=== PATIENT | male | born 1940 | race Caucasian/White ===

== ENCOUNTER 2017-02-12 18:37 | Inpatient (IN) ==
[2017-02-12] MEDS ORDERED: ALBUTEROL/IPRATROPIUM 2.5mg-0.5mg/3ml NEB AEROSOL ONE (19:01)
--- NOTE | 2017-02-12 19:06 | Emergency Department Report ---
General Adult HPI - General Chief complaint: Nausea/Vomiting/Diarrhea Stated complaint: coughing and vomiting Time Seen by Provider: 02/12/17 18:52 Source: patient, family Limitations: no limitations - History of Present Illness HPI narrative: Pt has had productive cough for the last 3 + weeks. Pt was here about a week ago and was diagnosed with bronchitis. Pt was sent home on inhaler and has used all of it. Pt states he is able to sleep at night and only coughs during the day. Denies fever, chills, WALLER, or SOA Onset (ago): week(s) Consistency: intermittent Relieving factors: none Exacerbating factors: none Associated symptoms: denies other symptoms - Related Data Home Medications Medication Instructions Recorded Confirmed Carvedilol [Coreg] 6.25 mg PO BID #0 09/07/10 02/12/17 Atorvastatin Calcium [Lipitor] 20 mg PO HS #0 05/18/14 02/12/17 Finasteride 5 mg PO DAILY #0 05/18/14 02/12/17 Tamsulosin HCl 0.4 mg PO HS #0 05/18/14 02/12/17 Citalopram Hydrobromide 20 mg PO DAILY #0 02/21/16 02/12/17 [Citalopram HBr] Losartan Potassium 50 mg PO DAILY #0 02/21/16 02/12/17 Omeprazole 20 mg PO DAILY #0 02/21/16 02/12/17 Guaifenesin/Dextromethorphan 1 tab PO Q12HR 01/13/17 02/12/17 [Mucinex Dm ER 1,200-60 mg Tab] Melatonin 1 mg PO HS 01/13/17 02/12/17 Mv-Min/FA/Vit K/Lycop/Lut/Zeax 1 tab PO DAILY 01/13/17 02/12/17 [Ocuvite Eye + Multi Tablet] Promethazine HCl/Codeine 5 ml PO Q4HR PRN 01/13/17 02/12/17 [Prometh-Codein 6.25-10 mg/5 ml] Warfarin [Coumadin] 3 mg PO NOON 01/13/17 02/12/17 Zolpidem [Ambien] 5 mg PO HS 01/13/17 02/12/17 Allergies Allergy/AdvReac Type Severity Reaction Status Date / Time Penicillins Allergy Unknown Verified 02/21/16 16:20 lisinopril AdvReac Unknown COUGH Verified 02/21/16 16:20 Review of Systems All systems: reviewed and negative except as stated Constitutional: Denies: fever, chills ENT: Denies: throat pain Cardiovascular: Denies: chest pain, palpitations Respiratory: Reports: cough Gastrointestinal: Denies: nausea, vomiting, diarrhea Psychiatric: Denies: anxiety, depression Endocrine: Denies: fatigue PFSH Patient Stated Medical History Cerebrovascular Accident Yes Cataracts Yes Macular Degeneration Yes Myocardial Infarction Yes Pneumonia Yes: feb 2016 Gastroesophageal Reflux Yes Disease Hx Kidney Stones Yes - Social History Smoking status: Never smoker Physical Exam - Limitations Limitations: no limitations - General General appearance: alert, in no apparent distress - Normal Exams: Eyes:: Pupils are PERRLA w/ EOMI Neck:: Full range of motion Cardiovascular:: Regular rate and rhythm, without murmur or gallop, Pulses 2+ all extremities Abdomen:: Bowel sounds positive, soft, non-tender, non-distended Musculoskeletal:: No tenderness, or deformity noted, good range of motion, all extremities Integumentary:: No rashes Neurological:: Patient is alert, and oriented Psychiatric:: Patient exhibits, appropriate attention, emotion and affect - Expanded Respiratory Exam Location: Left: rhonchi, Right: rhonchi, Lower: rhonchi Course - Consultations Consultation #1: Radha Time: 20:30 (admit inpatient tele floor) Vital Signs Temperature 97.6 F 02/12/17 18:43 Pulse Rate 104 H 02/12/17 18:43 Respiratory Rate 20 02/12/17 18:43 Blood Pressure 143/73 H 02/12/17 18:43 Pulse Oximetry 83 L 02/12/17 18:43 Temperature 97.6 F 02/12/17 18:43 Pulse Rate 104 H 02/12/17 18:43 Respiratory Rate 22 02/12/17 19:08 Blood Pressure 143/73 H 02/12/17 18:43 Pulse Oximetry 95 02/12/17 19:08 Medical Decision Making - [facility] Narrative Medical decision making narrative: PT C/O cough resulting in vomiting which has been ongoing for several weeks. Had been treated for bronchitits about a week and a half ago but symptoms remain. SOme relief with Duoneb treatment, SpO2 stable with supplemental O2. Lab show slightly elevated WBC and xray reveals bi lobar pneumonia per Dr Judge read. - Differential Diagnosis pneumonia, COPD, URI, PE - Lab Data Lab results reviewed: Yes: I reviewed the patient's lab results. Result diagrams: 02/12/17 19:17 02/12/17 19:17 Lab Results 02/12/17 02/12/17 02/12/17 Range/Units 19:17 19: 20:00 WBC 12.6 H (4.5-11.0) T/MM3 RBC 4.89 (4.50-5.90) M/MM3 Hgb 14.6 (13.5-17.5) GM/DL Hct 44.6 (41-53) % MCV 91.2 (80-100) UM3 MCH 29.9 (26-34) UUG MCHC 32.7 (31-37) GM/DL RDW Std Deviation 44.9 (36.9-50.2) FL Plt Count 145 (130-400) T/MM3 MPV 11.0 (9.4-12.4) UM3 Immature Gran % (Auto) 0.5 (0.0-0.5) % Neut % (Auto) 63.4 (33-66) % Lymph % (Auto) 24.7 (23-45) % [place] % (Auto) 7.8 (0-9.0) % Eos % (Auto) 3.1 (0-4) % Baso % (Auto) 0.5 (0-2) % Neut # 8.0 H (1.8-7.7) T/MM3 Lymph # 3.1 (1-4.8) T/MM3 [place] # 1.0 H (0-0.8) T/MM3 Eos # 0.4 (0-0.5) T/MM3 Baso # 0.1 (0-0.2) T/MM3 Abs Immat Gran (auto) 0.06 H (0.00-0.03) T/MM3 Turbidity < 20 (0-20) Sodium 139 (134-144) MEQ/L Potassium 4.8 (3.6-5) MEQ/L Chloride 98 (98-107) MEQ/L Carbon Dioxide 32 H (22-30) MEQ/L Anion Gap 9 (5-15) MEQ/L BUN 21.0 H (9-20) MG/DL Creatinine 1.2 (0.8-1.5) MG/DL GFR Calculation 59 BUN/Creatinine Ratio 18 (6-26) RATIO Glucose 121 H (75-110) MG/DL Calculated Osmolality 272 (261-280) MOSM/KG Calcium 9.5 (8.4-10.2) MG/DL Total Bilirubin 0.80 (0.20-1.30) MG/DL Icterus Index < 2 (0-7) AST 22 (17-59) U/L ALT 35 (21-72) U/L Alkaline Phosphatase 79 (38-126) U/L Total Protein 7.4 (6.3-8.2) G/DL Albumin 4.3 (3.5-5.0) G/DL Globulin 3.1 (2.4-3.6) G/DL Albumin/Globulin Ratio 1.4 (1.1-2.2) RATIO Specimen Hemolysis < 15 (0-25) Ur Collection Type Urine, clean catch Urine Color Yellow (YELLOW) Urine Clarity Clear Urine pH 5.5 (5.0-8.0) Ur Specific [place] 1.020 (1.015-1.025) Urine Protein Negative (NEGATIVE) Urine Glucose (UA) Negative (NEGATIVE) Urine Ketones Negative (NEGATIVE) Urine Occult Blood Trace-intact (NEGATIVE) Urine Nitrate Negative (NEGATIVE) Urine Bilirubin Negative (NEGATIVE) Urine Urobilinogen 0.2 (NORMAL) EU/DL Ur Leukocyte Esterase Negative (NEGATIVE) - Radiology Data Radiology results reviewed: Yes: I reviewed the patient's radiology results. per Dr Judge read Disposition Clinical Impression: Pneumonia Qualifiers: Pneumonia type: due to unspecified organism Laterality: bilateral Lung location : lower lobe of lung Qualified Code(s): J18.9 - Pneumonia, unspecified organism Disposition: 02 To [facility] Acute Care Condition: Stable Prescriptions: No Action Carvedilol [Coreg] 6.25 mg PO BID #0 Citalopram Hydrobromide [Citalopram HBr] 20 mg PO DAILY #0 Mv-Min/FA/Vit K/Lycop/Lut/Zeax [Ocuvite Eye + Multi Tablet] 1 tab PO DAILY Guaifenesin/Dextromethorphan [Mucinex Dm ER 1,200-60 mg Tab] 1 tab PO Q12HR Warfarin [Coumadin] 3 mg PO NOON Promethazine HCl/Codeine [Prometh-Codein 6.25-10 mg/5 ml] 5 ml PO Q4HR PRN PRN Reason: Cough Finasteride 5 mg PO DAILY #0 Atorvastatin Calcium [Lipitor] 20 mg PO HS #0 Tamsulosin HCl 0.4 mg PO HS #0 Losartan Potassium 50 mg PO DAILY #0 Omeprazole 20 mg PO DAILY #0 Melatonin 1 mg PO HS Zolpidem [Ambien] 5 mg PO HS Referrals: Sylvain Ramírez MD [Family Provider] - Time of Disposition: 20:43 - Seen By: lizzy
[2017-02-12] MEDS ORDERED: ONDANSETRON 4 MG/2 ML INJECTION IV ONE (19:56)
[2017-02-12] MEDS ORDERED: NS 1,000 ML IV SCH (20:00)
[2017-02-12] MEDS ORDERED: CEFTRIAXONE (ER USE ONLY) 1 GM in NS 100 ML IV ONE (20:46)
--- OUTSIDE RECORDS SUMMARY | 2017-02-12 20:46 | External Medical Summary | Referral Summary ---
:1940 Author Organization [facility] Address [address] [place] [address] Care Team Providers Name Role Phone Wil Jerry Primary Care Physician Encounter [facility] [id number] Date(s): 11/24/14 - 11/24/14 [facility] [address] [place] [address]- [place] Discharge Diagnosis: Automatic implantable cardiac defibrillator in situ Discharge Diagnosis: Coronary artery disease Discharge Diagnosis: Ischemic cardiomyopathy Discharge Disposition: 01-Home or Self Care Attending Physician: Kevin Madrid MD Admitting Physician: Kevin Madrid MD Vital Signs Most recent to oldest [Reference Range]: 1 Peripheral Pulse Rate [60-100 bpm] 68 bpm (11/24/14 2:58 PM) Blood Pressure [90-140/60-90 mmHg] 132/84 mmHg (11/24/14 2:58 PM) Problem List Condition Effective Dates Status Health Status Informant Age-related macular Active degeneration(Confirmed) 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 Right Active Prostate Lobe(Confirmed) Cataracts(Confirmed) Active CVA (cerebral infarction)(Confirmed) Active Stroke(Confirmed) Active Coronary arteriosclerosis Active (disorder)(Confirmed) Coronary artery disease(Confirmed) Active Cor athrscl - unsp vessel(Confirmed) Active S/P ICD(Confirmed) Active Left Anterior Descending Infarction - Active angioplasty(Confirmed) PT IS CIRCUMCISED(Confirmed) Active Dyslipidemia(Confirmed) Active Ischemic cardiomyopathy - ejection Active fraction of 28-45%(Confirmed) Ischemic cardiomyopathy(Confirmed) Active Heart failure(Confirmed) Active High cholesterol(Confirmed) Active Hypertension(Confirmed) Active Irregular heart rhythm(Confirmed) Active Irritable bowel syndrome Active (IBS)(Confirmed) Kidney disease(Confirmed) Active Kidney stones(Confirmed) Active Anxious depression(Confirmed) Active TIA (transient ischemic Active attack)(Confirmed) Chicken pox(Confirmed) Active Allergies, Adverse Reactions, Alerts Substance Reaction Severity Status lisinopril COUGH Active Medications Ambien 5 mg oral tablet 5 mg 1 tabs, Oral, Bedtime (once a day), as needed for sleep, 0 Refill(s) Start Date: 12/08/14 Status: OrderedBentyl 10 mg oral capsule 10 mg 1 caps, Oral, QID, # 56 caps, 1 Refill(s), Pharmacy: [id number], 1 caps Oral QID,x14 days Start Date: 02/17/15 Stop Date: 03/17/15 Status: OrderedCeleXA 20 mg oral tablet See Instructions, 1 tabs Oral Daily, # 30 tabs, 5 Refill(s), Pharmacy: [id number], 1 tabs Oral Daily Start Date: 02/28/15 Status: OrderedCoreg 6.25 mg oral tablet See Instructions, TAKE 1 TABLET TWICE DAILY, # 180 tabs, 3 Refill(s), eRx: [facility], TAKE 1 TABLET TWICE DAILY Start Date: 12/26/14 Status: OrderedCozaar 100 mg oral tablet See Instructions, TAKE 1 TABLET EVERY DAY, # 90 tabs, 3 Refill(s), eRx: [facility], TAKE 1 TABLET EVERY DAY Start Date: 09/12/14 Status: Orderedfinasteride 5 mg oral tablet See Instructions, TAKE 1 TABLET EVERY DAY, # 90 tabs, 1 Refill(s), eRx: [facility], TAKE 1 TABLET EVERY DAY Start Date: 03/13/15 Status: OrderedLipitor 20 mg oral tablet See Instructions, TAKE 1 TABLET EVERY EVENING, # 90 tabs, 3 Refill(s), eRx: [facility], TAKE 1 TABLET EVERY EVENING Start Date: 08/11/14 Status: OrderedOcuvite tabs, Oral, Daily, 0 Refill(s) Start Date: 02/17/15 Status: Orderedomeprazole 20 mg oral delayed release capsule See Instructions, TAKE 1 CAPSULE TWICE DAILY, # 180 caps, eRx: [facility], TAKE 1CAPSULE TWICE DAILY Start Date: 04/10/15 Status: Orderedtamsulosin 0.4 mg oral capsule See Instructions, TAKE 1 CAPSULE AT BEDTIME, # 90 caps, 3 Refill(s), eRx: [facility], TAKE 1 CAPSULE AT BEDTIME Start Date: 09/05/14 Status: Orderedwarfarin 2 mg oral tablet 2 mg 1 tabs, Oral, 3x/Wk, on mon, wed and fri/PT. IS LATE GETTING INR. NEEDS TO GET INR DONE., # 30 tabs, 0 Refill(s), Pharmacy: [facility], 1 tabs Oral 3x/Wk,Instr:on mon, wed and fri/PT. IS LATE GETTING INR. NEEDS TO GET INR DONE. Start Date: 04/13/15 Status: Orderedwarfarin 4 mg oral tablet 4 mg 1 tabs, Oral, 4x/Wk, Tues/Thurs/Sat/Sun. 04-13-2015 PT. IS LATE DOING INR AND NEEDS TO CALL DR. NAVA., # 30 tabs, 0 Refill(s), Pharmacy: [facility], 1 tabs Oral 4x/Wk,Instr:Tu/Thurs/Sat/Sun. 04-13-2015 PT. IS LATE DOING INR AND... Start Date: 04/13/15 Status: Ordered Results No data available for this section Immunizations No data available for this section Procedures Procedure Date Related Diagnosis Body Site Colonoscopy1 05/19/14 Esophagogastroduodenoscopy and biopsy2 05/19/14 Implantable Defibrillator 07/17/11 Pacemaker 07/17/11 Cataract right 03/12/11 Cataract Left 02/19/11 cysto, p- bx 09/10/10 Cardiac pacemaker H/O total knee replacement Hernia History of repair of inguinal hernia 1Diverticula. Will not need to repeat unless symptoms warrant.2Negative for CLOtest a N negative for [place]'s. The patient continues with abdominal pain we'll obtain a gallbladder sono. Social History Social History Type Response Smoking Status Never smoker Assessment and Plan Extracted from: Title: Office Visit Note Author: Kevin Madrid MD Date: 11/24/14 Assessment/Plan Automatic implantable cardiac defibrillator in situ Ordered: Icd Device Progr Eval Dual 81384 Office Visit Level 3 Est 28586 Return to Clinic Coronary artery disease Ischemic cardiomyopathy Ordered: Icd Device Progr Eval Dual 15557 Office Visit Level 3 Est 05132 Return to Clinic Referrals to Other Providers Referred by: Kevin Madrid MD
--- OUTSIDE RECORDS SUMMARY | 2017-02-12 20:46 | External Medical Summary | Referral Summary ---
:1940 Author Organization [facility] Address [address] [place] [address] Care Team Providers Name Role Phone Wil Jerry Primary Care Physician Encounter [facility] Date(s): 02/13/15 - 02/13/15 [facility] [address] [place] [address]- [place] Discharge Disposition: 01-Home or Self Care Attending Physician: Kevin Madrid MD Admitting Physician: Kevin Madrid MD Referring Physician: Wil Jerry MD Vital Signs No data available for this section Problem List Condition Effective Dates Status Health [...] sleep, 0 Refill(s) Start Date: 12/08/14 Status: OrderedCeleXA 20 mg oral tablet See Instructions, 1 tabs Oral Daily, # 30 tabs, 5 Refill(s), Pharmacy: [facility], 1 tabs Oral Daily Start Date: 08/25/15 Status: OrderedCoreg 6.25 mg oral tablet See Instructions, TAKE 1 TABLET TWICE DAILY, # 180 tabs, 3 Refill(s), eRx: [facility], TAKE 1 TABLET TWICE DAILY Start Date: 12/26/14 Status: Orderedfinasteride 5 mg oral tablet See Instructions, TAKE 1 TABLET EVERY DAY, # 90 tabs, 1 Refill(s), eRx: [facility], TAKE 1 TABLET EVERY DAY Start Date: 03/13/15 Status: OrderedLipitor 20 mg oral tablet 20 mg 1 tabs, Oral, Daily, # 90 tabs, 0 Refill(s), Pharmacy: [facility], 1 tabs Oral Daily Start Date: 08/23/15 Status: Orderedlosartan 50 mg oral tablet 50 mg 1 tabs, Oral, Daily, # 90 tabs, 1 Refill(s), Pharmacy: [facility], 1 tabs Oral Daily Start Date: 06/23/15 Status: OrderedOcuvite 1 tabs, Oral, Daily, 0 Refill(s) Start Date: 02/17/15 Status: Orderedomeprazole 20 mg oral delayed release capsule See Instructions, TAKE 1 CAPSULE TWICE DAILY, # 180 caps, eRx: [facility], TAKE 1CAPSULE TWICE DAILY Start Date: 07/13/15 Status: Orderedomeprazole 20 mg oral delayed release capsule See Instructions, TAKE 1 CAPSULE TWICE DAILY, # 180 caps, eRx: [facility], TAKE 1CAPSULE TWICE DAILY Start Date: 04/10/15 Status: Orderedtamsulosin 0.4 mg oral capsule See Instructions, TAKE 1 CAPSULE AT BEDTIME, # 90 caps, 3 Refill(s), eRx: [facility], TAKE 1 CAPSULE AT BEDTIME Start Date: 09/05/14 Status: Orderedwarfarin 2 mg oral tablet See Instructions, 1 tabs Oral 3x/Wk,Instr:on mon, wed and fri/PT. IS LATE GETTING INR. NEEDS TO GET INR DONE., # 30 tabs, 0 Refill(s), Pharmacy: [facility], 1 tabs Oral 3x/Wk,Instr:on mon, wed and fri/PT. IS LATE GETTING INR. NEEDS TO GET... Start Date: 08/22/15 Status: Orderedwarfarin 2 mg oral tablet 2 mg 1 tabs, Oral, 3x/Wk, on mon, wed and fri. OR DIRECTED BY DR. NAVA., # 90 Each, 0 Refill(s), Pharmacy: [facility], 1 tabs Oral 3x/Wk,Instr: on mon, wed and fri. OR DIRECTED BY OFFICE. Start Date: 06/05/15 Status: Orderedwarfarin 4 mg oral tablet See Instructions, 1 tabs Oral 4x/Wk,Instr:Tues/Thurs/Sat/Sun. 04-13-2015 PT. IS LATE DOING INR AND NEEDS TO CALL DR. NAVA., # 30 tabs, 0 Refill(s), Pharmacy: [facility], 1 tabs Oral 4x/Wk,Instr:Tues/Thurs/Sat/Sun. PT. IS LAT... Start Date: 08/22/15 Status: Orderedwarfarin 4 mg oral tablet 4 mg 1 tabs, Oral, 4x/Wk, Tues/Thurs/Sat/Sun. OR DIRECTED BY DR. NAVA., # 90 Each, 0 Refill(s),Pharmacy: [facility], 1 tabs Oral 4x/Wk,Instr: Tues/Thurs/Sat/Sun. OR DIRECTED BY DR. NAVA. Start Date: 06/05/15 Status: Ordered Results No data available for this section Immunizations Vaccine Date Refusal Reason influenza virus vaccine, inactivated 04/14/15 Procedures Procedure Date Related Diagnosis Body Site [...] Smoking Status Never smoker Assessment and Plan No data available for this section
--- OUTSIDE RECORDS SUMMARY | 2017-02-12 20:46 | External Medical Summary | Referral Summary ---
:1940 Author Organization [facility] Address [address] [place] [address] [place] [address] Care Team Providers Name Role Phone Wil Jerry Primary Care Physician Encounter [facility] Date(s): 06/23/15 - 06/23/15 [facility] [place] [address]- [place] Discharge Disposition: 01-Home or Self Care Attending Physician: Wil Jerry MD Admitting Physician: Wil Jerry MD Vital Signs Most recent to oldest [Reference Range]: 1 Temperature Tympanic [36.6-38.1 degC] 36.5 degC *LOW* (06/23/15 9:10 AM) Peripheral Pulse Rate [60-100 bpm] 90 bpm (06/23/15 9:10 AM) Respiratory Rate [14-20 br/min] 18 br/min (06/23/15 9:10 AM) Blood Pressure [90-140/60-90 mmHg] 110/80 mmHg (06/23/15 9:10 AM) SpO2 89 % (06/23/15 9:10 AM) Problem List Condition Effective Dates Status Health [...] Daily, # 30 tabs, 5 Refill(s), Pharmacy: [facility], 1 tabs Oral Daily Start Date: 02/28/15 Status: OrderedCoreg 6.25 mg oral tablet See Instructions, TAKE 1 TABLET TWICE DAILY, # 180 tabs, 3 Refill(s), eRx: [facility], TAKE 1 TABLET TWICE DAILY Start Date: 12/26/14 Status: OrderedCozaar 100 mg oral tablet See Instructions, TAKE 1 TABLET EVERY DAY, # 90 tabs, 3 Refill(s), eRx: [facility], TAKE 1 TABLET EVERY DAY Start Date: 09/12/14 Status: Orderedfinasteride 5 mg oral tablet See Instructions, TAKE 1 TABLET EVERY DAY, # 90 tabs, 1 Refill(s), eRx: [facility], TAKE 1 TABLET EVERY DAY Start Date: 03/13/15 Status: OrderedLipitor 20 mg oral tablet See Instructions, TAKE 1 TABLET EVERY EVENING, # 90 tabs, 3 Refill(s), eRx: [facility], TAKE 1 TABLET EVERY EVENING Start Date: 08/11/14 Status: Orderedlosartan 50 mg oral tablet 50 mg 1 tabs, Oral, Daily, # 90 tabs, 1 Refill(s), Pharmacy: [facility], 1 tabs Oral Daily Start Date: 06/23/15 Status: OrderedOcuvite 1 tabs, Oral, Daily, 0 Refill(s) Start Date: 02/17/15 Status: Orderedomeprazole 20 mg oral delayed release capsule See Instructions, TAKE 1 CAPSULE TWICE DAILY, # 180 caps, eRx: [facility], TAKE 1CAPSULE TWICE DAILY Start Date: 04/10/15 Status: Orderedtamsulosin 0.4 mg oral capsule See Instructions, TAKE 1 CAPSULE AT BEDTIME, # 90 caps, 3 Refill(s), eRx: [facility], TAKE 1 CAPSULE AT BEDTIME Start Date: 09/05/14 Status: Orderedwarfarin 2 mg oral tablet 2 mg 1 tabs, Oral, 3x/Wk, on mon, fri and fri. OR DIRECTED BY DR. NAVA., # 90 Each, 0 Refill(s), Pharmacy: [facility], 1 tabs Oral 3x/Wk,Instr: on fri, fri and fri. OR DIRECTED BY DR. NAVA. Start Date: 06/05/15 Status: Orderedwarfarin 4 mg oral tablet 4 mg 1 tabs, Oral, 4x/Wk, Tues/Thurs/Sat/Sun. OR DIRECTED BY DR. NAVA., # 90 Each, 0 Refill(s),Pharmacy: [facility], 1 tabs Oral 4x/Wk,Instr: Tues/Thurs/Sat/Sun. OR DIRECTED BY DR. NAVA. Start Date: 06/05/15 Status: Ordered Results Hematology Most recent to oldest [Reference Range]: 1 WBC [4.8-10.8 10*3/uL] 10.9 10*3/uL *HI* (06/23/15 10:30 AM) RBC [4.60-6.20] 4.93 (06/23/15 10:30 AM) Hgb [14.0-18.0 gm/dL] 14.6 gm/dL (06/23/15 10:30 AM) Hct [42.0-52.0 %] 43.9 % (06/23/15 10:30 AM) MCV [82.0-99.0 fL] 89.0 fL (06/23/15 10:30 AM) MCH [27.0-32.0 pg] 29.6 pg (06/23/15 10:30 AM) MCHC [32.0-36.0 gm/dL] 33.3 gm/dL (06/23/15 10:30 AM) RDW [11.5-14.5 %] 14.1 % (06/23/15 10:30 AM) Platelet [150-400 10*3/uL] 173 10*3/uL (06/23/15 10:30 AM) MPV [8.8-14.8 fL] 11.9 fL (06/23/15 10:30 AM) Immature Granulocytes [0.0-1.0 %] 0.6 % (06/23/15 10:30 AM) Neutrophils [51-75 %] 56 % (06/23/15 10:30 AM) Lymphocytes [20-46 %] 31 % (06/23/15 10:30 AM) Monocytes [4-11 %] 8 % (06/23/15 10:30 AM) Eosinophils [0-4 %] 4 % (06/23/15 10:30 AM) Basophils [0-2 %] 1 % (06/23/15 10:30 AM) Neutro Absolute [1.90-7.00 10*3] 6.14 10*3 (06/23/15 10:30 AM) Lymph Absolute [0.80-3.30 10*3] 3.33 10*3 *HI* (06/23/15 10:30 AM) [place] Absolute [0.30-1.00 10*3] 0.89 10*3 (06/23/15 10:30 AM) Eos Absolute [0.00-0.50 10*3] 0.39 10*3 (06/23/15 10:30 AM) Baso Absolute [0.00-0.20 10*3] 0.06 10*3 (06/23/15 10:30 AM) Chemistry Most recent to oldest [Reference Range]: 1 Sodium Lvl [135-144 mEq/L] 140 mEq/L (06/23/15 10:30 AM) Potassium Lvl [3.5-5.2 mEq/L] 4.2 mEq/L (06/23/15 10:30 AM) Chloride [99-111 mEq/L] 101 mEq/L (06/23/15 10:30 AM) CO2 [23-31 mEq/L] 30 mEq/L (06/23/15 10:30 AM) AGAP [3-20] 9 (06/23/15 10:30 AM) BUN [8-26 mg/dL] 18 mg/dL (06/23/15 10:30 AM) Glucose Lvl [70-99 mg/dL] 114 mg/dL *HI* (06/23/15 10:30 AM) Creatinine Lvl [0.72-1.25 mg/dL] 1.11 mg/dL (06/23/15 10:30 AM) eGFR [>60 mL/min] >60 mL/min 1 (06/23/15 10:30 AM) Calcium Lvl [8.9-10.5 mg/dL] 9.1 mg/dL (06/23/15 10:30 AM) 1Result Comment: Multiply eGFR results by 1.21 for race. Immunizations Vaccine Date Refusal Reason influenza virus [...]
--- OUTSIDE RECORDS SUMMARY | 2017-02-12 20:46 | External Medical Summary | Referral Summary ---
:1940 Author Organization [facility] Address [address] [place] [address] [place] [phone] Care Team Providers Name Role Phone Wil Jerry Primary Care Physician Encounter VC Date(s): 06/18/16 - 06/18/16 [facility] [address] [place] [phone] Discharge Disposition: 01-Home or Self Care Attending Physician: Wil Jerry MD Admitting Physician: Wil Jerry MD Vital Signs Most recent to oldest [Reference Range]: 1 Peripheral Pulse Rate [60-100 bpm] 80 bpm (06/18/16 2:40 PM) Blood Pressure [90-140/60-90 mmHg] 106/64 mmHg (06/18/16 2:40 PM) SpO2 95 % (06/18/16 2:40 PM) Problem List Condition Effective Dates Status Health Status Informant Acute bilateral low back pain without Active sciatica(Confirmed) Age-related macular Active degeneration(Confirmed) Anxious depression(Confirmed) Active 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) Coronary arteriosclerosis Active (disorder)(Confirmed) Coronary artery disease(Confirmed) [...] (IBS)(Confirmed) Kidney disease(Confirmed) Active Kidney stones(Confirmed) Active Hernia, hiatal(Confirmed) Active TIA (transient ischemic Active attack)(Confirmed) Diffuse idiopathic pulmonary Active fibrosis(Confirmed) Chicken pox(Confirmed) Active Allergies, Adverse Reactions, Alerts Substance Reaction Severity Status lisinopril COUGH Active Medications Ambien 5 mg oral tablet 5 mg 1 tabs, Oral, Bedtime (once a day), as needed for sleep, 0 Refill(s) Start Date: 12/08/14 Status: Orderedatorvastatin 20 mg oral tablet See Instructions, TAKE 1 TABLET EVERY DAY (NEED MD APPOINTMENT), # 90 tabs, eRx : [facility] Start Date: 06/05/16 Status: Orderedcitalopram 20 mg oral tablet See Instructions, TAKE 1 TABLET EVERY DAY (NEED MD APPOINTMENT), # 90 tabs, eRx : [facility] Start Date: 06/05/16 Status: OrderedCoreg 6.25 mg oral tablet See Instructions, TAKE 1 TABLET TWICE DAILY, # 180 tabs, 3 Refill(s), Pharmacy: [facility], TAKE 1 TABLET TWICE DAILY Start Date: 01/02/16 Status: Orderedfinasteride 5 mg oral tablet See Instructions, TAKE 1 TABLET EVERY DAY, # 90 tabs, 1 Refill(s), eRx: [facility] Start Date: 06/13/16 Status: Orderedlosartan 50 mg oral tablet 50 mg 1 tabs, Oral, Daily, keep Julius. appt for additional refills, # 30 tabs, 0 Refill(s), Pharmacy: [id number], 1 tabs Oral Daily,Instr:keep Julius. appt for additional refills Start Date: 06/17/16 Status: OrderedMelatonin Bedtime (once a day), 0 Refill(s) Start Date: 01/01/16 Status: OrderedMucinex DM tabs, Oral, q12hr, 0 Refill(s) Start Date: 01/01/16 Status: OrderedNorco 5 mg-325 mg oral tablet 1 tabs, Oral, TID, as needed for pain, # 90 tabs, 0 Refill(s) Start Date: 05/14/16 Status: OrderedOcuvite 1 tabs, Oral, Daily, 0 Refill(s) Start Date: 02/17/15 Status: Orderedomeprazole 20 mg oral delayed release capsule See Instructions, TAKE 1 CAPSULE TWICE DAILY, # 180 caps, eRx: [facility], TAKE 1CAPSULE TWICE DAILY Start Date: 04/15/16 Status: OrderedpredniSONE 10 mg oral tablet See Instructions, 2 tabs Oral Daily x7 days, then 1 tab oral daily indefinitely. , # 60 tabs, 1 Refill(s), Pharmacy: [id number], 2 tabs Oral Daily x7 days, then 1 tab oral daily indefinitely. Start Date: 04/16/16 Status: OrderedProAir RespiClick 90 mcg/inh inhalation powder 1 puffs, Inhalation, q4hr, as needed, # 1 Each, 0 Refill(s) Start Date: 04/01/16 Status: OrderedPromethazine with Codeine 6.25 mg-10 mg/5 mL oral syrup 5 mL, Oral, q4hr, as needed for cough, [facility], # 120 mL, 0 Refill(s) Start Date: 02/13/16 Status: Orderedtamsulosin 0.4 mg oral capsule See Instructions, TAKE 1 CAPSULE AT BEDTIME, # 90 caps, 3 Refill(s), eRx: [facility], TAKE 1 CAPSULE AT BEDTIME Start Date: 09/01/15 Status: OrderedtraMADol 50 mg oral tablet 50 mg 1 tabs, Oral, q4hr, Take 1-2 tabs every 4 hours and no more than 8 per day , # 60 tabs, 0 Refill(s) Start Date: 05/14/16 Status: Orderedwarfarin 2 mg oral tablet See Instructions, Take 1 tab on Sun/Tue/Thur/Sat alt. with 4mg tabs on other days, # 48 tabs, 3 Refill(s), Pharmacy: [facility], Take 1 tab on Sun/Tue/Thur/Sat alt. with 4mg tabs on other days Start Date: 01/02/16 Status: Orderedwarfarin 4 mg oral tablet See Instructions, Take 1 tab on Mon-Wed- Fri, alt. with 2mg tabs on other days, # 36 tabs, 3 Refill(s), Pharmacy: [facility], Take 1 tab on Fri-Fri- Fri, alt. with 2mg tabs on other days Start Date: 01/02/16 Status: Ordered Results Hematology Most recent to oldest [Reference Range]: 1 WBC [4.8-10.8 10*3/uL] 8.2 10*3/uL (06/18/16 3:21 PM) RBC [4.60-6.20] 4.42 *LOW* (06/18/16 3:21 PM) Hgb [14.0-18.0 gm/dL] 13.2 gm/dL *LOW* (06/18/16 3:21 PM) Hct [42.0-52.0 %] 41.5 % *LOW* (06/18/16 3:21 PM) MCV [82.0-99.0 fL] 93.9 fL (06/18/16 3:21 PM) MCH [27.0-32.0 pg] 29.9 pg (06/18/16 3:21 PM) MCHC [32.0-36.0 gm/dL] 31.8 gm/dL *LOW* (06/18/16 3:21 PM) RDW [11.5-14.5 %] 13.7 % (06/18/16 3:21 PM) Platelet [150-400 10*3/uL] 126 10*3/uL *LOW* (06/18/16 3:21 PM) MPV [8.8-14.8 fL] 11.6 fL (06/18/16 3:21 PM) Immature Granulocytes [0.0-1.0 %] 0.4 % (06/18/16 3:21 PM) Neutrophils [51-75 %] 55 % (06/18/16 3:21 PM) Lymphocytes [20-46 %] 25 % (06/18/16 3:21 PM) Monocytes [4-11 %] 14 % *HI* (06/18/16 3:21 PM) Eosinophils [0-4 %] 6 % *HI* (06/18/16 3:21 PM) Basophils [0-2 %] 1 % (06/18/16 3:21 PM) Neutro Absolute [1.90-7.00] 4.51 (06/18/16 3:21 PM) Lymph Absolute [0.80-3.30] 2.08 (06/18/16 3:21 PM) Rincon Absolute [0.30-1.00] 1.11 *HI* (06/18/16 3:21 PM) Eos Absolute [0.00-0.50] 0.45 (06/18/16 3:21 PM) Baso Absolute [0.00-0.20] 0.06 (06/18/16 3:21 PM) Immunizations Given and Recorded Vaccine Date Status Refusal Reason influenza virus vaccine, inactivated 04/01/16 Given influenza virus vaccine, inactivated 04/14/15 Given Procedures Procedure Date Related Diagnosis Body Site [...] Extracted from: Title: Office Visit Note Author: Wil Jerry MD Date: 06/18/16 Assessment/Plan Acute bronchitis Ordered: CBC w/ Differential Office Visit Level 3 Est 90331 XR Chest 2 Views
--- OUTSIDE RECORDS SUMMARY | 2017-02-12 20:47 | External Medical Summary | Referral Summary ---
:1940 Author [facility] Address [address] [place] [address] [place] [address] Care Team Providers Name Role Phone Wil Jerry Primary Care Physician Encounter VC Date(s): 04/14/15 - 04/14/15 [facility] [address] [place] [phone] [place] Discharge Disposition: 01-Home or Self Care Attending Physician: Rama Kuo PA-C Admitting Physician: Rama Kuo PA-C Vital Signs No data available for this [...] QID, # 56 caps, 1 Refill(s), Pharmacy: [id number], 1 caps Oral QID,x14 days Start Date: 02/17/15 Stop Date: 03/17/15 Status: OrderedCeleXA 20 mg oral tablet See Instructions, 1 tabs Oral Daily, # 30 tabs, 5 Refill(s), Pharmacy: [facility], 1 tabs Oral Daily Start Date: 02/28/15 Status: OrderedCoreg 6.25 mg oral tablet See Instructions, TAKE 1 TABLET TWICE DAILY, # 180 tabs, 3 Refill(s), eRx: [facility], TAKE 1 TABLET TWICE DAILY Start Date: 12/26/14 Status: OrderedCozaar 100 mg oral tablet See Instructions, TAKE 1 TABLET EVERY DAY, # 90 tabs, 3 Refill(s), eRx: [facility], TAKE 1 TABLET EVERY DAY Start Date: 09/12/14 Status: Orderedfinasteride 5 mg oral tablet See Instructions, TAKE 1 TABLET EVERY DAY, # 90 tabs, 1 Refill(s), eRx: [facility], TAKE 1 TABLET EVERY [...] CAPSULE TWICE DAILY, # 180 caps, eRx: [facility], TAKE 1CAPSULE TWICE DAILY [...] DONE., # 30 tabs, 0 Refill(s), Pharmacy: [facility], 1 tabs Oral 3x/Wk,Instr:on mon, wed and fri/PT. IS LATE GETTING INR. NEEDS TO GET INR DONE. Start Date: 04/13/15 Status: Orderedwarfarin 4 mg oral tablet 4 mg 1 tabs, Oral, 4x/Wk, //Sat/Sun. 04-13-2015 PT. IS LATE DOING INR AND NEEDS TO CALL DR. NAVA., # 30 tabs, 0 Refill(s), Pharmacy: [facility], 1 tabs Oral 4x/Wk,Instr://Sat/Sun. 04-13-2015 PT. IS LATE DOING INR AND... [...]
--- OUTSIDE RECORDS SUMMARY | 2017-02-12 20:47 | External Medical Summary | Referral Summary ---
:1940 Author [facility] Address [address] [place] [address] [place] [phone] Care Team Providers Name Role Phone Wil Jerry Primary Care Physician Encounter VC Date(s): 02/29/16 - 02/29/16 [facility] [address] [place] [phone] [place] Discharge Diagnosis: Acute bilateral low back pain without sciatica Discharge Disposition: 01-Home or Self Care Attending Physician: Wil Jerry MD Admitting Physician: Wil Jerry MD Vital Signs Most recent to oldest [Reference Range]: 1 Peripheral Pulse Rate [60-100 bpm] 86 bpm (02/29/16 1:11 PM) Blood Pressure [90-140/60-90 mmHg] 124/76 mmHg (02/29/16 1:11 PM) SpO2 90 % (02/29/16 1:11 PM) Problem List Condition Effective Dates Status Health Status Informant Acute bilateral low back pain without Active sciatica(Confirmed) Age-related macular Active degeneration(Confirmed) Automatic implantable cardiac [...] TABLET EVERY DAY (NEED MD APPOINTMENT), # 30 tabs, 0 Refill(s), Pharmacy: [facility], TAKE 1 TABLET EVERY DAY (NEED MD APPOINTMENT) Start Date: 02/27/16 Status: Orderedcitalopram 20 mg oral tablet See Instructions, TAKE 1 TABLET EVERY DAY (NEED MD APPOINTMENT), # 30 tabs, 0 Refill(s), Pharmacy: [facility], TAKE 1 TABLET EVERY DAY (NEED MD APPOINTMENT) Start Date: 02/27/16 Status: OrderedCoreg 6.25 mg oral tablet See Instructions, TAKE 1 TABLET TWICE DAILY, # 180 tabs, 3 Refill(s), Pharmacy: [facility], TAKE 1 TABLET TWICE DAILY Start Date: 01/02/16 Status: Orderedfinasteride 5 mg oral tablet See Instructions, TAKE 1 TABLET EVERY DAY, # 90 tabs, eRx: [facility], TAKE 1 TABLET EVERY DAY Start Date: 12/12/15 Status: Orderedlosartan 50 mg oral tablet 50 mg 1 tabs, Oral, Daily, keep December appt for additional refills, # 90 tabs, 0 Refill(s), Pharmacy: [facility], 1 tabs Oral Daily,Instr: keep December appt for additional refills Start Date: 12/07/15 Status: OrderedMelatonin Bedtime (once a day), 0 Refill(s) Start Date: 01/01/16 Status: OrderedMucinex DM tabs, Oral, q12hr, 0 Refill(s) Start Date: 01/01/16 Status: OrderedOcuvite 1 tabs, Oral, Daily, 0 Refill(s) Start Date: 02/17/15 Status: Orderedomeprazole 20 mg oral delayed release capsule See Instructions, TAKE 1 CAPSULE TWICE DAILY, # 180 caps, eRx: [facility], TAKE 1CAPSULE TWICE DAILY Start Date: 01/10/16 Status: OrderedPromethazine with Codeine 6.25 mg-10 mg/5 mL oral syrup 5 mL, Oral, q4hr, as needed for cough, ANH, # 120 mL, 0 Refill(s) Start Date: 02/13/16 Status: OrderedRobaxin-750 oral tablet 1,500 mg 2 tabs, Oral, BID, # 60 tabs, 1 Refill(s), Pharmacy: [id number], 2 tabs Oral BID Start Date: 02/29/16 Stop Date: 03/13/16 Status: Orderedtamsulosin 0.4 mg oral capsule See Instructions, TAKE 1 CAPSULE AT BEDTIME, # 90 caps, 3 Refill(s), eRx: [facility], TAKE 1 CAPSULE AT BEDTIME Start Date: 09/01/15 Status: Orderedwarfarin 2 mg oral tablet See Instructions, Take 1 tab on Sun/Tue/Thur/Sat alt. with 4mg tabs on other days, # 48 tabs, 3 Refill(s), Pharmacy: [facility], Take 1 tab on Sun/Tue/Thur/Sat alt. with 4mg tabs on other days Start Date: 01/02/16 Status: Orderedwarfarin 4 mg oral tablet See Instructions, Take 1 tab on Fri-Fri- Fri, alt. with 2mg tabs on other days, # 36 tabs, 3 Refill(s), Pharmacy: [facility], Take 1 tab on Fri-Fri- Fri, alt. with 2mg tabs on other days Start Date: 01/02/16 Status: Ordered Results No data available for [...] smoker Assessment and Plan Extracted from: Title: Ambulatory Patient Education Author: Wil Jerry MD Date: Family Medicine Back Pain, Adult Back pain is very common in adults.The cause of back pain is rarely dangerous and the pain often gets better over time.The cause of your back pain may not be known. Some common causes of back pain include: Strain of the muscles or ligaments supporting the spine. Wear and tear (degeneration) of the spinal disks. Arthritis. Direct injury to the back. For many people, back pain may return. Since back pain is rarely dangerous, most people can learn to manage this condition on their own. HOME CARE INSTRUCTIONS Watch your back pain for any changes. The following actions may help to lessen any discomfort you are feeling: Remain active. It is stressful on your back to sit or kindergarten aide one place for long periods of time. Do not sit, drive, or kindergarten aide one place for more than 30 minutes at a time. Take short walks on even surfaces as soon as you are able.Try to increase the length of time you walk each day. Exercise regularly as directed by your health care provider. Exercise helps your back heal faster. It also helps avoid future injury by keeping your muscles strong and flexible. Do not stay in bed.Resting more than 12 days can delay your recovery. Pay attention to your body when you bend and lift. The most comfortable positions are those that put less stress on your recovering back. Always use proper lifting techniques, including: Bending your knees. Keeping the load close to your body. Avoiding twisting. Find a comfortable position to sleep. Use a firm mattress and lie on your side with your knees slightly bent. If you lie on your back, put a pillow under your knees. Avoid feeling anxious or stressed.Stress increases muscle tension and can worsen back pain.It is important to recognize when you are anxious or stressed and learn ways to manage it, such as with exercise. Take medicines only as directed by your health care provider. Over-the- counter medicines to reduce pain and inflammation are often the most helpful. Your health care provider may prescribe muscl e relaxant drugs.These medicines help dull your pain so you can more quickly return to your normal activities and healthy exercise. Apply ice to the injured area: Put ice in a plastic bag. Place a towel between your skin and the bag. Leave the ice on for 20 minutes, 23 times a day for the first 23 days. After that, ice and heat may be alternated to reduce pain and spasms. Maintain a healthy weight. Excess weight puts extra stress on your back and makes it difficult to maintain good posture. SEEK MEDICAL CARE IF: You have pain that is not relieved with rest or medicine. You have increasing pain going down into the legs or buttocks. You have pain that does not improve in one week. You have night pain. You lose weight. You have a fever or chills. SEEK IMMEDIATE MEDICAL CARE IF: You develop new bowel or bladder control problems. You have unusual weakness or numbness in your arms or legs. You develop nausea or vomiting. You develop abdominal pain. You feel faint. This information is not intended to replace advice given to you by your health care provider. Make sure you discuss any questions you have with your health care provider. Document Released: 05/26/2006 Document Revised: 06/16/2015 Document Reviewed: 09/27/2014 [facility] Patient Information 2016 [facility]. Procedures Trigger Point Injection Trigger points are areas where you have muscle pain. A trigger point injection is a shot given in the trigger point to relieve that pain. A trigger point might feel like a knot in your muscle. It hurts to press on a trigger point. Sometimes the pain spreads out (radiates) to other parts of the body. For example, pressing on a trigger point in your shoulder might cause pain in your arm or neck. You maru ht have one trigger point. Or, you might have more than one. People often have trigger points in their upper back and lower back. They also occur often in the neck and shoulders. Pain from a trigger point lasts for a long time. It can make it hard to keep moving. You might not be able to do the exercise or physical therapy that could help you deal with the pain. A trigger point injection may help. It does not work for everyone. But, it may relieve your pain for a few days or a few months. A trigger point injection does not cure long-lasting (chronic) pain. LET YOUR CAREGIVER KNOW ABOUT: Any allergies (especially to latex, lidocaine, or steroids). Blood-thinning medicines that you take. These drugs can lead to bleeding or bruising after an injection. They include: Aspirin. Ibuprofen. Clopidogrel. Warfarin. Other medicines you take. This includes all vitamins, herbs, eyedrops, dtta-[id number] medicines, and creams. Use of steroids. Recent infections. Past problems with numbing medicines. Bleeding problems. Surgeries you have had. Other health problems. RISKS AND COMPLICATIONS A trigger point injection is a safe treatment. However, problems may develop, such as: Minor side effects usually go away in 1 to 2 days. These may include: Soreness. Bruising. Stiffness. More serious problems are rare. But, they may include: Bleeding under the skin (hematoma). Skin infection. Breaking off of the needle under your skin. Lung puncture. The trigger point injection may not work for you. BEFORE THE PROCEDURE You may need to stop taking any medicine that thins your blood. This is to prevent bleeding and bruising. Usually these medicines are stopped several days before the injection. No other preparation is needed. PROCEDURE A trigger point injection can be given in your caregiver's office or in a clinic. Each injection takes 2 minutes or less. Your caregiver will feel for trigger points. The caregiver may use a marker to [place] the area for the injection. The skin over the trigger point will be washed with a germ-killing ( antiseptic) solution. The caregiver pinches the spot for the injection. Then, a very thin needle is used for the shot. You may feel pain or a twitching feeling when the needle enters the trigger point. A numbing solution may be injected into the trigger point. Sometimes a drug to keep down swelling, redness, and warmth (inflammation) is also injected. Your caregiver moves the needle around the trigger zone until the tightness and twitching goes away. After the injection, your caregiver may put gentle pressure over the injection site. Then it is covered with a bandage. AFTER THE PROCEDURE You can go right home after the injection. The bandage can be taken off after a few hours. You may feel sore and stiff for 1 to 2 days. Go back to your regular activities slowly. Your caregiver may ask you to stretch your muscles. Do not do anything that takes extra energy for a few days. Follow your caregiver's instructions to manage and treat other pain. This information is not intended to replace advice given to you by your health care provider. Make sure you discuss any questions you have with your health care provider. Document Released: 05/14/2012 Document Revised: 09/20/2013 Document Reviewed: 05/14/2012 [employer] Patient Information 2016 [employer] [facility]. No follow up information was provided. Extracted from: Title: Office Visit Note Author: Wil Jerry MD Date: 02/29/16 Assessment/Plan Acute bilateral low back pain without sciatica Will continue with the Tylenol since it does seem to be helping. Also will start Robaxin 750mg bid and hot packs. Ordered: Office Visit Level 3 Est 22765
--- OUTSIDE RECORDS SUMMARY | 2017-02-12 20:47 | External Medical Summary | Referral Summary ---
:1940 Author Organization [facility] Address [address] [place] [address] TER[place] Gupta [address] Care Team Providers Name Role Phone Wil Jerry Primary Care Physician Encounter [facility] [id number] Date(s): 04/01/16 - 04/01/16 [facility] [place] [address] Discharge Diagnosis: Diffuse idiopathic pulmonary fibrosis Discharge Diagnosis: Hernia, hiatal Discharge Diagnosis: Acute bilateral low back pain without sciatica Discharge Diagnosis: Anxious depression Discharge Diagnosis: Chronic diastolic heart failure secondary to idiopathic cardiomyopathy Discharge Disposition: 01-Home or Self Care Attending Physician: Wil Jerry MD Admitting Physician: Wil Jerry MD Vital Signs Most recent to oldest [Reference Range]: 1 Blood Pressure [90-140/60-90 mmHg] 170/100 mmHg *HI* (04/01/16 2:30 PM) Problem List Condition Effective Dates Status [...] Active Kidney stones(Confirmed) Active Anxious depression(Confirmed) Active Hernia, hiatal(Confirmed) Active TIA (transient ischemic [...] APPOINTMENT), # 30 tabs, 0 Refill(s), Pharmacy: [id number], TAKE 1 TABLET EVERY DAY (NEED MD APPOINTMENT) Start Date: 02/27/16 Status: Orderedcitalopram 20 mg oral tablet See Instructions, TAKE 1 TABLET EVERY DAY (NEED MD APPOINTMENT), # 30 tabs, 0 Refill(s), Pharmacy: [facility], TAKE 1 TABLET EVERY DAY (NEED MD APPOINTMENT) Start Date: 02/27/16 Status: OrderedCoreg 6.25 mg oral tablet See Instructions, TAKE 1 TABLET TWICE DAILY, # 180 tabs, 3 Refill(s), Pharmacy: [facility], TAKE 1 TABLET TWICE DAILY Start Date: 01/02/16 Status: Orderedfinasteride 5 mg oral tablet See Instructions, TAKE 1 TABLET EVERY DAY, # 90 tabs, 0 Refill(s), Pharmacy: [facility], TAKE 1 TABLET EVERY DAY Start Date: 03/18/16 Status: Orderedlosartan 50 mg oral tablet 50 mg 1 tabs, Oral, Daily, keep December appt for additional refills, # 90 tabs, 0 Refill(s), Pharmacy: [facility], 1 tabs Oral Daily,Instr: keep December appt for additional refills Start Date: 03/18/16 Status: OrderedMelatonin Bedtime (once a day), 0 Refill(s) Start Date: 01/01/16 Status: OrderedMucinex DM tabs, Oral, q12hr, 0 Refill(s) Start Date: 01/01/16 Status: OrderedNorco 5 mg-325 mg oral tablet 1 tabs, Oral, TID, as needed for pain, # 90 tabs, 0 Refill(s) Start Date: 03/11/16 Status: OrderedOcuvite 1 tabs, Oral, Daily, 0 Refill(s) Start Date: 02/17/15 Status: Orderedomeprazole 20 mg oral delayed release capsule See Instructions, TAKE 1 CAPSULE TWICE DAILY, # 180 caps, eRx: [facility], TAKE 1CAPSULE TWICE DAILY Start Date: 01/10/16 Status: OrderedProAir RespiClick 90 mcg/inh inhalation powder 1 puffs, Inhalation, q4hr, as needed, # 1 Each, 0 Refill(s) Start Date: 04/01/16 Status: OrderedPromethazine with Codeine 6.25 mg-10 mg/5 mL oral syrup 5 mL, Oral, q4hr, as needed for cough, [facility], # 120 mL, 0 Refill(s) Start Date: 02/13/16 Status: OrderedRobaxin-750 oral tablet 1,500 mg 2 tabs, Oral, q8hr, X 30 days, # 90 tabs, 0 Refill(s), Pharmacy: [facility], 2 tabs Oral q8hr,x30 days Start Date: 03/11/16 Stop Date: 04/10/16 Status: Orderedtamsulosin 0.4 mg oral capsule See Instructions, TAKE 1 CAPSULE AT BEDTIME, # 90 caps, 3 Refill(s), eRx: [facility], TAKE 1 CAPSULE AT BEDTIME Start Date: 09/01/15 Status: OrderedtraMADol 50 mg oral tablet 50 mg 1 tabs, Oral, q4hr, Take 1-2 tabs every 4 hours and no more than 8 per day , # 60 tabs, 0 Refill(s) Start Date: 04/01/16 Status: Orderedwarfarin 2 mg oral tablet See Instructions, Take 1 tab on Sun/Tue/Thur/Sat alt. with 4mg tabs on other days, # 48 tabs, 3 Refill(s), Pharmacy: [facility], Take 1 tab on Sun/Tue/Thur/Sat alt. with 4mg tabs on other days Start Date: 01/02/16 Status: Orderedwarfarin 4 mg oral tablet See Instructions, Take 1 tab on Fri-Fri- Fri, alt. with 2mg tabs on other days, # 36 tabs, 3 Refill(s), Pharmacy: [facility], Take 1 tab on Fri-Fri- Fri, alt. with 2mg tabs on other days Start Date: 01/02/16 Status: Ordered Results No data available for this section Immunizations Vaccine Date Refusal Reason influenza virus vaccine, inactivated 04/01/16 influenza virus vaccine, inactivated 04/14/15 Procedures Procedure [...]
--- OUTSIDE RECORDS SUMMARY | 2017-02-12 20:47 | External Medical Summary | Referral Summary ---
:1940 Author Organization [facility] Address [address] [place] [address] Care Team Providers Name Role Phone Wil Jerry Primary Care Physician Encounter [facility] [id number] Date(s): 11/24/14 - 11/24/14 [facility] [address] [place] [address] [place] Discharge Diagnosis: Automatic implantable [...] QID, # 56 caps, 1 Refill(s), Pharmacy: [facility], 1 caps Oral QID,x14 days Start Date: 02/17/15 Stop Date: 03/17/15 Status: OrderedCeleXA 20 mg oral tablet See Instructions, 1 tabs Oral Daily, # 30 tabs, 5 Refill(s), Pharmacy: [facility], 1 tabs Oral Daily Start Date: 02/28/15 Status: OrderedCoreg 6.25 mg oral tablet See Instructions, TAKE 1 TABLET TWICE DAILY, # 180 tabs, 3 Refill(s), eRx: [facility], TAKE 1 TABLET TWICE DAILY Start Date: 12/26/14 Status: OrderedCozaar 100 mg oral tablet See Instructions, TAKE 1 TABLET EVERY DAY, # 90 tabs, 3 Refill(s), eRx: [facility], TAKE 1 TABLET EVERY DAY Start Date: 09/12/14 Status: Orderedfinasteride 5 mg oral tablet See Instructions, TAKE 1 TABLET EVERY DAY, # 90 tabs, 1 Refill(s), eRx: [facility], TAKE 1 TABLET EVERY [...] CAPSULE TWICE DAILY, # 180 caps, eRx: [facility], TAKE 1CAPSULE TWICE DAILY [...] DONE., # 30 tabs, 0 Refill(s), Pharmacy: [facility], 1 tabs Oral 3x/Wk,Instr:on mon, wed and fri/PT. IS LATE GETTING INR. NEEDS TO GET INR DONE. Start Date: 04/13/15 Status: Orderedwarfarin 4 mg oral tablet 4 mg 1 tabs, Oral, 4x/Wk, Tues/Thurs/Sat/Sun. 04-13-2015 PT. IS LATE DOING INR AND NEEDS TO CALL DR. NAVA., # 30 tabs, 0 Refill(s), Pharmacy: [facility], 1 tabs Oral 4x/Wk,Instr:Tu/Thurs/Sat/Sun. 04-13-2015 [...] situ Ordered: Icd Device Progr Eval Dual 21602 Office Visit Level 3 Est 05982 Return to Clinic Coronary artery disease Ischemic cardiomyopathy Ordered: Icd Device Progr Eval Dual 08262 Office Visit Level 3 Est 79158 Return to Clinic Referrals to Other Providers Referred by: Kevin Madrid MD
--- OUTSIDE RECORDS SUMMARY | 2017-02-12 20:47 | External Medical Summary | Referral Summary ---
:1940 Author Organization [facility] Address [address] [place] [address] [place] Gupta [address] Care Team Providers Name Role Phone Rosalino Wil Cristo Primary Care Physician Encounter [facility] [id number] Date(s): 07/25/15 - 07/25/15 [facility] [address] [place] [address] [place] Gu[place] [phone] [place] Discharge Diagnosis: BPH Discharge Diagnosis: BPH with obstruction/lower urinary tract symptoms Discharge Diagnosis: Coronary artery disease Discharge Diagnosis: Cerebrovascular accident Discharge Diagnosis: Hypercholesterolemia Discharge Diagnosis: Essential hypertension Discharge Disposition: 01-Home or Self Care Attending Physician: Brayden Robison JR, MD Admitting Physician: Brayden Robison JR, MD Vital Signs Most recent to oldest [Reference Range]: 1 Peripheral Pulse Rate [60-100 bpm] 92 bpm (07/25/15 1:52 PM) Blood Pressure [90-140/60-90 mmHg] 108/66 mmHg (07/25/15 1:52 PM) Problem List Condition Effective Dates Status [...] Daily, # 30 tabs, 5 Refill(s), Pharmacy: [facility], 1 tabs Oral Daily Start Date: 02/28/15 Status: OrderedCoreg 6.25 mg oral tablet See Instructions, TAKE 1 TABLET TWICE DAILY, # 180 tabs, 3 Refill(s), eRx: [facility], TAKE 1 TABLET TWICE DAILY Start Date: 12/26/14 Status: Orderedfinasteride 5 mg oral tablet See Instructions, TAKE 1 TABLET EVERY DAY, # 90 tabs, 1 Refill(s), eRx: [facility], TAKE 1 TABLET EVERY DAY Start Date: 03/13/15 Status: OrderedLipitor 20 mg oral tablet See Instructions, TAKE 1 TABLET EVERY EVENING, # 90 tabs, 3 Refill(s), eRx: [facility], TAKE 1 TABLET EVERY EVENING Start Date: 08/11/14 Status: Orderedlosartan 50 mg oral tablet 50 mg 1 tabs, Oral, Daily, # 90 tabs, 1 Refill(s), Pharmacy: [facility], 1 tabs Oral Daily Start Date: 06/23/15 Status: OrderedOcuvite 1 tabs, Oral, Daily, 0 Refill(s) Start Date: 02/17/15 Status: Orderedomeprazole 20 mg oral delayed release capsule See Instructions, TAKE 1 CAPSULE TWICE DAILY, # 180 caps, eRx: [facility], TAKE 1CAPSULE TWICE DAILY Start Date: 07/13/15 Status: Orderedomeprazole 20 mg oral delayed release capsule See Instructions, TAKE 1 CAPSULE TWICE DAILY, # 180 caps, eRx: [facility], TAKE 1CAPSULE TWICE DAILY [...] TO GET INR DONE., # 30 tabs, eRx: [facility], 1 tabs Oral 3x/Wk,Instr:on mon, wed and fri/PT. ISLATE GETTING INR. NEEDS TO GET INR DONE. Start Date: 07/13/15 Status: Orderedwarfarin 2 mg oral tablet 2 mg 1 tabs, Oral, 3x/Wk, on mon, wed and fri. OR DIRECTED BY DR. HERNANDEZ, # 90 Each, 0 Refill(s), Pharmacy: [facility], 1 tabs Oral 3x/Wk,Instr: on mon, fri and fri. OR DIRECTED BY DR. NAVA. Start Date: 06/05/15 Status: Orderedwarfarin 4 mg oral tablet 4 mg 1 tabs, Oral, 4x/Wk, Tues/Thurs/Sat/Sun. OR DIRECTED BY DR. NAVA., # 90 Each, 0 Refill(s),Pharmacy: [facility], 1 tabs Oral 4x/Wk,Instr: Tues/Thurs/Sat/Sun. OR DIRECTED BY DR. NAVA. Start Date: 06/05/15 Status: Orderedwarfarin 4 mg oral tablet See Instructions, 1 tabs Oral 4x/Wk,Instr:Tues/Thurs/Sat/Sun. 04-13-2015 PT. IS LATE DOING INR AND NEEDS TO CALL DR. NAVA., # 30 tabs, eRx: [facility], 1 tabs Oral 4x/Wk,Instr:Tues/Thurs/Sat/Sun. 04-13-2015 PT. IS LATE DOING INR AND NE... Start Date: 07/13/15 Status: Ordered Results Chemistry Most recent to oldest [Reference Range]: 1 PSA (wihout Reflex Free) [0.0-6.5 ng/mL] 0.1 ng/mL 1 (07/25/15 1:44 PM) 1Result Comment: AUA PSA Best Practice Guidelines: Age-Adjusted PSA Values by Ethnic Group Age Range Asians - Caucasians Americans 40-49 0-2.0 0-2.0 0-2.5 50-59 0-3.0 0-4.0 0-3.5 60-69 0-4.0 0-4.5 0-4.5 70-79 0-5.0 0-5.5 0-6.5 Immunizations Vaccine Date Refusal Reason influenza virus [...] Extracted from: Title: Ambulatory Patient Education Author: Brayden Robison JR, MD Date: Follow Up With: Where: When: Wil Jerry [address] [place] [address] Drive; [place] [address] [employer] (1) Within 3 to 5 days Comments: Follow Up With: Where: When: Brayden Robison [address] [place] [address] Drive; [place] [address] [employer] ([employer]) In 1 month 08/23/2015 Comments: Extracted from: Title: Office Visit Note Author: Brayden Robison JR, MD Date: 07/25/15 Assessment/Plan 1.BPH with obstruction/lower urinary tract symptoms Patient also has or urgency and urgency incontinence. Patient instructed to reduce intake of caffeine, reduce INTAKE of fluids 2 maybe6 glasses per day instead of 10 glasses per day. I would like to see him again in4 weeks,and if there is no impr ovement of the problem, will addOxybutynin 5 mg twice a morning any She also go to the bathroom to urinate before going to bed. 2.Coronary artery disease Continue Coreg 3.Essential hypertension [id number] and tabletdaily, 4.Hypercholesterolemia Continue Lipitor 20 mg tablet daily Ordered: Office Visit Level 3 Est 47582 5.Cerebrovascular accident Continue Coumadin Ordered: Office Visit Level 3 Est 61712 BPH
--- OUTSIDE RECORDS SUMMARY | 2017-02-12 20:47 | External Medical Summary | Referral Summary ---
:1940 [facility] Address [address] [place] [address] [place] Gu[place] [address] Care Team Providers Name Role Phone Wil Jerry Primary Care Physician Encounter [facility] [id number] Date(s): 12/08/14 - 12/08/14 [facility] [place] [phone] [place] Discharge Diagnosis: CVA Discharge Disposition: 01-Home or Self Care Attending Physician: Wil Jerry MD Admitting Physician: Wil Jerry MD Vital Signs Most recent to oldest [Reference Range]: 1 Blood Pressure [90-140/60-90 mmHg] 128/78 mmHg (12/08/14 4:02 PM) Problem List Condition Effective Dates Status [...] QID, # 56 caps, 1 Refill(s), Pharmacy: [facility], 1 caps Oral QID,x14 days Start Date: 02/17/15 Stop Date: 03/17/15 Status: OrderedCeleXA 20 mg oral tablet See Instructions, 1 tabs Oral Daily, # 30 tabs, 5 Refill(s), Pharmacy: [facility], 1 tabs Oral Daily Start Date: 02/28/15 Status: OrderedCoreg 6.25 mg oral tablet See Instructions, TAKE 1 TABLET TWICE DAILY, # 180 tabs, 3 Refill(s), eRx: [facility], TAKE 1 TABLET TWICE DAILY Start Date: 12/26/14 Status: OrderedCozaar 100 mg oral tablet See Instructions, TAKE 1 TABLET EVERY DAY, # 90 tabs, 3 Refill(s), eRx: [facility], TAKE 1 TABLET EVERY DAY Start Date: 09/12/14 Status: Orderedfinasteride 5 mg oral tablet See Instructions, TAKE 1 TABLET EVERY DAY, # 90 tabs, 1 Refill(s), eRx: [facility], TAKE 1 TABLET EVERY DAY Start Date: 03/13/15 Status: OrderedLipitor 20 mg oral tablet See Instructions, TAKE 1 TABLET EVERY EVENING, # 90 tabs, 3 Refill(s), eRx: [facility], TAKE 1 TABLET EVERY EVENING Start Date: 08/11/14 Status: OrderedOcuvite 1 tabs, Oral, Daily, 0 Refill(s) Start Date: 02/17/15 Status: Orderedomeprazole 20 mg oral delayed release capsule See Instructions, TAKE 1 CAPSULE TWICE DAILY, # 180 caps, eRx: [facility], TAKE 1CAPSULE TWICE DAILY Start Date: 04/10/15 Status: Orderedtamsulosin 0.4 mg oral capsule See Instructions, TAKE 1 CAPSULE AT BEDTIME, # 90 caps, 3 Refill(s), eRx: [facility], TAKE 1 CAPSULE AT BEDTIME Start Date: 09/05/14 Status: Orderedwarfarin 2 mg oral tablet 2 mg 1 tabs, Oral, 3x/Wk, on mon, fri and fri. OR DIRECTED BY DR. HERNANDEZ, # 90 Each, 0 Refill(s), Pharmacy: [facility], 1 tabs Oral 3x/Wk,Instr: on mon, fri and fri. OR DIRECTED BY DR. NAVA. Start Date: 06/05/15 Status: Orderedwarfarin 4 mg oral tablet 4 mg 1 tabs, Oral, 4x/Wk, Tues/Thurs/Sat/Sun. OR DIRECTED BY DR. HERNANDEZ, # 90 Each, 0 Refill(s),Pharmacy: [facility], 1 tabs Oral 4x/Wk,Instr: /Thurs/Sat/Sun. OR DIRECTED BY DR. NAVA. Start Date: 06/05/15 Status: Ordered Results Coagulation Most recent to oldest [Reference Range]: 1 PT Venous (12/08/14 3:38 PM) INR [0.8-1.2] 2.3 1 *HI* (12/08/14 3:38 PM) 1Result Comment: Normal (no anticoagulant): 0.8 - 1.2 Units Routine Therapeutic Range: 2.0 - 3.0 Units High Risk Therapeutic Range: 2.5 - 3.5 Units Immunizations Vaccine Date Refusal Reason influenza virus [...] Patient Education Author: Wil Jerry MD Date: 12/10/14 Family Medicine Carotid Artery Disease The carotid arteries are the two main arteries on either sides of the neck that supply blood to the brain. Carotid artery disease, also called carotid artery stenosis, is the narrowing or blockage of on e or both carotid arteries. Carotid artery disease increases your risk for a stroke or a transient ischemic attack (TIA). A TIA is an episode in which a waxy , fatty substance that accumulates within the artery (plaque ) blocks blood flow to the brain. A TIA is considered a "warning stroke." CAUSES Atherosclerosis (common). Atherosclerosis is a disease in which plaque builds up inside the carotid arteries. Aneurysm. This is a weakened outpouching in an artery. Arteritis. This is inflammation of the carotid artery. Fibromuscular dysplasia. This is a fibrous growth within the carotid artery. Post-radiation necrosis. This is tissue within the carotid artery due to radiation treatment. Vasospasm. This is decreased blood flow due to spasms of the carotid artery. Carotid dissection. This is separation of the milian of the carotid artery. RISK FACTORS High cholesterol (dyslipidemia ). High blood pressure (hypertension ). Smoking. Obesity. Diabetes. Family history of cardiovascular disease. Inactivity or lack of regular exercise. Being male. Men have an increased risk of developing atherosclerosis earlier in life than women. SYMPTOMS Carotid artery disease does not cause symptoms. DIAGNOSIS Diagnosis of carotid artery disease may include: A physical exam. Your health care provider may hear an abnormal sound ( bruit ) when listening to the carotid arteries. Specific tests that look at the blood flow in the carotid arteries. These tests include: Carotid artery ultrasonography. Carotid or cerebral angiography. Computerized tomographic angiography (CTA). Magnetic resonance angiography (MRA). TREATMENT Treatment of carotid artery disease can include a combination of treatments. Treatment options include: Surgery. You may have: A carotid endarterectomy. This is a surgery to remove the blockages in the carotid arteries. A carotid angioplasty with stenting. This is a nonsurgical interventional procedure. A wire mesh (stent ) is used to widen the blocked carotid arteries. Medicines to control blood pressure, cholesterol, and reduce blood clotting (antiplatelet therapy ). Adjusting your diet. Lifestyle changes such as: Quitting smoking. Exercising as tolerated or as directed by your health care provider. Controlling and maintaining a good blood pressure. Keeping cholesterol levels under control. HOME CARE INSTRUCTIONS Take medicines as directed by your health care provider. Make sure you understand all your medicine instructions. Do not stop your medicines without talking to your health care provider. Follow your health care provider's diet instructions. It is important to eat a healthy diet that is low in saturated fats and includes plenty of fresh fruits, vegetables, and lean meats. High-fat, high-sodium foods as well as foods that are fried, overly processed, or have poor nutritional value should be avoided. Maintain a healthy weight. Stay physically active. It is recommended that you get at least 30 minutes of activity every day. Do not smoke. Limit alcohol use to: No more than 2 drinks per day for men. No more than 1 drink per day for non women. Do not use illegal drugs. Keep all follow-up appointments as directed by your health care provider. SEEK IMMEDIATE MEDICAL CARE IF: If you develop TIA or stroke symptoms. These include: Sudden weakness or numbness on one side of the body, such as in the face, arm, or leg. Sudden confusion. Trouble speaking (aphasia ) or understanding. Sudden trouble seeing out of one or both eyes. Sudden trouble walking. Dizziness or feeling like you might faint. Loss of balance or coordination. Sudden severe headache with no known cause. Sudden trouble swallowing (dysphagia ). If you have any of these symptoms, call your local emergency services (911 in [place] Do not drive yourself to the clinic or hospital. This is a medical emergency. Document Released: 08/17/2012 Document Revised: 01/26/2014 Document Reviewed: 11/24/2013 [facility] Patient Information 2014 [employer]. Cardiomyopathy Cardiomyopathy means a disease of the heart muscle. The heart muscle becomes enlarged or stiff. The heart is not able to pump enough blood or deliver enough oxygen to the body. This leads to heart failu re and is the number one reason for heart transplants. TYPES OF CARDIOMYOPATHY INCLUDE: DILATED The most common type. The heart muscle is stretched out and weak so there is less blood pumped out. Some causes: Disease of the arteries of the heart (ischemia ). Heart attack with muscle scar. Leaky or damaged valves. After a viral illness. Smoking. High cholesterol. Diabetes or overactive thyroid. Alcohol or drug abuse. High blood pressure. May be reversible. HYPERTROPHIC The heart muscle grows bigger so there is less room for blood in the ventricle , and not enough blood is pumped out. Causes include: Mitral valve leaks. Inherited tendency (from your family). No explanation (idiopathic ). May be a cause of sudden in young athletes with no symptoms. RESTRICTIVE The heart muscle becomes stiff, but not always larger. The heart has to work harder and will get weaker. Abnormal heart beats or rhythm (arrhythmia ) are common. Some causes: Diseases in other parts of the body which may produce abnormal deposits in the heart muscle. Probably not inherited. A result of radiation treatment for cancer. SYMPTOMS OF ALL TYPES: Less able to exercise or tolerate physical activity. Palpitations. Irregular heart beat, heart arrhythmias. Shortness of breath, even at rest. Chest pain. Lightheadedness or fainting. TREATMENT Life-style changes including reducing salt, lowering cholesterol, stop smoking. Manage contributing causes with medications. Medicines to help reduce the fluids in the body. An implanted cardioverter defibrillator (ICD ) to improve heart function and correct arrhythmias. Medications to relax the blood vessels and make it easier for the heart to pump. Drugs that help regulate heart beat and improve heart relaxation, reducing the work of the heart. Myomectomy for patients with hypertrophic cardiomyopathy and severe problems. This is a surgical procedure that removes a portion of the thickened muscle wall in order to improve heart output and provide symptom relief. A heart transplant is an option in carefully applied circumstances. SEEK IMMEDIATE MEDICAL CARE IF: You have severe chest pain, especially if the pain is crushing or pressure -like and spreads to the arms, back, neck, or jaw, or if you have sweating, feeling sick to your stomach (nausea ), or shor tness of breath. THIS IS AN EMERGENCY. Do not wait to see if the pain will go away. Get medical help at once. Call your local emergency services (911 in [place] . DO NOT drive yourself to the hospital. You develop severe shortness of breath. You begin to cough up bloody sputum. You are unable to sleep because you cannot breathe. You gain weight due to fluid retention. You develop painful swelling in your calf or leg. You feel your heart racing and it does not go away or happens when you are resting. Document Released: 08/08/2005 Document Revised: 08/17/2012 Document Reviewed: 01/11/2009 [employer] Patient Information 2014 [employer]. No follow up information was provided. Extracted from: Title: Office Visit Note Author: Wil Jerry MD Date: 12/08/14 Assessment/Plan Anxious depression Will have him try Melatonin at a dose of 6mg before bedtime. Ordered: Office Visit Level 4 Est 41337 Coronary artery disease Ordered: Office Visit Level 4 Est 20697 CVA Continue with the same dose of Coumadin. Ordered: Office Visit Level 4 Est 28351 Dyslipidemia Ordered: Office Visit Level 4 Est 86728 Heart failure Ordered: Office Visit Level 4 Est 21840 Hypertension Ordered: Office Visit Level 4 Est 19274 Ischemic cardiomyopathy Ordered: Office Visit Level 4 Est 87803 TIA (transient ischemic attack) Ordered: Office Visit Level 4 Est 66045
--- OUTSIDE RECORDS SUMMARY | 2017-02-12 20:47 | External Medical Summary | Referral Summary ---
:1940 Author Organization [facility] Address [address] [place] [address] Care Team Providers Name Role Phone Rosalino Wil Lemons Primary Care Physician Encounter [facility] [id number] Date(s): 10/19/14 - 10/19/14 [facility] [address] [place] [address]- [place] Discharge Disposition: 01-Home or Self Care Attending Physician: Jeff Muse MD Admitting Physician: Jeff Muse MD Vital Signs No data available for [...] QID, # 56 caps, 1 Refill(s), Pharmacy: [facility], 1 caps Oral QID,x14 days Start Date: 02/17/15 Stop Date: 03/17/15 Status: OrderedCeleXA 20 mg oral tablet See Instructions, 1 tabs Oral Daily, # 30 tabs, 5 Refill(s), Pharmacy: [facility]28, 1 tabs Oral Daily Start Date: 02/28/15 Status: OrderedCoreg 6.25 mg oral tablet See Instructions, TAKE 1 TABLET TWICE DAILY, # 180 tabs, 3 Refill(s), eRx: [facility], TAKE 1 TABLET TWICE DAILY Start Date: 12/26/14 Status: OrderedCozaar 100 mg oral tablet See Instructions, TAKE 1 TABLET EVERY DAY, # 90 tabs, 3 Refill(s), eRx: [facility], TAKE 1 TABLET EVERY DAY Start Date: 09/12/14 Status: Orderedfinasteride 5 mg oral tablet See Instructions, TAKE 1 TABLET EVERY DAY, # 90 tabs, 1 Refill(s), eRx: [facility], TAKE 1 TABLET [...] CAPSULE TWICE DAILY, # 180 caps, eRx: [facility], TAKE 1CAPSULE TWICE DAILY [...] DONE., # 30 tabs, 0 Refill(s), Pharmacy: [facility], 1 tabs Oral 3x/Wk,Instr:on mon, wed and fri/PT. IS LATE GETTING INR. NEEDS TO GET INR DONE. Start Date: 04/13/15 Status: Orderedwarfarin 4 mg oral tablet 4 mg 1 tabs, Oral, 4x/Wk, //Sat/Sun. 04-13-2015 PT. IS LATE DOING INR AND NEEDS TO CALL DR. NAVA., # 30 tabs, 0 Refill(s), Pharmacy: [facility], 1 tabs Oral 4x/Wk,Instr://Sat/Sun. 04-13-2015 [...]
--- OUTSIDE RECORDS SUMMARY | 2017-02-12 20:47 | External Medical Summary | Referral Summary ---
:1940 Author Organization [facility] Address [address] [place] [address] Care Team Providers Name Role Phone Wil Jerry Primary Care Physician Encounter [facility] [id number] Date(s): 11/24/14 - 11/24/14 [facility] [address] [place] [address]- [place] Discharge Diagnosis: Automatic implantable [...] QID, # 56 caps, 1 Refill(s), Pharmacy: [facility], 1 caps Oral QID,x14 days Start Date: 02/17/15 Stop Date: 03/17/15 Status: OrderedCeleXA 20 mg oral tablet See Instructions, 1 tabs Oral Daily, # 30 tabs, 5 Refill(s), Pharmacy: [facility]28, 1 tabs Oral Daily Start Date: 02/28/15 Status: OrderedCoreg 6.25 mg oral tablet See Instructions, TAKE 1 TABLET TWICE DAILY, # 180 tabs, 3 Refill(s), eRx: [facility], TAKE 1 TABLET TWICE DAILY Start Date: 12/26/14 Status: OrderedCozaar 100 mg oral tablet See Instructions, TAKE 1 TABLET EVERY DAY, # 90 tabs, 3 Refill(s), eRx: [facility], TAKE 1 TABLET EVERY DAY Start Date: 09/12/14 Status: Orderedfinasteride 5 mg oral tablet See Instructions, TAKE 1 TABLET EVERY DAY, # 90 tabs, 1 Refill(s), eRx: [facility], TAKE 1 TABLET EVERY [...] CAPSULE TWICE DAILY, # 180 caps, eRx: [facility], TAKE 1CAPSULE TWICE DAILY [...] DONE., # 30 tabs, 0 Refill(s), Pharmacy: [facility], 1 tabs Oral 3x/Wk,Instr:on mon, wed and fri/PT. IS LATE GETTING INR. NEEDS TO GET INR DONE. Start Date: 04/13/15 Status: Orderedwarfarin 4 mg oral tablet 4 mg 1 tabs, Oral, 4x/Wk, Tues/Thurs/Sat/Sun. 04-13-2015 PT. IS LATE DOING INR AND NEEDS TO CALL DR. NAVA., # 30 tabs, 0 Refill(s), Pharmacy: [facility]28, 1 tabs Oral 4x/Wk,Instr:Tu/Thurs/Sat/Sun. 04-13-2015 [...] situ Ordered: Icd Device Progr Eval Dual 00198 Office Visit Level 3 Est 46352 Return to Clinic Coronary artery disease Ischemic cardiomyopathy Ordered: Icd Device Progr Eval Dual 12675 Office Visit Level 3 Est 91316 Return to Clinic Referrals to Other Providers Referred by: Kevin Madrid MD
--- OUTSIDE RECORDS SUMMARY | 2017-02-12 20:47 | External Medical Summary | Referral Summary ---
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 Discharge Diagnosis: Ischemic cardiomyopathy Discharge Disposition: 01-Home or Self Care Attending Physician: Kevin Madrid MD Admitting Physician: Kevin Madrid MD Referring Physician: Wil Jerry MD Vital Signs Most recent to oldest [Reference Range]: 1 Peripheral Pulse Rate [60-100 bpm] 70 bpm (06/04/16 2:48 PM) Blood Pressure [90-140/60-90 mmHg] 130/80 mmHg (06/04/16 2:48 PM) Problem List Condition Effective Dates Status [...] APPOINTMENT), # 30 tabs, 0 Refill(s), Pharmacy: [facility]28, TAKE 1 TABLET EVERY DAY (NEED MD APPOINTMENT) Start Date: 02/27/16 Status: Orderedcitalopram 20 mg oral tablet See Instructions, TAKE 1 TABLET EVERY DAY (NEED MD APPOINTMENT), # 30 tabs, 0 Refill(s), Pharmacy: [facility]28, TAKE 1 TABLET EVERY DAY (NEED MD APPOINTMENT) Start Date: 02/27/16 Status: OrderedCoreg 6.25 mg oral tablet See Instructions, TAKE 1 TABLET TWICE DAILY, # 180 tabs, 3 Refill(s), Pharmacy: [facility], TAKE 1 TABLET TWICE DAILY Start Date: 01/02/16 Status: Orderedfinasteride 5 mg oral tablet See Instructions, TAKE 1 TABLET EVERY DAY, # 90 tabs, 0 Refill(s), Pharmacy: [facility], TAKE 1 TABLET EVERY DAY Start Date: 03/18/16 Status: Orderedlosartan 50 mg oral tablet 50 mg 1 tabs, Oral, Daily, keep December appt for additional refills, # 90 tabs, 0 Refill(s), Pharmacy: [facility], 1 tabs Oral Daily,Instr: [...] CAPSULE TWICE DAILY, # 180 caps, eRx: [facility], TAKE 1CAPSULE TWICE DAILY Start Date: 04/15/16 Status: OrderedpredniSONE 10 mg oral tablet See Instructions, 2 tabs Oral Daily x7 days, then 1 tab oral daily indefinitely. , # 60 tabs, 1 Refill(s), Pharmacy: [facility]28, 2 tabs Oral Daily x7 [...] BEDTIME, # 90 caps, 3 Refill(s), eRx: [facility], TAKE 1 CAPSULE AT [...] days, # 48 tabs, 3 Refill(s), Pharmacy: [facility], Take 1 tab on Sun/Tue/Thur/Sat alt. with 4mg tabs on other days Start Date: 01/02/16 Status: Orderedwarfarin 4 mg oral tablet See Instructions, Take 1 tab on Fri-Fri- Fri, alt. with 2mg tabs on other days, # 36 tabs, 3 Refill(s), Pharmacy: [facility], Take 1 tab on Fri-Fri- Fri, alt. with 2mg tabs on other days Start Date: 01/02/16 Status: Ordered Results No data available for this section Immunizations Given and Recorded Vaccine Date Status [...] Smoking Status Never smoker Assessment and Plan Referrals to Other Providers Referred by: Kevin Madrid MD
--- OUTSIDE RECORDS SUMMARY | 2017-02-12 20:47 | External Medical Summary | Referral Summary ---
:1940 Author Organization [facility] Address [address] [place] [address] Care Team Providers Name Role Phone Wil Jerry Primary Care Physician Encounter [facility] [id number] Date(s): 11/24/14 - 11/24/14 [facility] [address] [place] [address]- [place] Discharge Diagnosis: Automatic implantable cardiac defibrillator in situ Discharge Diagnosis: Coronary artery disease Discharge Diagnosis: Ischemic cardiomyopathy Discharge Disposition: 01-Home or Self Care Attending Physician: Keivn Madrid MD Admitting Physician: Kevin Madrid MD [...] QID, # 56 caps, 1 Refill(s), Pharmacy: [facility], 1 caps Oral QID,x14 days Start Date: 02/17/15 Stop Date: 03/17/15 Status: OrderedCeleXA 20 mg oral tablet See Instructions, 1 tabs Oral Daily, # 30 tabs, 5 Refill(s), Pharmacy: [facility], 1 tabs Oral Daily Start Date: 02/28/15 Status: OrderedCoreg 6.25 mg oral tablet See Instructions, TAKE 1 TABLET TWICE DAILY, # 180 tabs, 3 Refill(s), eRx: [facility], TAKE 1 TABLET TWICE DAILY Start Date: 12/26/14 Status: OrderedCozaar 100 mg oral tablet See Instructions, TAKE 1 TABLET EVERY DAY, # 90 tabs, 3 Refill(s), eRx: [facility], TAKE 1 TABLET EVERY DAY Start Date: 09/12/14 Status: Orderedfinasteride 5 mg oral tablet See Instructions, TAKE 1 TABLET EVERY DAY, # 90 tabs, 1 Refill(s), eRx: [facility], TAKE 1 TABLET EVERY [...] CAPSULE TWICE DAILY, # 180 caps, eRx: [facility], TAKE 1CAPSULE TWICE DAILY [...] DONE., # 30 tabs, 0 Refill(s), Pharmacy: [facility], 1 tabs Oral 3x/Wk,Instr:on mon, wed and fri/PT. IS LATE GETTING INR. NEEDS TO GET INR DONE. Start Date: 04/13/15 Status: Orderedwarfarin 4 mg oral tablet 4 mg 1 tabs, Oral, 4x/Wk, Tues/Thurs/Sat/Sun. 04-13-2015 PT. IS LATE DOING INR AND NEEDS TO CALL DR. NAVA., # 30 tabs, 0 Refill(s), Pharmacy: [facility]28, 1 tabs Oral 4x/Wk,Instr:Tu/Thurs/Sat/Sun. 04-13-2015 [...] situ Ordered: Icd Device Progr Eval Dual 17010 Office Visit Level 3 Est 26673 Return to Clinic Coronary artery disease Ischemic cardiomyopathy Ordered: Icd Device Progr Eval Dual 76642 Office Visit Level 3 Est 29942 Return to Clinic Referrals to Other Providers Referred by: Kevin Madrid MD
--- OUTSIDE RECORDS SUMMARY | 2017-02-12 20:47 | External Medical Summary | Referral Summary ---
:1940 Author Organization [facility] Address [address] [place] [address] [place] [address] Care Team Providers Name Role Phone Wil Jerry Primary Care Physician Encounter [facility] Date(s): 08/29/15 - 08/29/15 [facility] [address] [place] [address] [place] [address] Discharge Diagnosis: Chronic GERD Discharge Diagnosis: Hypercholesterolemia Discharge Diagnosis: Urinary frequency Discharge Diagnosis: Coronary artery disease Discharge Diagnosis: BPH with obstruction/lower urinary tract symptoms Discharge Disposition: 01-Home or Self Care Attending Physician: Brayden Robison JR, MD Vital Signs Most recent to oldest [Reference Range]: 1 Peripheral Pulse Rate [60-100 bpm] 76 bpm (08/29/15 3:15 PM) Blood Pressure [90-140/60-90 mmHg] 120/76 mmHg (08/29/15 3:15 PM) SpO2 94 % (08/29/15 3:15 PM) Problem List Condition Effective Dates Status [...] Daily, # 30 tabs, 5 Refill(s), Pharmacy: [facility], 1 tabs Oral Daily Start Date: 08/25/15 Status: OrderedCoreg 6.25 mg oral tablet See Instructions, TAKE 1 TABLET TWICE DAILY, # 180 tabs, 3 Refill(s), eRx: [facility], TAKE 1 TABLET TWICE DAILY Start Date: 12/26/14 Status: Orderedfinasteride 5 mg oral tablet See Instructions, TAKE 1 TABLET EVERY DAY, # 90 tabs, 1 Refill(s), eRx: [facility], TAKE 1 TABLET EVERY DAY Start Date: 03/13/15 Status: OrderedLipitor 20 mg oral tablet 20 mg 1 tabs, Oral, Daily, # 90 tabs, 0 Refill(s), Pharmacy: [facility], 1 tabs Oral Daily Start Date: 08/23/15 Status: Orderedlosartan 50 mg oral tablet 50 mg 1 tabs, Oral, Daily, # 90 tabs, 1 Refill(s), Pharmacy: [facility]28, 1 tabs Oral Daily Start Date: 06/23/15 Status: OrderedOcuvite 1 tabs, Oral, Daily, 0 Refill(s) Start Date: 02/17/15 Status: Orderedomeprazole 20 mg oral delayed release capsule See Instructions, TAKE 1 CAPSULE TWICE DAILY, # 180 caps, eRx: [facility], TAKE 1CAPSULE TWICE DAILY Start Date: 07/13/15 Status: Orderedtamsulosin 0.4 mg oral capsule See Instructions, TAKE 1 CAPSULE AT BEDTIME, # 90 caps, 3 Refill(s), [facility]Rx: [facility], TAKE 1 CAPSULE AT BEDTIME Start Date: 09/05/14 Status: Orderedwarfarin 2 mg oral tablet See Instructions, 1 tabs Oral 3x/Wk,Instr:on mon, wed and fri/PT. IS LATE GETTING INR. NEEDS TO GET INR DONE., # 30 tabs, 0 Refill(s), Pharmacy: [facility]28, 1 tabs Oral 3x/Wk,Instr:on mon, wed and fri/PT. IS LATE GETTING INR. NEEDS TO GET... Start Date: 08/22/15 Status: Orderedwarfarin 4 mg oral tablet See Instructions, 1 tabs Oral 4x/Wk,Instr:/Thurs/Sat/Sun. 04-13-2015 PT. IS LATE DOING INR AND NEEDS TO CALL DR. NAVA., # 30 tabs, 0 Refill(s), Pharmacy: [facility]28, 1 tabs Oral 4x/Wk,Instr://Sat/Sun. PT. IS LAT... Start Date: 08/22/15 Status: Ordered Results No data available for [...] Follow Up With: Where: When: Wil Jerry [address] [place] [address] Drive; [place] [address] Business (1) Within 3 to 5 days Comments: Follow Up With: Where: When: Brayden Robison [address] [place] [address] Drive; [place] [address] Business (1) In 6 weeks 10/10/2015 Comments: Extracted from: Title: Office Visit Note Author: Brayden Robison JR, MD Date: 08/29/15 Assessment/Plan 1.Urinary frequency Will increase the frequency of the tamsulosin to every night instead of every other nightrecheck in my office in C6 weeks. If the problem is persistent Will consider doing cystoscopy because the patient might have urethral stenosis or stricture 2.BPH with obstruction/lower urinary tract symptoms Continue the finasteride together with tamsulosin 3.Coronary artery disease Continue chronic 6.25 mg tabletdaily 4.Hypercholesterolemia Continue Lipitor 20 mg tablet daily Ordered: Office Visit Level 3 Est 51881 5.Chronic GERD Continue omeprazole Ordered: Office Visit Level 3 Est 67713
--- OUTSIDE RECORDS SUMMARY | 2017-02-12 20:47 | External Medical Summary | Referral Summary ---
:1940 Author Organization [facility] Address [address] [place] [address] Care Team Providers Name Role Phone Wil Jerry Primary Care Physician Encounter [facility] [id number] Date(s): 11/24/14 - 11/24/14 [facility] [address] [place] [address]- [place] Discharge Diagnosis: Automatic implantable [...] QID, # 56 caps, 1 Refill(s), Pharmacy: [facility]28, 1 caps Oral QID,x14 days Start Date: 02/17/15 Stop Date: 03/17/15 Status: OrderedCeleXA 20 mg oral tablet See Instructions, 1 tabs Oral Daily, # 30 tabs, 5 Refill(s), Pharmacy: [facility]28, 1 tabs Oral Daily Start Date: 02/28/15 Status: OrderedCoreg 6.25 mg oral tablet See Instructions, TAKE 1 TABLET TWICE DAILY, # 180 tabs, 3 Refill(s), eRx: [facility], TAKE 1 TABLET TWICE DAILY Start Date: 12/26/14 Status: OrderedCozaar 100 mg oral tablet See Instructions, TAKE 1 TABLET EVERY DAY, # 90 tabs, 3 Refill(s), eRx: [facility], TAKE 1 TABLET EVERY DAY Start Date: 09/12/14 Status: Orderedfinasteride 5 mg oral tablet See Instructions, TAKE 1 TABLET EVERY DAY, # 90 tabs, 1 Refill(s), eRx: [facility], TAKE 1 TABLET EVERY [...] CAPSULE TWICE DAILY, # 180 caps, eRx: [facility], TAKE 1CAPSULE TWICE DAILY [...] HERNANDEZ, # 90 Each, 0 Refill(s), Pharmacy: [facility], 1 tabs Oral 3x/Wk,Instr: on mon, wed and fri. OR DIRECTED BY DR. HERNANDEZ Start Date: 06/05/15 Status: Orderedwarfarin 4 mg oral tablet 4 mg 1 tabs, Oral, 4x/Wk, Tues/Thurs/Sat/Sun. OR DIRECTED BY DR. HERNANDEZ, # 90 Each, 0 Refill(s),Pharmacy: [facility], 1 tabs Oral 4x/Wk,Instr: Tues/Thurs/Sat/Sun. OR DIRECTED BY DR. HERNANDEZ Start Date: 06/05/15 Status: Ordered Results No [...] situ Ordered: Icd Device Progr Eval Dual 04223 Office Visit Level 3 Est 89465 Return to Clinic Coronary artery disease Ischemic cardiomyopathy Ordered: Icd Device Progr Eval Dual 87107 Office Visit Level 3 Est 64484 Return to Clinic Referrals to Other Providers Referred by: Kevin Madrid MD
--- OUTSIDE RECORDS SUMMARY | 2017-02-12 20:48 | External Medical Summary | Referral Summary ---
:1940 Author Organization [facility] Address [address] [place] [address] Care Team Providers Name Role Phone Wil Jerry Primary Care Physician Encounter [facility] [id number] Date(s): 05/30/15 - 05/30/15 [facility] [address] [place] [address]- [place] Discharge Diagnosis: Ischemic cardiomyopathy Discharge Diagnosis: Nonsustained ventricular tachycardia Discharge Diagnosis: Coronary arteriosclerosis Discharge Diagnosis: Automatic implantable cardiac defibrillator in situ Discharge Diagnosis: Falling episodes Discharge Diagnosis: Orthostasis Discharge Disposition: 01-Home or Self Care Attending Physician: Kevin Madrid MD Admitting Physician: Kevin Madrid MD Vital Signs Most recent to oldest [Reference Range]: 1 Peripheral Pulse Rate [60-100 bpm] 80 bpm (05/30/15 1:58 PM) Blood Pressure [90-140/60-90 mmHg] 130/80 mmHg (05/30/15 1:58 PM) Problem List Condition Effective Dates Status [...] QID, # 56 caps, 1 Refill(s), Pharmacy: [facility]28, 1 caps Oral QID,x14 days Start Date: 02/17/15 Stop Date: 03/17/15 Status: OrderedCeleXA 20 mg oral tablet See Instructions, 1 tabs Oral Daily, # 30 tabs, 5 Refill(s), Pharmacy: [facility]28, 1 tabs Oral Daily Start Date: 02/28/15 Status: OrderedCoreg 6.25 mg oral tablet See Instructions, TAKE 1 TABLET TWICE DAILY, # 180 tabs, 3 Refill(s), eRx: [facility], TAKE 1 TABLET TWICE DAILY Start Date: 12/26/14 Status: OrderedCozaar 100 mg oral tablet See Instructions, TAKE 1 TABLET EVERY DAY, # 90 tabs, 3 Refill(s), eRx: [facility], TAKE 1 TABLET EVERY DAY Start Date: 09/12/14 Status: Orderedfinasteride 5 mg oral tablet See Instructions, TAKE 1 TABLET EVERY DAY, # 90 tabs, 1 Refill(s), eRx: [facility], TAKE 1 TABLET [...] tabs, Oral, 3x/Wk, on mon, fri and fri/PT. IS LATE GETTING INR. NEEDS TO GET INR DONE., # 30 tabs, 0 Refill(s), Pharmacy: [facility], 1 tabs Oral 3x/Wk,Instr:on mon, fri and fri/PT. IS LATE GETTING INR. NEEDS TO GET INR DONE. Start Date: 04/13/15 Status: Orderedwarfarin 4 mg oral tablet 4 mg 1 tabs, Oral, 4x/Wk, Tues/Thurs/Sat/Sun. 04-13-2015 PT. IS LATE DOING INR AND NEEDS TO CALL DR. HERNANDEZ, # 30 tabs, 0 Refill(s), Pharmacy: [facility]28, 1 tabs Oral 4x/Wk,Instr:Tues/Thurs/Sat/Sun. 04-13-2015 PT. IS LATE DOING INR AND... [...]
--- OUTSIDE RECORDS SUMMARY | 2017-02-12 20:48 | External Medical Summary | Referral Summary ---
:1940 Author Organization [facility] Address [address] [place] [address] Care Team Providers Name Role Phone Wil Jerry Primary Care Physician Encounter [facility] [id number] Date(s): 11/24/14 - 11/24/14 [facility] [address] [place] [address]- [place] Discharge Diagnosis: Automatic implantable [...] QID, # 56 caps, 1 Refill(s), Pharmacy: [facility]28, 1 caps Oral QID,x14 days Start Date: 02/17/15 Stop Date: 03/17/15 Status: OrderedCeleXA 20 mg oral tablet See Instructions, 1 tabs Oral Daily, # 30 tabs, 5 Refill(s), Pharmacy: [facility]28, 1 tabs Oral Daily Start Date: 02/28/15 Status: OrderedCoreg 6.25 mg oral tablet See Instructions, TAKE 1 TABLET TWICE DAILY, # 180 tabs, 3 Refill(s), eRx: [facility], TAKE 1 TABLET TWICE DAILY Start Date: 12/26/14 Status: OrderedCozaar 100 mg oral tablet See Instructions, TAKE 1 TABLET EVERY DAY, # 90 tabs, 3 Refill(s), eRx: [facility], TAKE 1 TABLET EVERY DAY Start Date: 09/12/14 Status: Orderedfinasteride 5 mg oral tablet See Instructions, TAKE 1 TABLET EVERY DAY, # 90 tabs, 1 Refill(s), eRx: [facility], TAKE 1 TABLET EVERY [...] CAPSULE TWICE DAILY, # 180 caps, eRx: [facility], TAKE 1CAPSULE TWICE DAILY [...] DONE., # 30 tabs, 0 Refill(s), Pharmacy: [facility], 1 tabs Oral 3x/Wk,Instr:on mon, wed and fri/PT. IS LATE GETTING INR. NEEDS TO GET INR DONE. Start Date: 04/13/15 Status: Orderedwarfarin 4 mg oral tablet 4 mg 1 tabs, Oral, 4x/Wk, Tues/Thurs/Sat/Sun. 04-13-2015 PT. IS LATE DOING INR AND NEEDS TO CALL DR. NAVA., # 30 tabs, 0 Refill(s), Pharmacy: [facility]28, 1 tabs Oral 4x/Wk,Instr:Tu/Thurs/Sat/Sun. 04-13-2015 [...] situ Ordered: Icd Device Progr Eval Dual 55951 Office Visit Level 3 Est 25937 Return to Clinic Coronary artery disease Ischemic cardiomyopathy Ordered: Icd Device Progr Eval Dual 26543 Office Visit Level 3 Est 43060 Return to Clinic Referrals to Other Providers Referred by: Kevin Madrid MD
--- OUTSIDE RECORDS SUMMARY | 2017-02-12 20:48 | External Medical Summary | Referral Summary ---
:1940 Author Organization [facility] Address [address] [place] [address] [place] [id number] Care Team Providers Name Role Phone Wil Jerry Primary Care Physician Encounter VC Date(s): 03/11/16 - 03/11/16 [facility] [address] [place] [phone] [phone] Discharge Diagnosis: Acute bilateral low back pain without sciatica Discharge Disposition: 01-Home or Self Care Attending Physician: Wil Jerry MD Admitting Physician: Wil Jerry MD Vital Signs Most recent to oldest [Reference Range]: 1 Peripheral Pulse Rate [60-100 bpm] 88 bpm (03/11/16 3:23 PM) Blood Pressure [90-140/60-90 mmHg] 122/76 mmHg (03/11/16 3:23 PM) SpO2 91 % (03/11/16 3:23 PM) Problem List Condition Effective Dates Status [...] APPOINTMENT), # 30 tabs, 0 Refill(s), Pharmacy: [id number], TAKE 1 TABLET EVERY DAY (NEED MD APPOINTMENT) Start Date: 02/27/16 Status: Orderedcitalopram 20 mg oral tablet See Instructions, TAKE 1 TABLET EVERY DAY (NEED MD APPOINTMENT), # 30 tabs, 0 Refill(s), Pharmacy: [id number], TAKE 1 TABLET EVERY DAY (NEED MD APPOINTMENT) Start Date: 02/27/16 Status: OrderedCoreg 6.25 mg oral tablet See Instructions, TAKE 1 TABLET TWICE DAILY, # 180 tabs, 3 Refill(s), Pharmacy: [facility], TAKE 1 TABLET TWICE DAILY Start Date: 01/02/16 Status: Orderedfinasteride 5 mg oral tablet See Instructions, TAKE 1 TABLET EVERY DAY, # 90 tabs, eRx: [facility], TAKE 1 TABLET EVERY DAY Start Date: 12/12/15 Status: Orderedlosartan 50 mg oral tablet 50 mg 1 tabs, Oral, Daily, keep December appt for additional refills, # 90 tabs, 0 Refill(s), Pharmacy: [facility], 1 tabs Oral [...] CAPSULE TWICE DAILY, # 180 caps, eRx: [facility], TAKE 1CAPSULE TWICE DAILY Start Date: 01/10/16 Status: OrderedPromethazine with Codeine 6.25 mg-10 mg/5 mL oral syrup 5 mL, Oral, q4hr, as needed for cough, [facility], # 120 mL, 0 Refill(s) Start Date: 02/13/16 Status: OrderedRobaxin-750 oral tablet 1,500 mg 2 tabs, Oral, q8hr, X 30 days, # 90 tabs, 0 Refill(s), Pharmacy: [id number], 2 tabs Oral q8hr,x30 days Start Date: 03/11/16 Stop Date: 04/10/16 Status: Orderedtamsulosin 0.4 mg oral capsule See Instructions, TAKE 1 CAPSULE AT BEDTIME, # 90 caps, 3 Refill(s), eRx: [facility], TAKE 1 CAPSULE AT BEDTIME Start Date: 09/01/15 Status: Orderedwarfarin 2 mg oral tablet See Instructions, Take 1 tab on Sun/Tue/Thur/Sat alt. with 4mg tabs on other days, # 48 tabs, 3 Refill(s), Pharmacy: [facility], Take 1 tab on Sun/Tue/Thur/Sat alt. with 4mg tabs on other days Start Date: 01/02/16 Status: Orderedwarfarin 4 mg oral tablet See Instructions, Take 1 tab on Fri-Fri- Fri, alt. with 2mg tabs on other days, # 36 tabs, 3 Refill(s), Pharmacy: [facility], Take 1 tab on Fri-Fri- Fri, alt. with 2mg tabs on other days Start Date: 01/02/16 Status: Ordered Results Hematology Most recent to oldest [Reference Range]: 1 WBC [5.0-10.0 10*3/uL] 9.1 10*3/uL (03/11/16 4:00 PM) RBC [3.70-5.20] 4.56 (10/3/16 4:00 PM) Hgb [12.0-16.0 gm/dL] 14.0 gm/dL (03/11/16 4:00 PM) Hct [40.0-54.0 %] 41.9 % (03/11/16 4:00 PM) MCV [80.0-96.0 fL] 91.9 fL (03/11/16 4:00 PM) MCH [26.0-34.0 pg] 30.7 pg (03/11/16 4:00 PM) MCHC [32.0-36.0 gm/dL] 33.4 gm/dL (03/11/16 4:00 PM) RDW [0.0-14.5 %] 14.0 % (03/11/16 4:00 PM) Platelet [150-400 10*3/uL] 207 10*3/uL (03/11/16 4:00 PM) MPV [8.8-14.8 fL] 10.2 fL (03/11/16 4:00 PM) Neutrophils [50-70 %] 48 % *LOW* (03/11/16 4:00 PM) Lymphocytes [20-40 %] 35 % (03/11/16 4:00 PM) Monocytes [4-8 %] 11 % *HI* (03/11/16 4:00 PM) Eosinophils [0-6 %] 5 % (03/11/16 4:00 PM) Basophils [0-2 %] 1 % (03/11/16 4:00 PM) Neutro Absolute [2.50-7.00 10*3] 4.40 10*3 (03/11/16 4:00 PM) Lymph Absolute [1.00-4.00 10*3] 3.23 10*3 (03/11/16 4:00 PM) [place] Absolute [0.20-0.80 10*3] 1.02 10*3 *HI* (03/11/16 4:00 PM) Eos Absolute [0.00-0.60 10*3] 0.44 10*3 (03/11/16 4:00 PM) Baso Absolute [0.00-0.30] 0.05 (03/11/16 4:00 PM) Coagulation Most recent to oldest [Reference Range]: 1 PT Venous (03/11/16 4:00 PM) INR [0.8-1.2] 3.0 1 *HI* (03/11/16 4:00 PM) 1Result Comment: Normal (no anticoagulant): 0.8 - 1.2 Units Routine Therapeutic Range: 2.0 - 3.0 Units High Risk Therapeutic Range: 2.5 - 3.5 UnitsChemistry Most recent to oldest [Reference Range]: 1 Sodium Lvl [135-144 mEq/L] 138 mEq/L (03/11/16 4:00 PM) Potassium Lvl [3.5-5.2 mEq/L] 4.7 mEq/L (03/11/16 4:00 PM) Chloride [99-111 mEq/L] 101 mEq/L (03/11/16 4:00 PM) CO2 [23-31 mEq/L] 31 mEq/L (03/11/16 4:00 PM) AGAP [3-20] 6 (03/11/16 4:00 PM) BUN [8-26 mg/dL] 17 mg/dL (03/11/16 4:00 PM) Glucose Lvl [70-99 mg/dL] 99 mg/dL (03/11/16 4:00 PM) Creatinine Lvl [0.72-1.25 mg/dL] 1.10 mg/dL (03/11/16 4:00 PM) eGFR [>60 mL/min] >60 mL/min 1 (03/11/16 4:00 PM) Calcium Lvl [8.9-10.5 mg/dL] 8.9 mg/dL (03/11/16 4:00 PM) 1Result Comment: Multiply eGFR results by 1.21 for race.Urinalysis Most recent to oldest [Reference Range]: 1 UA Color Yellow (03/11/16 4:04 PM) UA Appear Clear (03/11/16 4:04 PM) UA pH [5.0-8.0] 5.5 (03/11/16 4:04 PM) UA Leuk Est [Negative] Negative (03/11/16 4:04 PM) UA Nitrite [Negative] Negative (03/11/16 4:04 PM) UA Protein [Negative] Negative (03/11/16 4:04 PM) UA Glucose [Negative] Negative (03/11/16 4:04 PM) UA Ketones [Negative] Negative (03/11/16 4:04 PM) UA Urobilinogen [<=1.0 mg/dL] 0.2 mg/dL (03/11/16 4:04 PM) UA Bili [Negative] Negative (03/11/16 4:04 PM) UA Blood [Negative] Trace *ABN* (03/11/16 4:04 PM) UA Spec Grav [1.003-1.030] 1.020 (03/11/16 4:04 PM) Type Clean Catch (03/11/16 4:04 PM) Immunizations Vaccine Date Refusal Reason influenza virus [...] Wil Jerry MD Date: Family Medicine Back Exercises Back exercises help treat and prevent back injuries. The goal of back exercises is to increase the strength of your abdominal and back muscles and the flexibility of your back. These exercises should be started when you no longer have back pain. Back exercises include: Pelvic Tilt. Lie on your back with your knees bent. Tilt your pelvis until the lower part of your back is against the floor. Hold this position 5 to 10 sec and repeat 5 to 10 times. Knee to Chest. Pull first 1 knee up against your chest and hold for 20 to 30 seconds, repeat this with the other knee, and then both knees. This may be done with the other leg straight or bent, whichever feels better. Sit-Ups or Curl-Ups. Bend your knees 90 degrees. Start with tilting your pelvis, and do a partial, slow sit-up, lifting your trunk only 30 to 45 degrees off the floor. Take at least 2 to 3 second s for each sit-up. Do not do sit-ups with your knees out straight. If partial sit-ups are difficult, simply do the above but with only tightening your abdominal muscles and holding it as directed. Hip-Lift. Lie on your back with your knees flexed 90 degrees. Push down with your feet and shoulders as you raise your hips a couple inches off the floor; hold for 10 seconds, repeat 5 to 10 times. Back arches. Lie on your stomach, propping yourself up on bent elbows. Slowly press on your hands, causing an arch in your low back. Repeat 3 to 5 times. Any initial stiffness and discomfort should lessen with repetition over time. Shoulder-Lifts. Lie face down with arms beside your body. Keep hips and torso pressed to floor as you slowly lift your head and shoulders off the floor. Do not overdo your exercises, especially in the beginning. Exercises may cause you some mild back discomfort which lasts for a few minutes; however, if the pain is more severe, or lasts for more than 15 minutes, do not continue exercises until you see your caregiver. Improvement with exercise therapy for back problems is slow. See your caregivers for assistance with developing a proper back exercise program. This information is not intended to replace advice given to you by your health care provider. Make sure you discuss any questions you have with your health care provider. Document Released: 07/03/2005 Document Revised: 08/17/2012 Document Reviewed: 03/26/2012 [facility] Patient Information 2016 [facility]. Musculoskeletal Pain Musculoskeletal pain is muscle and sunshine aches and pains. These pains can occur in any part of the body. Your caregiver may treat you without knowing the cause of the pain. They may treat you if blood o r urine tests, X-rays, and other tests were normal. CAUSES There is often not a definite cause or reason for these pains. These pains may be caused by a type of germ (virus). The discomfort may also come from overuse. Overuse includes working out too hard when your body is not fit. Sunshine aches also come from weather changes. Bone is sensitive to atmospheric pressure changes. HOME CARE INSTRUCTIONS Ask when your test results will be ready. Make sure you get your test results. Only take [id number] or prescription medicines for pain, discomfort, or fever as directed by your caregiver. If you were given medications for your condition, do not drive, operate machiner y or power tools, or sign legal documents for 24 hours. Do not drink alcohol. Do not take sleeping pills or other medications that may interfere with treatment. Continue all activities unless the activities cause more pain. When the pain lessens, slowly resume normal activities. Gradually increase the intensity and duration of the activities or exercise. During periods of severe pain, bed rest may be helpful. Lay or sit in any position that is comfortable. Putting ice on the injured area. Put ice in a bag. Place a towel between your skin and the bag. Leave the ice on for 15 to 20 minutes, 3 to 4 times a day. Follow up with your caregiver for continued problems and no reason can be found for the pain. If the pain becomes worse or does not go away, it may be necessary to repeat tests or do additional t esting. Your caregiver may need to look further for a possible cause. SEEK IMMEDIATE MEDICAL CARE IF: You have pain that is getting worse and is not relieved by medications. You develop chest pain that is associated with shortness or breath, sweating, feeling sick to your stomach (nauseous), or throw up (vomit). Your pain becomes localized to the abdomen. You develop any new symptoms that seem different or that concern you. MAKE SURE YOU: Understand these instructions. Will watch your condition. Will get help right away if you are not doing well or get worse. This information is not intended to replace advice given to you by your health care provider. Make sure you discuss any questions you have with your health care provider. Document Released: 05/26/2006 Document Revised: 08/17/2012 Document Reviewed: 01/28/2014 [employer] Patient Information 2016 [employer]. No follow up information was provided. Extracted from: Title: Office Visit Note Author: Wil Jerry MD Date: 03/11/16 Assessment/Plan 1.Acute bilateral low back pain without sciatica Will increase the Robaxin to tid and start Nada 5mg for the pain. Ordered: Office Visit Level 3 Est 80822 Back pain, chronic as above and suggesting to use hot packs. 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 Ordered: Basic Metabolic Panel Office Visit Level 3 Est 10754
--- OUTSIDE RECORDS SUMMARY | 2017-02-12 20:48 | External Medical Summary | Referral Summary ---
:1940 Author Organization [facility] Address [address] [place] [address] [place] [id number] Care Team Providers Name Role Phone Wil Jerry Primary Care Physician Encounter VC Date(s): 01/01/16 - 01/01/16 [facility] [address] [place] [phone] [phone] Discharge Disposition: 01-Home or Self Care Attending Physician: Wil Jerry MD Admitting Physician: Wil Jerry MD Vital Signs Most recent to oldest [Reference Range]: 1 Blood Pressure [90-140/60-90 mmHg] 116/64 mmHg (01/01/16 1:21 PM) Problem List Condition Effective Dates Status [...] 12/08/14 Status: OrderedCeleXA 20 mg oral tablet 20 mg 1 tabs, Oral, Daily, needs appt for med check, # 90 tabs, 0 Refill(s), Pharmacy: [facility], 1 tabs Oral Daily,Instr:needs appt for med check Start Date: 11/17/15 Status: OrderedCoreg 6.25 mg oral tablet See Instructions, TAKE 1 TABLET TWICE DAILY, # 180 tabs, 3 Refill(s), eRx: [facility], TAKE 1 TABLET TWICE DAILY Start Date: 12/26/14 Status: Orderedfinasteride 5 mg oral tablet See Instructions, TAKE 1 TABLET EVERY DAY, # 90 tabs, eRx: [facility], TAKE 1 TABLET EVERY DAY Start Date: 12/12/15 Status: OrderedLipitor 20 mg oral tablet 20 mg 1 tabs, Oral, Daily, needs appt for med check, X 90 days, # 90 tabs, 0 Refill(s), Pharmacy: [facility], 1 tabs Oral Daily,x90 days, Instr:needs appt for med check Start Date: 11/17/15 Stop Date: 02/15/16 Status: Orderedlosartan 50 mg oral tablet 50 mg 1 tabs, Oral, Daily, keep December appt for additional refills, # 90 tabs, 0 Refill(s), Pharmacy: [facility], 1 tabs Oral Daily,Instr: keep December appt for additional refills Start Date: 12/07/15 Status: OrderedMelatonin Bedtime (once a day), 0 Refill(s) Start Date: 01/01/16 Status: OrderedMucinex DM tabs, Oral, q12hr, 0 Refill(s) Start Date: 01/01/16 Status: OrderedOcuvite tabs, Oral, Daily, 0 Refill(s) Start Date: 01/01/16 Status: OrderedOcuvite 1 tabs, Oral, Daily, 0 Refill(s) Start Date: 02/17/15 Status: Orderedomeprazole 20 mg oral delayed release capsule See Instructions, TAKE 1 CAPSULE TWICE DAILY, # 180 caps, eRx: [facility], TAKE 1CAPSULE TWICE DAILY Start Date: 10/12/15 Status: Orderedtamsulosin 0.4 mg oral capsule See Instructions, TAKE 1 CAPSULE AT BEDTIME, # 90 caps, 3 Refill(s), [facility]Rx: [facility], TAKE 1 CAPSULE AT BEDTIME Start Date: 09/01/15 Status: Orderedwarfarin 2 mg oral tablet 2 mg 1 tabs, Oral, Every other day, Take 1 tab on Fri, alt. with 4mg tabs on other days, # 36 tabs, 3 Refill(s), Pharmacy: [facility], 1 tabs Oral Every other day,x90 days,Instr:Take 1 tab on Fri , alt. with 4mg tab... Start Date: 11/30/15 Stop Date: 11/24/16 Status: Orderedwarfarin 4 mg oral tablet See Instructions, TAKE ONE TABLET BY MOUTH 4 TIMES A WEEK (FRIDAY, FRIDAY, FRIDAY AND FRIDAY).,# 30 tabs, 2 Refill(s), TAKE ONE TABLET BY MOUTH 4 TIMES A WEEK (FRIDAY, FRIDAY, FRIDAY AND FRIDAY). Start Date: 11/16/15 Status: Ordered Results Coagulation Most recent to oldest [Reference Range]: 1 PT Venous (01/01/16 2:10 PM) INR [0.8-1.2] 3.7 1 *HI* (01/01/16 2:10 PM) 1Result Comment: Normal (no anticoagulant): 0.8 - 1.2 Units Routine Therapeutic Range: 2.0 - 3.0 Units High Risk Therapeutic Range: 2.5 - 3.5 UnitsChemistry Most recent to oldest [Reference Range]: 1 Sodium Lvl [135-144 mEq/L] 137 mEq/L (01/01/16 2:10 PM) Potassium Lvl [3.5-5.2 mEq/L] 4.4 mEq/L (01/01/16 2:10 PM) Chloride [99-111 mEq/L] 101 mEq/L (01/01/16 2:10 PM) CO2 [23-31 mEq/L] 29 mEq/L (01/01/16 2:10 PM) AGAP [3-20] 7 (01/01/16 2:10 PM) BUN [8-26 mg/dL] 20 mg/dL (01/01/16 2:10 PM) Glucose Lvl [70-99 mg/dL] 119 mg/dL *HI* (01/01/16 2:10 PM) Creatinine Lvl [0.72-1.25 mg/dL] 1.24 mg/dL (01/01/16 2:10 PM) eGFR [>60 mL/min] 56 mL/min 1 *ABN* (01/01/16 2:10 PM) Calcium Lvl [8.9-10.5 mg/dL] 8.9 mg/dL (01/01/16 2:10 PM) Albumin Lvl [3.4-4.8 gm/dL] 4.1 gm/dL (01/01/16 2:10 PM) Total Protein [6.0-7.6 gm/dL] 6.8 gm/dL 2 (01/01/16 2:10 PM) Globulin [1.8-4.0 gm/dL] 2.7 gm/dL (01/01/16 2:10 PM) ALT [0-55 U/L] 20 U/L (01/01/16 2:10 PM) AST [5-34 U/L] 16 U/L (01/01/16 2:10 PM) Alk Phos [40-150 U/L] 81 U/L (01/01/16 2:10 PM) Bili Total [0.2-1.2 mg/dL] 0.7 mg/dL (01/01/16 2:10 PM) Chol [0-199 mg/dL] 147 mg/dL (01/01/16 2:10 PM) Trig [0-149 mg/dL] 152 mg/dL *HI* (01/01/16 2:10 PM) HDL [40-84 mg/dL] 46 mg/dL (01/01/16 2:10 PM) LDL [0-130 mg/dL] 71 mg/dL (01/01/16 2:10 PM) VLDL Cholesterol [0-28 mg/dL] 30 mg/dL *HI* (01/01/16 2:10 PM) Cardiac Risk [0.0-5.7] 3.2 (01/01/16 2:10 PM) 1Result Comment: Multiply eGFR results by 1.21 for race.2Result Comment: Please note new reference range for adult Protein. Immunizations Vaccine Date Refusal Reason influenza virus [...] Patient Education Author: Wil Jerry MD Date: Cardiovascular Dyslipidemia Dyslipidemia is an imbalance of the lipids in your blood. Lipids are waxy, fat- like proteins that your body needs in small amounts. Dyslipidemia often involves the lipids cholesterol or triglycerides. Common forms of dyslipidemia are: High levels of bad cholesterol (LDL cholesterol). LDL cholesterol is the type of cholesterol that causes heart disease. Low levels of good cholesterol (HDL cholesterol). HDL cholesterol is the type of cholesterol that helps protect against heart disease. High levels of triglycerides. Triglycerides are a fatty substance in the blood linked to a buildup of plaque on your arteries. RISK FACTORS Increased age. Having a family history of high cholesterol. Certain medicines, including control pills, diuretics, beta- blockers, and some medicines for depression. Smoking. Eating a high-fat diet. Being overweight. Medical conditions such as diabetes, polycystic ovary syndrome, , kidney disease, and hypothyroidism. Lack of regular exercise. SIGNS AND SYMPTOMS There are no signs or symptoms with dyslipidemia. DIAGNOSIS A simple blood test called a fasting blood test can be done to determine your level of: Total cholesterol. This is the combined number of LDL cholesterol and HDL cholesterol. A healthy number is lower than 200. LDL cholesterol. The goal number for LDL cholesterol is different for each person depending on risk factors. Ask your health care provider what your LDL cholesterol number should be. HDL cholesterol. A healthy level of HDL cholesterol is 60 or higher. A number lower than 40 for men or 50 for women is a danger sign. Triglycerides. A healthy triglyceride number is less than 150. TREATMENT Dyslipidemia is a treatable condition. Your health care provider will advise you on what type of treatment is best based on your age, your test results, and current guidelines. Treatment may include: Dietary changes. A dietitian may help you create a diet that is based on your risk factors, conditions, and lifestyle. Regular exercise. This can help lower your LDL cholesterol, raise your HDL cholesterol, and help with weight management. Check with your health care provider before beginning an exercise program. Most people should participate in 30 minutes of brisk exercise 5 days a week. Quitting smoking. Medicines to lower LDL cholesterol and triglycerides. If you have high levels of triglycerides, your health care provider may: Have you stop drinking alcohol. Have you restrict your fat intake. Have you eliminate refined sugars from your diet. Treat you for other conditions, such as underactive thyroid gland ( hypothyroidism) and high blood sugar (hyperglycemia). Your health care provider will monitor your lipid levels with regular blood tests. HOME CARE INSTRUCTIONS Eat a healthy diet. Follow any diet instructions if they were given to you by your health care provider. Maintain a healthy weight. Exercise regularly based on the recommendations of your health care provider. Do not use any tobacco products, including cigarettes, chewing tobacco, or electronic cigarettes. Take medicines only as directed by your health care provider. Keep all follow-up visits as directed by your health care provider. SEEK MEDICAL CARE IF: You are having possible side effects from your medicines. This information is not intended to replace advice given to you by your health care provider. Make sure you discuss any questions you have with your health care provider. Document Released: 05/31/2014 Document Revised: 06/16/2015 Document Reviewed: 05/31/2014 [facility] Patient Information 2016 [facility], [facility]. Emergency Medicine Ischemic Stroke Treated With Warfarin An ischemic stroke (cerebrovascular accident) is the sudden of brain tissue. It is a medical emergency. An ischemic stroke can cause permanent loss of brain function. This can cause problems with different parts of your body. CAUSES An ischemic stroke is caused by a decrease of oxygen supply to an area of your brain. It is usually the result of a small blood clot (embolus) or collection of cholesterol or fat (plaque) that blocks bl ood flow in the brain. An ischemic stroke can also be caused by blocked or damaged carotid arteries. RISK FACTORS High blood pressure (hypertension). High cholesterol. Diabetes mellitus. Heart disease. The buildup of plaque in the blood vessels (peripheral artery disease or atherosclerosis). The buildup of plaque in the blood vessels that provide blood and oxygen to the brain (carotid artery stenosis). An abnormal heart rhythm (atrial fibrillation). Obesity. Smoking cigarettes. Taking oral contraceptives, especially in combination with using tobacco. Physical inactivity. A diet that is high in fats, salt (sodium), and calories. Excessive alcohol use. Use of illegal drugs, especially cocaine and methamphetamine. Being . Being over the age of 55 years. Family history of stroke. Previous history of blood clots, stroke, TIA (transient ischemic attack) , or heart attack. Sickle cell disease. SIGNS AND SYMPTOMS These symptoms usually develop suddenly, or you may notice them after waking up from sleep. Symptoms may include sudden: Weakness or numbness of your face, arm, or leg, especially on one side of your body. Confusion. Trouble speaking (aphasia) or understanding speech. Trouble seeing with one or both eyes. Trouble walking or difficulty moving your arms or legs. Dizziness. Loss of balance or coordination. Severe headache with no known cause. The headache is often described as the worst headache ever experienced. DIAGNOSIS Your health care provider can often determine the presence or absence of an ischemic stroke based on your symptoms, history, and physical exam. CT ( computed tomography) of the brain is usually performed to confirm the stroke, determine causes, and determine stroke severity. Other tests may be done to find the cause of the stroke. These tests may include: ECG (electrocardiogram). Continuous heart monitoring. Echocardiogram. Carotid ultrasound. MRI. A scan of the brain circulation. Blood tests. TREATMENT It is very important to seek treatment at the first sign of stroke symptoms. Your health care provider may perform the following treatments within 6 hours of the onset of stroke symptoms: Medicine to dissolve the blood clot (thrombolytic). Inserting a device into the affected artery to remove the blood clot. These treatments may not be effective if too much time has passed since your stroke symptoms began. Even if you do not know when your symptoms began, get treatment as soon as possible. There are other treatment options that may be given, such as: Oxygen. IV fluids. Medicines to thin the blood (anticoagulants). A procedure to widen blocked arteries. Your treatment will depend on how long you have had your symptoms, the severity of your symptoms, and the cause of your symptoms. Your health care provider will take measures to prevent short-term and long- term complications of stroke, such as: Breathing foreign material into the lungs (aspiration pneumonia). Blood clots in the legs. Bedsores. Falls. Medicines and dietary changes may be used to help treat and manage risk factors for stroke, such as diabetes and high blood pressure. If any of your body's functions were impaired by stroke, you may work with physical, speech, or occupational therapists to help you recover. HOME CARE INSTRUCTIONS Take medicines only as directed by your health care provider. Follow the directions carefully. Medicines may be used to control risk factors for a stroke. Be sure that you understand all your medicine instructions. You may be told to take a medicine to thin your blood, such as aspirin or the anticoagulant warfarin. Warfarin needs to be taken exactly as instructed. Be aware that too much and too little warfarin are both dangerous. Too much warfarin increases the risk of bleeding. Too little warfarin continues to allow the risk of blood clots. While taking w arfarin, you will need to have blood tests regularly to measure your blood clotting time. These blood tests usually include both the PT (prothrombin time) and INR (international normalized ratio) tests. The PT and INR results allow your health care provider to adjust your dose of warfarin. The dose can change for many reasons. It is very important that you have your PT and INR levels tested as often a s directed by your health care provider and that you have them drawn exactly as directed. It is critically important that you take warfarin exactly as prescribed. Avoid major changes in your diet, or notify your health care provider before changing your diet. Arrange a visit with a dietitian to answer your questions. Many foods, especially foods that are h igh in vitamin K, can interfere with warfarin and affect the PT and INR results. You should eat a consistent amount of foods that are high in vitamin K. These include spinach, kale, broccoli, cabbage, c ollard greens, turnip greens, [place] sprouts, peas, cauliflower, seaweed, parsley, beef liver, pork liver, green tea, and soybean oil. Many medicines can interfere with warfarin and affect the PT and INR results. You must tell your health care provider about any and all medicines, vitamins, and supplements you take, including as pirin and other [id number] anti-inflammatory medicines. Be especially cautious with aspirin and anti-inflammatory medicines. Ask your health care provider before taking these. Do not start taking or stop taking any prescribed medicine or tevl-ixw-ovbpass medicine, except on the advice of your health care provider or pharmacist. Warfarin can have side effects, such as easy bruising or difficulty in stopping bleeding. You will need to hold pressure over cuts for longer than usual. Ask your health care provider or pharmaci st about other potential side effects of warfarin. Avoid sports or activities that may cause injury or bleeding. Be mindful when shaving, flossing your teeth, or handling sharp objects. Drinking alcohol frequently can increase the effect of warfarin, leading to excess bleeding. It is best to avoid alcoholic drinks or to consume only very small amounts while taking warfarin. Noti fy your health care provider if you change your alcohol intake. Notify your dentist or other health care providers before you undergo any procedures in which bleeding may occur. If swallow studies have determined that your swallowing reflex is present, you should eat healthy foods. Foods may need to be a soft or pureed consistency, or you may need to take small bites in order to avoid aspirating or choking. Follow physical activity guidelines as directed by your health care team. Do not use any tobacco products, including cigarettes, chewing tobacco, or electronic cigarettes. If you smoke, quit. If you need help quitting, ask your health care provider. A safe home environment is important to reduce the risk of falls. Your health care provider may arrange for specialists to evaluate your home. Having grab bars in the bedroom and bathroom is ofte n important. Your health care provider may arrange for equipment to be used at home, such as raised toilets and a seat for the shower. Ongoing physical, occupational, and speech therapy may be needed to maximize your recovery after a stroke. If you have been advised to use a walker or a cane, use it at all times. Be sure to keep your therapy appointments. Keep all follow-up visits with your health care provider. This is very important. This includes any referrals, therapy, rehabilitation, and lab tests. Proper follow-up can prevent another stroke from occurring. PREVENTION The risk of a stroke can be decreased by appropriately treating high blood pressure, high cholesterol, diabetes, heart disease, and obesity. It can also be decreased by quitting smoking, limiting alcohol, and staying physically active. SEEK IMMEDIATE MEDICAL CARE IF: You have sudden weakness or numbness of your face, arm, or leg, especially on one side of your body. You have sudden confusion. You have sudden trouble speaking (aphasia) or understanding. You have sudden trouble seeing with one or both eyes. You have sudden trouble walking or difficulty moving your arms or legs. You have sudden dizziness. You have a sudden loss of balance or coordination. You have a sudden, severe headache with no known cause. You have a partial or total loss of consciousness. Any of these symptoms may represent a serious problem that is an emergency. Do not wait to see if the symptoms will go away. Get medical help right away. Call your local emergency services (911 in [place] Do not drive yourself to the hospital. This information is not intended to replace advice given to you by your health care provider. Make sure you discuss any questions you have with your health care provider. Document Released: 05/26/2006 Document Revised: 06/16/2015 Document Reviewed: 11/14/2014 [employer] Patient Information 2016 [employer]. No follow up information was provided. Extracted from: Title: Office Visit Note Author: Wil Jerry MD Date: 01/01/16 Assessment/Plan Anxious depression Continue with the current medications. Ordered: Office Visit Level 4 Est 48149 BPH with Prostatism, ABN. Right Prostate Lobe Continue with the follow ups with Dr. Robison. Ordered: Office Visit Level 4 Est 67029 CVA (cerebral infarction) Needing INR Ordered: Office Visit Level 4 Est 80872 PT Dyslipidemia Lab Ordered: Lipid Panel Office Visit Level 4 Est 99995 Hypertension No change in treatment. Ordered: Comprehensive Metabolic Panel Office Visit Level 4 Est 34356
--- OUTSIDE RECORDS SUMMARY | 2017-02-12 20:48 | External Medical Summary | Referral Summary ---
:1940 Author Organization [facility] Address [address] [place] [address] [place] Gupta [phone] Care Team Providers Name Role Phone Wil Jerry Primary Care Physician Encounter [facility] [id number] Date(s): 04/16/16 - 04/16/16 [facility] [place] [phone] [place] Discharge Diagnosis: Acute bilateral low back pain without sciatica Discharge Diagnosis: Myalgia Discharge Diagnosis: Myalgia Discharge Diagnosis: Anxious depression Discharge Disposition: 01-Home or Self Care Attending Physician: Wil Jerry MD Admitting Physician: Wil Jerry MD Vital Signs Most recent to oldest [Reference Range]: 1 Peripheral Pulse Rate [60-100 bpm] 103 bpm *HI* (04/16/16 1:55 PM) Blood Pressure [90-140/60-90 mmHg] 130/76 mmHg (04/16/16 1:55 PM) SpO2 96 % (04/16/16 1:55 PM) Problem List Condition Effective Dates Status [...] APPOINTMENT), # 30 tabs, 0 Refill(s), Pharmacy: [id number], TAKE 1 TABLET EVERY DAY (NEED MD APPOINTMENT) Start Date: 02/27/16 Status: Orderedcitalopram 20 mg oral tablet See Instructions, TAKE 1 TABLET EVERY DAY (NEED MD APPOINTMENT), # 30 tabs, 0 Refill(s), Pharmacy: [id number], TAKE 1 TABLET EVERY DAY (NEED MD APPOINTMENT) Start Date: 02/27/16 Status: OrderedCoreg 6.25 mg oral tablet See Instructions, TAKE 1 TABLET TWICE DAILY, # 180 tabs, 3 Refill(s), Pharmacy: [facility], TAKE 1 TABLET TWICE DAILY Start Date: 01/02/16 Status: Orderedfinasteride 5 mg oral tablet See Instructions, TAKE 1 TABLET EVERY DAY, # 90 tabs, 0 Refill(s), Pharmacy: [facility], TAKE 1 TABLET EVERY DAY Start Date: 03/18/16 Status: Orderedlosartan 50 mg oral tablet 50 mg 1 tabs, Oral, Daily, keep December appt for additional refills, # 90 tabs, 0 Refill(s), Pharmacy: [facility], 1 tabs Oral Daily,Instr: [...] CAPSULE TWICE DAILY, # 180 caps, eRx: [facility], TAKE 1CAPSULE TWICE DAILY Start Date: 04/15/16 Status: OrderedpredniSONE 10 mg oral tablet See Instructions, 2 tabs Oral Daily x7 days, then 1 tab oral daily indefinitely. , # 60 tabs, 1 Refill(s), Pharmacy: [id number], 2 tabs Oral Daily x7 days, then [...] BEDTIME, # 90 caps, 3 Refill(s), eRx: [facility], TAKE 1 CAPSULE AT [...] days, # 48 tabs, 3 Refill(s), Pharmacy: [email or web address], Take 1 tab on Sun/Tue/Thur/Sat alt. with 4mg tabs on other days Start Date: 01/02/16 Status: Orderedwarfarin 4 mg oral tablet See Instructions, Take 1 tab on Fri-Fri- Fri, alt. with 2mg tabs on other days, # 36 tabs, 3 Refill(s), Pharmacy: [facility], Take 1 tab on Fri-Fri- Fri, alt. with 2mg tabs on other days Start Date: 01/02/16 Status: Ordered Results Hematology Most recent to oldest [Reference Range]: 1 Sed Rate [0-15] 7 (04/16/16 2:28 PM) Immunizations Vaccine Date Refusal Reason influenza [...] Patient Education Author: Wil Jerry MD Date: Musculoskeletal Musculoskeletal Pain Musculoskeletal pain is muscle and [...] you get your test results. Only take [id number] or prescription medicines for pain, discomfort, or [...] 05/26/2006 Document Revised: 08/17/2012 Document Reviewed: 01/28/2014 [employer] Interactive Patient Education 2016 [employer] Procedures Heat Therapy Heat therapy can help ease sore, stiff, injured, and tight muscles and joints. Heat relaxes your muscles, which may help ease your pain. RISKS AND COMPLICATIONS If you have any of the following conditions, do not use heat therapy unless your health care provider has approved: Poor circulation. Healing wounds or scarred skin in the area being treated. Diabetes, heart disease, or high blood pressure. Not being able to feel (numbness) the area being treated. Unusual swelling of the area being treated. Active infections. Blood clots. Cancer. Inability to communicate pain. This may include young children and people who have problems with their brain function (dementia). . Heat therapy should only be used on old, pre-existing, or long-lasting (chronic ) injuries. Do not use heat therapy on new injuries unless directed by your health care provider. HOW TO USE HEAT THERAPY There are several different kinds of heat therapy, including: Moist heat pack. Warm water bath. Hot water bottle. Electric heating pad. Heated gel pack. Heated wrap. Electric heating pad. Use the heat therapy method suggested by your health care provider. Follow your health care provider's instructions on when and how to use heat therapy. GENERAL HEAT THERAPY RECOMMENDATIONS Do not sleep while using heat therapy. Only use heat therapy while you are awake. Your skin may turn pink while using heat therapy. Do not use heat therapy if your skin turns red. Do not use heat therapy if you have new pain. High heat or long exposure to heat can cause lopez. Be careful when using heat therapy to avoid burning your skin. Do not use heat therapy on areas of your skin that are already irritated , such as with a rash or sunburn. SEEK MEDICAL CARE IF: You have blisters, redness, swelling, or numbness. You have new pain. Your pain is worse. MAKE SURE YOU: Understand these instructions. Will watch your condition. Will get help right away if you are not doing well or get worse. This information is not intended to replace advice given to you by your health care provider. Make sure you discuss any questions you have with your health care provider. Document Released: 08/17/2012 Document Revised: 06/16/2015 Document Reviewed: 07/19/2014 [employer] Interactive Patient Education 2016 [employer] No follow up information was provided. Extracted from: Title: Office Visit Note Author: Wil Jerry MD Date: 04/16/16 Assessment/Plan 1.Acute bilateral low back pain without sciatica Continue with the current medication which seem to be helping with the pain. Will start Prednisone and get lab for myalgia. Follow up per phone. Ordered: Office Visit Level 3 Est 14416 2.Anxious depression No change in medication. Ordered: Office Visit Level 3 Est 19459 3.Myalgia, Myalgia, Myalgia Ordered: REBECCA Screen Office Visit Level 3 Est 54632 Rheumatoid Factor Sedimentation Rate
--- OUTSIDE RECORDS SUMMARY | 2017-02-12 20:48 | External Medical Summary | Referral Summary ---
:1940 Author Organization [facility] Address [address] [place] [address] [place] Gu[place] [address] Care Team Providers Name Role Phone Wil Jerry Primary Care Physician Encounter [facility] Date(s): 02/17/15 - 02/17/15 [facility] [place] [phone] [place] Discharge Diagnosis: CEREBRAL ARTERY OCCLUSION, UNSPECIFIED, WITH CEREBRAL INFARCTION Discharge Diagnosis: OTHER AND UNSPECIFIED HYPERLIPIDEMIA Discharge Diagnosis: Chronic heart failure Discharge Disposition: 01-Home or Self Care Attending Physician: Wil Jerry MD Admitting Physician: Wil Jerry MD Vital Signs Most recent to oldest [Reference Range]: 1 Blood Pressure [90-140/60-90 mmHg] 124/72 mmHg (02/17/15 3:09 PM) Problem List Condition Effective Dates Status [...] Daily, # 30 tabs, 5 Refill(s), [facility], 1 tabs Oral Daily Start Date: 08/25/15 Status: OrderedCoreg 6.25 mg oral tablet See Instructions, TAKE 1 TABLET TWICE DAILY, # 180 tabs, 3 Refill(s), eRx: [facility], TAKE 1 TABLET TWICE DAILY Start Date: 12/26/14 Status: Orderedfinasteride 5 mg oral tablet See Instructions, TAKE 1 TABLET EVERY DAY, # 90 tabs, 1 Refill(s), eRx: [facility], TAKE 1 TABLET EVERY DAY Start Date: 03/13/15 Status: OrderedLipitor 20 mg oral tablet 20 mg 1 tabs, Oral, Daily, # 90 tabs, 0 Refill(s), Pharmacy: [facility], 1 tabs Oral Daily Start Date: 08/23/15 Status: Orderedlosartan 50 mg oral tablet 50 mg 1 tabs, Oral, Daily, # 90 tabs, 1 Refill(s), Pharmacy: [id number], 1 tabs Oral Daily Start Date: 06/23/15 Status: OrderedOcuvite 1 tabs, Oral, Daily, 0 Refill(s) Start Date: 02/17/15 Status: Orderedomeprazole 20 mg oral delayed release capsule See Instructions, TAKE 1 CAPSULE TWICE DAILY, # 180 caps, eRx: [facility] For [facility] Mail [facility], TAKE 1CAPSULE TWICE DAILY [...] DONE., # 30 tabs, 0 Refill(s), Pharmacy: [facility], 1 tabs Oral 3x/Wk,Instr:on fri, fri and fri/PT. IS LATE GETTING INR. NEEDS TO GET... Start Date: 08/22/15 Status: Orderedwarfarin 4 mg oral tablet See Instructions, 1 tabs Oral 4x/Wk,Instr://Fri/Sun. 04-13-2015 PT. IS LATE DOING INR AND NEEDS TO CALL DR. NAVA., # 30 tabs, 0 Refill(s), Pharmacy: [facility], 1 tabs Oral 4x/Wk,Instr://Fri/Fri. PT. IS LAT... Start Date: 08/22/15 Status: Ordered Results Hematology Most recent to oldest [Reference Range]: 1 WBC [4.8-10.8 10*3/uL] 9.0 10*3/uL (02/17/15 3:52 PM) RBC [4.60-6.20] 4.74 (02/17/15 3:52 PM) Hgb [14.0-18.0 gm/dL] 14.2 gm/dL (02/17/15 3:52 PM) Hct [42.0-52.0 %] 41.3 % *LOW* (02/17/15 3:52 PM) MCV [82.0-99.0 fL] 87.1 fL (02/17/15 3:52 PM) MCH [27.0-32.0 pg] 30.0 pg (02/17/15 3:52 PM) MCHC [32.0-36.0 gm/dL] 34.4 gm/dL (02/17/15 3:52 PM) RDW [11.5-14.5 %] 13.7 % (02/17/15 3:52 PM) Platelet [150-400 10*3/uL] 176 10*3/uL (02/17/15 3:52 PM) MPV [8.8-14.8 fL] 11.3 fL (02/17/15 3:52 PM) Immature Granulocytes [0.0-1.0 %] 1.2 % *HI* (02/17/15 3:52 PM) Neutrophils [51-75 %] 52 % (02/17/15 3:52 PM) Lymphocytes [20-46 %] 31 % (02/17/15 3:52 PM) Monocytes [4-11 %] 12 % *HI* (02/17/15 3:52 PM) Eosinophils [0-4 %] 4 % (02/17/15 3:52 PM) Basophils [0-2 %] 1 % (02/17/15 3:52 PM) Neutro Absolute [1.90-7.00 10*3] 4.70 10*3 (02/17/15 3:52 PM) Lymph Absolute [0.80-3.30 10*3] 2.75 10*3 (02/17/15 3:52 PM) [place] Absolute [0.30-1.00 10*3] 1.04 10*3 *HI* (02/17/15 3:52 PM) Eos Absolute [0.00-0.50 10*3] 0.32 10*3 (02/17/15 3:52 PM) Baso Absolute [0.00-0.20 10*3] 0.05 10*3 (02/17/15 3:52 PM) Coagulation Most recent to oldest [Reference Range]: 1 PT Venous (02/17/15 3:52 PM) INR [0.8-1.2] 3.2 1 *HI* (02/17/15 3:52 PM) 1Result Comment: Normal (no anticoagulant): 0.8 - 1.2 Units Routine Therapeutic Range: 2.0 - 3.0 Units High Risk Therapeutic Range: 2.5 - 3.5 UnitsChemistry Most recent to oldest [Reference Range]: 1 Sodium Lvl [135-144 mEq/L] 139 mEq/L (02/17/15 3:52 PM) Potassium Lvl [3.5-5.2 mEq/L] 3.2 mEq/L *LOW* (02/17/15 3:52 PM) Chloride [99-111 mEq/L] 100 mEq/L (02/17/15 3:52 PM) CO2 [23-31 mEq/L] 30 mEq/L (02/17/15 3:52 PM) AGAP [3-20] 9 (02/17/15 3:52 PM) BUN [8-26 mg/dL] 10 mg/dL (02/17/15 3:52 PM) Glucose Lvl [70-99 mg/dL] 112 mg/dL *HI* (02/17/15 3:52 PM) Creatinine Lvl [0.72-1.25 mg/dL] 1.04 mg/dL (02/17/15 3:52 PM) eGFR [>60 mL/min] >60 mL/min 1 (02/17/15 3:52 PM) Calcium Lvl [8.9-10.5 mg/dL] 8.8 mg/dL *LOW* (02/17/15 3:52 PM) Albumin Lvl [3.4-4.8 gm/dL] 3.8 gm/dL (02/17/15 3:52 PM) Total Protein [6.2-8.1 gm/dL] 6.6 gm/dL (02/17/15 3:52 PM) Globulin [1.8-4.0 gm/dL] 2.8 gm/dL (02/17/15 3:52 PM) ALT [0-55 U/L] 15 U/L (02/17/15 3:52 PM) AST [5-34 U/L] 18 U/L (02/17/15 3:52 PM) Alk Phos [40-150 U/L] 77 U/L (02/17/15 3:52 PM) Bili Total [0.2-1.2 mg/dL] 0.9 mg/dL (02/17/15 3:52 PM) Chol [0-199 mg/dL] 143 mg/dL (02/17/15 3:52 PM) Trig [0-149 mg/dL] 95 mg/dL (02/17/15 3:52 PM) HDL [40-84 mg/dL] 44 mg/dL (02/17/15 3:52 PM) LDL [0-130 mg/dL] 80 mg/dL (02/17/15 3:52 PM) VLDL Cholesterol [0-28 mg/dL] 19 mg/dL (02/17/15 3:52 PM) Cardiac Risk [0.0-5.7] 3.3 (02/17/15 3:52 PM) 1Result Comment: Multiply eGFR results by [...] Author: Wil Jerry MD Date: Family Medicine Irritable Bowel Syndrome Irritable bowel syndrome (IBS) is caused by a disturbance of normal bowel function and is a common digestive disorder. You may also hear this condition called spastic colon, mucous colitis, and irritabl e colon. There is no cure for IBS. However, symptoms often gradually improve or disappear with a good diet, stress management, and medicine. This condition usually appears in late adolescence or early adulthood. Women develop it twice as often as men. CAUSES After food has been digested and absorbed in the small intestine, waste material is moved into the large intestine, or colon. In the colon, water and salts are absorbed from the undigested products comi ng from the small intestine. The remaining residue, or fecal material, is held for elimination. Under normal circumstances, gentle, rhythmic contractions of the bowel milian push the fecal material along the colon toward the rectum. In IBS, however, these contractions are irregular and poorly coordinated. The fecal material is either retained too long , resulting in constipation, or expelled too soon, producing diarrhea. SIGNS AND SYMPTOMS The most common symptom of IBS is abdominal pain. It is often in the lower left side of the abdomen, but it may occur anywhere in the abdomen. The pain comes from spasms of the bowel muscles happening too much and from the buildup of gas and fecal material in the colon. This pain : Can range from sharp abdominal cramps to a dull, continuous ache. Often worsens soon after eating. Is often relieved by having a bowel movement or passing gas. Abdominal pain is usually accompanied by constipation, but it may also produce diarrhea. The diarrhea often occurs right after a meal or upon waking up in the morning. The stools are often soft, watery, and flecked with mucus. Other symptoms of IBS include: Bloating. Loss of appetite. Heartburn. Backache. Dull pain in the arms or shoulders. Nausea. Burping. Vomiting. Gas. IBS may also cause symptoms that are unrelated to the digestive system, such as : Fatigue. Headaches. Anxiety. Shortness of breath. Trouble concentrating. Dizziness. These symptoms tend to come and go. DIAGNOSIS The symptoms of IBS may seem like symptoms of other, more serious digestive disorders. Your health care provider may want to perform tests to exclude these disorders. TREATMENT Many medicines are available to help correct bowel function or relieve bowel spasms and abdominal pain. Among the medicines available are: Laxatives for severe constipation and to help restore normal bowel habits. Specific antidiarrheal medicines to treat severe or lasting diarrhea. Antispasmodic agents to relieve intestinal cramps. Your health care provider may also decide to treat you with a mild tranquilizer or sedative during unusually stressful periods in your life. Your health care provider may also prescribe antidepressant m edicine. The use of this medicine has been shown to reduce pain and other symptoms of IBS. Remember that if any medicine is prescribed for you, you should take it exactly as directed. Make sure your [facility] care provider knows how well it worked for you. HOME CARE INSTRUCTIONS Take all medicines as directed by your health care provider. Avoid foods that are high in fat or oils, such as heavy cream, butter, frankfurters, sausage, and other fatty meats. Avoid foods that make you go to the bathroom, such as fruit, fruit juice, and dairy products. Cut out carbonated drinks, chewing gum, and "gassy" foods such as beans and cabbage. This may help relieve bloating and burping. Eat foods with bran, and drink plenty of liquids with the bran foods. This helps relieve constipation. Keep track of what foods seem to bring on your symptoms. Avoid emotionally charged situations or circumstances that produce anxiety. Start or continue exercising. Get plenty of rest and sleep. Document Released: 05/26/2006 Document Revised: 05/31/2014 Document Reviewed: 01/13/2009 [employer] Patient Information 2015 [employer], [facility]. This information is not intended to replace advice given to you by your health care provider. Make sure you discuss any questions you have with your health care provider. No follow up information was provided. Extracted from: Title: Office Visit Note Author: Wil Jerry MD Date: 02/17/15 Assessment/Plan CEREBRAL ARTERY OCCLUSION, UNSPECIFIED, WITH CEREBRAL INFARCTION Ordered: Office Visit Level 3 Est 93101 Chronic heart failure Ordered: Office Visit Level 3 Est 20106 Irritable bowel syndrome (IBS) Rx for Bentyl 10mg qid before meals. Follow up and if not improved would like to get stool cultures. Ordered: Office Visit Level 3 Est 47963 OTHER AND UNSPECIFIED HYPERLIPIDEMIA Ordered: Office Visit Level 3 Est 72663
--- OUTSIDE RECORDS SUMMARY | 2017-02-12 20:48 | External Medical Summary | Referral Summary ---
:1940 Author Organization [facility] Address [address] [place] [address] Care Team Providers Name Role Phone Wil Jerry Primary Care Physician Encounter [facility] Date(s): 11/14/14 - 11/14/14 [facility] [address] [place] [address] [place] Discharge Disposition: 01-Home or [...] QID, # 56 caps, 1 Refill(s), Pharmacy: [facility], 1 caps Oral QID,x14 days Start Date: 02/17/15 Stop Date: 03/17/15 Status: OrderedCeleXA 20 mg oral tablet See Instructions, 1 tabs Oral Daily, # 30 tabs, 5 Refill(s), Pharmacy: [id number], 1 tabs Oral Daily Start Date: 02/28/15 Status: OrderedCoreg 6.25 mg oral tablet See Instructions, TAKE 1 TABLET TWICE DAILY, # 180 tabs, 3 Refill(s), eRx: [facility], TAKE 1 TABLET TWICE DAILY Start Date: 12/26/14 Status: OrderedCozaar 100 mg oral tablet See Instructions, TAKE 1 TABLET EVERY DAY, # 90 tabs, 3 Refill(s), eRx: [facility], TAKE 1 TABLET EVERY DAY Start Date: 09/12/14 Status: Orderedfinasteride 5 mg oral tablet See Instructions, TAKE 1 TABLET EVERY DAY, # 90 tabs, 1 Refill(s), eRx: [facility], TAKE 1 TABLET EVERY [...] CAPSULE TWICE DAILY, # 180 caps, eRx: [facility], TAKE 1CAPSULE TWICE DAILY [...] DONE., # 30 tabs, 0 Refill(s), Pharmacy: [facility], 1 tabs Oral 3x/Wk,Instr:on mon, wed and fri/PT. IS LATE GETTING INR. NEEDS TO GET INR DONE. Start Date: 04/13/15 Status: Orderedwarfarin 4 mg oral tablet 4 mg 1 tabs, Oral, 4x/Wk, //Sat/Sun. 04-13-2015 PT. IS LATE DOING INR AND NEEDS TO CALL DR. NAVA., # 30 tabs, 0 Refill(s), Pharmacy: [facility], 1 tabs Oral 4x/Wk,Instr://Sat/Sun. 04-13-2015 [...]
--- NOTE | 2017-02-12 22:33 | History & Physical Report ---
<Cheikh Ware - Last Filed: 02/12/17 22:26> History of Present Illness Date: 02/12/17 Chief complaint: I feel bad HPI: This is a 76 y/o male who has not felt well for several weeks. The patient was seen in the ED 1.5 weeks ago and sent home with an inhaler. The patient describes a cough that is at times productive and at times not. The patient denies fever chills or sweats. but is very weak during this period of time. The patient is also having cough induced emesis but then some emesis that is not cough induced. Nursing reports that the most recent emesis had the appearance of coffee ground. The patient denies a headache. no significant congestion, no sore throat, no neck pain, no chest pain, no heart palpitations, The patient reports diffuse abdomen pain with intermittent episodes of diarrhea. The patient denies any focal neuro complains. the patient reports that he has had a CVA in the past that left no residue deficits. It is assumed that the patient is anticoagulated due to previous CVA but it is not clearly stated in the records and the patient is not clear on this matter. In the ED the patient had a cxr that has a chronically elevated right hemidiaphragm and probable new infiltrates in both bases. The patient will be admitted for community acquired pneumonia but a more detailed assessment with repet labs and further assessment of his nausea and vomiting with now ? coffee ground emesis will be necessary Review of Systems Review of systems: as noted in HPI, otherwise 12 point ROS negative PFSH Patient Stated Medical History Cerebrovascular Accident Yes Cataracts Yes Macular Degeneration Yes Myocardial Infarction Yes Pneumonia Yes: feb 2016 Gastroesophageal Reflux Yes Disease Hx Incontinence Yes Hx Kidney Stones Yes Surgical History: AICD, CABG - Social History Smoking status: Never smoker Substance use type: does not use Alcohol intake: never Current occupational status: retired Medications Home Medications Medication Instructions Recorded Confirmed Type Carvedilol [Coreg] 6.25 mg PO BID #0 09/07/10 02/12/17 History Atorvastatin Calcium [Lipitor] 20 mg PO HS #0 05/18/14 02/12/17 History Finasteride 5 mg PO DAILY #0 05/18/14 02/12/17 History Tamsulosin HCl 0.4 mg PO HS #0 05/18/14 02/12/17 History Citalopram Hydrobromide 20 mg PO DAILY #0 02/21/16 02/12/17 History [Citalopram HBr] Losartan Potassium 50 mg PO DAILY #0 02/21/16 02/12/17 History Omeprazole 20 mg PO DAILY #0 02/21/16 02/12/17 History Guaifenesin/Dextromethorphan 1 tab PO Q12HR 01/13/17 02/12/17 History [Mucinex Dm ER 1,200-60 mg Tab] Melatonin 1 mg PO HS 01/13/17 02/12/17 History Mv-Min/FA/Vit K/Lycop/Lut/Zeax 1 tab PO DAILY 01/13/17 02/12/17 History [Ocuvite Eye + Multi Tablet] Promethazine HCl/Codeine 5 ml PO Q4HR PRN 01/13/17 02/12/17 History [Prometh-Codein 6.25-10 mg/5 ml] Warfarin [Coumadin] 3 mg PO NOON 01/13/17 02/12/17 History Zolpidem [Ambien] 5 mg PO HS 01/13/17 02/12/17 History Allergies Allergy/AdvReac Type Severity Reaction Status Date / Time Penicillins Allergy Unknown Verified 02/12/17 22:21 lisinopril AdvReac Unknown COUGH Verified 02/12/17 22:21 Exam Vital Signs: Temperature 97.6 F 02/12/17 18:43 Pulse Rate 104 H 02/12/17 18:43 Respiratory Rate 22 02/12/17 19:08 Blood Pressure 143/73 H 02/12/17 18:43 Pulse Oximetry 95 02/12/17 19:08 Telemetry Rhythm: Sinus Rhythm - Constitutional Present: moderate distress, average body habitus, cooperative - Routine HEENT Exam Head: Present: normocephalic, atraumatic Eye: Present: EOMI, conjunctivae pink. Absent: scleral injection ENT: Present: mucous membranes dry - Routine Neck Exam Present: full ROM - Routine Chest/Breast/Axilla Exam Chest wall: Present: pacemaker - Routine Respiratory Exam Comments: diminished with scattered rhonchi, but no discrete area of consolidation appreciated on auscultation - Routine Cardiovascular Exam Present: RRR, no murmur, S3 - Routine Abdominal Exam Present: soft, distended. Absent: non distended Comments: somewhat distended abdomen with normal bowel sounds. no sig tenerness when palpated by nursing - Routine Extremities Exam Present: no edema, full ROM. Absent: edema - Routine Back/Spine/Pelvis Exam Back/Spine: Present: full ROM - Routine Skin Exam Present: intact - Routine Neurological Exam Present: alert, oriented X3, CN II-XII intact. Absent: motor deficit - Routine Psychiatric Exam Present: normal affect Results - Labs CBC & Chem 7: 02/12/17 19:17 02/12/17 19:17 Microbiology Results: Microbiology 02/12/17 21:20 Peripheral/Iv Start Blood Culture - Preliminary Culture Initiated - Results Pending - Imaging and Cardiology Chest x-ray Additional comments: this patient has a significant abnormal appearance to his right chest silhouette. when compared to previous there is no change. what is apparent is that there are some areas of atelectasis and or infiltrate bilateral bases. Assessment and Plan (1) Community acquired pneumonia Current visit: Yes Status: Acute 02/12/17 22:38 this will be the starting point. The paitent has leukocytosis and abnormal chest xray with cough. sputum cx ordered, blood cx ordered by ED. zithromax and rocephin ordered. will review x ray with radiology in the am. (2) Acute respiratory failure with hypoxia Current visit: Yes Status: Acute 02/12/17 22:39 this patient is significantly hypoxic from baseline. He may have chronic hypoxia but this is not known. this is most likely due to lung disease seen on cxr. see # 1. titrate for sats 91%, consider ABG in am to better quantify if he has a chronic hypercapnic component with HCO3 30. (3) Vomiting Current visit: Yes Status: Acute 02/12/17 22:45 this patient has persistent unprovoked emesis over the past at least 2 weeks. now the nurses describe coffee ground component. Initially this patient advertised as respirtory but there may be more going on. changed diet to clear liquid. repeat labs in the am. consider CT if sx persist of the abddomen and pelvis. (4) Coronary artery disease Current visit: Yes Status: Acute 02/12/17 22:50 This patient is s/p CABG. This patient is experiencing nausea and vomiting. I will proceed with a cardiac workup to exclude occult cardiac ds. EKG , troponin x 2 and make further recommendations after that. patient is on tele DVT Prophylaxis: SCD's GI Prophylaxis: Protonix Hospital Course Summary Disclaimer: The visit summary below is not to be considered part of the above Progress Note. <Gabby Mcgill - Last Filed: 02/13/17 12:51> History of Present Illness Date: 02/13/17 [facility] Patient Stated Medical History Cerebrovascular Accident Yes Cataracts Yes Macular Degeneration Yes Myocardial Infarction Yes Pneumonia Yes: feb 2016 Gastroesophageal Reflux Yes Disease Hx Incontinence Yes Hx Kidney Stones Yes Exam Vital Signs: Temperature 97.5 F 02/13/17 07:20 Pulse Rate 92 02/13/17 10:16 Respiratory Rate 20 02/13/17 11:08 Blood Pressure 123/70 02/13/17 07:20 Pulse Oximetry 97 02/13/17 11:08 Height/Weight/BMI: Height 5 ft 6 in Weight 168 lb 3.403 oz Body Mass Index 26.6 Results - Labs CBC & Chem 7: 02/13/17 05:00 02/13/17 05:00 Microbiology Results: Microbiology 02/12/17 21:20 Peripheral/Iv Start Blood Culture - Preliminary Culture Initiated - Results Pending Assessment and Plan (1) Community acquired pneumonia Current visit: Yes Status: Acute (2) Acute respiratory failure with hypoxia Current visit: Yes Status: Acute (3) Vomiting Current visit: Yes Status: Acute (4) Coronary artery disease Current visit: Yes Status: Acute Assessment and Plan: I have independently evaluated and examined this patient. I reviewed the chart, the patient's history, and the documented findings as above with the following additions. Patient was seen at 11 AM. Informant is patient who is a vague historian, patient's current records , records from Dr. Ramírez Chief complaint: Can't catch my breath History of present illness: The patient is a 76-year-old white male who reports that he has not felt well for about a month and came in because he couldn't catch his breath. It should be noted he is on 3 L oxygen at home he is currently on 4 L of oxygen here. He reports that he has been short of breath for the last month been coughing about 1 cup of sputum a day. The patient reports he is essentially blind and is unable to define the color of his sputum. He reports he has pain in the middle of his chest when he coughs, he reports it is not a pressure sensation there is no radiation associated with it. He reports that he is short of breath with minimal exertion however he does not walk very much because he feels unstable and he falls. He most recently fell a couple what days ago he denies hurting himself at that point. He denies any fevers, chills or sweats. In addition to his shortness of breath he reports that he has been throwing up for the last 3- 4 weeks. He reports every time he takes the medication and makes him sick and he throws up "almost every time. "He has both morning and evening meds he says he seems to throb more in the morning and then in the evening. He is able to eat without any problems, he does not have nausea when he eats. He has difficulty chewing because of his poor dentition, he reports a lot of his teeth are broken or fallen out most recently a month ago. However he does report he has problems swallowing and feels like food sticks in his esophagus with some pain associated with it. It appears from Dr. Ramírez's notes the patient underwent an EGD as well as a colonoscopy several years ago, I am unable to locate the results of the biopsies of gastric polyps and of the esophagus which were done on May 2014. His chest x-ray does show an elevated right hemidiaphragm and he does have a diagnosis of a hiatal hernia as well. He denies any diarrhea or constipation, he is unable to see if he has blood or dark colored stools. He reports his weight is stable. 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 Dyslipidemia Hiatal hernia High cholesterol Hypertension Irritable bowel syndrome Ischemic cardiomyopathy with ejection fraction of 28-45% Kidney disease Past surgical history: Colonoscopy May 2014 EGD and biopsy May 2014 Implantable defibrillator July 2011 Bilateral cataract surgeries 2010 Cystoscopy with biopsy 2010 History of total knee replacement History of repair of inguinal hernia Meds reviewed Allergies reviewed. He has nausea with penicillin it is not a true allergy. He has a chronic cough related to his lisinopril Family history: Mother of congestive heart failure father of heart disease one brother had congestive heart failure by brother with brain cancer one sister with cancer of the breast Personal history: He does not smoke does not drink alcohol. 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 Immunizations: Yearly flu vaccine Pneumococcal vaccine but he is not sure if he has had the 13 or 23 He has not had a T data recently Review of systems: The patient denies fevers chills or sweats.no changes in weight HEENT: No headaches, no sinus problems, no sinus drainage, essentially blind, no blurred vision, no double vision, no dry eyes, no sore throat, no sores in the mouth, multiple dental problems. Lungs: See history of present illness. CV: No chest pain,no palpitations, no swellingof the extremities GI: See history of present illness : No dysuria, no hematuria, no flank pain. Musculoskeletal: No numbness or tingling in the arms or legs, no weakness. Skin: No skin rash Vital signs as documented Physical exam: In general the patient is alert and oriented, cooperative with exam in no respiratory distress , on 4 L of oxygen, just completed a breathing treatment HEENT: Head is atraumatic and normocephalic. Pupils are equal round and reactive to light. There is no conjunctival petechiae or scleral icterus. No sinus tenderness. Oral mucosa is moist and pink with out exudate or lesions. He has extremely poor dentition. Neck is supple without adenopathy. Lungs: Decreased breath sounds, especially in the right lower lobe. Occasional crackles in the bases left greater than right. CV: Regular rate and rhythm without murmur Abdomen: Bowel sounds are present. There is no guarding, no rebound, no hepatosplenomegaly. Extremities: Has no clubbing,no cyanosis, no edema. Musculoskeletal: Moves all 4 extremities without difficulty Skin: Is warm and dry without evidence of rash or ecchymoses AICD in the left upper chest without erythema warmth or tenderness. He has a midline well-healed sternal incision. EKG shows sinus rhythm with occasional PVCs, possible left atrial enlargement possible left ventricular hypertrophy and there report states anterolateral myocardial infarction or probable recent. Note he has had 3 normal troponins since admission. Chest x-ray report from 02/12/2017 reviewed by me FINDINGS: Lungs are hypoinflated with elevation of the right hemidiaphragm. Chronic increased interstitial markings are redemonstrated similar to prior studies. Superimposed acute airspace disease in the lower lobes cannot be entirely excluded. No pneumothorax or obvious pleural effusion. Left pacemaker defibrillator. Heart size and mediastinal contours are stable. Moderate hiatal hernia. Impression: Stable chest with chronic interstitial findings. Superimposed lower lobe infiltrates cannot be excluded. Impression: Acute shortness of breath. This could be multifactorial with his nausea and vomiting one would wonder if he may have chronic aspiration, he also has a diagnosis of pulmonary fibrosis which could be exacerbated. He also has an elevated right hemidiaphragm it's unclear if his diaphragm moves. She does have a history of DVT and is on Coumadin making a diagnosis of a pulmonary emboli less likely. Cardiac could be another source. Nausea and vomiting. It sounds like he may have esophageal stricture or esophageal spasm which may be contributing. Cardiomyopathy and atrial fibrillation, left previous left mural thrombus requiring anticoagulation Diffuse pulmonary fibrosis Gastroesophageal reflux disease Elevated right hemidiaphragm Poor dentition which increases his risk of aspiration pneumonia, he may need full dental extraction as an outpatient. Recommendations: We'll continue aggressive breathing treatments and respiratory therapy I do not believe he has a community-acquired pneumonia, he has had these symptoms for over a month, no fevers, no chills-he may be chronically aspirating will discontinue azithromycin and ceftriaxone, we'll follow up on culture results. His sputum culture is still pending as is a urine Legionella antigen We'll do a further GI evaluation including an esophagram, and a sniff test to evaluate right hemidiaphragm movement discussed with Dr. Jerod Hernandez in radiology Speech pathology consult OT PT evaluation secondary to recurrent falls while on warfarin Check a d-dimer and a BNP I'll check a prealbumin We'll get a T Tdap today, we'll need to follow up on his pneumococcal vaccine status I am concerned with his previous EGD that he may require a follow-up EGD. Have discussed with pathology and trying to locate those results Discussed CODE STATUS with the patient, he requests to be a full code at this time. Hospital Course Summary Disclaimer: The visit summary below is not to be considered part of the above Progress Note.
[2017-02-12] MEDS: PANTOPRAZOLE 40 MG INJECTION IVP SCH (22:45)
[2017-02-12] MEDS ORDERED: CEFTRIAXONE 1 GM in NS 100 ML IV SCH (22:49)
[2017-02-12] MEDS ORDERED: AZITHROMYCIN IV 500 MG in NS 250ml 250 ML IV SCH (22:49)
[2017-02-12] MEDS ORDERED: HYDROCODONE/APAP 5mg/325mg TABLET PO PRN (22:49)
[2017-02-12] MEDS ORDERED: ACETAMINOPHEN 500 MG TABLET PO PRN (22:49)
[2017-02-12] MEDS ORDERED: ONDANSETRON 4 MG/2 ML INJECTION IVP PRN (22:49)
[2017-02-12 23:01] VITALS: BMI 26.6
[2017-02-12] MEDS: NS 1,000 ML IV SCH (23:10)
--- NOTE | 2017-02-13 08:17 | XRay Report ---
INDICATION: cough PROCEDURE: CHEST 2-VIEWS UPRIGHT (PA & LAT) Encounter: Initial COMPARISON: January 13, 2017 FINDINGS: Lungs are hypoinflated with elevation of the right hemidiaphragm. Chronic increased interstitial markings are redemonstrated similar to prior studies. Superimposed acute airspace disease in the lower lobes cannot be entirely excluded. No pneumothorax or obvious pleural effusion. Left pacemaker defibrillator. Heart size and mediastinal contours are stable. Moderate hiatal hernia. Impression: Stable chest with chronic interstitial findings. Superimposed lower lobe infiltrates cannot be excluded. .
[2017-02-13] MEDS: PANTOPRAZOLE 40 MG INJECTION IVP SCH ×2 (08:28→22:37)
[2017-02-13] MEDS: LOSARTAN 50 MG TABLET PO SCH (08:29)
[2017-02-13] MEDS: FINASTERIDE 5 MG TABLET PO SCH (08:30)
[2017-02-13] MEDS: CARVEDILOL 6.25 MG TABLET PO SCH ×2 (08:30→16:37)
[2017-02-13] MEDS: ALBUTEROL 2.5mg/3ml (0.083%) NEB AEROSOL PRN (11:07)
[2017-02-13] MEDS ORDERED: WARFARIN 3 MG TABLET PO SCH ×2 (12:00→20:00)
[2017-02-13] MEDS ORDERED: TETANUS, DIPHTHERIA, a PERTUSSIS (Tdap) 0.5ml INJECTION IM ONE (12:19)
[2017-02-13] MEDS: NS 1,000 ML IV SCH ×2 (12:23→22:38)
--- NOTE | 2017-02-13 16:02 | Fluoroscopy Report ---
Indication:difficulty swallowing-?spasm vs stricture Procedure:FL esoph, ugi contr x2 ESOPHAGRAM/UPPER GI WITH AIR CONTRAST: Technique: After ingesting air crystals, the patient swallowed thick and thin barium without difficulty. Fluoroscopic imaging was obtained in the upright LPO, supine AP, LPO, RPO, and right lateral positions. Findings: Esophagus: Esophageal dysmotility is visualized with a large amount of intraesophageal stasis of barium. There is a large sliding esophageal hiatal hernia involving the fundus and a portion of the body of the stomach. The remainder of the esophagus is negative. The cricopharyngeus muscle relaxes completely. There is no Zenker's diverticulum. No esophageal spasms are visualized during this study. Stomach: As noted above, there is a large sliding esophageal hiatal hernia involving the fundus and a portion of the body of the stomach. There is very mild rotation of the body of the stomach, however, no gastric volvulus is identified. Contrast flows through the stomach without difficulty. The remainder of the stomach is negative. There is no obvious ulcer. There is no filling defect to suggest a mass. Duodenum: The duodenum is negative. The mucosal fold patterns appear normal. There is no obvious ulcer. There is no filling defect to suggest a mass. The duodenal sweep crosses midline in a normal fashion. Impression: 1. Esophageal dysmotility with intraesophageal stasis of barium. 2. Large sliding esophageal hiatal hernia. 3. Mild rotation of the stomach without evidence of a gastric volvulus. Fluoroscopy Dose: 169.70 mGy (Cumulative air kerma) Jerod Puga RPA/JUS performed this under my direct supervision. .
[2017-02-13] MEDS: MELATONIN 1 MG TABLET PO SCH (22:37)
[2017-02-13] MEDS: TAMSULOSIN 0.4 MG CAPSULE PO SCH (22:38)
[2017-02-14] MEDS: MENTHOL COUGH DROPS (RICOLA) MM PRN (00:20)
[2017-02-14] MEDS: ALBUTEROL 2.5mg/3ml (0.083%) NEB AEROSOL PRN ×4 (07:34→19:48)
[2017-02-14] MEDS: LOSARTAN 50 MG TABLET PO SCH (08:27)
[2017-02-14] MEDS: FINASTERIDE 5 MG TABLET PO SCH (08:28)
[2017-02-14] MEDS: PANTOPRAZOLE 40 MG INJECTION IVP SCH (08:28)
[2017-02-14] MEDS: CARVEDILOL 6.25 MG TABLET PO SCH ×2 (08:28→17:36)
[2017-02-14] MEDS: NS 1,000 ML IV SCH (09:43)
--- NOTE | 2017-02-14 10:40 | Progress Note ---
Subjective: The patient was seen 10:30. The patient reports doing well and slept well during the night. He reports his cough seems to be better, although noted he requested a cough drop last night. He reports his cough is nonproductive today. Denies fevers, chills, sweats. Denies sore throat, shortness of breath, dyspnea on exertion, chest pain. He is stable on 3 L nasal cannula with an O2 sat 97%. Denies nausea, vomiting or diarrhea, however he reports he is having more difficulty swallowing his breakfast this morning. Speech evaluation is pending.. Is urinating without difficulty, denies dysuria, remains on IV fluids. Objective Vital signs: Temperature 96.1 F L 02/14/17 07:00 Pulse Rate 82 02/14/17 07:00 Respiratory Rate 24 02/14/17 07:34 Blood Pressure 139/71 02/14/17 07:00 Pulse Oximetry 97 02/14/17 07:34 Selected Entries 02/12/17 18:43 02/12/17 18:45 02/13/17 15:00 Pulse Oximetry 83 L 93 Oxygen Flow Rate 3 4 02/13/17 22:00 02/13/17 23:00 02/14/17 07:00 Pulse Oximetry 94 91 Oxygen Flow Rate 2 4 3 02/14/17 07:34 Pulse Oximetry 97 Oxygen Flow Rate 3 Height/Weight/BMI: Height 5 ft 6 in Weight 174 lb 9.698 oz Body Mass Index 26.6 - Additional findings Additional findings: In general, the patient is alert and oriented 3, cooperative with exam, and in no respiratory distress. HEENT: Head is atraumatic, normocephalic, no conjunctival petechiae, no oral thrush, mucous membranes are moist and pink, poor dentition, missing multiple teeth Lungs: Prolonged expiratory phase, minimal use of accessory muscle, no rhonchi no wheezes CV: Regular rate and rhythm with occasional extrasystole without murmur Abdomen: Soft, nontender, bowel sounds are present, there is no guarding no rebound. Extremities: No clubbing, no cyanosis, no edema. Skin: Warm and dry no sign of rash Neuro: Patient is alert Results - Labs CBC & Chem 7: 02/13/17 05:00 02/13/17 05:00 Microbiology Results: Microbiology 02/12/17 21:20 Peripheral/Iv Start Blood Culture - Preliminary No Growth After 1 Day Microbiology 02/12/17 20:00 Urine Legionella Urinary Antigen - Final neg 02/12/17 21:20 Peripheral/Iv Start Blood Culture - Preliminary No Growth After 1 Day 02/12/17 21:15 Peripheral/Iv Start Blood Culture - Preliminary No Growth After 1 Day - Imaging and Cardiology Abdominal x-ray Additional comments: ESOPHAGRAM/UPPER GI WITH AIR CONTRAST: Technique: After ingesting air crystals, the patient swallowed thick and thin barium without difficulty. Fluoroscopic imaging was obtained in the upright LPO, supine AP, LPO, RPO, and right lateral positions. Findings: Esophagus: Esophageal dysmotility is visualized with a large amount of intraesophageal stasis of barium. There is a large sliding esophageal hiatal hernia involving the fundus and a portion of the body of the stomach. The remainder of the esophagus is negative. The cricopharyngeus muscle relaxes completely. There is no Zenker's diverticulum. No esophageal spasms are visualized during this study. Stomach: As noted above, there is a large sliding esophageal hiatal hernia involving the fundus and a portion of the body of the stomach. There is very mild rotation of the body of the stomach, however, no gastric volvulus is identified. Contrast flows through the stomach without difficulty. The remainder of the stomach is negative. There is no obvious ulcer. There is no filling defect to suggest a mass. Duodenum: The duodenum is negative. The mucosal fold patterns appear normal. There is no obvious ulcer. There is no filling defect to suggest a mass. The duodenal sweep crosses midline in a normal fashion. Impression: 1. Esophageal dysmotility with intraesophageal stasis of barium. 2. Large sliding esophageal hiatal hernia. 3. Mild rotation of the stomach without evidence of a gastric volvulus. Fluoroscopy Dose: 169.70 mGy (Cumulative air kerma) Chest fluoroscopy was done yesterday (sniff test) written report pending INDICATION: cough PROCEDURE: CHEST 2-VIEWS UPRIGHT (PA & LAT) Encounter: Initial COMPARISON: January 13, 2017 FINDINGS: Lungs are hypoinflated with elevation of the right hemidiaphragm. Chronic increased interstitial markings are redemonstrated similar to prior studies. Superimposed acute airspace disease in the lower lobes cannot be entirely excluded. No pneumothorax or obvious pleural effusion. Left pacemaker defibrillator. Heart size and mediastinal contours are stable. Moderate hiatal hernia. Impression: Stable chest with chronic interstitial findings. Superimposed lower lobe infiltrates cannot be excluded. . Assessment and Plan (1) Community acquired pneumonia Current visit: Yes Status: Ruled-out (2) Acute respiratory failure with hypoxia Current visit: Yes Status: Acute (3) Vomiting Current visit: Yes Status: Acute (4) Coronary artery disease Current visit: Yes Status: Acute 02/12/17 22:50 This patient is s/p CABG. This patient is experiencing nausea and vomiting. 02/14/17 10:48 (5) Cardiomyopathy Problem details: Ejection fraction 20-45% Current visit: Yes Status: Chronic (6) Hiatal hernia Current visit: Yes Status: Chronic (7) [place] esophagus Current visit: Yes Status: Chronic (8) Diffuse idiopathic pulmonary fibrosis Current visit: Yes Status: Chronic (9) Macular degeneration (senile) of retina Current visit: Yes Status: Chronic (10) BPH (benign prostatic hyperplasia) Current visit: Yes Status: Chronic Assessment and Plan: We'll continue aggressive breathing treatments and respiratory therapy I do not believe he has a community-acquired pneumonia, he has had these symptoms for over a month, no fevers, no chills-he may be chronically aspirating will discontinue azithromycin and ceftriaxone, a sputum culture was not obtained, his urine Legionella antigen is negative, blood cultures are negative Speech pathology consult OT PT evaluation secondary to recurrent falls while on warfarin His prealbumin is 17.7 I am concerned with his previous EGD that he may require a follow-up EGD-will consult [facility] to manage warfarin Will DC IV fluids DC pantoprazole, resume omeprazole. . Sepsis Assessment - Evaluation Sepsis screening result: Severe Sepsis Risk Hospital Course Summary Disclaimer: The visit summary below is not to be considered part of the above Progress Note.
--- NOTE | 2017-02-14 12:24 | Pharmacy Consult ---
Pharmacy Consult-Warfarin - Laboratory Information 02/13/17 05:00 INR 2.25 H - Consult Information Warfarin consult noted by Dr Rai. Will continue home dosing of 3mg po at 1700 each day. Thank you.
--- NOTE | 2017-02-14 16:05 | Fluoroscopy Report ---
Indication:difficulty swallowing Procedure:FL sniff test SNIFF TEST WITH FLUOROSCOPY: Technique: Fluoroscopic evaluation of diaphragmatic movement was performed with the patient in the upright position. Findings: Elevation of the right hemidiaphragm. The remainder of the exam is negative. Both hemidiaphragms move in unison. Normal diaphragmatic movement is visualized on inspiration and expiration. Impression: Elevation of the right hemidiaphragm, however, normal diaphragmatic movement is visualized. Fluoroscopy time: 28.35 mGy (Cumulative air kerma) Jerod Puga RPA/JUS performed this under my direct supervision. .
[2017-02-14] MEDS: WARFARIN 3 MG TABLET PO SCH (17:37)
[2017-02-14] MEDS: TAMSULOSIN 0.4 MG CAPSULE PO SCH (20:38)
[2017-02-14] MEDS: MELATONIN 1 MG TABLET PO SCH (20:38)
[2017-02-15] MEDS: MENTHOL COUGH DROPS (RICOLA) MM PRN ×3 (07:39→17:21)
[2017-02-15] MEDS: ALBUTEROL 2.5mg/3ml (0.083%) NEB AEROSOL PRN ×4 (08:11→20:15)
[2017-02-15] MEDS: OMEPRAZOLE 20 MG CAPSULE PO SCH (08:47)
[2017-02-15] MEDS: LOSARTAN 50 MG TABLET PO SCH (08:47)
[2017-02-15] MEDS: FINASTERIDE 5 MG TABLET PO SCH (08:47)
[2017-02-15] MEDS: CARVEDILOL 6.25 MG TABLET PO SCH ×2 (08:47→17:21)
--- NOTE | 2017-02-15 09:06 | Pharmacy Consult ---
Pharmacy Consult-Warfarin - Laboratory Information 02/13/17 02/15/17 05:00 04:01 INR 2.25 H 2.86 H DINAH is a 77 yo male with a history of CVA, DVT, CAD, and A Fib. The patient takes Warfarin 3 mg po daily @ 1700. Date INR Dose 02/14 --- 3 mg 02/15 2.86 Plan 3 mg Will continue the patient's Warfarin 3 mg daily @ 1700. I expect the INR will be a elevated because the hospital normally gives Warfarin at noon and draws the INR at 0400. This patient normally takes his warfarin @ 1700 and the physician wants him to continue @ 1700, hence the difference in time from dose to test. The pharmacy will continue monitor the INR and adjust the warfarin accordingly. Thanks for the Warfarin Protocol, Estevan Mcrae RP
[2017-02-15] MEDS: WARFARIN 3 MG TABLET PO SCH (17:21)
--- NOTE | 2017-02-15 17:59 | Progress Note ---
Subjective: Pt states he has been having some difficulty swallowing. 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 No urgency to do a scope at present. Objective Vital signs: Temperature 98.6 F 02/15/17 16:00 Pulse Rate 81 02/15/17 16:00 Respiratory Rate 20 02/15/17 16:00 Blood Pressure 124/67 02/15/17 16:00 Pulse Oximetry 95 02/15/17 16:00 Rhythm: Normal Sinus Rhythm Height/Weight/BMI: Height 5 ft 6 in Weight 78.4 kg Body Mass Index 26.6 Comments: Pt had 2 short runs of V tach, his Mg is low and will be corrected - Constitutional Present: no acute distress - Routine HEENT Exam Head: Present: normocephalic, atraumatic Eye: Present: EOMI, PERRL - Routine Respiratory Exam Present: CTA bilaterally - Routine Cardiovascular Exam Present: RRR - Routine Abdominal Exam Present: soft, non distended, non tender - Routine Extremities Exam Absent: cyanosis, clubbing, edema - Routine Neurological Exam Present: alert, oriented X3, CN II-XII intact - Routine Psychiatric Exam Present: normal affect, normal thought process, good insight, good judgment Results - Labs CBC & Chem 7: 02/13/17 05:00 02/15/17 15:19 Microbiology Results: Microbiology 02/12/17 21:20 Peripheral/Iv Start Blood Culture - Preliminary No Growth After 2 Days Assessment and Plan (1) Community acquired pneumonia Current visit: Yes Status: Ruled-out 02/12/17 22:38 this will be the starting point. The paitent has leukocytosis and abnormal chest xray with cough. sputum cx ordered, blood cx ordered by ED. zithromax and rocephin ordered. will review x ray with radiology in the am. (2) Acute respiratory failure with hypoxia Current visit: Yes Status: Acute 02/12/17 22:39 this patient is significantly hypoxic from baseline. He may have chronic hypoxia but this is not known. this is most likely due to lung disease seen on cxr. see # 1. titrate for sats 91%, consider ABG in am to better quantify if he has a chronic hypercapnic component with HCO3 30. (3) Vomiting Current visit: Yes Status: Acute 02/12/17 22:45 this patient has persistent unprovoked emesis over the past at least 2 weeks. now the nurses describe coffee ground component. Initially this patient advertised as respirtory but there may be more going on. changed diet to clear liquid. repeat labs in the am. consider CT if sx persist of the abddomen and pelvis. (4) Coronary artery disease Current visit: Yes Status: Acute 02/12/17 22:50 This patient is s/p CABG. This patient is experiencing nausea and vomiting. 02/14/17 10:48 (5) Cardiomyopathy Problem details: Ejection fraction 20-45% Current visit: Yes Status: Chronic (6) Hiatal hernia Current visit: Yes Status: Chronic (7) [place] esophagus Current visit: Yes Status: Chronic (8) Diffuse idiopathic pulmonary fibrosis Current visit: Yes Status: Chronic (9) Macular degeneration (senile) of retina Current visit: Yes Status: Chronic (10) BPH (benign prostatic hyperplasia) Current visit: Yes Status: Chronic DVT Prophylaxis: Coumadin GI Prophylaxis: other Assessment and Plan: This is a 77 YO male that came with difficulty swallowing and some dyspnea for about a month; Barium swallow suggested presbyesophagus. He may have surgical evaluation next week. 1) PNA ? - Legionella urinary Ag is negative - ? o Lower lobe infiltrates ? on CXR 2) CHF exacerbation - with reduced LVEF per previous records and ? of IPF ? - Pt has gained 3.5 Kg since admission - He is On Coreg and ARB - Will give diuretics (IV) now. - May need 2-D echo rechecked. - 2 Episodes of NSVT with Mg of 1.8 3) Hypomagenesmia - Replace Mg with 2gm IV now. Prevention INR is therapeutic Will continue Omeprazole. . - Time spent with patient 25 - 35 minutes Sepsis Assessment - Evaluation Sepsis screening result: No Definite Risk Hospital Course Summary Disclaimer: The visit summary below is not to be considered part of the above Progress Note.
[2017-02-15] MEDS ORDERED: FUROSEMIDE 40 MG/4 ML INJECTION IVP ONE (18:30)
[2017-02-15] MEDS: MAGNESIUM SULFATE 1gm PREMIX 1 GM/100 ML BAG IV SCH ×2 (19:00→20:23)
[2017-02-15] MEDS: MELATONIN 1 MG TABLET PO SCH (20:53)
[2017-02-15] MEDS: TAMSULOSIN 0.4 MG CAPSULE PO SCH (20:53)
[2017-02-16] MEDS: ALBUTEROL 2.5mg/3ml (0.083%) NEB AEROSOL PRN ×4 (08:04→19:25)
[2017-02-16] MEDS: CARVEDILOL 6.25 MG TABLET PO SCH ×3 (08:25→17:26)
[2017-02-16] MEDS: OMEPRAZOLE 20 MG CAPSULE PO SCH (08:25)
[2017-02-16] MEDS: FINASTERIDE 5 MG TABLET PO SCH (08:25)
[2017-02-16] MEDS: MENTHOL COUGH DROPS (RICOLA) MM PRN ×3 (08:26→17:25)
[2017-02-16] MEDS: LOSARTAN 50 MG TABLET PO SCH (08:26)
--- NOTE | 2017-02-16 09:35 | Progress Note ---
Subjective: Pt states he is doing well today, his breathing is less labored. Had a 3 beat run of VT last night at 1AM. Pt denies any CP, or SOB. No cough. He was given Lasix last night and diuresed well Objective Vital signs: Temperature 97.7 F 02/16/17 07:35 Pulse Rate 90 02/16/17 07:35 Respiratory Rate 20 02/16/17 08:04 Blood Pressure 142/77 H 02/16/17 07:35 Pulse Oximetry 92 02/16/17 08:04 Rhythm: Normal Sinus Rhythm Height/Weight/BMI: Height 5 ft 6 in Weight 76.2 kg Body Mass Index 26.6 - Constitutional Present: no acute distress, obese - Routine HEENT Exam Head: Present: normocephalic, atraumatic Eye: Present: EOMI, PERRL ENT: Present: mucous membranes moist - Routine Respiratory Exam Present: decreased breath sounds - Routine Cardiovascular Exam Present: irregular rhythm - Routine Abdominal Exam Present: soft, non distended, non tender - Routine Extremities Exam Absent: cyanosis, clubbing, edema - Routine Neurological Exam Present: alert, oriented X3, CN II-XII intact - Routine Psychiatric Exam Present: normal affect, good insight, good judgment Results - Labs CBC & Chem 7: 02/16/17 04:07 02/16/17 04:07 Microbiology Results: Microbiology 02/12/17 21:20 Peripheral/Iv Start Blood Culture - Preliminary No Growth After 3 Days Assessment and Plan (1) Community acquired pneumonia Current visit: Yes Status: Ruled-out 02/12/17 22:38 this will be the starting point. The paitent has leukocytosis and abnormal chest xray with cough. sputum cx ordered, blood cx ordered by ED. zithromax and rocephin ordered. will review x ray with radiology in the am. (2) Acute respiratory failure with hypoxia Current visit: Yes Status: Acute 02/12/17 22:39 this patient is significantly hypoxic from baseline. He may have chronic hypoxia but this is not known. this is most likely due to lung disease seen on cxr. see # 1. titrate for sats 91%, consider ABG in am to better quantify if he has a chronic hypercapnic component with HCO3 30. (3) Vomiting Current visit: Yes Status: Acute 02/12/17 22:45 this patient has persistent unprovoked emesis over the past at least 2 weeks. now the nurses describe coffee ground component. Initially this patient advertised as respirtory but there may be more going on. changed diet to clear liquid. repeat labs in the am. consider CT if sx persist of the abddomen and pelvis. (4) Coronary artery disease Current visit: Yes Status: Acute 02/12/17 22:50 This patient is s/p CABG. This patient is experiencing nausea and vomiting. 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 He has H.O CHF and had 2 episodes of NSVT on 02/15. His Mg was a bit low and after replacing it he had one more episode of 3 beats on 02/16 @ 1am. He was probbably fluid overloaded and was diuresed on 02/15 with a 1.6 kg wt loss. DIAGNSOSIS - 1) CHF exacerbation - with reduced LVEF per previous records and ? of IPF ? Pt has had at least 3 episodes of NSVT over the last 48 hrs; his baseline HR is today on the - Pt gained 3.5 Kg from admission till 02.15 -> Gave IV lasix on 02/15 -> lost 1.6 kg. - Wt on admission - 74.9 Kg - Wt on 02/15 - 79.2 Kg - Wt on 02/16 - 78.4 Kg - He is On Coreg and ARB, HR is on the s today and BP a bit high - will increase Coreg dose to 9.375 mg PO BID (Start 02/16) - Check CXR to re-address bibasilar infiltrates. - May need 2-D echo rechecked. 2) PNA ? - Legionella urinary Ag is negative - ? o Lower lobe infiltrates ? on CXR 3) FEN A) Hypomagenesemia -> resolved. - Got Mg with 2gm IV on 02/15 B) Hypokalemia - Mild of 3.5 (02/16/2017) - will replace PO now. Prevention INR is therapeutic Will continue Omeprazole. . Sepsis Assessment - Evaluation Sepsis screening result: No Definite Risk Hospital Course Summary Disclaimer: The visit summary below is not to be considered part of the above Progress Note.
[2017-02-16] MEDS: POTASSIUM CHLORIDE 20 MEQ/15 ML ORAL LIQUID PO SCH ×2 (10:12→17:25)
[2017-02-16] MEDS ORDERED: CARVEDILOL 6.25 MG TABLET PO ONE (10:15)
--- NOTE | 2017-02-16 10:31 | Pharmacy Consult ---
Pharmacy Consult-Warfarin - Laboratory Information 02/13/17 02/15/17 02/16/17 05:00 04:01 04:07 INR 2.25 H 2.86 H 2.76 H COUMADIN CONSULT (Recurring): NOTE MADE IN "DOCUMENT" IN EMR DINAH is a 77 yo male with a history of CVA, DVT, CAD, and A Fib. The patient takes Warfarin 3 mg po daily @ 1700. Date INR Dose 02/14 --- 3 mg 02/15 2.86 3 mg 02/25 2.70 Plan 3 mg po daily Plane to continue the patient's Warfarin 3 mg daily @ 1700 and will draw INR's on Friday and Friday. I expect the INR will be a elevated because the hospital because normally gives Warfarin at noon and draws the INR at 0400. This patient normally takes his warfarin @ 1700 and the physician wants him to continue @ 1700, hence the difference in time from dose to test. The pharmacy will continue monitor the INR and adjust the warfarin accordingly. Thanks for the Warfarin Protocol, Estevan Mcrae RP
--- NOTE | 2017-02-16 10:46 | XRay Report ---
INDICATION: Bibasilar infiltrates PROCEDURE: CHEST 2-VIEWS UPRIGHT (PA & LAT) Encounter: Initial COMPARISON: February 12, 2017 FINDINGS: Slightly improved aeration of the lungs with stable chronic right and left lower lung increased markings and reticular opacities. No new or worsening airspace disease. No pneumothorax or pleural effusion. Heart size and mediastinal contours are stable. Left pacemaker defibrillator. Impression: Slightly improved aeration of the lungs with chronic abnormalities probably representing interstitial lung disease/fibrosis. .
[2017-02-16] MEDS: FUROSEMIDE 20 MG TABLET PO SCH ×2 (13:53→17:26)
[2017-02-16] MEDS: WARFARIN 3 MG TABLET PO SCH (17:25)
[2017-02-16] MEDS: MELATONIN 1 MG TABLET PO SCH (20:32)
[2017-02-16] MEDS: ATORVASTATIN 20 MG TABLET PO SCH (20:32)
[2017-02-16] MEDS: TAMSULOSIN 0.4 MG CAPSULE PO SCH (20:32)
[2017-02-16] MEDS: SALINE FLUSH 10ml SYRINGE IV PRN (20:52)
[2017-02-17] MEDS: SALINE FLUSH 10ml SYRINGE IV PRN (06:43)
[2017-02-17] MEDS: ALBUTEROL 2.5mg/3ml (0.083%) NEB AEROSOL PRN ×4 (07:30→20:28)
[2017-02-17] MEDS: LOSARTAN 50 MG TABLET PO SCH (08:30)
[2017-02-17] MEDS: CARVEDILOL 6.25 MG TABLET PO SCH ×2 (08:30→17:03)
[2017-02-17] MEDS: MULTI-VITAMIN + MINERAL TABLET PO SCH (08:31)
[2017-02-17] MEDS: FUROSEMIDE 20 MG TABLET PO SCH ×2 (08:31→17:02)
[2017-02-17] MEDS: FINASTERIDE 5 MG TABLET PO SCH (08:31)
[2017-02-17] MEDS: OMEPRAZOLE 20 MG CAPSULE PO SCH (08:39)
[2017-02-17] MEDS: GUAIFENESIN/CODEINE 5ml ORAL LIQUID PO PRN (14:01)
[2017-02-17] MEDS: MENTHOL COUGH DROPS (RICOLA) MM PRN ×2 (14:01→21:25)
--- NOTE | 2017-02-17 15:10 | Progress Note ---
Subjective: Pt states his SOB is better today. Still on O2 - pt has O2 at home. Objective Vital signs: Temperature 97.9 F 02/17/17 07:27 Pulse Rate 103 H 02/17/17 07:27 Respiratory Rate 18 02/17/17 11:24 Blood Pressure 104/73 02/17/17 07:27 Pulse Oximetry 94 02/17/17 07:40 Rhythm: Normal Sinus Rhythm Height/Weight/BMI: Height 5 ft 6 in Weight 76 kg Body Mass Index 26.6 - Constitutional Present: mild distress - Routine HEENT Exam Head: Present: normocephalic, atraumatic Eye: Present: EOMI, PERRL - Routine Respiratory Exam Present: dyspnea, decreased breath sounds, crackles - Routine Cardiovascular Exam Present: irregular rhythm - Routine Abdominal Exam Present: soft, non distended, non tender - Routine Extremities Exam Absent: cyanosis, clubbing, edema - Routine Neurological Exam Present: alert, oriented X3 - Routine Psychiatric Exam Present: normal affect, good insight, good judgment Results - Labs CBC & Chem 7: 02/17/17 04:27 02/17/17 04:27 Microbiology Results: Microbiology 02/12/17 21:20 Peripheral/Iv Start Blood Culture - Preliminary No Growth After 4 Days Assessment and Plan (1) Community acquired pneumonia Current visit: Yes Status: Ruled-out 02/12/17 22:38 this will be the starting point. The paitent has leukocytosis and abnormal chest xray with cough. sputum cx ordered, blood cx ordered by ED. zithromax and rocephin ordered. will review x ray with radiology in the am. (2) Acute respiratory failure with hypoxia Current visit: Yes Status: Acute 02/12/17 22:39 this patient is significantly hypoxic from baseline. He may have chronic hypoxia but this is not known. this is most likely due to lung disease seen on cxr. see # 1. titrate for sats 91%, consider ABG in am to better quantify if he has a chronic hypercapnic component with HCO3 30. (3) Vomiting Current visit: Yes Status: Acute 02/12/17 22:45 this patient has persistent unprovoked emesis over the past at least 2 weeks. now the nurses describe coffee ground component. Initially this patient advertised as respirtory but there may be more going on. changed diet to clear liquid. repeat labs in the am. consider CT if sx persist of the abddomen and pelvis. (4) Coronary artery disease Current visit: Yes Status: Acute 02/12/17 22:50 This patient is s/p CABG. This patient is experiencing nausea and vomiting. 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 He has H.O CHF and had 2 episodes of NSVT on 02/15. His Mg was a bit low and after replacing it he had one more episode of 3 beats on 02/16 @ 1am. He was probbably fluid overloaded and was diuresed on 02/15 with a 1.6 kg wt loss. DIAGNSOSIS - 1) CHF exacerbation - with reduced LVEF per previous records and ? of IPF ? Pt has had at least 3 episodes of NSVT over the last 48 hrs; his baseline HR is today on the 90's - Pt gained 3.5 Kg from admission till . -> Gave IV lasix on 02/15 -> lost 1.6 kg. - Wt on admission - 74.9 Kg - Wt on 02/15 - 79.2 Kg - Wt on 02/16 - 78.4 Kg - He is On Coreg and ARB, HR is on the 90's today and BP a bit high - will increase Coreg dose to 9.375 mg PO BID (Start 02/16) - Check CXR to re-address bibasilar infiltrates. - May need 2-D echo rechecked. 2) PNA ? - Legionella urinary Ag is negative - ? o Lower lobe infiltrates ? on CXR 3) FEN A) Hypomagenesemia -> resolved. - Got Mg with 2gm IV on 02/15 B) Hypokalemia - Mild of 3.5 (02/16/2017) - will replace PO now. Prevention INR is therapeutic Will continue Omeprazole. . Sepsis Assessment - Evaluation Sepsis screening result: No Definite Risk Hospital Course Summary Disclaimer: The visit summary below is not to be considered part of the above Progress Note.
--- NOTE | 2017-02-17 15:54 | General Surgery Consult Note ---
Consult date: 02/17/17 Attending Physician: Cezar Castelan MD Reason for consult: endoscopy (possible hemetemesis) [facility] Patient Stated Medical History Cerebrovascular Accident Cataracts Macular Degeneration Myocardial Infarction Pneumonia Gastroesophageal Reflux Disease Hx Incontinence Hx Kidney Stones Chronic diastolic heart failure secondary to idiopathic cardiomyopathy Coronary arteriosclerosis and atrial fibrillation on Coumadin followed by Dr. 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 Surgical History: AICD. CABG. Inguinal hernia. Total knee. 05/19/2014 Colonoscopy - Diverticulosis. 05/19/2014 EGD - Hiatal hernia (No Barrets, H.Pylori neg) Family History: Mother and brother- CHF Brother - brain cancer Sister - Breast cancer - Social History Smoking status: Never smoker Alcohol intake frequency: does not drink Current residence: Apartment/Private Home Medications Home Medications Medication Instructions Recorded Confirmed Type Carvedilol [Coreg] 6.25 mg PO BID #0 09/07/10 02/12/17 History Atorvastatin Calcium [Lipitor] 20 mg PO HS #0 05/18/14 02/12/17 History Finasteride 5 mg PO DAILY #0 05/18/14 02/12/17 History Tamsulosin HCl 0.4 mg PO HS #0 05/18/14 02/12/17 History Citalopram Hydrobromide 20 mg PO DAILY #0 02/21/16 02/12/17 History [Citalopram HBr] Losartan Potassium 50 mg PO DAILY #0 02/21/16 02/12/17 History Omeprazole 20 mg PO DAILY #0 02/21/16 02/12/17 History Guaifenesin/Dextromethorphan 1 tab PO Q12HR 01/13/17 02/12/17 History [Mucinex Dm ER 1,200-60 mg Tab] Melatonin 1 mg PO HS 01/13/17 02/12/17 History Mv-Min/FA/Vit K/Lycop/Lut/Zeax 1 tab PO DAILY 01/13/17 02/12/17 History [Ocuvite Eye + Multi Tablet] Promethazine HCl/Codeine 5 ml PO Q4HR PRN 01/13/17 02/12/17 History [Prometh-Codein 6.25-10 mg/5 ml] Warfarin [Coumadin] 3 mg PO NOON 01/13/17 02/12/17 History Zolpidem [Ambien] 5 mg PO HS 01/13/17 02/12/17 History Allergies Allergy/AdvReac Type Severity Reaction Status Date / Time Penicillins Allergy Unknown Verified 02/12/17 22:21 lisinopril AdvReac Unknown COUGH Verified 02/12/17 22:21 Review of Systems 10-point ROS: negative except for HPI and the following: - Cardiovascular Cardiovascular: Present: edema/swelling - Respiratory Respiratory: Present: difficulty breathing (pneumonia upon admission), cough - Gastrointestinal Gastrointestinal: Present: diarrhea, vomiting - Musculoskeletal Musculoskeletal: Present: joint pain - Neurological Neurological: Present: muscle weakness - Hematologic/Lymphatic Hematologic/Lymphatic: Present: easy bruising, history of blood clots/DVT/PE, use of blood thinners - Vital Signs Last Vital Signs Temp 97.6 F 02/17/17 15:42 Pulse 73 02/17/17 15:42 Resp 18 02/17/17 15:42 BP 100/64 02/17/17 15:42 Pulse Ox 94 02/17/17 15:42 - Laboratory Result Diagrams: 02/17/17 04:27 02/17/17 04:27 - Microbiogy Microbiology 02/12/17 21:20 Peripheral/Iv Start Blood Culture - Preliminary No Growth After 4 Days General Surgery Results - Results Labs: 02/17/17 04:27 02/17/17 04:27 Microbiology: Microbiology 02/12/17 21:20 Peripheral/Iv Start Blood Culture - Preliminary No Growth After 4 Days Hospital Course Summary Disclaimer: The visit summary below is not to be considered part of the above Progress Note. Sepsis Assessment - Evaluation Sepsis screening result: No Definite Risk
[2017-02-17] MEDS: WARFARIN 3 MG TABLET PO SCH (17:03)
[2017-02-17] MEDS: TAMSULOSIN 0.4 MG CAPSULE PO SCH (21:23)
[2017-02-17] MEDS: ATORVASTATIN 20 MG TABLET PO SCH (21:23)
[2017-02-17] MEDS: MELATONIN 1 MG TABLET PO SCH (21:23)
[2017-02-18] MEDS: GUAIFENESIN/CODEINE 5ml ORAL LIQUID PO PRN (01:18)
[2017-02-18] MEDS: MENTHOL COUGH DROPS (RICOLA) MM PRN ×5 (01:20→21:15)
[2017-02-18] MEDS: ALBUTEROL 2.5mg/3ml (0.083%) NEB AEROSOL PRN ×4 (07:14→20:17)
--- NOTE | 2017-02-18 07:43 | Pharmacy Consult ---
Pharmacy Consult-Warfarin - Laboratory Information 02/13/17 02/15/17 02/16/17 05:00 04:01 04:07 INR 2.25 H 2.86 H 2.76 H 02/18/17 04:03 INR 3.27 H DINAH is a 77 yo male with a history of CVA, DVT, CAD, and A Fib. Home dose of warfarin reported as 3 mg po daily @ 1700. Date INR Dose 02/14 --- 3 mg 02/15 2.86 3 mg 02/16 2.70 3 mg 02/17 ---- 3 mg No new labs. Was obtaining INR on Friday and Friday, as regimen was stable. 02/18 3.27 Will give Warfarin 1mg today and obtain INR again tomorrow morning. Leave order for INR on Friday and Friday in anticipation or returning to that sequence. Noted drug - drug interaction with Omeprazole 20mg po daily. But pt was also taking that at home. Did receive one dose of Azithromycin 500mg IV several days ago, which is known to increase the INR substantially. Anticipate INR to stablize tomorrow. Thank you
--- NOTE | 2017-02-18 07:43 | Consultation ---
DATE OF CONSULTATION 1940 FINDINGS Mr. Armstrong is a 77-year-old gentleman whom I was asked to see today as a result of his history for hiatal hernia, and possible coffee-ground emesis. Upon questioning Mr. Armstrong, he informs me that over the last couple of months he has been experiencing increasing episodes of "coughing." The patient states that in the morning he tends to "cough a lot". After these coughing bouts the patient states that he will "vomit." Upon further questioning of the patient, it does not appear that he is truly vomiting but "spitting up about a tablespoon of material." The patient states at times, "This tablespoon of material will look somewhat coffee-ground." The patient denies any history for jay hematemesis. The patient states as a result of this increasing cough, increasing shortness of breath, and continuing to "vomit after coughing" he presented to the hospital for further evaluation and care. The patient, today, denies any element of abdominal pain or discomfort. PAST MEDICAL HISTORY Performed by my nurse practitioner, Julius Kelley. PAST SURGICAL HISTORY Performed by my nurse practitioner, Julius Kelley. MEDICATIONS Performed by my nurse practitioner, Julius Kelley. ALLERGIES Performed by my nurse practitioner, Julius Kelley. SOCIAL HISTORY Performed by my nurse practitioner, Julius Kelley. FAMILY HISTORY Performed by my nurse practitioner, Julius Kelley. REVIEW OF SYSTEMS Performed by my nurse practitioner, Julius Kelley. PHYSICAL EXAMINATION Mr. Armstrong is a 77-year-old gentleman who this afternoon did not appear to be in acute distress. VITALS: Temperature 97.6, pulse 73, respirations 16, blood pressure 100/64, SaO2 94% on 3 liters per nasal cannula.. HEENT: Normocephalic. Pupils are equal, round and reactive to light and accommodation. CHEST: Diminished breath sounds bilaterally. A few coarse breath sounds noted. HEART: Regular rate and rhythm. ABDOMEN: Soft, nontender. No evidence of hepatomegaly or other abnormal masses. EXTREMITIES: Without clubbing, cyanosis, or edema. NEURO: Cranial nerves II-XII grossly intact. Patient is without focal motor or sensory deficits. LABORATORY/RADIOGRAPH EVALUATION The patient has had several chest x-rays since admission which reveal bibasilar infiltrates and findings consistent with chronic interstitial lung disease/ fibrosis. I have reviewed the patient's lab and he is on Coumadin and is fully anticoagulated at this time.. I did review a prior EGD report that I had performed on May 19, 2014 that revealed evidence for a hiatal hernia at that time in conjunction with the finding of an irregular GE junction. Biopsies at that time did not reveal evidence for Montes De Oca's esophagus. 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 Given the patient's history for a component of some dysphagia, an esophagram was obtained. Esophagram on February 13 did reveal a large sliding esophageal hiatal hernia in conjunction with esophageal dysmotility with intraesophageal stasis of barium. There was mild rotation noted within the stomach but without evidence for volvulus. ASSESSMENT 77-year-old gentleman with multiple medical comorbidities who was admitted with pneumonia/acute respiratory failure. Patient with reported bouts of "hematemesis." PLAN I do not feel the patient is truly experiencing hematemesis upon further questioning. It does appear that he is becoming nauseated after a fair amount of coughing and has been "spitting up" a fair amount of phlegm which is perhaps blood tinged. I do not feel that we need to proceed with esophagogastroduodenoscopy in this patient at this time. He is chronically anticoagulated and currently has exacerbation of his lung disease/pneumonia. The patient is currently being treated empirically for possible peptic ulcer disease on Prilosec 20 mg daily. Will continue to follow along in the patient' s care. May consider upper endoscopy if the patient would begin to develop jay hematemesis. I do feel his dysphagia is not a result of a mechanical obstruction such as esophageal mass or stricture but secondary to dysmotility/ presbyesophagus as noted on his recent esophagram. I will continue to follow along in the patient's care and will likely sign off in near future. [facility]
[2017-02-18] MEDS: CARVEDILOL 6.25 MG TABLET PO SCH ×2 (08:52→17:03)
[2017-02-18] MEDS: OMEPRAZOLE 20 MG CAPSULE PO SCH (08:53)
[2017-02-18] MEDS: FUROSEMIDE 20 MG TABLET PO SCH ×2 (08:53→17:03)
[2017-02-18] MEDS: FINASTERIDE 5 MG TABLET PO SCH (08:53)
[2017-02-18] MEDS: LOSARTAN 50 MG TABLET PO SCH (08:53)
[2017-02-18] MEDS: MULTI-VITAMIN + MINERAL TABLET PO SCH (08:53)
--- NOTE | 2017-02-18 09:33 | General Surgery Progress Note ---
Subjective Patient reports: feels better, tolerating a regular diet, shortness of breath ( still on oxygen by NC) Narrative: Denies nausea/vomiting. States frood will occasionally "stick" in the proximal esophagus, states that if just relaxes it will soon pass on down. Has ordered soft food for breakfast. - Vital Signs Last Vital Signs Temp 97.5 F 02/18/17 07:51 Pulse 94 02/18/17 07:51 Resp 14 02/18/17 07:51 BP 128/71 02/18/17 07:51 Pulse Ox 96 02/18/17 07:51 - Laboratory Result Diagrams: 02/19/17 05:05 02/19/17 05:05 Laboratory Tests 02/16/17 02/18/17 04:07 04:03 INR 2.76 H 3.27 H - Microbiogy Microbiology 02/12/17 21:20 Peripheral/Iv Start Blood Culture - Final No Growth After 5 Days - Abnormal Exam Respiratory: other (crackles bilateral) Cardiovascular: irregular rhythm - Normal Exam General: awake, alert Abdominal: soft, non-tender Psychiatric: normal affect Neurological: CN 2-12 grossly intact Assessment and Plan Plan: No emesis since the initial episode upon admission. Will continue to be available for any surgical needs. Hospital Course Summary Disclaimer: The visit summary below is not to be considered part of the above Progress Note. Sepsis Assessment - Evaluation Sepsis screening result: No Definite Risk
--- NOTE | 2017-02-18 16:17 | Progress Note ---
Subjective: Pt states he is unable to swallow and unable to breathe well. Told him about his lab findings (esophagogram) and his H.O ILD. He states he is not feeling well today and his SOB is worse. He looks fairly comfortable. Objective Vital signs: Temperature 97.8 F 02/18/17 16:06 Pulse Rate 97 02/18/17 16:06 Respiratory Rate 20 02/18/17 16:06 Blood Pressure 111/67 02/18/17 16:06 Pulse Oximetry 91 02/18/17 16:06 Rhythm: Normal Sinus Rhythm Height/Weight/BMI: Height 5 ft 6 in Weight 76.8 kg Body Mass Index 26.6 - Constitutional Present: no acute distress - Routine HEENT Exam Head: Present: normocephalic, atraumatic Eye: Present: EOMI, PERRL - Routine Respiratory Exam Present: distant breath sounds - Routine Cardiovascular Exam Present: irregularly irregular - Routine Abdominal Exam Present: soft, non distended, non tender - Routine Extremities Exam Absent: cyanosis, clubbing, edema - Routine Neurological Exam Present: alert, oriented X3, CN II-XII intact - Routine Psychiatric Exam Present: normal affect, good insight, good judgment Results - Labs CBC & Chem 7: 02/17/17 04:27 02/17/17 04:27 Microbiology Results: Microbiology 02/12/17 21:20 Peripheral/Iv Start Blood Culture - Final No Growth After 5 Days Assessment and Plan (1) Community acquired pneumonia Current visit: Yes Status: Ruled-out 02/12/17 22:38 this will be the starting point. The paitent has leukocytosis and abnormal chest xray with cough. sputum cx ordered, blood cx ordered by ED. zithromax and rocephin ordered. will review x ray with radiology in the am. (2) Acute respiratory failure with hypoxia Current visit: Yes Status: Acute 02/12/17 22:39 this patient is significantly hypoxic from baseline. He may have chronic hypoxia but this is not known. this is most likely due to lung disease seen on cxr. see # 1. titrate for sats 91%, consider ABG in am to better quantify if he has a chronic hypercapnic component with HCO3 30. (3) Vomiting Current visit: Yes Status: Acute 02/12/17 22:45 this patient has persistent unprovoked emesis over the past at least 2 weeks. now the nurses describe coffee ground component. Initially this patient advertised as respirtory but there may be more going on. changed diet to clear liquid. repeat labs in the am. consider CT if sx persist of the abddomen and pelvis. (4) Coronary artery disease Current visit: Yes Status: Acute 02/12/17 22:50 This patient is s/p CABG. This patient is experiencing nausea and vomiting. 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 He has H.O CHF and had 2 episodes of NSVT on 02/15. His Mg was a bit low and after replacing it he had one more episode of 3 beats on 02/16 @ 1am. He was probbably fluid overloaded and was diuresed on 02/15 with a 1.6 kg wt loss. He states he is still having trouble to breathe and to drink and states his SOB is worse today. PT recommends him to go to assisted living. DIAGNSOSIS - 1) CHF exacerbation - with reduced LVEF per previous records and ? of IPF ? Had several episodes of NSVT > 48 hrs ago, and is better after his Coreg was increased. - Worsening SOB (02/18) - Will check ABG now and HRCT chest. - Pt gained 3.5 Kg from admission till 02.15 -> Gave IV lasix on 02/15 -> lost 1.6 kg. - Wt on admission - 74.9 Kg - Wt on 02/15 - 79.2 Kg - Wt on 02/16 - 78.4 Kg - Wt on 02/18 - 76.8 Kg - Coreg dose to 9.375 mg PO BID (Start 02/16) - If SOB continues will check Echo - if normal - May need PFTs 2) PNA ? - Legionella urinary Ag is negative - ? o Lower lobe infiltrates ? on CXR - Check CT chest for ILD progression 3) FEN A) Hypomagenesemia -> resolved. B) Hypokalemia - Resolved. Prevention INR is therapeutic - trending up today. Will continue Omeprazole. . Sepsis Assessment - Evaluation Sepsis screening result: No Definite Risk Hospital Course Summary Disclaimer: The visit summary below is not to be considered part of the above Progress Note.
[2017-02-18] MEDS ORDERED: WARFARIN 1 MG TABLET PO SCH (17:00)
[2017-02-18] MEDS: MELATONIN 1 MG TABLET PO SCH (21:13)
[2017-02-18] MEDS: TAMSULOSIN 0.4 MG CAPSULE PO SCH (21:13)
[2017-02-18] MEDS: ATORVASTATIN 20 MG TABLET PO SCH (21:13)
[2017-02-19] MEDS: SALINE FLUSH 10ml SYRINGE IV PRN ×3 (03:55→20:33)
[2017-02-19] MEDS: MENTHOL COUGH DROPS (RICOLA) MM PRN ×3 (03:55→20:30)
--- NOTE | 2017-02-19 07:42 | Pharmacy Consult ---
Pharmacy Consult-Warfarin - Laboratory Information 02/13/17 02/15/17 02/16/17 05:00 04:01 04:07 INR 2.25 H 2.86 H 2.76 H 02/18/17 02/19/17 04:03 05:05 INR 3.27 H 2.51 H COUMADIN CONSULT (Recurring): NOTE MADE IN "DOCUMENT" IN EMR DINAH is a 77 yo male with a history of CVA, DVT, CAD, and A Fib. The patient takes Warfarin 3 mg po daily @ 1700. Date INR Dose 02/14 --- 3 mg 02/15 2.86 3 mg 02/16 2.70 3 mg 02/17 ---- 3 mg 02/18 3.27 1 mg 02/19 2.51 Plan 2 mg po daily Plan to continue the patient's Warfarin @ 2 mg daily (1700) and will draw INR's on Friday and Friday. I expect the INR will be a elevated because the hospital because normally gives Warfarin at noon and draws the INR at 0400. This patient normally takes his warfarin @ 1700 and the physician wants him to continue @ 1700, hence the difference in time from dose to test. The pharmacy will continue monitor the INR and adjust the warfarin accordingly. Thanks for the Warfarin Protocol, Estevan Mcrae RPh
[2017-02-19] MEDS: ALBUTEROL 2.5mg/3ml (0.083%) NEB AEROSOL PRN ×3 (07:52→15:07)
[2017-02-19] MEDS: CARVEDILOL 6.25 MG TABLET PO SCH ×2 (08:22→18:51)
[2017-02-19] MEDS: LOSARTAN 50 MG TABLET PO SCH (08:22)
[2017-02-19] MEDS: FINASTERIDE 5 MG TABLET PO SCH (08:22)
[2017-02-19] MEDS: FUROSEMIDE 20 MG TABLET PO SCH ×2 (08:22→17:57)
[2017-02-19] MEDS: MULTI-VITAMIN + MINERAL TABLET PO SCH (08:22)
[2017-02-19] MEDS: OMEPRAZOLE 20 MG CAPSULE PO SCH (08:23)
--- NOTE | 2017-02-19 08:40 | CT Scan Report ---
Indication: SOB - worsening - pulm fibrosis PROCEDURE: CT chest wo con: Encounter: Initial Comparison: Chest x-ray dated December 16, 2016 Technique: Axial CT images were performed through the chest without intravenous contrast. Coronal and sagittal two-dimensional reformats. Automated Exposure Control and Iterative Reconstruction dose reducing techniques were utilized. Findings: Subpleural predominant fibrotic changes are seen within the lungs. Areas of traction bronchiectasis in the anterior right upper lobe along the fissure. No discrete honeycombing. Calcified pleural plaques seen along with occasional calcified granulomas. No consolidative acute appearing pneumonia. No pleural effusion or pneumothorax. No pulmonary mass lesions. The central airways are patent. There is dilatation of the central bronchi with areas of bronchiectasis in both lower lobes. No axillary or mediastinal adenopathy. Heart is mildly enlarged without pericardial effusion. Large hiatal hernia with a partially intrathoracic stomach. Left cardiac pacemaker. Three vessel coronary artery disease. The upper abdomen shows no acute findings. Artifact from barium in the colon. Bone windows show degenerative change and scoliosis in the spine. Impression: 1. Calcified pleural plaques and areas of subpleural fibrotic change suggesting possible asbestosis. Nonspecific interstitial pneumonitis is also within the differential. 2. Dilatation of the trachea, mainstem bronchi and foci of bronchiectasis suggests tracheobronchomalacia. .
[2017-02-19] MEDS ORDERED: WARFARIN 2 MG TABLET PO SCH (12:00)
--- NOTE | 2017-02-19 16:32 | Progress Note ---
Subjective: Pt states he is about the same. He states he has dyspnea. CT chest high resolution was done (See below). Objective Vital signs: Temperature 97.5 F 02/19/17 15:00 Pulse Rate 91 02/19/17 16:13 Respiratory Rate 16 02/19/17 15:08 Blood Pressure 108/66 02/19/17 16:15 Pulse Oximetry 96 02/19/17 15:08 Rhythm: Normal Sinus Rhythm Height/Weight/BMI: Height 5 ft 6 in Weight 75.2 kg Body Mass Index 26.6 - Constitutional Present: no acute distress - Routine HEENT Exam Head: Present: normocephalic, atraumatic Eye: Present: EOMI, PERRL - Routine Respiratory Exam Present: CTA bilaterally - Routine Cardiovascular Exam Present: RRR, S1, S2 - Routine Abdominal Exam Present: soft, non distended, non tender - Routine Extremities Exam Absent: cyanosis, edema - Routine Neurological Exam Present: alert, oriented X3, CN II-XII intact - Routine Psychiatric Exam Present: normal affect, cooperative Results - Labs CBC & Chem 7: 02/19/17 05:05 02/19/17 05:05 Microbiology Results: Microbiology 02/12/17 21:20 Peripheral/Iv Start Blood Culture - Final No Growth After 5 Days - ABG Interpretation ABG results: 02/18/17 16:53 ABG pH 7.480 H ABG pCO2 44 ABG pO2 69 L ABG HCO3 33 H ABG Total CO2 34.2 H ABG O2 Saturation 95.0 ABG Base Excess 8.3 H Assessment and Plan (1) Community acquired pneumonia Current visit: Yes Status: Ruled-out 02/12/17 22:38 this will be the starting point. The paitent has leukocytosis and abnormal chest xray with cough. sputum cx ordered, blood cx ordered by ED. zithromax and rocephin ordered. will review x ray with radiology in the am. (2) Acute respiratory failure with hypoxia Current visit: Yes Status: Acute 02/12/17 22:39 this patient is significantly hypoxic from baseline. He may have chronic hypoxia but this is not known. this is most likely due to lung disease seen on cxr. see # 1. titrate for sats 91%, consider ABG in am to better quantify if he has a chronic hypercapnic component with HCO3 30. (3) Vomiting Current visit: Yes Status: Acute 02/12/17 22:45 this patient has persistent unprovoked emesis over the past at least 2 weeks. now the nurses describe coffee ground component. Initially this patient advertised as respirtory but there may be more going on. changed diet to clear liquid. repeat labs in the am. consider CT if sx persist of the abddomen and pelvis. (4) Coronary artery disease Current visit: Yes Status: Acute 02/12/17 22:50 This patient is s/p CABG. This patient is experiencing nausea and vomiting. 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 He has H.O CHF and had 2 episodes of NSVT on 02/15. His Mg was a bit low and after replacing it he had one more episode of 3 beats on 02/16 @ 1am. He was probbably fluid overloaded and was diuresed on 02/15 with a 1.6 kg wt loss. He states he is still having trouble to breathe and to drink and states his SOB is worse today. PT recommends him to go to assisted living, but he is not interested on this. HRCT chest (02/18) "........................................ Comparison: Chest x-ray dated December 16, 2016 Technique: Axial CT images were performed through the chest without intravenous contrast. Coronal and sagittal two-dimensional reformats. Automated Exposure Control and Iterative Reconstruction dose reducing techniques were utilized. Findings: Subpleural predominant fibrotic changes are seen within the lungs. Areas of traction bronchiectasis in the anterior right upper lobe along the fissure. No discrete honeycombing. Calcified pleural plaques seen along with occasional calcified granulomas. No consolidative acute appearing pneumonia. No pleural effusion or pneumothorax. No pulmonary mass lesions. The central airways are patent. There is dilatation of the central bronchi with areas of bronchiectasis in both lower lobes. No axillary or mediastinal adenopathy. Heart is mildly enlarged without pericardial effusion. Large hiatal hernia with a partially intrathoracic stomach. Left cardiac pacemaker. Three vessel coronary artery disease. The upper abdomen shows no acute findings. Artifact from barium in the colon. Bone windows show degenerative change and scoliosis in the spine. Impression: 1. Calcified pleural plaques and areas of subpleural fibrotic change suggesting possible asbestosis. Nonspecific interstitial pneumonitis is also within the differential. 2. Dilatation of the trachea, mainstem bronchi and foci of bronchiectasis suggests tracheobronchomalacia. .........................................................." DIAGNOSIS - 1) CHF exacerbation - with reduced LVEF per previous records and ? of IPF ? Had several episodes of NSVT > 72 hrs ago, and is better after his Coreg was increased (From 6.25mg PO BID to 9.375 mg PO BID) - Worsening SOB (02/18) HRCT shows mostly chronic changes. - Coreg dose to 9.375 mg PO BID (Start 02/16) - Pt was having - Pt had mild fluid overload on admission and this responded well to Lasix. - Consider cardiology eval as SOB may be cardiac - if cardiology thinks this is not the case, will call Pulmonary for advise. 2) PNA -> resolving. - Legionella urinary Ag is negative - Optimize pulmonary toilet - add Atroven + Symbicort. 3) FEN A) Hypomagenesemia -> resolved. B) Hypokalemia - Resolved. 4) Large hiatal hernia - with esophagogram showing presbyesophagus. Prevention INR was high - will recheck. Will continue Omeprazole. . - Time spent with patient 25 - 35 minutes Sepsis Assessment - Evaluation Sepsis screening result: No Definite Risk Hospital Course Summary Disclaimer: The visit summary below is not to be considered part of the above Progress Note.
[2017-02-19] MEDS ORDERED: INHALER ASSIST DEVICE (Optichamber) MC ONE (16:45)
[2017-02-19] MEDS: SPIRONOLACTONE 25 MG TABLET PO SCH (17:57)
[2017-02-19] MEDS: ALBUTEROL/IPRATROPIUM 2.5mg-0.5mg/3ml NEB ORAL INH SCH (20:08)
[2017-02-19] MEDS: ATORVASTATIN 20 MG TABLET PO SCH (20:30)
[2017-02-19] MEDS: MELATONIN 1 MG TABLET PO SCH (20:30)
[2017-02-19] MEDS: TAMSULOSIN 0.4 MG CAPSULE PO SCH (20:30)
[2017-02-19] MEDS: BUDESONIDE/FORMOTEROL 80/4.5mcg INHALER ORAL INH SCH (20:49)
[2017-02-20] MEDS: ALBUTEROL/IPRATROPIUM 2.5mg-0.5mg/3ml NEB ORAL INH SCH ×4 (07:02→20:44)
--- NOTE | 2017-02-20 07:25 | Pharmacy Consult ---
Pharmacy Consult-Warfarin - Laboratory Information 02/13/17 02/15/17 02/16/17 05:00 04:01 04:07 INR 2.25 H 2.86 H 2.76 H 02/18/17 02/19/17 02/20/17 04:03 05:05 04:44 INR 3.27 H 2.51 H 2.26 H COUMADIN CONSULT: DINAH is a 77 yo male with a history of CVA, DVT, CAD, and A Fib. The patient takes Warfarin 3 mg po daily @ 1700. Date INR Dose 02/14 ---- 3 mg 02/15 2.86 3 mg 02/16 2.70 3 mg 02/17 ---- 3 mg 02/18 3.27 1 mg 02/19 2.51 2 mg 02/20 2.26 Plan 3 mg Plan to give Warfarin 3 mg today @ 1700 and will draw INR's on Friday and Friday. I expect the INR will be a elevated because the hospital because normally gives Warfarin at noon and draws the INR at 0400. This patient normally takes his warfarin @ 1700 and the physician wants him to continue @ 1700, hence the difference in time from dose to test. The pharmacy will continue monitor the INR and adjust the warfarin accordingly. Thanks for the Warfarin Protocol, Estevan Conley [facility]
[2017-02-20] MEDS: BUDESONIDE/FORMOTEROL 80/4.5mcg INHALER ORAL INH SCH ×2 (08:10→20:44)
[2017-02-20] MEDS: OMEPRAZOLE 20 MG CAPSULE PO SCH (08:47)
[2017-02-20] MEDS: SPIRONOLACTONE 25 MG TABLET PO SCH (08:48)
[2017-02-20] MEDS: CARVEDILOL 6.25 MG TABLET PO SCH ×2 (08:48→18:04)
[2017-02-20] MEDS: MULTI-VITAMIN + MINERAL TABLET PO SCH (08:49)
[2017-02-20] MEDS: LOSARTAN 50 MG TABLET PO SCH (08:49)
[2017-02-20] MEDS: FINASTERIDE 5 MG TABLET PO SCH (08:50)
[2017-02-20] MEDS: FUROSEMIDE 20 MG TABLET PO SCH ×2 (08:50→18:02)
[2017-02-20] MEDS ORDERED: FALL RISK - PHARMACY CONSULT MC PRN (12:37)
[2017-02-20] MEDS: MENTHOL COUGH DROPS (RICOLA) MM PRN (14:24)
--- NOTE | 2017-02-20 14:36 | Progress Note ---
Subjective: Pt states he is feeling much better today. The only change from yesterday was that I ordered regular Duo-nebs. 2-D echo is pending. Objective Vital signs: Temperature 98.3 F 02/20/17 07:44 Pulse Rate 104 H 02/20/17 07:49 Respiratory Rate 16 02/20/17 09:56 Blood Pressure 122/75 02/20/17 07:44 Pulse Oximetry 93 02/20/17 09:56 Height/Weight/BMI: Height 5 ft 6 in Weight 75.5 kg Body Mass Index 26.6 - Constitutional Present: no acute distress - Routine HEENT Exam Head: Present: normocephalic, atraumatic Eye: Present: EOMI, PERRL - Routine Respiratory Exam Present: CTA bilaterally - Routine Cardiovascular Exam Present: irregularly irregular - Routine Abdominal Exam Present: soft, non tender, distended - Routine Extremities Exam Absent: cyanosis, clubbing, edema - Routine Neurological Exam Present: alert, oriented X3, CN II-XII intact - Routine Psychiatric Exam Present: normal affect Results - Labs CBC & Chem 7: 02/20/17 04:44 02/20/17 04:44 Microbiology Results: Microbiology 02/12/17 21:20 Peripheral/Iv Start Blood Culture - Final No Growth After 5 Days - ABG Interpretation ABG results: 02/18/17 16:53 ABG pH 7.480 H ABG pCO2 44 ABG pO2 69 L ABG HCO3 33 H ABG Total CO2 34.2 H ABG O2 Saturation 95.0 ABG Base Excess 8.3 H Assessment and Plan (1) Community acquired pneumonia Current visit: Yes Status: Ruled-out 02/12/17 22:38 this will be the starting point. The paitent has leukocytosis and abnormal chest xray with cough. sputum cx ordered, blood cx ordered by ED. zithromax and rocephin ordered. will review x ray with radiology in the am. (2) Acute respiratory failure with hypoxia Current visit: Yes Status: Resolved 02/12/17 22:39 this patient is significantly hypoxic from baseline. He may have chronic hypoxia but this is not known. this is most likely due to lung disease seen on cxr. see # 1. titrate for sats 91%, consider ABG in am to better quantify if he has a chronic hypercapnic component with HCO3 30. (3) Vomiting Current visit: Yes Status: Acute 02/12/17 22:45 this patient has persistent unprovoked emesis over the past at least 2 weeks. now the nurses describe coffee ground component. Initially this patient advertised as respirtory but there may be more going on. changed diet to clear liquid. repeat labs in the am. consider CT if sx persist of the abddomen and pelvis. (4) Coronary artery disease Current visit: Yes Status: Chronic 02/12/17 22:50 This patient is s/p CABG. This patient is experiencing nausea and vomiting. 02/14/17 10:48 (5) Cardiomyopathy Problem details: Ejection fraction 20-45% Current visit: Yes Status: Chronic (6) Hiatal hernia Current visit: Yes Status: Chronic (7) [place] esophagus Current visit: Yes Status: Chronic (8) Diffuse idiopathic pulmonary fibrosis Current visit: Yes Status: Chronic (9) Macular degeneration (senile) of retina Current visit: Yes Status: Chronic (10) BPH (benign prostatic hyperplasia) Current visit: Yes Status: Chronic DVT Prophylaxis: Coumadin GI Prophylaxis: other Assessment and Plan: TYEARY - This is a 77 YO male that came with difficulty swallowing and some dyspnea for about a month; Barium swallow suggested presbyesophagus. He has H.O CHF and had 2 episodes of NSVT on 02/15. His Mg was a bit low and after replacing it he had one more episode of 3 beats on 02/16 @ 1am. He was probably fluid overloaded and was diuresed on 02/15 with a 1.6 kg wt loss. He states he is still having trouble to breathe and to drink and states his SOB is worse today. PT recommends him to go to assisted living, but he is not interested on this. DIAGNOSIS - 1) CHF exacerbation - with reduced LVEF per previous records and ? of IPF ? Had several episodes of NSVT > 72 hrs ago, and is better after his Coreg was increased (From 6.25mg PO BID to 9.375 mg PO BID). Pt stated he felt pretty bad till yesterday. I added Duonebs and was thinking this could be an angina equivalent - however he is much better so probably just needed his pulmonary function optimized. - Worsening SOB (02/18) HRCT shows mostly chronic changes. Much better after Duo-nebs started. - Coreg dose to 9.375 mg PO BID (Start 02/16) - Pt had mild fluid overload on admission and this responded well to Lasix. - Awaiting Echocardiogram. 2) PNA -> resolving. - Legionella urinary Ag is negative - Optimize pulmonary toilet - add Atroven + Symbicort. 3) FEN A) Hypomagenesemia -> resolved. B) Hypokalemia - Resolved. 4) Large hiatal hernia - with esophagogram showing presbyesophagus. Spoke with social work job titles to get pt a nebulizer. If stable will D/C home in the AM. Prevention INR was high - will recheck. Will continue Omeprazole. . - Time spent with patient 25 - 35 minutes Sepsis Assessment - Evaluation Sepsis screening result: No Definite Risk Hospital Course Summary Disclaimer: The visit summary below is not to be considered part of the above Progress Note.
--- NOTE | 2017-02-20 16:59 | Echocardiogram ---
DATE OF PROCEDURE February 19, [address] Cezar Castelan This is a two-dimensional echo with spectral Doppler, color-flow and M-mode. It was obtained in a patient with congestive heart failure and dyspnea. Left atrial dimension is normal. Left ventricle end-diastolic dimension is normal. Left ventricle wall thickness is increased. LV systolic function is reduced with severe global hypokinesia with ejection fraction of about 25%. Right atrium is normal. Right ventricle is normal. Aortic root dimension is at the upper limits of normal. Mitral annulus is calcified. Mitral valve leaflets are sclerotic with no stenosis. Mild mitral regurgitation is present. Aortic valve shows fibrocalcific changes with no stenosis or insufficiency. Tricuspid valve shows mild tricuspid regurgitation with normal estimated pulmonary artery systolic pressure of 27. Pulmonary valve shows no pulmonary insufficiency. There is no pericardial effusion. Pacemaker or ICD leads are in right heart. IMPRESSION 1. Pacemaker/ICD leads present in right heart. 2. Severe global hypokinesia with ejection fraction of 25%. 3. Concentric left ventricular hypertrophy. 4. Mitral annulus calcification with mitral sclerosis and mild mitral regurgitation. 5. Aortic sclerosis. 6. Mild tricuspid regurgitation with normal estimated pulmonary artery systolic pressure of 27. MTDD
[2017-02-20] MEDS ORDERED: WARFARIN 3 MG TABLET PO SCH (17:00)
[2017-02-20] MEDS: ATORVASTATIN 20 MG TABLET PO SCH (20:21)
[2017-02-20] MEDS: MELATONIN 1 MG TABLET PO SCH (20:21)
[2017-02-20] MEDS: TAMSULOSIN 0.4 MG CAPSULE PO SCH (20:21)
[2017-02-20] MEDS: SALINE FLUSH 10ml SYRINGE IV PRN (20:23)
[2017-02-21] MEDS: ALBUTEROL/IPRATROPIUM 2.5mg-0.5mg/3ml NEB ORAL INH SCH ×2 (07:47→11:29)
[2017-02-21] MEDS: CARVEDILOL 6.25 MG TABLET PO SCH (08:09)
[2017-02-21] MEDS: SPIRONOLACTONE 25 MG TABLET PO SCH (08:10)
[2017-02-21] MEDS: FUROSEMIDE 20 MG TABLET PO SCH (08:10)
[2017-02-21] MEDS: LOSARTAN 50 MG TABLET PO SCH (08:11)
[2017-02-21] MEDS: MULTI-VITAMIN + MINERAL TABLET PO SCH (08:11)
[2017-02-21] MEDS: OMEPRAZOLE 20 MG CAPSULE PO SCH (08:11)
[2017-02-21] MEDS: FINASTERIDE 5 MG TABLET PO SCH (08:11)
[2017-02-21 08:15] VITALS: BP 112/69; PULSE 97; TEMP 96.3; O2SAT 96
[2017-02-21] MEDS: BUDESONIDE/FORMOTEROL 80/4.5mcg INHALER ORAL INH SCH (10:46)
[2017-02-21 11:39] VITALS: RESP 20
[2017-02-21] MEDS ORDERED: ALBUTEROL 2.5mg/3ml (0.083%) NEB AEROSOL PRN (12:53)
--- NOTE | 2017-02-21 12:56 | Progress Note ---
Subjective: Pt is feeling fine, he has his Nebulizer machine for home, no more complaints will proceed and D/C home now. Objective Vital signs: Temperature 96.3 F L 02/21/17 08:13 Pulse Rate 97 02/21/17 08:13 Respiratory Rate 20 02/21/17 11:29 Blood Pressure 112/69 02/21/17 08:13 Pulse Oximetry 96 02/21/17 11:29 Height/Weight/BMI: Height 5 ft 6 in Weight 75.1 kg Body Mass Index 26.6 - Constitutional Present: no acute distress - Routine HEENT Exam Head: Present: normocephalic, atraumatic Eye: Present: EOMI, PERRL - Routine Cardiovascular Exam Present: RRR - Routine Abdominal Exam Present: soft, non distended, non tender - Routine Extremities Exam Absent: cyanosis, clubbing, edema - Routine Neurological Exam Present: alert, oriented X3, CN II-XII intact - Routine Psychiatric Exam Present: normal affect, cooperative, good insight, good judgment Results - Labs CBC & Chem 7: 02/20/17 04:44 02/20/17 04:44 Microbiology Results: Microbiology 02/12/17 21:20 Peripheral/Iv Start Blood Culture - Final No Growth After 5 Days - ABG Interpretation ABG results: 02/18/17 16:53 ABG pH 7.480 H ABG pCO2 44 ABG pO2 69 L ABG HCO3 33 H ABG Total CO2 34.2 H ABG O2 Saturation 95.0 ABG Base Excess 8.3 H Assessment and Plan (1) Community acquired pneumonia Current visit: Yes Status: Ruled-out 02/12/17 22:38 this will be the starting point. The paitent has leukocytosis and abnormal chest xray with cough. sputum cx ordered, blood cx ordered by ED. zithromax and rocephin ordered. will review x ray with radiology in the am. (2) Acute respiratory failure with hypoxia Current visit: Yes Status: Resolved 02/12/17 22:39 this patient is significantly hypoxic from baseline. He may have chronic hypoxia but this is not known. this is most likely due to lung disease seen on cxr. see # 1. titrate for sats 91%, consider ABG in am to better quantify if he has a chronic hypercapnic component with HCO3 30. (3) Vomiting Current visit: Yes Status: Resolved 02/12/17 22:45 this patient has persistent unprovoked emesis over the past at least 2 weeks. now the nurses describe coffee ground component. Initially this patient advertised as respirtory but there may be more going on. changed diet to clear liquid. repeat labs in the am. consider CT if sx persist of the abddomen and pelvis. (4) Coronary artery disease Current visit: Yes Status: Chronic 02/12/17 22:50 This patient is s/p CABG. This patient is experiencing nausea and vomiting. 02/14/17 10:48 (5) Cardiomyopathy Problem details: Ejection fraction 20-45% Current visit: Yes Status: Chronic (6) Hiatal hernia Current visit: Yes Status: Chronic (7) [place] esophagus Current visit: Yes Status: Chronic (8) Diffuse idiopathic pulmonary fibrosis Current visit: Yes Status: Chronic (9) Macular degeneration (senile) of retina Current visit: Yes Status: Chronic (10) BPH (benign prostatic hyperplasia) Current visit: Yes Status: Chronic DVT Prophylaxis: Coumadin GI Prophylaxis: other Assessment and Plan: JAIRO - This is a 77 YO male that came with difficulty swallowing and some dyspnea for about a month; Barium swallow suggested presbyesophagus. He has H.O CHF and had 2 episodes of NSVT on 02/15, EKG showed an age uncertain - ASWMI - this was then seen in a older EKG. His Magnesium levle (when he had the NSVT) was a bit low and after replacing this and increasing his BB a bit he stopped having this arrhythmia. He was probably fluid overloaded and was diuresed on 02/15 with a 1.6 kg wt loss. On 02/19 I asked him if he wanted to go home but he stated he is still having trouble to breathe and to drink. His pulmonary toilet Rx was increased and he felt much better on 02/20 and 02/21. PT recommends him to go to assisted living, but he stated he wanted to go home. Today he is feeling well and he wants to go home, he will be using his O2 at all times as well as his Duonebs on a regular basis. DISCHARGE DIAGNOSIS 1) CARDIOVASCULAR ASSESSMENT A) CONGESTIVE HEART FAILURE DUE TO SYSTOLIC DYSFUNCTION WITH LVEF OF 25%, WITH EXACERBATION ON ADMISSION, NOW IMPROVED. - Coreg dose was increased from 6.25 mg PO BID to 9.375 mg PO BID on 02/16 - NSVT episodes stopped shortly after. - Aldactone was added (low dose - 02/20) of 12.5 mg PO/day. - Added ASA 81mg/day - pt on Statin -BB-diuretic, ARB. - Pt had mild fluid overload on admission and this responded well to Lasix. 2- D echo (Dr Cooper - 02/20/2017) "............................... IMPRESSION 1. Pacemaker/ICD leads present in right heart. 2. Severe global hypokinesia with ejection fraction of 25%. 3. Concentric left ventricular hypertrophy. 4. Mitral annulus calcification with mitral sclerosis and mild mitral regurgitation. 5. Aortic sclerosis. 6. Mild tricuspid regurgitation with normal estimated pulmonary artery systolic pressure of 27. ..............................................." B) NON SUSTAINED VENTRICULAR TACHYCARDIA. - Had several episodes of NSVT, and is better after his Coreg was increased (From 6.25mg PO BID to 9.375 mg PO BID) and Mg was supplemented. C) HYPERTENSION WITH LVH - Bp is better, continue outpatient management. D) CAD - S/P UT (ASWMI) PER EKG CRITERIA. 2) PULMONARY ASSESMENT High resolution CT chest "................................... Technique: Axial CT images were performed through the chest without intravenous contrast. Coronal and sagittal two-dimensional reformats. Automated Exposure Control and Iterative Reconstruction dose reducing techniques were utilized. Findings: Subpleural predominant fibrotic changes are seen within the lungs. Areas of traction bronchiectasis in the anterior right upper lobe along the fissure. No discrete honeycombing. Calcified pleural plaques seen along with occasional calcified granulomas. No consolidative acute appearing pneumonia. No pleural effusion or pneumothorax. No pulmonary mass lesions. The central airways are patent. There is dilatation of the central bronchi with areas of bronchiectasis in both lower lobes. No axillary or mediastinal adenopathy. Heart is mildly enlarged without pericardial effusion. Large hiatal hernia with a partially intrathoracic stomach. Left cardiac pacemaker. Three vessel coronary artery disease. The upper abdomen shows no acute findings. Artifact from barium in the colon. Bone windows show degenerative change and scoliosis in the spine. Impression: 1. Calcified pleural plaques and areas of subpleural fibrotic change suggesting possible asbestosis. Nonspecific interstitial pneumonitis is also within the differential. 2. Dilatation of the trachea, mainstem bronchi and foci of bronchiectasis suggests tracheobronchomalacia. ..................................................." A) PNA - IMPROVED. - Legionella urinary Ag is negative - Optimize pulmonary toilet - add Atroven + Symbicort. - Needs to F/U with a CXR in 12 to 16 weeks to document return to his baseline. B) COPD - Will D/C home on O2 - nebulizers, Advair and rescue albuterol. C) PULMONARY FIBROSIS PER CT D) ASBESTOSIS ? 3) Large hiatal hernia - with esophagogram showing presbyesophagus, ? of GI bleed - F/U with surgery in the next month or so in case he needs an EGD. 4) ELEVATED TSH - NEED TO FOLLOW UP CLOSELY. - Could be developing HYPOTHYOIDISM. - TSH WAS 4.91 ON 02/19 NEED TO RECHECK IN THE NEXT 6 TO 8 WEEKS - Hypothyroidism would decompensate his CHF. 5) HYPOMAGENESEMIA AND HYPOKALEMIA - RESOLVED. DISPOSITION - HOME - Time spent with patient greater than 35 minutes Coordination of Care: >50% of visit spent providing counseling/coordination of care Sepsis Assessment - Evaluation Sepsis screening result: No Definite Risk Hospital Course Summary Disclaimer: The visit summary below is not to be considered part of the above Progress Note.
[2017-02-21] MEDS ORDERED: ALBUTEROL 2.5mg/3ml (0.083%) NEB AEROSOL SCH (13:00)
[2017-02-21] MEDS ORDERED: Ipratropium Inh NEB 0.02% (0.5mg/2.5ml) AEROSOL SCH (13:00)
--- NOTE | 2017-02-21 13:30 | Discharge Instructions ---
Discharge Plan - Med Rec/Dispo Referrals/Follow Up: Sylvain Ramírez MD [Family Provider] - 1 Week (Please F/U BMP in 1 week to monitor K level (As I added Aldactone) then please check CXR in 12 to 16 weeks to document resolution on infiltrates and F/U on TSH in 6 w or so (was a bit high here) ) Truven Instructions: Pneumonia (GEN), Heart Failure (DC) Prescriptions: New Albuterol Inhaler [Ventolin Hfa 90 mcg/actuation] 2 puff ORAL INH Q4HR PRN 30 Days #1 inhaler PRN Reason: Shortness Of Air/Wheezing Albuterol Neb (0.083%) [Proventil Neb (0.083%)] 5 mg AEROSOL Q6H 30 Days # 120 neb Budesonide/Formoterol 80/4.5 [Symbicort Inhaler] 2 puff ORAL INH RTBID 30 Days #1 inhaler Carvedilol [Coreg] 9.375 mg PO BIDWM 30 Days #180 tab Guaifenesin/Codeine Phosphate [Guaifenesin-Codeine Syrup] 5 ml PO Q4HR PRN liquid PRN Reason: Cough Spironolactone [Aldactone] 12.5 mg PO DAILY 30 Days #16 tab Acetaminophen [Tylenol] 500 mg PO Q5H PRN tablet PRN Reason: Discomfort Aspirin *EC* [Ecotrin] 81 mg PO DAILY tablet Furosemide [Lasix] 20 mg PO 0900,1700 tablet Continue Citalopram Hydrobromide [Citalopram HBr] 20 mg PO DAILY #0 Mv-Min/FA/Vit K/Lycop/Lut/Zeax [Ocuvite Eye + Multi Tablet] 1 tab PO DAILY Warfarin [Coumadin] 3 mg PO NOON Promethazine HCl/Codeine [Prometh-Codein 6.25-10 mg/5 ml] 5 ml PO Q4HR PRN PRN Reason: Cough Finasteride 5 mg PO DAILY #0 Atorvastatin Calcium [Lipitor] 20 mg PO HS #0 Tamsulosin HCl 0.4 mg PO HS #0 Losartan Potassium 50 mg PO DAILY #0 Omeprazole 20 mg PO DAILY #0 Melatonin 1 mg PO HS Zolpidem [Ambien] 5 mg PO HS Discontinued Carvedilol [Coreg] 6.25 mg PO BID #0 Guaifenesin/Dextromethorphan [Mucinex Dm ER 1,200-60 mg Tab] 1 tab PO Q12HR - Disposition 01 Discharged Home, Self-Care
--- NOTE | 2017-02-21 13:35 | Discharge Summary ---
Discharge Information Date of admission: 02/12/17 21:15 Anticipated date of discharge: 02/21/17 Attending Physician: Cezar Castelan MD Primary care physician: Sylvain Ramírez MD Consults: 02/14/17 Pharmacy Consult [CONS] Routine Pharmacy Consult: Coumadin/Warfarin Comment: MADISON CALDERA 02/14/17 11:00 Physician Consult [CONS] Routine Consulting Provider: Macario Keller Reason For Exam: large esophageal hiatal hernia, esophageal dysmoti Ordering Provider has Notified Dental Aide: Karen 02/17/17 IRU Screening [Inpatient Rehab Screening] [CONS] Routine - Discharge Diagnosis (1) Community acquired pneumonia Status: Ruled-out (2) Acute respiratory failure with hypoxia Status: Resolved (3) Vomiting Status: Resolved (4) Coronary artery disease Status: Chronic (5) Cardiomyopathy Status: Chronic (6) Hiatal hernia Status: Chronic (7) [place] esophagus Status: Chronic (8) Diffuse idiopathic pulmonary fibrosis Status: Chronic (9) Macular degeneration (senile) of retina Status: Chronic (10) BPH (benign prostatic hyperplasia) Status: Chronic - Laboratory Labs: 02/20/17 04:44 02/20/17 04:44 - Microbiology Microbiology 02/12/17 21:20 Peripheral/Iv Start Blood Culture - Final No Growth After 5 Days History of Present Illness HPI: This is a 76 y/o male who has not felt well for several weeks. The patient was seen in the ED 1.5 weeks ago and sent home with an inhaler. The patient describes a cough that is at times productive and at times not. The patient denies fever chills or sweats. but is very weak during this period of time. The patient is also having cough induced emesis but then some emesis that is not cough induced. Nursing reports that the most recent emesis had the appearance of coffee ground. The patient denies a headache. no significant congestion, no sore throat, no neck pain, no chest pain, no heart palpitations, The patient reports diffuse abdomen pain with intermittent episodes of diarrhea. The patient denies any focal neuro complains. the patient reports that he has had a CVA in the past that left no residue deficits. It is assumed that the patient is anticoagulated due to previous CVA but it is not clearly stated in the records and the patient is not clear on this matter. In the ED the patient had a cxr that has a chronically elevated right hemidiaphragm and probable new infiltrates in both bases. The patient will be admitted for community acquired pneumonia but a more detailed assessment with repet labs and further assessment of his nausea and vomiting with now ? coffee ground emesis will be necessary Objective Vital signs: Temperature 96.3 F L 02/21/17 08:13 Pulse Rate 97 02/21/17 08:13 Respiratory Rate 20 02/21/17 11:29 Blood Pressure 112/69 02/21/17 08:13 Pulse Oximetry 96 02/21/17 11:29 Rhythm: Normal Sinus Rhythm Height/Weight/BMI: Height 5 ft 6 in Weight 75.1 kg Body Mass Index 26.6 - Constitutional Present: no acute distress - Routine HEENT Exam Head: Present: normocephalic, atraumatic Eye: Present: EOMI, PERRL ENT: Present: mucous membranes moist - Routine Respiratory Exam Present: CTA bilaterally - Routine Cardiovascular Exam Present: RRR, S1, S2, murmur - Routine Abdominal Exam Present: soft, non distended, non tender - Routine Extremities Exam Absent: cyanosis, clubbing, edema - Routine Neurological Exam Present: alert, oriented X3, CN II-XII intact - Routine Psychiatric Exam Present: normal affect, cooperative, good insight, good judgment Hospital Course This is a general summary of the patient's hospital course. For more details refer to the complete medical record. Hospital course: JAIRO - This is a 77 YO male that was admitted to the medical unit, with difficulty swallowing and some dyspnea for about a month; he also reported coughing and throwing up what appeared to be bloody sputum. Barium swallow suggested presbyesophagus. Surgery was consulted and they thought he could require an EGD at a later date. He had 2 episodes of NSVT on 02/15, EKG showed an age uncertain - ASWMI - this was then seen in a older EKG (from 2014). His Magnesium level (when he had the NSVT) was a bit low and after replacing this and increasing his BB (Coreg from 6.25 BID to 9.375 BID) he stopped having this arrhythmia. He was probably fluid overloaded and was diuresed on 02/15 with a 1.6 kg wt loss. On 02/19 I asked him if he wanted to go home, as he appeared to be very stable, but he stated he was still having trouble to breathe and could not swallow. His pulmonary toilet Rx was increased and he felt much better on 02/20 and 02/21. PT recommends him to go to assisted living, but he stated he wanted to go home. Today he is feeling well and he wants to go home, he will be using his O2 at all times as well as his Duonebs on a regular basis. He will have a rescue Albuterol inhaler. DISCHARGE DIAGNOSIS 1) CARDIOVASCULAR ASSESSMENT A) CONGESTIVE HEART FAILURE DUE TO SYSTOLIC DYSFUNCTION WITH LVEF OF 25%, WITH EXACERBATION ON ADMISSION, NOW IMPROVED. - Coreg dose was increased from 6.25 mg PO BID to 9.375 mg PO BID on 02/16 - NSVT episodes stopped shortly after. - Aldactone was added (low dose - 02/20) of 12.5 mg PO/day. - Added ASA 81mg/day - pt on Statin -BB-diuretic, ARB. - Pt had mild fluid overload on admission and this responded well to Lasix. 2- D echo (Dr Cooper - 02/20/2017) "............................... IMPRESSION 1. Pacemaker/ICD leads present in right heart. 2. Severe global hypokinesia with ejection fraction of 25%. 3. Concentric left ventricular hypertrophy. 4. Mitral annulus calcification with mitral sclerosis and mild mitral regurgitation. 5. Aortic sclerosis. 6. Mild tricuspid regurgitation with normal estimated pulmonary artery systolic pressure of 27. ..............................................." B) NON SUSTAINED VENTRICULAR TACHYCARDIA - IMPROVED. - Had several episodes of NSVT, and is better after his Coreg was increased (From 6.25mg PO BID to 9.375 mg PO BID) and Mg was supplemented. C) HYPERTENSION WITH LVH - Bp is better, continue outpatient management. D) CAD - S/P [place] (ASWMI) PER EKG CRITERIA. E) S/P PACEMAKER PLACEMENT, CAPTURING AND SENSING WELL. 2) PULMONARY ASSESMENT High resolution CT chest "................................... Technique: Axial CT images were performed through the chest without intravenous contrast. Coronal and sagittal two-dimensional reformats. Automated Exposure Control and Iterative Reconstruction dose reducing techniques were utilized. Findings: Subpleural predominant fibrotic changes are seen within the lungs. Areas of traction bronchiectasis in the anterior right upper lobe along the fissure. No discrete honeycombing. Calcified pleural plaques seen along with occasional calcified granulomas. No consolidative acute appearing pneumonia. No pleural effusion or pneumothorax. No pulmonary mass lesions. The central airways are patent. There is dilatation of the central bronchi with areas of bronchiectasis in both lower lobes. No axillary or mediastinal adenopathy. Heart is mildly enlarged without pericardial effusion. Large hiatal hernia with a partially intrathoracic stomach. Left cardiac pacemaker. Three vessel coronary artery disease. The upper abdomen shows no acute findings. Artifact from barium in the colon. Bone windows show degenerative change and scoliosis in the spine. Impression: 1. Calcified pleural plaques and areas of subpleural fibrotic change suggesting possible asbestosis. Nonspecific interstitial pneumonitis is also within the differential. 2. Dilatation of the trachea, mainstem bronchi and foci of bronchiectasis suggests tracheobronchomalacia. ..................................................." A) PNA - IMPROVED. - Legionella urinary Ag is negative - Optimized pulmonary toilet with Albuterol + Ipratrotium + Symbicort with good response. - Needs to F/U with a CXR in 12 to 16 weeks to document return to his baseline. B) COPD - Will D/C home on O2 - nebulizers, Advair and rescue albuterol. C) PULMONARY FIBROSIS PER CT D) ASBESTOSIS ? 3) Large hiatal hernia - with esophagogram showing presbyesophagus, ? of GI bleed - F/U with surgery in the next month or so in case he needs an EGD. 4) ELEVATED TSH - NEED TO FOLLOW UP CLOSELY. - Could be developing HYPOTHYOIDISM. - TSH WAS 4.91 ON 02/19 NEED TO RECHECK IN THE NEXT 6 TO 8 WEEKS - Hypothyroidism would decompensate his CHF. 5) HYPOMAGENESEMIA AND HYPOKALEMIA - RESOLVED. DISPOSITION - HOME Time spent with patient: greater than 35 minutes DVT Prophylaxis: Coumadin GI Prophylaxis: other Discharge Plan - Med Rec/Dispo Referrals/Follow Up: Sylvain Ramírez MD [Family Provider] - 1 Week (Please F/U BMP in 1 week to monitor K level (As I added Aldactone) then please check CXR in 12 to 16 weeks to document resolution on infiltrates and F/U on TSH in 6 w or so (was a bit high here) ) Truven Instructions: Heart Failure (DC), Pneumonia (GEN) Prescriptions: New Albuterol Inhaler [Ventolin Hfa 90 mcg/actuation] 2 puff ORAL INH Q4HR PRN 30 Days #1 inhaler PRN Reason: Shortness Of Air/Wheezing Albuterol Neb (0.083%) [Proventil Neb (0.083%)] 5 mg AEROSOL Q6H 30 Days # 120 neb Budesonide/Formoterol 80/4.5 [Symbicort Inhaler] 2 puff ORAL INH RTBID 30 Days #1 inhaler Carvedilol [Coreg] 9.375 mg PO BIDWM 30 Days #180 tab Guaifenesin/Codeine Phosphate [Guaifenesin-Codeine Syrup] 5 ml PO Q4HR PRN liquid PRN Reason: Cough Spironolactone [Aldactone] 12.5 mg PO DAILY 30 Days #16 tab Acetaminophen [Tylenol] 500 mg PO Q5H PRN tablet PRN Reason: Discomfort Aspirin *EC* [Ecotrin] 81 mg PO DAILY tablet Furosemide [Lasix] 20 mg PO 0900,1700 tablet Continue Citalopram Hydrobromide [Citalopram HBr] 20 mg PO DAILY #0 Mv-Min/FA/Vit K/Lycop/Lut/Zeax [Ocuvite Eye + Multi Tablet] 1 tab PO DAILY Warfarin [Coumadin] 3 mg PO NOON Promethazine HCl/Codeine [Prometh-Codein 6.25-10 mg/5 ml] 5 ml PO Q4HR PRN PRN Reason: Cough Finasteride 5 mg PO DAILY #0 Atorvastatin Calcium [Lipitor] 20 mg PO HS #0 Tamsulosin HCl 0.4 mg PO HS #0 Losartan Potassium 50 mg PO DAILY #0 Omeprazole 20 mg PO DAILY #0 Melatonin 1 mg PO HS Zolpidem [Ambien] 5 mg PO HS Discontinued Carvedilol [Coreg] 6.25 mg PO BID #0 Guaifenesin/Dextromethorphan [Mucinex Dm ER 1,200-60 mg Tab] 1 tab PO Q12HR - Disposition 01 Discharged Home, Self-Care
--- NOTE | 2017-02-21 15:42 | Pharmacy Consult ---
Pharmacy Consult-Warfarin - Laboratory Information 02/13/17 02/15/17 02/16/17 05:00 04:01 04:07 INR 2.25 H 2.86 H 2.76 H 02/18/17 02/19/17 02/20/17 04:03 05:05 04:44 INR 3.27 H 2.51 H 2.26 H 02/21/17 12:58 INR 2.00 H - Consult Information Ordered warfarin 3mg for 1700 today. Thank you.
[2017-02-21] MEDS ORDERED: WARFARIN 3 MG TABLET PO SCH (17:00)
[2017-02-22] MEDS ORDERED: ASPIRIN *EC* 81 MG TABLET PO SCH (09:00)
== END 2017-02-21 13:50 | disposition home or self-care (01) | DRG 193 ==
LOC: ED 18:37 → MED 21:15
PROVIDERS: ADMIT Emergency Medicine; ATTEND Internal Medicine

== ENCOUNTER 2017-03-06 20:45 | Inpatient (IN) ==
[2017-03-06] MEDS ORDERED: ALBUTEROL/IPRATROPIUM 2.5mg-0.5mg/3ml NEB AEROSOL ONE (20:53)
--- NOTE | 2017-03-06 20:57 | Emergency Department Report ---
Asthma HPI - General Stated Complaint: cough Time Seen by Provider: 03/06/17 20:52 Source: patient, family Mode of arrival: wheelchair Limitations: no limitations - History of Present Illness HPI Narrative: Pt presents with c/o chest pain 2/2 cough. Pt was recently admitted about 2 weeks ago for pneumonia. states pt refused breathing treatments today because they make him cough complaint: shortness of breath Onset (ago): day(s) Severity: moderate Context: recent URI Associated symptoms: productive cough, chest pain Treatments Prior to Arrival: oxygen - Related Data Home Medications Medication Instructions Recorded Confirmed Atorvastatin Calcium [Lipitor] 20 mg PO HS #0 05/18/14 03/06/17 Finasteride 5 mg PO DAILY #0 05/18/14 03/06/17 Tamsulosin HCl 0.4 mg PO HS #0 05/18/14 03/06/17 Citalopram Hydrobromide 20 mg PO DAILY #0 02/21/16 03/06/17 [Citalopram HBr] Losartan Potassium 50 mg PO DAILY #0 02/21/16 03/06/17 Omeprazole 20 mg PO DAILY #0 02/21/16 03/06/17 Melatonin 1 mg PO HS 01/13/17 03/06/17 Mv-Min/FA/Vit K/Lycop/Lut/Zeax 1 tab PO DAILY 01/13/17 03/06/17 [Ocuvite Eye + Multi Tablet] Warfarin [Coumadin] 3 mg PO HS 01/13/17 03/06/17 Carvedilol [Coreg] 6.25 mg PO BIDWM 03/06/17 03/06/17 Previous Rx's Medication Instructions Recorded Acetaminophen [Tylenol] 500 mg PO Q5H PRN tablet 02/21/17 Albuterol HFA Inhaler [Ventolin 2 puff ORAL INH Q4HR PRN 30 Days 02/21/17 Hfa 90 mcg/actuation] #1 inhaler Albuterol Neb (0.083%) [Proventil 5 mg AEROSOL Q6H 30 Days #120 neb 02/21/17 Neb (0.083%)] Aspirin *EC* [Ecotrin] 81 mg PO DAILY tablet 02/21/17 Budesonide/Formoterol 80/4.5 2 puff ORAL INH RTBID 30 Days #1 02/21/17 [Symbicort Inhaler] inhaler Spironolactone [Aldactone] 12.5 mg PO DAILY 30 Days #16 tab 02/21/17 Allergies Allergy/AdvReac Type Severity Reaction Status Date / Time Penicillins Allergy Unknown Verified 03/06/17 21:29 lisinopril AdvReac Unknown COUGH Verified 03/06/17 21:29 Review of Systems All systems: reviewed and negative except as stated Constitutional: Denies: fever, chills ENT: Reports: congestion Cardiovascular: Reports: chest pain Respiratory: Reports: cough, dyspnea Gastrointestinal: Denies: nausea, vomiting, diarrhea Genitourinary: Denies: urgency, dysuria Neurological: Denies: headache PFSH Patient Stated Medical History Cerebrovascular Accident Yes Cataracts Yes Macular Degeneration Yes Myocardial Infarction Yes Pneumonia Yes: feb 2016 Gastroesophageal Reflux Yes Disease Hx Incontinence Yes Hx Kidney Stones Yes Surgical History: AICD. CABG. Inguinal hernia. Total knee. 05/19/2014 Colonoscopy - Diverticulosis. 05/19/2014 EGD - Hiatal hernia (No Barrets, H.Pylori neg) - Social History Smoking status: Never smoker Physical Exam - Limitations Limitations: no limitations - General General appearance: alert, in distress - Normal Exams: Eyes:: Pupils are PERRLA w/ EOMI Neck:: Full range of motion, without adenopathy Cardiovascular:: Regular rate and rhythm, without murmur or gallop, Pulses 2+ all extremities Abdomen:: Bowel sounds positive, soft, non-tender, non-distended Musculoskeletal:: No tenderness, or deformity noted, good range of motion, all extremities Integumentary:: No rashes Neurological:: Patient is alert, and oriented Psychiatric:: Patient exhibits, appropriate attention, emotion and affect - Respiratory Respiratory exam: Present: accessory muscle use, other (cough) - Expanded Respiratory Exam Location: Left: decreased breath sounds, Right: decreased breath sounds, Lower: decreased breath sounds Course Vital Signs Respiratory Rate 26 H 03/06/17 21:28 Pulse Oximetry 94 03/06/17 21:28 Respiratory Rate 26 H 03/06/17 21:28 Pulse Oximetry 94 03/06/17 21:28 Dyspnea - MDM Narrative Medical decision making narrative: Pt has an elevated white count, xray reveals RLL consolidation which would be consistent with symptoms. Pt has had NS bolus as well as a Duoneb treatment. states pt had refused all Breathing treatments at home today. Dr Tong agrees to admit. - Differential Diagnosis Differential diagnosis: Likely: Acute exacerbation, PE, Pneumonia, COPD exacerbation, ARDS - Medical Records Attestation: I reviewed the patient's medical records. - Lab Data Attestation: I reviewed the patient's lab results. Result diagrams: 03/06/17 21:15 03/06/17 21:15 Lab Results 03/06/17 03/06/17 Range/Units 21:15 21:15 WBC 14.8 H (4.5-11.0) T/MM3 RBC 4.65 (4.50-5.90) M/MM3 Hgb 14.1 (13.5-17.5) GM/DL Hct 41.8 (41-53) % MCV 89.9 (80-100) UM3 MCH 30.3 (26-34) UUG MCHC 33.7 (31-37) GM/DL RDW Std Deviation 42.3 (36.9-50.2) FL Plt Count 225 (130-400) T/MM3 MPV 10.7 (9.4-12.4) UM3 Immature Gran % (Auto) 1.1 H (0.0-0.5) % Neut % (Auto) 61.1 (33-66) % Lymph % (Auto) 22.1 L (23-45) % Lipscomb % (Auto) 9.4 H (0-9.0) % Eos % (Auto) 5.5 H (0-4) % Baso % (Auto) 0.8 (0-2) % Neut # (Auto) 9.1 H (1.8-7.7) T/MM3 Lymph # (Auto) 3.3 (1-4.8) T/MM3 Lipscomb # (Auto) 1.4 H (0-0.8) T/MM3 Eos # (Auto) 0.8 H (0-0.5) T/MM3 Baso # (Auto) 0.1 (0-0.2) T/MM3 Abs Immat Gran (auto) 0.17 H (0.00-0.03) T/MM3 Turbidity < 20 (0-20) Sodium 137 (134-144) MEQ/L Potassium 4.5 (3.6-5) MEQ/L Chloride 95 L (98-107) MEQ/L Carbon Dioxide 31 H (22-30) MEQ/L Anion Gap 11 (5-15) MEQ/L BUN 22.0 H (9-20) MG/DL Creatinine 1.1 (0.8-1.5) MG/DL GFR Calculation 65 BUN/Creatinine Ratio 20 (6-26) RATIO Glucose 130 H (75-110) MG/DL Calculated Osmolality 269 (261-280) MOSM/KG Calcium 9.2 (8.4-10.2) MG/DL Total Bilirubin 0.70 (0.20-1.30) MG/DL Icterus Index < 2 (0-7) AST 26 (17-59) U/L ALT 32 (21-72) U/L Alkaline Phosphatase 89 (38-126) U/L Troponin I 0.081 (0-0.12) ng/ml B-Natriuretic Peptide 1380 H (0-175) pg/mL Total Protein 7.5 (6.3-8.2) G/DL Albumin 3.8 (3.5-5.0) G/DL Globulin 3.7 H (2.4-3.6) G/DL Albumin/Globulin Ratio 1.0 L (1.1-2.2) RATIO Specimen Hemolysis 30 H (0-25) - Radiology Data Attestation: I reviewed the patient's radiology results. (Report per Dr Judge) Disposition Clinical Impression: Chest pain Qualifiers: Chest pain type: chest pain on breathing Qualified Code(s): R07.1 - Chest pain on breathing; R07.81 - Pleurodynia Pneumonia Qualifiers: Pneumonia type: due to other aerobic Gram-negative bacteria Laterality: right Lung location: lower lobe of lung Qualified Code(s): J15.6 - Pneumonia due to other aerobic Gram-negative bacteria COPD (chronic obstructive pulmonary disease) Qualifiers: COPD type: unspecified COPD Qualified Code(s): J44.9 - Chronic obstructive pulmonary disease, unspecified Disposition: To [facility] [place] Acute Care Condition: Improved Prescriptions: No Action Citalopram Hydrobromide [Citalopram HBr] 20 mg PO DAILY #0 Mv-Min/FA/Vit K/Lycop/Lut/Zeax [Ocuvite Eye + Multi Tablet] 1 tab PO DAILY Warfarin [Coumadin] 3 mg PO HS Albuterol HFA Inhaler [Ventolin Hfa 90 mcg/actuation] 2 puff ORAL INH Q4HR PRN 30 Days #1 inhaler PRN Reason: Shortness Of Air/Wheezing Albuterol Neb (0.083%) [Proventil Neb (0.083%)] 5 mg AEROSOL Q6H 30 Days # 120 neb Budesonide/Formoterol 80/4.5 [Symbicort Inhaler] 2 puff ORAL INH RTBID 30 Days #1 inhaler Spironolactone [Aldactone] 12.5 mg PO DAILY 30 Days #16 tab Finasteride 5 mg PO DAILY #0 Atorvastatin Calcium [Lipitor] 20 mg PO HS #0 Tamsulosin HCl 0.4 mg PO HS #0 Losartan Potassium 50 mg PO DAILY #0 Omeprazole 20 mg PO DAILY #0 Melatonin 1 mg PO HS Acetaminophen [Tylenol] 500 mg PO Q5H PRN tablet PRN Reason: Discomfort Aspirin *EC* [Ecotrin] 81 mg PO DAILY tablet Carvedilol [Coreg] 6.25 mg PO BIDWM Referrals: Sylvain Ramírez MD [Family Provider] - Time of Disposition: 22:40 - Seen By: midlevel
[2017-03-06] MEDS: LEVOFLOXACIN PB 500 MG/100 ML BAG IV SCH (23:09)
[2017-03-06] MEDS ORDERED: ACETAMINOPHEN 325 MG TABLET PO PRN (23:27)
[2017-03-06] MEDS ORDERED: LR 1,000 ML IV SCH (23:27)
[2017-03-06] MEDS: ONDANSETRON 4 MG/2 ML INJECTION IVP PRN (23:35)
--- NOTE | 2017-03-07 00:08 | History & Physical Report ---
<Mati Disla P - Last Filed: 03/07/17 00:05> History of Present Illness Date: 03/07/17 Chief complaint: sob and cough HPI: Mr. Armstrong is a 77yo man with h/o CAD with ischemic CM, HTN, BPH, Hiatal hernia/ GERD/mckeon's and chronic hypoxic resp failure on 2L O2 for a year for unknown diagnosis with him denying COPD but perhaps the CHF. He was admitted to this facility 02/12-02/21/2017 for CAP and since home has been persistently weak with cough. Some pleurisy but no syncope or CP now. no other pain with him having an appetite but with emesis . 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 Please note that the patient was seen via telemedicine with nursing assistance on 03/06/2017. Review of Systems Review of systems: 10+ negative aside from in HPI PFSH as in HPI Surgical History: AICD. CABG. Inguinal hernia. Total knee. 05/19/2014 Colonoscopy - Diverticulosis. 05/19/2014 EGD - Hiatal hernia (No Barrets, H.Pylori neg) Family History: cad - Social History Smoking status: Never smoker Substance use type: does not use Alcohol intake frequency: does not drink Household members: spouse Medications Home Medications Medication Instructions Recorded Confirmed Type Atorvastatin Calcium [Lipitor] 20 mg PO HS #0 05/18/14 03/06/17 History Finasteride 5 mg PO DAILY #0 05/18/14 03/06/17 History Tamsulosin HCl 0.4 mg PO HS #0 05/18/14 03/06/17 History Citalopram Hydrobromide 20 mg PO DAILY #0 02/21/16 03/06/17 History [Citalopram HBr] Losartan Potassium 50 mg PO DAILY #0 02/21/16 03/06/17 History Omeprazole 20 mg PO DAILY #0 02/21/16 03/06/17 History Melatonin 1 mg PO HS 01/13/17 03/06/17 History Mv-Min/FA/Vit K/Lycop/Lut/Zeax 1 tab PO DAILY 01/13/17 03/06/17 History [Ocuvite Eye + Multi Tablet] Warfarin [Coumadin] 3 mg PO HS 01/13/17 03/06/17 History Carvedilol [Coreg] 6.25 mg PO BIDWM 03/06/17 03/06/17 History Allergies Allergy/AdvReac Type Severity Reaction Status Date / Time Penicillins Allergy Unknown Verified 03/06/17 21:29 lisinopril AdvReac Unknown COUGH Verified 03/06/17 21:29 Exam Vital Signs: Temperature 98.2 F 03/06/17 23:46 Pulse Rate 116 H 03/06/17 23:46 Respiratory Rate 22 03/06/17 23:46 Blood Pressure 155/95 H 03/06/17 23:46 Pulse Oximetry 92 03/06/17 23:46 Telemetry Rhythm: Sinus Rhythm Height/Weight/BMI: Height 1.68 m Weight 72.7 kg Body Mass Index 25.8 - Constitutional Present: no acute distress - Routine HEENT Exam Head: Present: normocephalic, atraumatic - Routine Respiratory Exam Present: dyspnea. Absent: accessory muscle use, respiratory distress Comments: course upper airway sounds but no stridor with rales heard, mild wheezing - Routine Cardiovascular Exam Present: RRR, S1, S2. Absent: JVD - Routine Abdominal Exam Present: soft, normoactive bowel sounds, non tender. Absent: guarding - Routine Neurological Exam Present: alert, oriented X3, CN II-XII intact - Routine Psychiatric Exam Present: normal affect Results - Labs CBC & Chem 7: 03/06/17 21:15 03/06/17 21:15 Assessment and Plan (1) HCAP (healthcare-associated pneumonia) Current visit: Yes Status: Acute 03/07/17 00:13 admit to inpatient care with cxs, IVF with normal lactate noted, triple antibiotics with vanco/azactam/levaquin based on noted allergies. If does not clinically improve after 2-3 days may need transfer for bronchoscopy/pulm eval. I was unaware of CT report/result prior to admit acceptance. Nebs and dose mucinex as well. (2) Coronary artery disease Current visit: No Status: Chronic 03/07/17 00:15 prior asa, bblocker, ?statin (3) Cardiomyopathy Problem details: Ejection fraction 20-45% Current visit: No Status: Chronic (4) Chronic respiratory failure with hypoxia Current visit: Yes Status: Acute 03/07/17 00:14 stable requirement, but asbestosis/cause for need. Mention of COPD on record, but uncertain with no CT findings c/w emphysema, and would obstructive PFTs with the pleural plaques. Hospital Course Summary Disclaimer: The visit summary below is not to be considered part of the above Progress Note. <Gela Rai - Last Filed: 03/07/17 15:42> History of Present Illness Date: 03/07/17 Exam Vital Signs: Temperature 96.6 F L 03/07/17 07:34 Pulse Rate 97 03/07/17 07:34 Respiratory Rate 24 03/07/17 11:50 Blood Pressure 102/69 03/07/17 07:34 Pulse Oximetry 98 03/07/17 11:50 Height/Weight/BMI: Height 1.68 m Weight 74.3 kg Body Mass Index 25.8 Results - Labs CBC & Chem 7: 03/07/17 03:17 03/07/17 03:17 Assessment and Plan (1) HCAP (healthcare-associated pneumonia) Current visit: Yes Status: Acute (2) Chronic respiratory failure with hypoxia Current visit: Yes Status: Acute (3) Coronary artery disease Current visit: No Status: Chronic (4) Cardiomyopathy Problem details: Ejection fraction 20-45% Current visit: No Status: Chronic Assessment and Plan: Dr. Disla's note reviewed. Mr. Armstrong interviewed and examined. CC: Dyspnea, cough, feels badly HPI: Mr. Armstrong is a 77-year-old male with multiple chronic problems who was recently hospitalized with community-acquired pneumonia, acute hypoxic respiratory failure, and dysphasia. Evaluation suggested presbyesophagus in conjunction with large hiatal hernia. Antibiotic therapy was completed during the hospitalization and EGD was recommended in the near future. Patient return to the emergency room late yesterday evening complaining that he couldn't breathe and persistent cough causing chest pain. He denied sputum production but reports his chest feels very congested. He denies fevers, chills, or sweats. He reports sore throat and nasal congestion. Dyspnea has been worsening progressively as has cough since prior discharge. He is chronically on 3 L supplemental oxygen and was not hypoxic on arrival. In the emergency room the patient's indicated the patient has not been using his breathing treatments consistently because they trigger coughing spells. Chest x-ray demonstrated right lower lobe infiltrate and leukocytosis was present prompting admission for healthcare associated pneumonia. PH/SH/FH: Acute bilateral low back pain without sciatica Age-related macular degeneration Anxious depression Mckeon's esophagus BPH with prostatism Cataracts Chronic diastolic heart failure secondary to idiopathic cardiomyopathy Coronary arteriosclerosis and atrial fibrillation on Coumadin followed by Dr. 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 Ramírez primary care physician, DPOA this patient's , full code FH: Mother of congestive heart failure, father of heart disease, one brother had CHF, one brother brain cancer, one sister breast cancer. ROS: 10 point review as per Dr. Disla/history of present illness area EXAM: General-uncomfortable appearing male, coughs frequently, alert, fatigued HEENT-PERRL, EOMI without nystagmus, conjunctiva clear, sclera anicteric, conjugate gaze, facial structures symmetric, oropharynx clear, neck supple and without adenopathy Lungs-respirations nonlabored, crackles at the right base, no wheezing, good airflow no chest wall tenderness anteriorly; Cardiac-regular rhythm, low-grade tachycardia Abd-soft, nontender, bowel sounds present Ext-without edema Skin-some bruising but no open wounds or generalized rash Neuro-cranial nerves 3-12 intact, sensation intact to light touch 4 extremities , MAEW Psych-cooperative DATA: White count 14.8 on arrival in the emergency room, 15.3 this morning; hemoglobin 14.1 in the emergency room dropping to 12.6 following hydration. 6% bands present this morning. INR 3.03, electrolytes unremarkable, BNP 1380, lactic acid 1.5-0.9 Chest x-ray reviewed by myself demonstrating elevated right hemidiaphragm with right lower lobe infiltrate, suggestion of left basilar infiltrate along the left heart border. Pacemaker present, right shoulder arthroplasty. EKG reviewed by myself-sinus tachycardia with left axis deviation, inferior MS, anteroseptal MS-unchanged from EKG last admission. A/P: Recurrent right lower lobe pneumonia, recent hospitalization Leukocytosis Pulmonary fibrosis Dysphasia (oropharyngeal/esophageal), esophageal dysmotility Dehydration Ischemic cardiomyopathy/CAD Paroxysmal atrial fibrillation DJD CKD BPH Patient presents with recurrent pneumonia with high suspicion for aspiration based on dysphasia. Speech therapy evaluated and recommended pured diet with nectar thickened liquids with continued speech therapy. Patient was started on broad-spectrum antibiotics overnight with aztreonam, Levaquin, and vancomycin given potential for atypical exposure during recent hospitalization. Current antibiotics will be continued pending sputum culture and blood cultures. Strep pneumonia antigen will additionally be obtained. Respiratory viral panel has been sent and is negative. Home medications will be continued for multiple chronic problems. Pharmacy consulted to assist with dosing of vancomycin and warfarin. PT/OT consultations. Old records reviewed. Discussed with nursing and speech therapy. Hospital Course Summary Disclaimer: The visit summary below is not to be considered part of the above Progress Note.
[2017-03-07] MEDS: AZTREONAM 1 G in NS 100 ML IV SCH ×4 (00:56→23:44)
[2017-03-07] MEDS: ALBUTEROL/IPRATROPIUM 2.5mg-0.5mg/3ml NEB AEROSOL SCH ×7 (01:55→23:58)
[2017-03-07] MEDS: LR 1,000 ML IV SCH ×3 (05:00→22:22)
--- NOTE | 2017-03-07 07:55 | XRay Report ---
INDICATION: cough recent pneumonia PROCEDURE: CHEST 2-VIEWS UPRIGHT (PA & LAT) Encounter: Initial COMPARISON: Chest CT dated February 18, 2017 FINDINGS: Areas of fibrosis and interstitial lung disease are again noted with possible slight increase in right lower lobe airspace consolidation adjacent to an elevated right hemidiaphragm. No pneumothorax or pleural effusion. Heart size and mediastinal contours are stable. Left pacemaker defibrillator. Pulmonary vascularity is stable. Scoliosis Impression: Chronic lung disease with possible superimposed right basilar pneumonia. .
[2017-03-07] MEDS: OMEPRAZOLE 20 MG CAPSULE PO SCH (09:29)
[2017-03-07] MEDS: CARVEDILOL 6.25 MG TABLET PO SCH ×2 (09:29→17:24)
[2017-03-07] MEDS: GUAIFENESIN 400MG TABLET PO SCH ×2 (09:29→20:07)
[2017-03-07] MEDS: ASPIRIN *EC* 81 MG TABLET PO SCH (09:29)
[2017-03-07] MEDS: CITALOPRAM 20 MG TABLET PO SCH (09:29)
[2017-03-07] MEDS: LOSARTAN 50 MG TABLET PO SCH (09:30)
[2017-03-07] MEDS: FINASTERIDE 5 MG TABLET PO SCH (09:30)
[2017-03-07] MEDS: BUDESONIDE/FORMOTEROL 80/4.5mcg INHALER ORAL INH SCH ×2 (10:45→20:28)
--- NOTE | 2017-03-07 13:25 | Pharmacy Consult-Antibiotics ---
Pharmacy Consult-Vancomycin - Laboratory Information WBC 15.3 T/MM3 (4.5-11.0) H 03/07/17 03:17 BUN 18.0 MG/DL (9-20) 03/07/17 03:17 Creatinine 1.1 MG/DL (0.8-1.5) 03/07/17 03:17 VANCOMYCIN CONSULT: Dx: Health Care Associated Pneumonia Current Renal Function: S Cr = 1.1 mg/dl. Estimated Cr Cl~52 mL/min I changed the Vancomycin 1,500 mg IV q12hrs to Vancomycin 1,500 mg iv every 18hrs. The Pharmacy will continue to monitor and adjust regimen to maintain therapeutic levels. Thank you for the Vancomycin Protocol, Estevan Conley, Pharmacist.
--- NOTE | 2017-03-07 16:26 | Pharmacy Consult ---
Pharmacy Consult-Warfarin - Laboratory Information 03/07/17 03:17 INR 3.03 H DINAH is a 77 yo male admitted for Healthcare Associated Pneumonia (HCAP). The patient is currently taking Warfarin 3 mg po daily at bedtime. Date INR Dose 03/07 3.03 3 mg given (03/06 @ 2100) The patient is taking warfarin for Atrial Fibrillation. Will use last nights dose for today's dose so we can dose the warfarin at noon daily while patient is in hospital. The Pharmacy will continue the INR's and adjust the dose of warfarin accordingly. Thanks for The Warfarin Dosing Protocol, Estevan Conley, Pharmacist
[2017-03-07 18:01] VITALS: BMI 26.4
[2017-03-07] MEDS: BENZONATATE 200 MG CAPSULE PO PRN (18:38)
[2017-03-07] MEDS: TAMSULOSIN 0.4 MG CAPSULE PO SCH (20:07)
[2017-03-07] MEDS: MELATONIN 1 MG TABLET PO SCH (20:07)
[2017-03-07] MEDS: ATORVASTATIN 20 MG TABLET PO SCH (20:07)
[2017-03-07] MEDS ORDERED: MELATONIN 1 MG PO SCH (21:00)
[2017-03-07] MEDS ORDERED: WARFARIN 3 MG TABLET PO SCH (21:00)
[2017-03-07] MEDS: LEVOFLOXACIN PB 500 MG/100 ML BAG IV SCH (22:22)
[2017-03-08] MEDS: GUAIFENESIN/CODEINE 5ml ORAL LIQUID PO PRN (01:28)
[2017-03-08] MEDS: AZTREONAM 1 G in NS 100 ML IV SCH ×3 (01:30→17:19)
[2017-03-08] MEDS: ALBUTEROL/IPRATROPIUM 2.5mg-0.5mg/3ml NEB AEROSOL SCH ×6 (04:10→23:40)
[2017-03-08] MEDS: BENZONATATE 200 MG CAPSULE PO PRN (05:13)
[2017-03-08] MEDS: LR 1,000 ML IV SCH ×2 (06:06→12:39)
[2017-03-08] MEDS: OMEPRAZOLE 20 MG CAPSULE PO SCH (06:47)
[2017-03-08] MEDS: BUDESONIDE/FORMOTEROL 80/4.5mcg INHALER ORAL INH SCH ×2 (09:23→19:55)
[2017-03-08] MEDS: GUAIFENESIN 400MG TABLET PO SCH ×2 (09:53→20:49)
[2017-03-08] MEDS: MULTI-VIT + MINERAL (Opti-gen) TABLET PO SCH (09:53)
[2017-03-08] MEDS: FINASTERIDE 5 MG TABLET PO SCH (09:53)
[2017-03-08] MEDS: LOSARTAN 50 MG TABLET PO SCH (09:53)
[2017-03-08] MEDS: SPIRONOLACTONE 25 MG TABLET PO SCH (09:53)
[2017-03-08] MEDS: ASPIRIN *EC* 81 MG TABLET PO SCH (09:53)
[2017-03-08] MEDS: CITALOPRAM 20 MG TABLET PO SCH (09:53)
[2017-03-08] MEDS: CARVEDILOL 6.25 MG TABLET PO SCH ×2 (09:54→17:19)
--- NOTE | 2017-03-08 13:48 | Progress Note ---
<Estephania Gibson - Last Filed: 03/08/17 13:44> Subjective: Mr. Armstrong is seen today in follow up. He is noted to have a course, nonproductive cough. Reports that he has not been able to cough anything up. He is a minimal historian despite the fact he is fully alert. Chart is reviewed extensively to obtain collateral information. Objective Vital signs: Temperature 97.5 F 03/08/17 07:53 Pulse Rate 98 03/08/17 07:53 Respiratory Rate 20 03/08/17 11:25 Blood Pressure 116/63 03/08/17 07:53 Pulse Oximetry 99 03/08/17 11:25 Height/Weight/BMI: Height 1.68 m Weight 76.8 kg Body Mass Index 26.4 - Constitutional Present: mild distress, well nourished, well developed, cooperative - Routine HEENT Exam Head: Present: normocephalic, atraumatic Eye: Present: EOMI, PERRL ENT: Present: mucous membranes moist - Routine Respiratory Exam Present: decreased breath sounds, distant breath sounds Comments: Diminished bilaterally. No abnormal breath sounds on anterior exam. Persistent nonproductive cough. - Routine Cardiovascular Exam Present: RRR, S1, S2, no murmur - Routine Abdominal Exam Present: soft, normoactive bowel sounds, non distended, non tender - Routine Extremities Exam Present: no edema - Routine Musculoskeletal Exam Musculoskeletal: Present: no clubbing or cyanosis - Routine Skin Exam Present: intact, dry, warm - Routine Neurological Exam Present: alert, moving all extremities - Routine Psychiatric Exam Present: cooperative Results - Labs CBC & Chem 7: 03/08/17 04:38 03/08/17 04:38 Microbiology Results: Microbiology 03/07/17 12:22 Urine Streptococcus pneumoniae Antigen (M - Final - Echocardiogram Echocardiogram: IMPRESSION 1. Pacemaker/ICD leads present in right heart. 2. Severe global hypokinesia with ejection fraction of 25%. 3. Concentric left ventricular hypertrophy. 4. Mitral annulus calcification with mitral sclerosis and mild mitral regurgitation. 5. Aortic sclerosis. 6. Mild tricuspid regurgitation with normal estimated pulmonary artery systolic pressure of 27. - Impressions CXR Impression: Chronic lung disease with possible superimposed right basilar pneumonia. CT Impression: 1. Calcified pleural plaques and areas of subpleural fibrotic change suggesting possible asbestosis. Nonspecific interstitial pneumonitis is also within the differential. 2. Dilatation of the trachea, mainstem bronchi and foci of bronchiectasis suggests tracheobronchomalacia. Esophagus Impression: 1. Esophageal dysmotility with intraesophageal stasis of barium. 2. Large sliding esophageal hiatal hernia. 3. Mild rotation of the stomach without evidence of a gastric volvulus. [facility] Assessment and Plan (1) Coronary artery disease Current visit: No Status: Chronic 03/07/17 00:15 prior asa, bblocker, ?statin (2) Cardiomyopathy Problem details: Ejection fraction 20-45% Current visit: No Status: Chronic 03/08/17 13:52 HFrEF EF 25% (3) HCAP (healthcare-associated pneumonia) Current visit: Yes Status: Acute 03/07/17 00:13 admit to inpatient care with cxs, IVF with normal lactate noted, triple antibiotics with vanco/azactam/levaquin based on noted allergies. If does not clinically improve after 2-3 days may need transfer for bronchoscopy/pulm eval. I was unaware of CT report/result prior to admit acceptance. Nebs and dose mucinex as well. (4) Chronic respiratory failure with hypoxia Current visit: Yes Status: Acute 03/07/17 00:14 stable requirement, but asbestosis/cause for need. Mention of COPD on record, but uncertain with no CT findings c/w emphysema, and would obstructive PFTs with the pleural plaques. DVT Prophylaxis: Coumadin GI Prophylaxis: other (Omeprazole) Resuscitation Status: Full Code Assessment and Plan: A/P: Recurrent right lower lobe pneumonia, recent hospitalization Leukocytosis Pulmonary fibrosis Dysphasia (oropharyngeal/esophageal), esophageal dysmotility Hx. Barretts Esophagus Dehydration Ischemic cardiomyopathy/CAD- EF 25% Paroxysmal atrial fibrillation/Chronic anticoagulation DJD CKD BPH Progressive anemia Plan: 03/08/17 *Persistent, recurrent pneumonia. High concern for aspiration. Current abx Azactam/Levaquin/Vanco. Consider change to Ceftriaxone/Clinda given aspiration concern Continue nebs. Add Acapella valve. May need to consider pulm referral. *Esophageal dysmotility Continue PPI. May need EGD. Significant anemia noted as well- Order FOB. Monitor labs closely. May need ST eval and tx. *AFib/Chronic anticoagulation Rate controlled. Warfarin per pharmacy. Monitor closely on warfarin *HFrEF Continue current medications. Stop IVF. Weight is up 4 kg. Lasix IV x 1 now. Continue Aldactone/Coreg/Lipitor/ASA/Losartan. May need to add daily Loop diuretic. Repeat labs, CXR in AM. Remains ill. Continue to follow. - Time spent with patient Time with patient PN: 30 minutes Hospital Course Summary Disclaimer: The visit summary below is not to be considered part of the above Progress Note. 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 Past surgical history: Colonoscopy May 2014 EGD and biopsy May 2014 Implantable defibrillator July 2011 Bilateral cataract surgeries 2010 Cystoscopy with biopsy 2010 History of total knee replacement History of repair of inguinal hernia Right shoulder arthroplasty A/P: Recurrent right lower lobe pneumonia, recent hospitalization Leukocytosis Pulmonary fibrosis Dysphasia (oropharyngeal/esophageal), esophageal dysmotility Dehydration Ischemic cardiomyopathy/CAD Paroxysmal atrial fibrillation DJD CKD BPH Patient presents with recurrent pneumonia with high suspicion for aspiration based on dysphasia. Speech therapy evaluated and recommended pured diet with nectar thickened liquids with continued speech therapy. Patient was started on broad-spectrum antibiotics overnight with aztreonam, Levaquin, and vancomycin given potential for atypical exposure during recent hospitalization. Current antibiotics will be continued pending sputum culture and blood cultures. Strep pneumonia antigen will additionally be obtained. Respiratory viral panel has been sent and is negative. Home medications will be continued for multiple chronic problems. Pharmacy consulted to assist with dosing of vancomycin and warfarin. PT/OT consultations. Old records reviewed. Discussed with nursing and speech therapy. 03/08/17 14:06 *Persistent, recurrent pneumonia. High concern for aspiration. Current abx Azactam/Levaquin/Vanco. Consider change to Ceftriaxone/Clinda given aspiration concern Continue nebs. Add Acapella valve. May need to consider pulm referral. *Esophageal dysmotility Continue PPI. May need EGD. Significant anemia noted as well- Order FOB. Monitor labs closely. May need ST eval and tx. *AFib/Chronic anticoagulation Rate controlled. Warfarin per pharmacy. Monitor closely on warfarin *HFrEF Continue current medications. Stop IVF. Weight is up 4 kg. Lasix IV x 1 now. Continue Aldactone/Coreg/Lipitor/ASA/Losartan. May need to add daily Loop diuretic. Repeat labs, CXR in AM. Remains ill. Continue to follow. <Gela Rai - Last Filed: 03/08/17 14:19> Objective Vital signs: Temperature 97.5 F 03/08/17 07:53 Pulse Rate 98 03/08/17 07:53 Respiratory Rate 20 03/08/17 11:25 Blood Pressure 116/63 03/08/17 07:53 Pulse Oximetry 99 03/08/17 11:25 Height/Weight/BMI: Height 1.68 m Weight 76.8 kg Body Mass Index 26.4 Results - Labs CBC & Chem 7: 03/08/17 04:38 03/08/17 04:38 Microbiology Results: Microbiology 03/07/17 12:22 Urine Streptococcus pneumoniae Antigen (M - Final Assessment and Plan (1) HCAP (healthcare-associated pneumonia) Current visit: Yes Status: Acute (2) Chronic respiratory failure with hypoxia Current visit: Yes Status: Acute (3) Coronary artery disease Current visit: No Status: Chronic (4) Cardiomyopathy Problem details: Ejection fraction 20-45% Current visit: No Status: Chronic Assessment and Plan: I have independently evaluated and examined this patient. I reviewed the chart, the patient's history, and the MANAGER INSURANCE/PA's documented findings as above. We discussed and formulated the assessment and plan as above with additions as below: Mr. Armstrong was seen with his and several other family members at the bedside. He continues to describe discomfort in his chest with coughing but denied dyspnea today. There is minimal sputum production and is had no nausea or vomiting. His has not noted tendency to cough with meals. Patient denies fever overnight nor did he have sweats or chills. He's been ambulating to the bathroom without difficulty. Overall the patient appears more comfortable today and is oxygenating adequately on 3 L O2. Respirations are nonlabored with good airflow. There are bibasilar crackles R > L. Cardiac rhythm regular, no lower extremity edema Strep pneumo antigen negative, and cultures negative after 1 day. No sputum sample available at this point. Suspect aspiration pneumonia/pneumonitis. Narrow antibiotics tomorrow if no additional bacteriologic data available. Continue speech therapy and strengthening efforts. IV fluids discontinued. INR 3.15-warfarin on hold today. High-risk medications in use, at high risk for complications. Hospital Course Summary Disclaimer: The visit summary below is not to be considered part of the above Progress Note.
[2017-03-08] MEDS ORDERED: FUROSEMIDE 40 MG/4 ML INJECTION IVP ONE (14:03)
[2017-03-08] MEDS: MENTHOL COUGH DROPS (RICOLA) MM PRN ×2 (16:32→22:02)
[2017-03-08] MEDS: ATORVASTATIN 20 MG TABLET PO SCH (20:49)
[2017-03-08] MEDS: MELATONIN 1 MG TABLET PO SCH (20:49)
[2017-03-08] MEDS: TAMSULOSIN 0.4 MG CAPSULE PO SCH (20:49)
[2017-03-08] MEDS: LEVOFLOXACIN PB 500 MG/100 ML BAG IV SCH (22:26)
[2017-03-09] MEDS: AZTREONAM 1 G in NS 100 ML IV SCH ×2 (00:08→08:28)
[2017-03-09] MEDS: ALBUTEROL/IPRATROPIUM 2.5mg-0.5mg/3ml NEB AEROSOL SCH ×5 (04:00→19:30)
[2017-03-09] MEDS: BENZONATATE 200 MG CAPSULE PO PRN ×2 (04:54→18:25)
[2017-03-09] MEDS: OMEPRAZOLE 20 MG CAPSULE PO SCH (06:06)
[2017-03-09] MEDS: MENTHOL COUGH DROPS (RICOLA) MM PRN ×3 (07:45→22:37)
[2017-03-09] MEDS: LOSARTAN 50 MG TABLET PO SCH (08:27)
[2017-03-09] MEDS: MULTI-VIT + MINERAL (Opti-gen) TABLET PO SCH (08:27)
[2017-03-09] MEDS: ASPIRIN *EC* 81 MG TABLET PO SCH (08:27)
[2017-03-09] MEDS: FINASTERIDE 5 MG TABLET PO SCH (08:27)
[2017-03-09] MEDS: CARVEDILOL 6.25 MG TABLET PO SCH ×2 (08:27→17:05)
[2017-03-09] MEDS: SPIRONOLACTONE 25 MG TABLET PO SCH (08:27)
[2017-03-09] MEDS: GUAIFENESIN 400MG TABLET PO SCH ×2 (08:27→20:37)
[2017-03-09] MEDS: CITALOPRAM 20 MG TABLET PO SCH (08:27)
[2017-03-09] MEDS ORDERED: INHALER ASSIST DEVICE (Optichamber) MC ONE (09:20)
[2017-03-09] MEDS: BUDESONIDE/FORMOTEROL 80/4.5mcg INHALER ORAL INH SCH ×2 (09:22→19:43)
--- NOTE | 2017-03-09 09:48 | Pharmacy Consult ---
Pharmacy Consult-Warfarin - Laboratory Information 03/07/17 03/08/17 03/09/17 03:17 04:38 04:46 INR 3.03 H 3.15 H 2.18 H - Consult Information Warfarin 3mg ordered for today at noon. This is patient's home dose. Thank you.
--- NOTE | 2017-03-09 10:47 | XRay Report ---
INDICATION: pneumonia PROCEDURE: CHEST 2-VIEWS UPRIGHT (PA & LAT) Encounter: Initial COMPARISON: March 06, 2017 FINDINGS: Chronic lung abnormalities are redemonstrated with fibrosis. Chronically elevated presumably paralysed right hemidiaphragm. No pneumothorax. No definite pleural effusion. Prior right basilar airspace opacity is somewhat improved. There is chronic scarring along the diaphragmatic surface. Cardiomediastinal contours are stable. Impression: Overall chronic pulmonary abnormalities with fibrosis. No definite acute pneumonia currently. Recommend clinical and laboratory correlation. .
--- NOTE | 2017-03-09 11:29 | Progress Note ---
<Estephania Gibson - Last Filed: 03/09/17 11:26> Subjective: Isaac is seen today in follow up. He is up in chair. Reports feeling "a little better." Still coarse cough, nonproductive. "Trying to cough something up." is at bedside. They do not report any other acute c/o. Objective Vital signs: Temperature 97.9 F 03/09/17 07:26 Pulse Rate 88 03/09/17 07:26 Respiratory Rate 20 03/09/17 09:25 Blood Pressure 122/65 03/09/17 07:26 Pulse Oximetry 92 03/09/17 08:04 Height/Weight/BMI: Height 1.68 m Weight 77.4 kg Body Mass Index 26.4 - Constitutional Present: mild distress, well nourished, cooperative - Routine HEENT Exam Head: Present: normocephalic, atraumatic Eye: Present: EOMI, PERRL ENT: Present: mucous membranes moist - Routine Respiratory Exam Present: decreased breath sounds, rhonchi (Posterior, bilateral bases. ), distant breath sounds Comments: Coarse, nonproductive cough is noted. - Routine Cardiovascular Exam Present: RRR, S1, S2, no murmur - Routine Abdominal Exam Present: soft, non distended, non tender - Routine Extremities Exam Present: edema, non tender - Routine Musculoskeletal Exam Musculoskeletal: Present: no tenderness, moving extremities well - Routine Skin Exam Present: intact, dry, warm - Routine Neurological Exam Present: alert, moving all extremities - Routine Psychiatric Exam Present: normal affect, cooperative Comments: Mildly confused. Results - Labs CBC & Chem 7: 03/09/17 04:47 03/09/17 04:47 Microbiology Results: Microbiology 03/07/17 12:22 Urine Streptococcus pneumoniae Antigen (M - Final Negative - Imaging and Cardiology Chest x-ray Additional comments: Impression: Overall chronic pulmonary abnormalities with fibrosis. No definite acute pneumonia currently. Recommend clinical and laboratory correlation. . Assessment and Plan (1) Coronary artery disease Current visit: No Status: Chronic 03/07/17 00:15 prior asa, bblocker, ?statin (2) Cardiomyopathy Problem details: Ejection fraction 20-45% Current visit: No Status: Chronic 03/08/17 13:52 HFrEF EF 25% (3) HCAP (healthcare-associated pneumonia) Current visit: Yes Status: Acute 03/07/17 00:13 admit to inpatient care with cxs, IVF with normal lactate noted, triple antibiotics with vanco/azactam/levaquin based on noted allergies. If does not clinically improve after 2-3 days may need transfer for bronchoscopy/pulm eval. I was unaware of CT report/result prior to admit acceptance. Nebs and dose mucinex as well. (4) Chronic respiratory failure with hypoxia Current visit: Yes Status: Acute 03/07/17 00:14 stable requirement, but asbestosis/cause for need. Mention of COPD on record, but uncertain with no CT findings c/w emphysema, and would obstructive PFTs with the pleural plaques. DVT Prophylaxis: Coumadin GI Prophylaxis: other (PPI) Resuscitation Status: Full Code Assessment and Plan: A/P: Recurrent right lower lobe pneumonia, recent hospitalization Leukocytosis Pulmonary fibrosis Dysphasia (oropharyngeal/esophageal), esophageal dysmotility Hx. Barretts Esophagus Dehydration Ischemic cardiomyopathy/CAD- EF 25% Paroxysmal atrial fibrillation/Chronic anticoagulation DJD CKD BPH Progressive anemia Plan: 03/09/2017 Slow progress- *SOA/Cough due to - Aspiration pneumonia/pneumonitis? Chronic microaspiration due to esophageal dysmotility? CHF with fluid overload? Continue antibiotics- I am going to narrowing treatment. Could add steroids if rales persist. Continue nebs. Acapella valve. May benefit from pulm consult given recurrent concerns. *Continue PPI for GERD. May need EGD or barium swallow. Could consider low dose Reglan to help with motility. *EF 25% - DC Losartan. Add lower dose Entresto to start in AM. Schedule BID Lasix. Continue Aldactone, add low dose KCL. Monitor labs closely. Weight, BNP continues to trend up despite IV Lasix yesterday. IVF DC'D. Remains on Warfarin, INR per pharmacy. Continue supportive care for remainder of concerns. Continue strengthening. May need SWING/SNU on dismissal for further monitoring and tx. - Time spent with patient Time with patient PN: 30 minutes Hospital Course Summary Disclaimer: The visit summary below is not to be considered part of the above Progress Note. 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 Past surgical history: Colonoscopy May 2014 EGD and biopsy May 2014 Implantable defibrillator July 2011 Bilateral cataract surgeries 2010 Cystoscopy with biopsy 2010 History of total knee replacement History of repair of inguinal hernia Right shoulder arthroplasty A/P: Recurrent right lower lobe pneumonia, recent hospitalization Leukocytosis Pulmonary fibrosis Dysphasia (oropharyngeal/esophageal), esophageal dysmotility Dehydration Ischemic cardiomyopathy/CAD Paroxysmal atrial fibrillation DJD CKD BPH Patient presents with recurrent pneumonia with high suspicion for aspiration based on dysphasia. Speech therapy evaluated and recommended pured diet with nectar thickened liquids with continued speech therapy. Patient was started on broad-spectrum antibiotics overnight with aztreonam, Levaquin, and vancomycin given potential for atypical exposure during recent hospitalization. Current antibiotics will be continued pending sputum culture and blood cultures. Strep pneumonia antigen will additionally be obtained. Respiratory viral panel has been sent and is negative. Home medications will be continued for multiple chronic problems. Pharmacy consulted to assist with dosing of vancomycin and warfarin. PT/OT consultations. Old records reviewed. Discussed with nursing and speech therapy. 03/08/17 14:06 *Persistent, recurrent pneumonia. High concern for aspiration. Current abx Azactam/Levaquin/Vanco. Consider change to Ceftriaxone/Clinda given aspiration concern Continue nebs. Add Acapella valve. May need to consider pulm referral. *Esophageal dysmotility Continue PPI. May need EGD. Significant anemia noted as well- Order FOB. Monitor labs closely. May need ST eval and tx. *AFib/Chronic anticoagulation Rate controlled. Warfarin per pharmacy. Monitor closely on warfarin *HFrEF Continue current medications. Stop IVF. Weight is up 4 kg. Lasix IV x 1 now. Continue Aldactone/Coreg/Lipitor/ASA/Losartan. May need to add daily Loop diuretic. Repeat labs, CXR in AM. Remains ill. Continue to follow. 03/09/17 11:37 Slow progress- *SOA/Cough due to - Aspiration pneumonia/pneumonitis? Chronic microaspiration due to esophageal dysmotility? CHF with fluid overload? Continue antibiotics- I am going to narrow treatment. Could add steroids if rales persist. Continue nebs. Acapella valve. May benefit from pulm consult given recurrent concerns. *Continue PPI for GERD. May need EGD or barium swallow. Could consider low dose Reglan to help with motility. *EF 25% - DC Losartan. Add lower dose Entresto to start in AM. Schedule BID Lasix. Continue Aldactone, add low dose KCL. Monitor labs closely. Weight, BNP continues to trend up despite IV Lasix yesterday. IVF DC'D. Remains on Warfarin, INR per pharmacy. Continue supportive care for remainder of concerns. Continue strengthening. May need SWING/SNU on dismissal for further monitoring and tx. <Gela Rai - Last Filed: 03/09/17 12:41> Objective Vital signs: Temperature 97.9 F 03/09/17 07:26 Pulse Rate 88 03/09/17 07:26 Respiratory Rate 24 03/09/17 11:26 Blood Pressure 122/65 03/09/17 07:26 Pulse Oximetry 92 03/09/17 08:04 Height/Weight/BMI: Height 1.68 m Weight 77.4 kg Body Mass Index 26.4 Results - Labs CBC & Chem 7: 03/09/17 04:47 03/09/17 04:47 Microbiology Results: Microbiology 03/07/17 12:22 Urine Streptococcus pneumoniae Antigen (M - Final Assessment and Plan (1) HCAP (healthcare-associated pneumonia) Current visit: Yes Status: Acute (2) Chronic respiratory failure with hypoxia Current visit: Yes Status: Acute (3) Coronary artery disease Current visit: No Status: Chronic (4) Cardiomyopathy Problem details: Ejection fraction 20-45% Current visit: No Status: Chronic Assessment and Plan: I have independently evaluated and examined this patient. I reviewed the chart, the patient's history, and the [employer]/PA's documented findings as above. We discussed and formulated the assessment and plan as above with additions as below: Mr. Armstrong continues to have paroxysms of cough without sputum production. He denies dyspnea and is oxygenating adequately on 3 L which is baseline O2 demand. He is frustrated with dietary restrictions and hopes to get real food soon. He slept poorly due to diuresis late yesterday and had net fluid balance of -1.1 L. He denied lightheadedness or dysuria. NAD, soft spoken Respirations are nonlabored with good airflow, there are coarse breath sounds at the right base when I examined him No wheezing Regular cardiac rhythm Minimal peripheral edema Chest x-ray reviewed by myself demonstrating pulmonary fibrosis without evidence of focal infiltrate Speech therapy to reevaluate tomorrow-remain concerned that aspiration/ aspiration pneumonitis is cause for patient's presenting symptoms. Will ask Dr. Reyes to evaluate tomorrow, PT/OT consultations. Increase activity. Levaquin po, dc Aztreonam. Will discuss cardiac status with Dr. Madrid tomorrow. Hospital Course Summary Disclaimer: The visit summary below is not to be considered part of the above Progress Note.
[2017-03-09] MEDS ORDERED: FUROSEMIDE 40 MG TABLET PO SCH (11:30)
[2017-03-09] MEDS ORDERED: WARFARIN 3 MG TABLET PO SCH (12:00)
[2017-03-09] MEDS: FUROSEMIDE 40 MG TABLET PO SCH (14:14)
[2017-03-09] MEDS: MELATONIN 1 MG TABLET PO SCH (20:37)
[2017-03-09] MEDS: ATORVASTATIN 20 MG TABLET PO SCH (20:37)
[2017-03-09] MEDS: TAMSULOSIN 0.4 MG CAPSULE PO SCH (20:37)
[2017-03-09] MEDS: SALINE FLUSH 10ml SYRINGE IV PRN (21:13)
[2017-03-09] MEDS ORDERED: FALL RISK - PHARMACY CONSULT XX ONE (21:24)
[2017-03-10] MEDS: ALBUTEROL/IPRATROPIUM 2.5mg-0.5mg/3ml NEB AEROSOL SCH ×6 (00:10→19:37)
[2017-03-10] MEDS: GUAIFENESIN/CODEINE 5ml ORAL LIQUID PO PRN (00:51)
[2017-03-10] MEDS: MENTHOL COUGH DROPS (RICOLA) MM PRN ×3 (04:43→20:45)
[2017-03-10] MEDS: OMEPRAZOLE 20 MG CAPSULE PO SCH (05:44)
[2017-03-10] MEDS: LEVOFLOXACIN 750 MG TABLET PO SCH (05:44)
[2017-03-10] MEDS: SALINE FLUSH 10ml SYRINGE IV PRN ×2 (05:45→20:59)
--- NOTE | 2017-03-10 08:04 | Pharmacy Consult ---
Pharmacy Consult-Warfarin - Laboratory Information 03/07/17 03/08/17 03/09/17 03:17 04:38 04:46 INR 3.03 H 3.15 H 2.18 H 03/10/17 03:54 INR 1.88 H DINAH is a 77 yo male admitted with HCAP. Has hx of A. Fib. Home dose of Warfarin reported as 3mg po daily. He takes it at bedtime at home.. Date INR Dose 03/07 3.03 3 mg given (03/06 @ 2100) 03/08 3.13 Dose was held. 03/09 2.18 3mg 03/10 1.88 Will give 3mg again today. Noted multiple drug-drug interactions with: Citalopram 20mg po daily Levofloxacin 750mg po daily Omeprazole 20mg po daily All of these can cause the INR to rise. Don't seem to have affected the INR at this time. Will watch closely. Thank you
[2017-03-10] MEDS: MULTI-VIT + MINERAL (Opti-gen) TABLET PO SCH (09:38)
[2017-03-10] MEDS: FINASTERIDE 5 MG TABLET PO SCH (09:38)
[2017-03-10] MEDS: SACUBITRIL/VALSARTAN 24/26mg TABLET PO SCH ×2 (09:38→20:58)
[2017-03-10] MEDS: SPIRONOLACTONE 25 MG TABLET PO SCH (09:38)
[2017-03-10] MEDS: FUROSEMIDE 40 MG TABLET PO SCH ×2 (09:38→14:10)
[2017-03-10] MEDS: ASPIRIN *EC* 81 MG TABLET PO SCH (09:39)
[2017-03-10] MEDS: CITALOPRAM 20 MG TABLET PO SCH (09:39)
[2017-03-10] MEDS: GUAIFENESIN 400MG TABLET PO SCH ×2 (09:39→20:57)
[2017-03-10] MEDS: CARVEDILOL 6.25 MG TABLET PO SCH ×2 (09:39→18:07)
[2017-03-10] MEDS: BUDESONIDE/FORMOTEROL 80/4.5mcg INHALER ORAL INH SCH ×2 (10:14→19:38)
--- NOTE | 2017-03-10 10:33 | Progress Note ---
<Tamiko Barba - Last Filed: 03/10/17 10:30> Subjective: Patient is seen sitting up in his bed. He reports he is feeling "a little better." He states he still has coughing spells and when this occurs, he can't stop coughing. He does not feel short of air. States his appetite would be good "if the food was better." He took some milk of magnesia for bowel motivation this morning. No chest pain, shortness of breath or abdominal pain. Objective Vital signs: Temperature 97.8 F 03/10/17 07:38 Pulse Rate 107 H 03/10/17 07:38 Respiratory Rate 18 03/10/17 10:18 Blood Pressure 132/73 03/10/17 07:38 Pulse Oximetry 96 03/10/17 07:38 Height/Weight/BMI: Height 1.68 m Weight 75.1 kg Body Mass Index 26.4 - Constitutional Present: no acute distress, well nourished, well developed - Routine Respiratory Exam Present: decreased breath sounds, CTA bilaterally, distant breath sounds. Absent: wheezes - Routine Cardiovascular Exam Present: RRR, S1, S2. Absent: murmur - Routine Abdominal Exam Present: soft, non distended. Absent: tenderness - Routine Extremities Exam Present: no edema, normal capillary refill - Routine Skin Exam Present: dry, warm - Routine Neurological Exam Present: alert, moving all extremities - Routine Lymphatic Exam Lymphatic: Absent: adenopathy - Routine Psychiatric Exam Present: normal affect, cooperative Results - Labs CBC & Chem 7: 03/10/17 03:54 03/10/17 03:54 Microbiology Results: Microbiology 03/09/17 20:47 Sputum, Expectorated Sputum Culture - Preliminary Culture Initiated - Results Pending 03/07/17 12:22 Urine Streptococcus pneumoniae Antigen (M - Final Assessment and Plan (1) Coronary artery disease Current visit: No Status: Chronic (2) Cardiomyopathy Problem details: Ejection fraction 20-45% Current visit: No Status: Chronic (3) HCAP (healthcare-associated pneumonia) Current visit: Yes Status: Acute (4) Chronic respiratory failure with hypoxia Current visit: Yes Status: Acute Assessment and Plan: Assessment Recurrent right lower lobe pneumonia, recent hospitalization Leukocytosis Pulmonary fibrosis Anemia with + FOB Dysphasia (oropharyngeal/esophageal), esophageal dysmotility Dehydration Ischemic cardiomyopathy/CAD Paroxysmal atrial fibrillation DJD CKD BPH PLAN: Consult Dr. Reyes given his pulmonary fibrosis and recurrent pneumonia. Continue nebulizers, Acapella, and Levaquin. Sputum culture results are still pending. Speech therapy continues to work with patient given his high risk for aspiration. Positive FOB. Patient on warfarin. Hemoglobin averaged 12 during his hospitalization in mid February, now averaging 10. Last colonoscopy/EGD 05/2014 - findings of diverticulosis and hiatal hernia. Will discuss with attending and patient risk/benefit of repeating colonoscopy/ EGD versus close monitoring given his comorbidities. Hospital Course Summary Disclaimer: The visit summary below is not to be considered part of the above Progress Note. 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 Past surgical history: Colonoscopy May 2014 EGD and biopsy May 2014 Implantable defibrillator July 2011 Bilateral cataract surgeries 2010 Cystoscopy with biopsy 2010 History of total knee replacement History of repair of inguinal hernia Right shoulder arthroplasty A/P: Recurrent right lower lobe pneumonia, recent hospitalization Leukocytosis Pulmonary fibrosis Dysphasia (oropharyngeal/esophageal), esophageal dysmotility Dehydration Ischemic cardiomyopathy/CAD Paroxysmal atrial fibrillation DJD CKD BPH Patient presents with recurrent pneumonia with high suspicion for aspiration based on dysphasia. Speech therapy evaluated and recommended pured diet with nectar thickened liquids with continued speech therapy. Patient was started on broad-spectrum antibiotics overnight with aztreonam, Levaquin, and vancomycin given potential for atypical exposure during recent hospitalization. Current antibiotics will be continued pending sputum culture and blood cultures. Strep pneumonia antigen will additionally be obtained. Respiratory viral panel has been sent and is negative. Home medications will be continued for multiple chronic problems. Pharmacy consulted to assist with dosing of vancomycin and warfarin. PT/OT consultations. Old records reviewed. Discussed with nursing and speech therapy. 03/08/17 14:06 *Persistent, recurrent pneumonia. High concern for aspiration. Current abx Azactam/Levaquin/Vanco. Consider change to Ceftriaxone/Clinda given aspiration concern Continue nebs. Add Acapella valve. May need to consider pulm referral. *Esophageal dysmotility Continue PPI. May need EGD. Significant anemia noted as well- Order FOB. Monitor labs closely. May need ST eval and tx. *AFib/Chronic anticoagulation Rate controlled. Warfarin per pharmacy. Monitor closely on warfarin *HFrEF Continue current medications. Stop IVF. Weight is up 4 kg. Lasix IV x 1 now. Continue Aldactone/Coreg/Lipitor/ASA/Losartan. May need to add daily Loop diuretic. Repeat labs, CXR in AM. Remains ill. Continue to follow. 03/09/17 Slow progress- *SOA/Cough due to - Aspiration pneumonia/pneumonitis? Chronic microaspiration due to esophageal dysmotility? CHF with fluid overload? Continue antibiotics- I am going to narrow treatment. Could add steroids if rales persist. Continue nebs. Acapella valve. May benefit from pulm consult given recurrent concerns. *Continue PPI for GERD. May need EGD or barium swallow. Could consider low dose Reglan to help with motility. *EF 25% - DC Losartan. Add lower dose Entresto to start in AM. Schedule BID Lasix. Continue Aldactone, add low dose KCL. Monitor labs closely. Weight, BNP continues to trend up despite IV Lasix yesterday. IVF DC'D. Remains on Warfarin, INR per pharmacy. Continue supportive care for remainder of concerns. Continue strengthening. May need SWING/SNU on dismissal for further monitoring and tx. 03/10/[address] Reyes given his pulmonary fibrosis and recurrent pneumonia. Continue nebulizers, Acapella, and Levaquin. Sputum culture results are still pending. Speech therapy continues to work with patient given his high risk for aspiration. Positive FOB. Patient on warfarin. Hemoglobin averaged 12 during his hospitalization in mid February, now averaging 10. Last colonoscopy/EGD 05/2014 - findings of diverticulosis and hiatal hernia. Will discuss with attending and patient risk/benefit of repeating colonoscopy/ EGD versus close monitoring given his comorbidities. <Gela Rai - Last Filed: 03/10/17 14:03> Objective Vital signs: Temperature 97.8 F 03/10/17 07:38 Pulse Rate 107 H 03/10/17 07:38 Respiratory Rate 18 03/10/17 11:57 Blood Pressure 132/73 03/10/17 07:38 Pulse Oximetry 96 03/10/17 11:57 Height/Weight/BMI: Height 1.68 m Weight 75.1 kg Body Mass Index 26.4 Results - Labs CBC & Chem 7: 03/10/17 03:54 03/10/17 03:54 Microbiology Results: Microbiology 03/09/17 20:47 Sputum, Expectorated Gram Stain - Final 03/09/17 20:47 Sputum, Expectorated Sputum Culture - Preliminary Early growth 03/07/17 12:22 Urine Streptococcus pneumoniae Antigen (M - Final Assessment and Plan (1) HCAP (healthcare-associated pneumonia) Current visit: Yes Status: Acute (2) Chronic respiratory failure with hypoxia Current visit: Yes Status: Acute (3) Cardiomyopathy Problem details: Ejection fraction 25% 02/19/17, concentric LVH Current visit: No Status: Chronic DVT Prophylaxis: Coumadin GI Prophylaxis: other (omeprazole) Resuscitation Status: Full Code Assessment and Plan: I have independently evaluated and examined this patient. I reviewed the chart, the patient's history, and the [employer]/PA's documented findings as above. We discussed and formulated the assessment and plan as above with additions as below: Continued cough with minimal sputum although sputum sample was obtained yesterday. Patient denies hemoptysis. Bowel movement this morning. Generalized weakness reported. Speech therapy working with patient early this afternoon- thickened liquids continued. Afebrile, appears fatigued, coughs intermittently Respirations nonlabored, deep inspiration triggers cough, no wheezing during time of exam Inspiratory crackles at both bases Regular cardiac rhythm, no lower extremity edema Persistent low-grade leukocytosis, hemoglobin stable the past 3 days after initially dropping-lower than it was in early February by about 2 g/dL Mild hypercarbia present. Sputum Gram stain with moderate epithelial cells and moderate WBC; mixed abdoulaye- culture pending Remain concerned about aspiration as cause of patient's presentation. RT advised me that Acapella led to vomiting earlier today. Discontinue vancomycin given absence of positive culture findings, continue Levaquin. Case discussed with Dr. Reyes who will see in consultation. Additionally plan to discuss with Dr. Madrid regarding chronic cardiac disease. Patient had full GI workup <3 years ago, do not believe repeat evaluation needed for heme positive stool in anticoagulated patient. Check iron studies. Outpatient records reviewed-patient recently taken off diuretics and carvedilol dose decreased from 9.375 to 6.25 bid due to hypotension on 03/05. Hospital Course Summary Disclaimer: The visit summary below is not to be considered part of the above Progress Note.
[2017-03-10] MEDS ORDERED: WARFARIN 3 MG TABLET PO SCH (12:00)
[2017-03-10] MEDS ORDERED: INFLUENZA VAC High Dose 2017-18 (Fluzone HD*) (>=65yo) 0.5ml IM ONE (14:00)
--- NOTE | 2017-03-10 14:08 | Discharge Instructions ---
Discharge Plan - Med Rec/Dispo Ana Instructions: Pneumonia (GEN) Prescriptions: No Action Citalopram Hydrobromide [Citalopram HBr] 20 mg PO DAILY #0 Mv-Min/FA/Vit K/Lycop/Lut/Zeax [Ocuvite Eye + Multi Tablet] 1 tab PO DAILY Warfarin [Coumadin] 3 mg PO HS Albuterol HFA Inhaler [Ventolin Hfa 90 mcg/actuation] 2 puff ORAL INH Q4HR PRN 30 Days #1 inhaler PRN Reason: Shortness Of Air/Wheezing Albuterol Neb (0.083%) [Proventil Neb (0.083%)] 5 mg AEROSOL Q6H 30 Days # 120 neb Budesonide/Formoterol 80/4.5 [Symbicort Inhaler] 2 puff ORAL INH RTBID 30 Days #1 inhaler Spironolactone [Aldactone] 12.5 mg PO DAILY 30 Days #16 tab Finasteride 5 mg PO DAILY #0 Atorvastatin Calcium [Lipitor] 20 mg PO HS #0 Tamsulosin HCl 0.4 mg PO HS #0 Losartan Potassium 50 mg PO DAILY #0 Omeprazole 20 mg PO DAILY #0 Melatonin 1 mg PO HS Acetaminophen [Tylenol] 500 mg PO Q5H PRN tablet PRN Reason: Discomfort Aspirin *EC* [Ecotrin] 81 mg PO DAILY tablet Carvedilol [Coreg] 6.25 mg PO BIDWM
[2017-03-10] MEDS ORDERED: INFLUENZA VAC. INJ. ADMIN CHARGE INJ ONE (14:10)
--- NOTE | 2017-03-10 15:39 | Pulmonology Consult Note ---
<Kaila Welch Karine - Last Filed: 03/10/17 15:46> History of Present Illness Consult date: 03/10/17 Requesting physician: Gela Rai Reason for consult: pneumonia, pulmonary fibrosis Chief complaint: cough, SOB History of present illness: This is a 77 yo male with a Hx of CAD with ischemic CM, HTN, BPH, Hiatal hernia/ GERD/mckeon's and chronic hypoxic resp failure on 2L O2. He was recently hospitalized 2 weeks ago for pneumonia and CHF exacerbation. He was treated with pulmonary toilet but unknown abx, no sputum cultures noted. He apparently improved enough to go home on symbicort and a/a along with his chronic O2. He states unfortunately he never fully improved and continued with SOB, cough, weakness and chest pain secondary to his cough. states he had been doing his inhaler until the last day secondary to his cough. CT on last admit noted bilateral fibrosis R>L, with bronchiectasis, unknown cause. He was brought back to the hospital secondary to these current issues. 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 We have been consulted for pulmonary issues and appreciate the consult. Review of Systems - Constitutional Constitutional: Present: fatigue, weakness - Respiratory Respiratory: Present: cough, dyspnea PFSH Patient Stated Medical History Cerebrovascular Accident Yes Cataracts Yes Dental Problems Yes Dysphagia Yes Macular Degeneration Yes Coronary Artery Disease Yes Myocardial Infarction Yes Pneumonia Yes: feb 2016 Gastroesophageal Reflux Yes Disease Hx Incontinence Yes Hx Kidney Stones Yes Surgical History: AICD. CABG. Inguinal hernia. Total knee. 05/19/2014 Colonoscopy - Diverticulosis. 05/19/2014 EGD - Hiatal hernia (No Barrets, H.Pylori neg) - Social History Smoking status: Never smoker Substance use type: does not use Housing: house Household members: spouse Current occupational status: retired Current residence: Apartment/Private Home Medications Home Medications Medication Instructions Recorded Confirmed Type Atorvastatin Calcium [Lipitor] 20 mg PO HS #0 05/18/14 03/06/17 History Finasteride 5 mg PO DAILY #0 05/18/14 03/06/17 History Tamsulosin HCl 0.4 mg PO HS #0 05/18/14 03/06/17 History Citalopram Hydrobromide 20 mg PO DAILY #0 02/21/16 03/06/17 History [Citalopram HBr] Losartan Potassium 50 mg PO DAILY #0 02/21/16 03/06/17 History Omeprazole 20 mg PO DAILY #0 02/21/16 03/06/17 History Melatonin 1 mg PO HS 01/13/17 03/06/17 History Mv-Min/FA/Vit K/Lycop/Lut/Zeax 1 tab PO DAILY 01/13/17 03/06/17 History [Ocuvite Eye + Multi Tablet] Warfarin [Coumadin] 3 mg PO HS 01/13/17 03/06/17 History Carvedilol [Coreg] 6.25 mg PO BIDWM 03/06/17 03/06/17 History Allergies Allergy/AdvReac Type Severity Reaction Status Date / Time Penicillins Allergy Unknown Verified 03/06/17 21:29 lisinopril AdvReac Unknown COUGH Verified 03/06/17 21:29 Exam Vital signs: Temperature 95.6 F L 03/10/17 15:04 Pulse Rate 104 H 03/10/17 15:04 Respiratory Rate 20 03/10/17 15:04 Blood Pressure 95/54 03/10/17 15:04 Pulse Oximetry 95 03/10/17 15:04 - Constitutional no acute distress, well nourished, well developed - Routine HEENT Exam Head: Present: normocephalic, atraumatic Eye: Present: PERRL, normal accommodation ENT: Present: mucous membranes moist - Routine Neck Exam Present: supple, full ROM - Routine Chest/Breast/Axilla Exam Chest wall: Present: pacemaker - Routine Respiratory Exam Present: crackles - Routine Cardiovascular Exam Present: RRR, no murmur - Routine Abdominal Exam Present: soft, normoactive bowel sounds - Routine Extremities Exam Present: no edema, full ROM - Routine Back/Spine/Pelvis Exam Back/Spine: Present: full ROM - Routine Skin Exam Present: intact, dry - Routine Neurological Exam Present: alert, oriented X3, CN II-XII intact - Routine Psychiatric Exam Present: normal affect, normal thought process Results - Laboratory Findings CBC and BMP: 03/10/17 03:54 03/10/17 03:54 PT/INR, D-dimer INR 1.88 (0.99-1.21) H 03/10/17 03:54 Abnormal lab findings: Abnormal Labs 03/07/17 03/07/17 03/07/17 03:17 03:17 03:17 WBC 15.3 H RBC 4.16 L Hgb 12.6 L Hct 37.4 L Immature Gran % (Auto) Lymph % (Auto) [place] % (Auto) Eos % (Auto) Neut # (Auto) [place] # (Auto) Eos # (Auto) Abs Immat Gran (auto) Neutrophils % (Manual) 74.0 H Lymphocytes % (Manual) 14.0 L Myelocytes % 1.0 H Neutrophils # (Manual) 11.3 H INR 3.03 H Carbon Dioxide 31 H Anion Gap Glucose 134 H Calcium B-Natriuretic Peptide Albumin Stool Occult Blood 03/08/17 03/08/17 03/08/17 04:38 04:38 04:38 WBC 14.7 H RBC 3.54 L Hgb 10.6 L D Hct 32.8 L D Immature Gran % (Auto) 0.7 H Lymph % (Auto) 18.1 L [place] % (Auto) 9.2 H Eos % (Auto) 6.8 H Neut # (Auto) 9.6 H [place] # (Auto) 1.4 H Eos # (Auto) 1.0 H Abs Immat Gran (auto) 0.10 H Neutrophils % (Manual) Lymphocytes % (Manual) Myelocytes % Neutrophils # (Manual) INR 3.15 H Carbon Dioxide Anion Gap Glucose Calcium 8.3 L B-Natriuretic Peptide Albumin 2.6 L Stool Occult Blood 03/09/17 03/09/17 03/09/17 04:46 04:47 04:47 WBC 12.2 H RBC 3.48 L Hgb 10.3 L Hct 32.3 L Immature Gran % (Auto) 1.1 H Lymph % (Auto) [place] % (Auto) 9.6 H Eos % (Auto) 9.7 H Neut # (Auto) [place] # (Auto) 1.2 H Eos # (Auto) 1.2 H Abs Immat Gran (auto) 0.13 H Neutrophils % (Manual) Lymphocytes % (Manual) Myelocytes % Neutrophils # (Manual) INR 2.18 H Carbon Dioxide 34 H Anion Gap Glucose Calcium 8.3 L B-Natriuretic Peptide 2290 H Albumin 2.6 L Stool Occult Blood 03/10/17 03/10/17 03/10/17 03:54 03:54 03:54 WBC 13.0 H RBC 3.62 L Hgb 10.7 L Hct 33.7 L Immature Gran % (Auto) 1.2 H Lymph % (Auto) 21.3 L [place] % (Auto) 9.8 H Eos % (Auto) 8.4 H Neut # (Auto) [place] # (Auto) 1.3 H Eos # (Auto) 1.1 H Abs Immat Gran (auto) 0.15 H Neutrophils % (Manual) Lymphocytes % (Manual) Myelocytes % Neutrophils # (Manual) INR 1.88 H Carbon Dioxide 35 H Anion Gap 4 L Glucose 122 H Calcium B-Natriuretic Peptide 2700 H Albumin 2.8 L Stool Occult Blood 03/10/17 10:01 WBC RBC Hgb Hct Immature Gran % (Auto) Lymph % (Auto) [place] % (Auto) Eos % (Auto) Neut # (Auto) [place] # (Auto) Eos # (Auto) Abs Immat Gran (auto) Neutrophils % (Manual) Lymphocytes % (Manual) Myelocytes % Neutrophils # (Manual) INR Carbon Dioxide Anion Gap Glucose Calcium B-Natriuretic Peptide Albumin Stool Occult Blood Positive A - Diagnostic Findings Chest x-ray: image reviewed (CXR: R elevated hemidiphragm, bilateral interstitial infiltrates) Assessment and Plan - Assessment and Plan (1) Chronic respiratory failure with hypoxia Current visit: Yes Status: Acute (2) Pulmonary fibrosis Current visit: Yes Status: Acute (3) Pneumonia Current visit: Yes Status: Acute (4) Dysphagia Current visit: Yes Status: Acute (5) Cardiomyopathy Problem details: Ejection fraction 25% 02/19/17, concentric LVH Current visit: No Status: Chronic - Assessment and Plan Pt currently on his home O2, keep sats 90-95%. Currently on symbicort 160/4.5 2 puffs BID, a/a q4hr scheduled. CXR notes bilateral interstitial infiltrates, stable since admit, CT in February 18, 2017 with fibrosis noted bilat R>L, unknown cause, report questioned pleural plaquing. Would benefit from OP PFT. Would continue BT's at this time, currently on vanco and levaquin, sputum with Mod GPC, GPR and few GNR, culture P at this time, urine strep antigen neg. ST seeing and pt on modified diet, this could be contributing to his fibrosis and recurrent pneumonias. <Pravin Reyes - Last Filed: 03/11/17 11:56> PFSH Patient Stated Medical History Cerebrovascular Accident Yes Cataracts Yes Dental Problems Yes Dysphagia Yes Macular Degeneration Yes Coronary Artery Disease Yes Myocardial Infarction Yes Pneumonia Yes: feb 2016 Gastroesophageal Reflux Yes Disease Hx Incontinence Yes Hx Kidney Stones Yes Exam Vital signs: Temperature 97.7 F 03/11/17 08:03 Pulse Rate 107 H 03/11/17 08:03 Respiratory Rate 18 03/11/17 11:33 Blood Pressure 104/61 03/11/17 08:03 Pulse Oximetry 98 03/11/17 11:33 Results - Laboratory Findings CBC and BMP: 03/10/17 03:54 03/10/17 03:54 PT/INR, D-dimer INR 2.68 (0.99-1.21) H 03/11/17 04:01 Abnormal lab findings: Abnormal Labs 03/07/17 03/07/17 03/07/17 03:17 03:17 03:17 WBC 15.3 H RBC 4.16 L Hgb 12.6 L Hct 37.4 L Immature Gran % (Auto) Lymph % (Auto) [place] % (Auto) Eos % (Auto) Neut # (Auto) [place] # (Auto) Eos # (Auto) Abs Immat Gran (auto) Neutrophils % (Manual) 74.0 H Lymphocytes % (Manual) 14.0 L Myelocytes % 1.0 H Neutrophils # (Manual) 11.3 H INR 3.03 H Carbon Dioxide 31 H Anion Gap Glucose 134 H Calcium B-Natriuretic Peptide Albumin Stool Occult Blood 03/08/17 03/08/17 03/08/17 04:38 04:38 04:38 WBC 14.7 H RBC 3.54 L Hgb 10.6 L D Hct 32.8 L D Immature Gran % (Auto) 0.7 H Lymph % (Auto) 18.1 L [place] % (Auto) 9.2 H Eos % (Auto) 6.8 H Neut # (Auto) 9.6 H [place] # (Auto) 1.4 H Eos # (Auto) 1.0 H Abs Immat Gran (auto) 0.10 H Neutrophils % (Manual) Lymphocytes % (Manual) Myelocytes % Neutrophils # (Manual) INR 3.15 H Carbon Dioxide Anion Gap Glucose Calcium 8.3 L B-Natriuretic Peptide Albumin 2.6 L Stool Occult Blood 1003/09/17 03/09/17 04:46 04:47 04:47 WBC 12.2 H RBC 3.48 L Hgb 10.3 L Hct 32.3 L Immature Gran % (Auto) 1.1 H Lymph % (Auto) [place] % (Auto) 9.6 H Eos % (Auto) 9.7 H Neut # (Auto) [place] # (Auto) 1.2 H Eos # (Auto) 1.2 H Abs Immat Gran (auto) 0.13 H Neutrophils % (Manual) Lymphocytes % (Manual) Myelocytes % Neutrophils # (Manual) INR 2.18 H Carbon Dioxide 34 H Anion Gap Glucose Calcium 8.3 L B-Natriuretic Peptide 2290 H Albumin 2.6 L Stool Occult Blood 03/10/17 03/10/17 03/10/17 03:54 03:54 03:54 WBC 13.0 H RBC 3.62 L Hgb 10.7 L Hct 33.7 L Immature Gran % (Auto) 1.2 H Lymph % (Auto) 21.3 L [place] % (Auto) 9.8 H Eos % (Auto) 8.4 H Neut # (Auto) [place] # (Auto) 1.3 H Eos # (Auto) 1.1 H Abs Immat Gran (auto) 0.15 H Neutrophils % (Manual) Lymphocytes % (Manual) Myelocytes % Neutrophils # (Manual) INR 1.88 H Carbon Dioxide 35 H Anion Gap 4 L Glucose 122 H Calcium B-Natriuretic Peptide 2700 H Albumin 2.8 L Stool Occult Blood 03/10/17 03/11/17 10:01 04:01 WBC RBC Hgb Hct Immature Gran % (Auto) Lymph % (Auto) [place] % (Auto) Eos % (Auto) Neut # (Auto) [place] # (Auto) Eos # (Auto) Abs Immat Gran (auto) Neutrophils % (Manual) Lymphocytes % (Manual) Myelocytes % Neutrophils # (Manual) INR 2.68 H Carbon Dioxide Anion Gap Glucose Calcium B-Natriuretic Peptide Albumin Stool Occult Blood Positive A Assessment and Plan - Assessment and Plan (1) Pneumonia Current visit: Yes Status: Acute possibly due to chronic aspiration. recommend ongoing ST eval and treat. Treatment with antibiotics probably not indicated at this time (2) Acute respiratory failure with hypoxia Current visit: No Status: Resolved on O2 at 3 lpm at home due to fibrotic lung disease. continue same (3) Pulmonary fibrosis Current visit: Yes Status: Acute with pleural plaquing on CT 02/18/17. Possibly due to asbestos exposure. etiology unclear, consider chronic aspiration, asbestosis, idiopathic disease ( less likely) Recommend HRCT. Addendum entered and electronically signed by Kaila Welch APRN 17:32: Will start prednisone 40mg daily for his pulmonary fibrosis.
[2017-03-10] MEDS: BENZONATATE 200 MG CAPSULE PO PRN (16:27)
[2017-03-10] MEDS: MELATONIN 1 MG TABLET PO SCH (20:58)
[2017-03-10] MEDS: ATORVASTATIN 20 MG TABLET PO SCH (20:58)
[2017-03-10] MEDS: TAMSULOSIN 0.4 MG CAPSULE PO SCH (20:58)
[2017-03-11] MEDS: ALBUTEROL/IPRATROPIUM 2.5mg-0.5mg/3ml NEB AEROSOL SCH ×6 (00:10→20:15)
[2017-03-11] MEDS: ACETAMINOPHEN 500 MG TABLET PO PRN ×2 (00:37→16:18)
[2017-03-11] MEDS: OMEPRAZOLE 20 MG CAPSULE PO SCH (06:43)
[2017-03-11] MEDS: LEVOFLOXACIN 750 MG TABLET PO SCH (06:43)
[2017-03-11] MEDS: FINASTERIDE 5 MG TABLET PO SCH (08:57)
[2017-03-11] MEDS: FUROSEMIDE 40 MG TABLET PO SCH ×2 (08:57→13:09)
[2017-03-11] MEDS: CARVEDILOL 6.25 MG TABLET PO SCH ×2 (08:57→16:32)
[2017-03-11] MEDS: CITALOPRAM 20 MG TABLET PO SCH (08:57)
[2017-03-11] MEDS: ASPIRIN *EC* 81 MG TABLET PO SCH (08:57)
[2017-03-11] MEDS: MULTI-VIT + MINERAL (Opti-gen) TABLET PO SCH (08:57)
[2017-03-11] MEDS: SACUBITRIL/VALSARTAN 24/26mg TABLET PO SCH ×2 (08:57→21:23)
[2017-03-11] MEDS: GUAIFENESIN 400MG TABLET PO SCH ×2 (08:57→21:23)
[2017-03-11] MEDS: SPIRONOLACTONE 25 MG TABLET PO SCH (08:59)
--- NOTE | 2017-03-11 09:58 | Pharmacy Consult ---
Pharmacy Consult-Warfarin - Laboratory Information 03/07/17 03/08/17 03/09/17 03:17 04:38 04:46 INR 3.03 H 3.15 H 2.18 H 03/10/17 03/11/17 03:54 04:01 INR 1.88 H 2.68 H DINAH is a 77 yo male admitted with HCAP, who has a history of A. Fib. The home dose of Warfarin is reported as 3mg po daily. He takes it at bedtime at home.. Date INR Dose 03/07 3.03 3 mg given (03/06 @ 2100) 03/08 3.13 Dose was held. 03/09 2.18 3mg 03/10 1.88 3mg 03/11 2.65 Plan 2 mg Noted multiple drug-drug interactions with: Citalopram 20mg po daily Levofloxacin 750mg po daily (New med to this patientand is most lilely to cause INR elevation.) Omeprazole 20mg po daily All of these meidcations can cause the INR to rise. I am concerned about the INR increase from yesterday (1.88) to today (2.65). I am going ro order warfarin 2 mg today. The pharmacy will closely monitor the INR and adjust the warfarin accordingly. Thank you for the Warfarin Dosing Protocol, Estevan Conley , Pharmacist.
--- NOTE | 2017-03-11 11:07 | Progress Note ---
<Tamiko Barba - Last Filed: 03/11/17 11:03> Subjective: Patient is seen today sitting in his chair. He continues to have cough, but thinks it is less. He had a bad coughing spell last night per his report. He's not complaining of shortness of breath. His biggest complaint is his modified diet. Speech therapy met again with the patient this morning and states he has a wet cough after every bite of food. She has recommended pured diet which he is very unhappy with. He states he is having bowel movements. Nurses noted low blood pressure this morning, so Aldactone was held. He's been mildly tachycardic and continues on Coreg. Objective Vital signs: Temperature 97.7 F 03/11/17 08:03 Pulse Rate 107 H 03/11/17 08:03 Respiratory Rate 18 03/11/17 08:36 Blood Pressure 104/61 03/11/17 08:03 Pulse Oximetry 94 03/11/17 08:03 Height/Weight/BMI: Height 1.68 m Weight 74.3 kg Body Mass Index 26.4 - Constitutional Present: well nourished, well developed - Routine HEENT Exam ENT: Present: mucous membranes moist - Routine Respiratory Exam Present: CTA bilaterally. Absent: wheezes - Routine Cardiovascular Exam Present: RRR, S1, S2. Absent: murmur - Routine Abdominal Exam Present: soft, normoactive bowel sounds, non distended. Absent: tenderness - Routine Extremities Exam Present: no edema, normal capillary refill - Routine Skin Exam Present: dry, warm - Routine Neurological Exam Present: alert, oriented X3 - Routine Lymphatic Exam Lymphatic: Absent: adenopathy - Routine Psychiatric Exam Present: normal affect, normal thought process, cooperative Results - Labs CBC & Chem 7: 03/10/17 03:54 03/10/17 03:54 Microbiology Results: Microbiology 03/09/17 20:47 Sputum, Expectorated Gram Stain - Final 03/09/17 20:47 Sputum, Expectorated Sputum Culture - Preliminary Early growth 03/07/17 12:22 Urine Streptococcus pneumoniae Antigen (M - Final Assessment and Plan (1) Cardiomyopathy Problem details: Ejection fraction 25% 02/19/17, concentric LVH Current visit: No Status: Chronic (2) HCAP (healthcare-associated pneumonia) Current visit: Yes Status: Acute (3) Chronic respiratory failure with hypoxia Current visit: Yes Status: Acute Assessment and Plan: Assessment Recurrent right lower lobe pneumonia, (recent hospitalization)-question actual bacterial infection versus ongoing aspiration Leukocytosis Pulmonary fibrosis Anemia with + FOB Dysphasia (oropharyngeal/esophageal), esophageal dysmotility Dehydration Ischemic cardiomyopathy/CAD Paroxysmal atrial fibrillation DJD CKD BPH Plan Pulmonology has seen patient and started prednisone 40 mg daily for his pulmonary fibrosis. Recommend outpatient PFTs. He continues on DuoNeb and Symbicort inhaler. Appreciate Dr. Reyes's input. Mild tachycardia could be related to a combination of the albuterol he is getting in the DuoNeb treatments and the formoterol in the Symbicort. It is noted in outpatient notes that his Coreg dose was previously decreased as well ( due to hypotension). Patient continues on Levaquin. Likelihood of patient having ongoing problems is high as he will likely not follow the pureed diet at home and continues to aspirate. Iron studies are pending. Continue to watch fluid status. Has had a few hypotensive readings since initiation of the twice a day Lasix. (Outpatient records show patient was taken off diuretics 03/05/17 due to hypotension) Hospital Course Summary Disclaimer: The visit summary below is not to be considered part of the above Progress Note. Hospital Course: Recurrent right lower lobe pneumonia, recent hospitalization Leukocytosis Pulmonary fibrosis Dysphasia (oropharyngeal/esophageal), esophageal dysmotility Dehydration Ischemic cardiomyopathy/CAD Paroxysmal atrial fibrillation DJD CKD BPH 03/07/17-hospital admission Patient presents with recurrent pneumonia with high suspicion for aspiration based on dysphasia. Speech therapy evaluated and recommended pured diet with nectar thickened liquids with continued speech therapy. Patient was started on broad-spectrum antibiotics overnight with aztreonam, Levaquin, and vancomycin given potential for atypical exposure during recent hospitalization. Current antibiotics will be continued pending sputum culture and blood cultures. Strep pneumonia antigen will additionally be obtained. Respiratory viral panel has been sent and is negative. Home medications will be continued for multiple chronic problems. Pharmacy consulted to assist with dosing of vancomycin and warfarin. PT/OT consultations. Old records reviewed. Discussed with nursing and speech therapy. 03/08/17 *Persistent, recurrent pneumonia. High concern for aspiration. Current abx Azactam/Levaquin/Vanco. Consider change to Ceftriaxone/Clinda given aspiration concern Continue nebs. Add Acapella valve. May need to consider pulm referral. *Esophageal dysmotility Continue PPI. May need EGD. Significant anemia noted as well- Order FOB. Monitor labs closely. May need ST eval and tx. *AFib/Chronic anticoagulation Rate controlled. Warfarin per pharmacy. Monitor closely on warfarin *HFrEF Continue current medications. Stop IVF. Weight is up 4 kg. Lasix IV x 1 now. Continue Aldactone/Coreg/Lipitor/ASA/Losartan. May need to add daily Loop diuretic. Repeat labs, CXR in AM. Remains ill. Continue to follow. 03/09/17 Slow progress- *SOA/Cough due to - Aspiration pneumonia/pneumonitis? Chronic microaspiration due to esophageal dysmotility? CHF with fluid overload? Continue antibiotics- I am going to narrow treatment. Could add steroids if rales persist. Continue nebs. Acapella valve. May benefit from pulm consult given recurrent concerns. *Continue PPI for GERD. May need EGD or barium swallow. Could consider low dose Reglan to help with motility. *EF 25% - DC Losartan. Add lower dose Entresto to start in AM. Schedule BID Lasix. Continue Aldactone, add low dose KCL. Monitor labs closely. Weight, BNP continues to trend up despite IV Lasix yesterday. IVF DC'D. Remains on Warfarin, INR per pharmacy. Speech therapy to reevaluate tomorrow-remain concerned that aspiration/ aspiration pneumonitis is cause for patient's presenting symptoms. Will ask Dr. Reyes to evaluate tomorrow, PT/OT consultations. Increase activity. Levaquin po, dc Aztreonam. Will discuss cardiac status with Dr. Madrid tomorrow. 03/10/[address] Reyes given his pulmonary fibrosis and recurrent pneumonia. Continue nebulizers, Acapella, and Levaquin. Sputum culture results are still pending. Speech therapy continues to work with patient given his high risk for aspiration. Positive FOB. Patient on warfarin. Hemoglobin averaged 12 during his hospitalization in mid February, now averaging 10. Last colonoscopy/EGD 05/2014 - findings of diverticulosis and hiatal hernia Remain concerned about aspiration as cause of patient's presentation. RT advised me that Acapella led to vomiting earlier today. Discontinue vancomycin given absence of positive culture findings, continue Levaquin. Case discussed with Dr. Reyes who will see in consultation. Additionally plan to discuss with Dr. Madrid regarding chronic cardiac disease. Patient had full GI workup <3 years ago, do not believe repeat evaluation needed for heme positive stool in anticoagulated patient. Check iron studies. Outpatient records reviewed-patient recently taken off diuretics and carvedilol dose decreased from 9.375 to 6.25 bid due to hypotension on 03/05. 03/11/17 Pulmonology has seen patient and started prednisone 40 mg daily for his pulmonary fibrosis. Recommend outpatient PFTs. He continues on DuoNeb and Symbicort inhaler. Appreciate Dr. Reyes's input. Mild tachycardia could be related to a combination of the albuterol he is getting in the DuoNeb treatments and the formoterol in the Symbicort. It is noted in outpatient notes that his Coreg dose was previously decreased as well ( due to hypotension). Patient continues on Levaquin. Likelihood of patient having ongoing problems is high as he will likely not follow the pureed diet at home and continues to aspirate. Iron studies are pending. Continue to watch fluid status. Has had a few hypotensive readings since initiation of the twice a day Lasix. (Outpatient records show patient was taken off diuretics 03/05/17 due to hypotension) <Gela Rai - Last Filed: 03/11/17 16:12> Objective Vital signs: Temperature 97.7 F 03/11/17 08:03 Pulse Rate 107 H 03/11/17 08:03 Respiratory Rate 18 03/11/17 11:33 Blood Pressure 104/61 03/11/17 08:03 Pulse Oximetry 98 03/11/17 11:33 Height/Weight/BMI: Height 1.68 m Weight 74.3 kg Body Mass Index 26.4 Results - Labs CBC & Chem 7: 03/10/17 03:54 03/10/17 03:54 Microbiology Results: Microbiology 03/09/17 20:47 Sputum, Expectorated Gram Stain - Final 03/09/17 20:47 Sputum, Expectorated Sputum Culture - Final Streptococcus viridans group Normal Resp Nadiya incl. Yeast 03/07/17 12:22 Urine Streptococcus pneumoniae Antigen (M - Final Assessment and Plan (1) HCAP (healthcare-associated pneumonia) Current visit: Yes Status: Acute (2) Chronic respiratory failure with hypoxia Current visit: Yes Status: Acute (3) Cardiomyopathy Problem details: Ejection fraction 25% 02/19/17, concentric LVH Current visit: No Status: Chronic DVT Prophylaxis: Coumadin Resuscitation Status: Full Code Assessment and Plan: I have independently evaluated and examined this patient. I reviewed the chart, the patient's history, and the STAYING MACHINE OPERATOR/PA's documented findings as above. We discussed and formulated the assessment and plan as above with additions as below: Mr. Armstrong reports his cough is not as bad as it was on admission but he has paroxysms, minimal sputum production. He complains of back pain today but no lightheadedness or edema. Mild tenderness to palpation in the mid back in the muscular groups, no tenderness over the thoracic or lumbar spine Inspiratory crackles at the bases bilaterally Regular cardiac rhythm Sputum culture positive for strep viridans Add clindamycin-strep likely oral in origin; day 5 Levaquin. Agree patient unlikely to comply with dietary recommendations but have reinforced speech therapies advice. Heating pad and tramadol ordered for back discomfort. Discussed with Dr. Madrid yesterday evening-amiodarone therapy not recalled; does not remember patient ever being on amiodarone either. Discharge weight prior hospitalization was 75.1 kg, current weight slightly below that. Will decrease furosemide to once daily. Anemia studies pending. Hospital Course Summary Disclaimer: The visit summary below is not to be considered part of the above Progress Note.
[2017-03-11] MEDS: BUDESONIDE/FORMOTEROL 80/4.5mcg INHALER ORAL INH SCH ×2 (11:34→20:17)
[2017-03-11] MEDS ORDERED: WARFARIN 2 MG TABLET PO SCH (12:00)
[2017-03-11] MEDS ORDERED: TRAMADOL 50 MG TABLET PO PRN (16:10)
[2017-03-11] MEDS: PredniSONE 20 MG TABLET PO SCH (16:32)
[2017-03-11] MEDS: CLINDAMYCIN 300 MG CAPSULE PO SCH ×2 (16:33→21:22)
[2017-03-11] MEDS: MENTHOL COUGH DROPS (RICOLA) MM PRN ×3 (16:33→21:27)
[2017-03-11] MEDS: MELATONIN 1 MG TABLET PO SCH (21:22)
[2017-03-11] MEDS: TAMSULOSIN 0.4 MG CAPSULE PO SCH (21:23)
[2017-03-11] MEDS: ATORVASTATIN 20 MG TABLET PO SCH (21:24)
[2017-03-11] MEDS: SALINE FLUSH 10ml SYRINGE IV PRN (21:27)
[2017-03-12] MEDS: ALBUTEROL/IPRATROPIUM 2.5mg-0.5mg/3ml NEB AEROSOL SCH ×7 (00:04→23:06)
[2017-03-12] MEDS: GUAIFENESIN/CODEINE 5ml ORAL LIQUID PO PRN (05:51)
[2017-03-12] MEDS: MENTHOL COUGH DROPS (RICOLA) MM PRN ×4 (05:52→20:18)
[2017-03-12] MEDS: OMEPRAZOLE 20 MG CAPSULE PO SCH (05:52)
[2017-03-12] MEDS: LEVOFLOXACIN 750 MG TABLET PO SCH (05:52)
[2017-03-12] MEDS: SALINE FLUSH 10ml SYRINGE IV PRN ×2 (05:52→20:18)
--- NOTE | 2017-03-12 07:35 | Pharmacy Consult ---
Pharmacy Consult-Warfarin - Laboratory Information 03/07/17 03/08/17 03/09/17 03:17 04:38 04:46 INR 3.03 H 3.15 H 2.18 H 03/10/17 03/11/17 03/12/17 03:54 04:01 03:56 INR 1.88 H 2.68 H 3.92 H - Consult Information No warfarin will be ordered today.
--- NOTE | 2017-03-12 09:12 | Pulmonology Progress Note ---
<Kaila Welch - Last Filed: 03/12/17 09:07> Subjective Principal diagnosis: SOB Interval history: Pt is sitting up in chair on his O2 at 3L per NC. States he isn't doing good because he cant get rid of his cough. No sputum noted and stable SOB noted. Exam Vital signs: Temperature 96.2 F L 03/12/17 07:39 Pulse Rate 109 H 03/12/17 07:39 Respiratory Rate 20 03/12/17 07:39 Blood Pressure 122/72 03/12/17 07:39 Pulse Oximetry 94 03/12/17 07:39 - Constitutional no acute distress, well nourished - Routine HEENT Exam Head: Present: normocephalic, atraumatic Eye: Present: PERRL - Routine Neck Exam Present: supple, full ROM - Routine Respiratory Exam Present: decreased breath sounds, crackles - Routine Cardiovascular Exam Present: RRR, no murmur - Routine Abdominal Exam Present: soft, normoactive bowel sounds - Routine Extremities Exam Present: no edema, full ROM - Routine Back/Spine/Pelvis Exam Back/Spine: Present: full ROM - Routine Skin Exam Present: intact, dry - Routine Neurological Exam Present: alert, oriented X3, CN II-XII intact - Routine Psychiatric Exam Present: normal affect, normal thought process Progress Note-A&P - Time Spent With Patient Total time spent is greater than 50% in coordination of care (as documented) at patient's floor/unit and/or counseling patient: less than 15 minutes (1) Chronic respiratory failure with hypoxia Status: Acute Current Visit: Yes (2) Pulmonary fibrosis Status: Acute Current Visit: Yes (3) Pneumonia Status: Acute Current Visit: Yes (4) Dysphagia Status: Acute Current Visit: Yes (5) Cardiomyopathy Problem details: Ejection fraction 25% 02/19/17, concentric LVH Status: Chronic Current Visit: No - Assessment and Plan Pt currently on home O2 of 3L per NC, denise well. Still with cough but no sputum. Currently on symbicort BID and A/A q4hr along with prednisone 40mg daily. Will order a HRCT chest as previously discussed. Continue with ST and modified diet secondary to his dysphagia which is likely a cause for his fibrosis. Currently on levaquin D6 and clinda D2 for asp pna, sputum showing strep viridans, pt currently afebrile and and WBC improving. <Pravin Reyes - Last Filed: 03/13/17 12:49> Exam Vital signs: Temperature 96.0 F L 03/13/17 08:00 Pulse Rate 97 03/13/17 08:00 Respiratory Rate 18 03/13/17 11:20 Blood Pressure 106/61 03/13/17 08:00 Pulse Oximetry 97 03/13/17 11:20 Progress Note-A&P - Time Spent With Patient Total time spent is greater than 50% in coordination of care (as documented) at patient's floor/unit and/or counseling patient: (1) Pneumonia Status: Acute Current Visit: Yes (2) Pulmonary fibrosis Status: Acute Current Visit: Yes
[2017-03-12] MEDS: BUDESONIDE/FORMOTEROL 80/4.5mcg INHALER ORAL INH SCH ×2 (09:30→20:49)
[2017-03-12] MEDS: CLINDAMYCIN 300 MG CAPSULE PO SCH ×4 (09:33→20:18)
[2017-03-12] MEDS: PredniSONE 20 MG TABLET PO SCH (09:34)
[2017-03-12] MEDS: GUAIFENESIN 400MG TABLET PO SCH ×2 (09:34→20:18)
[2017-03-12] MEDS: CARVEDILOL 6.25 MG TABLET PO SCH ×2 (09:34→17:17)
[2017-03-12] MEDS: MULTI-VIT + MINERAL (Opti-gen) TABLET PO SCH (09:34)
[2017-03-12] MEDS: SACUBITRIL/VALSARTAN 24/26mg TABLET PO SCH ×2 (09:34→20:17)
[2017-03-12] MEDS: FINASTERIDE 5 MG TABLET PO SCH (09:34)
[2017-03-12] MEDS: CITALOPRAM 20 MG TABLET PO SCH (09:34)
[2017-03-12] MEDS: ASPIRIN *EC* 81 MG TABLET PO SCH (09:35)
[2017-03-12] MEDS: SPIRONOLACTONE 25 MG TABLET PO SCH (09:35)
[2017-03-12] MEDS: FUROSEMIDE 40 MG TABLET PO SCH (09:35)
--- NOTE | 2017-03-12 10:32 | Progress Note ---
<Tamiko Barba - Last Filed: 03/12/17 10:27> Subjective: Patient seen today sitting in his chair. He has no complaints at this time, other than he continues to have a cough. No sputum production. He feels his breathing is almost back to normal. His bowels are moving. He does not enjoy his pured diet, but he is eating. Objective Vital signs: Temperature 96.2 F L 03/12/17 07:39 Pulse Rate 109 H 03/12/17 07:39 Respiratory Rate 18 03/12/17 09:24 Blood Pressure 122/72 03/12/17 07:39 Pulse Oximetry 94 03/12/17 07:39 Height/Weight/BMI: Height 1.68 m Weight 74.1 kg Body Mass Index 26.4 - Constitutional Present: well nourished, well developed - Routine HEENT Exam ENT: Present: dentition normal - Routine Respiratory Exam Present: crackles (bilateral bases). Absent: wheezes - Routine Cardiovascular Exam Present: RRR, S1, S2. Absent: murmur - Routine Abdominal Exam Present: soft, normoactive bowel sounds, non distended. Absent: tenderness - Routine Extremities Exam Present: no edema, normal capillary refill - Routine Skin Exam Present: dry, warm - Routine Neurological Exam Present: alert, oriented X3 - Routine Lymphatic Exam Lymphatic: Absent: adenopathy - Routine Psychiatric Exam Present: normal affect, normal thought process, cooperative Results - Labs CBC & Chem 7: 03/12/17 03:56 03/12/17 03:56 Labs: Laboratory Tests 03/11/17 04:01 Iron 27 L TIBC 229 L % Saturation 12 L Ferritin 227 Microbiology Results: Microbiology 03/09/17 20:47 Sputum, Expectorated Gram Stain - Final 03/09/17 20:47 Sputum, Expectorated Sputum Culture - Final Streptococcus viridans group Normal Resp Nadiya incl. Yeast 03/07/17 12:22 Urine Streptococcus pneumoniae Antigen (M - Final Assessment and Plan (1) Cardiomyopathy Problem details: Ejection fraction 25% 02/19/17, concentric LVH Current visit: No Status: Chronic (2) HCAP (healthcare-associated pneumonia) Current visit: Yes Status: Acute (3) Chronic respiratory failure with hypoxia Current visit: Yes Status: Acute Assessment and Plan: Assessment Recurrent right lower lobe pneumonia - sputum culture grew out strep viridans Leukocytosis Pulmonary fibrosis Sinus tachycardia Chronic Anemia, likely anemia of chronic disease, chronic loss from anticoagulation and iron deficiency Dysphagia (oropharyngeal/esophageal), esophageal dysmotility Dehydration Ischemic cardiomyopathy/CAD Paroxysmal atrial fibrillation DJD CKD BPH Plan Clindamycin was added last evening given strep viridans sputum culture results. Today is day 6 of Levaquin. Iron study results show iron deficiency. Will start p.o. supplementation ( ferrous sulfate plus vitamin C). His hemoglobin was 11.7 today. Pulmonology has a chest high res CT pending. He continues on prednisone. Will increase his Coreg back to 1-1/2 pills twice a day given his tachycardia. Hospital Course Summary Disclaimer: The visit summary below is not to be considered part of the above Progress Note. Hospital Course: Recurrent right lower lobe pneumonia, recent hospitalization Leukocytosis Pulmonary fibrosis Dysphasia (oropharyngeal/esophageal), esophageal dysmotility Dehydration Ischemic cardiomyopathy/CAD Paroxysmal atrial fibrillation DJD CKD BPH 03/07/17-hospital admission Patient presents with recurrent pneumonia with high suspicion for aspiration based on dysphasia. Speech therapy evaluated and recommended pured diet with nectar thickened liquids with continued speech therapy. Patient was started on broad-spectrum antibiotics overnight with aztreonam, Levaquin, and vancomycin given potential for atypical exposure during recent hospitalization. Current antibiotics will be continued pending sputum culture and blood cultures. Strep pneumonia antigen will additionally be obtained. Respiratory viral panel has been sent and is negative. Home medications will be continued for multiple chronic problems. Pharmacy consulted to assist with dosing of vancomycin and warfarin. PT/OT consultations. Old records reviewed. Discussed with nursing and speech therapy. 03/08/17 *Persistent, recurrent pneumonia. High concern for aspiration. Current abx Azactam/Levaquin/Vanco. Consider change to Ceftriaxone/Clinda given aspiration concern Continue nebs. Add Acapella valve. May need to consider pulm referral. *Esophageal dysmotility Continue PPI. May need EGD. Significant anemia noted as well- Order FOB. Monitor labs closely. May need ST eval and tx. *AFib/Chronic anticoagulation Rate controlled. Warfarin per pharmacy. Monitor closely on warfarin *HFrEF Continue current medications. Stop IVF. Weight is up 4 kg. Lasix IV x 1 now. Continue Aldactone/Coreg/Lipitor/ASA/Losartan. May need to add daily Loop diuretic. Repeat labs, CXR in AM. Remains ill. Continue to follow. 03/09/17 Slow progress- *SOA/Cough due to - Aspiration pneumonia/pneumonitis? Chronic microaspiration due to esophageal dysmotility? CHF with fluid overload? Continue antibiotics- I am going to narrow treatment. Could add steroids if rales persist. Continue nebs. Acapella valve. May benefit from pulm consult given recurrent concerns. *Continue PPI for GERD. May need EGD or barium swallow. Could consider low dose Reglan to help with motility. *EF 25% - DC Losartan. Add lower dose Entresto to start in AM. Schedule BID Lasix. Continue Aldactone, add low dose KCL. Monitor labs closely. Weight, BNP continues to trend up despite IV Lasix yesterday. IVF DC'D. Remains on Warfarin, INR per pharmacy. Speech therapy to reevaluate tomorrow-remain concerned that aspiration/ aspiration pneumonitis is cause for patient's presenting symptoms. Will ask Dr. Reyes to evaluate tomorrow, PT/OT consultations. Increase activity. Levaquin po, dc Aztreonam. Will discuss cardiac status with Dr. Madrid tomorrow. 03/10/[address] Reyes given his pulmonary fibrosis and recurrent pneumonia. Continue nebulizers, Acapella, and Levaquin. Sputum culture results are still pending. Speech therapy continues to work with patient given his high risk for aspiration. Positive FOB. Patient on warfarin. Hemoglobin averaged 12 during his hospitalization in mid February, now averaging 10. Last colonoscopy/EGD 05/2014 - findings of diverticulosis and hiatal hernia Remain concerned about aspiration as cause of patient's presentation. RT advised me that Acapella led to vomiting earlier today. Discontinue vancomycin given absence of positive culture findings, continue Levaquin. Case discussed with Dr. Reyes who will see in consultation. Additionally plan to discuss with Dr. Madrid regarding chronic cardiac disease. Patient had full GI workup <3 years ago, do not believe repeat evaluation needed for heme positive stool in anticoagulated patient. Check iron studies. Outpatient records reviewed-patient recently taken off diuretics and carvedilol dose decreased from 9.375 to 6.25 bid due to hypotension on 03/05. 03/11/17 Pulmonology has seen patient and started prednisone 40 mg daily for his pulmonary fibrosis. Recommend outpatient PFTs. He continues on DuoNeb and Symbicort inhaler. Appreciate Dr. Reyes's input. Mild tachycardia could be related to a combination of the albuterol he is getting in the DuoNeb treatments and the formoterol in the Symbicort. It is noted in outpatient notes that his Coreg dose was previously decreased as well ( due to hypotension). Patient continues on Levaquin. Likelihood of patient having ongoing problems is high as he will likely not follow the pureed diet at home and continues to aspirate. Iron studies are pending. Continue to watch fluid status. Has had a few hypotensive readings since initiation of the twice a day Lasix. (Outpatient records show patient was taken off diuretics 03/05/17 due to hypotension) 03/12/17 Clindamycin was added last evening given strep viridans sputum culture results. Today is day 6 of Levaquin. Iron study results show iron deficiency. Will start p.o. supplementation ( ferrous sulfate plus vitamin C). His hemoglobin was 11.7 today. Pulmonology has a chest high res CT pending. He continues on prednisone. Will increase his Coreg back to 1-1/2 pills twice a day given his tachycardia. <HensonFrancine L - Last Filed: 03/12/17 14:18> Objective Vital signs: Temperature 96.2 F L 03/12/17 07:39 Pulse Rate 109 H 03/12/17 07:39 Respiratory Rate 20 03/12/17 11:13 Blood Pressure 122/72 03/12/17 07:39 Pulse Oximetry 95 03/12/17 11:13 Height/Weight/BMI: Height 1.68 m Weight 74.1 kg Body Mass Index 26.4 Results - Labs CBC & Chem 7: 03/12/17 03:56 03/12/17 03:56 Microbiology Results: Microbiology 03/09/17 20:47 Sputum, Expectorated Gram Stain - Final 03/09/17 20:47 Sputum, Expectorated Sputum Culture - Final Streptococcus viridans group Normal Resp Nadiya incl. Yeast 03/07/17 12:22 Urine Streptococcus pneumoniae Antigen (M - Final Assessment and Plan (1) Cardiomyopathy Problem details: Ejection fraction 25% 02/19/17, concentric LVH Current visit: No Status: Chronic (2) HCAP (healthcare-associated pneumonia) Current visit: Yes Status: Acute (3) Chronic respiratory failure with hypoxia Current visit: Yes Status: Acute Assessment and Plan: 03/12/2017-I reviewed this chart, the patient history, and the RECORDS CLERK's/PA's documented findings as above. We discussed and formulated the assessment and plan as above with the additions below.-Dr. Henson The patient was seen today accompanied by his . He states his cough hasn't gotten much better over the past 3 weeks. He states that he was drinking thickened juice in bed today and had a coughing fit. He got up into the chair and is sitting upright at 90 and swallowing without a cough. I did recommend that he not try to eat, drink, or take any medications unless he is sitting upright at 90, and see if that helps with his cough. He denies any chest pain except when he is coughing. He denies having any abdominal pain. He had a bowel movement yesterday. He states he is urinating okay. He states he's getting up and walking with physical therapy once daily. He feels excited about possibly going home tomorrow. On exam he is alert and in no acute distress. He does not cough during my examination. Chest reveals decreased breath sounds throughout without wheezes or rhonchi. Cardio vascular reveals a borderline tachycardic rate with irregular rhythm. Abdomen is obese, soft and nontender and nondistended with positive bowel sounds. Extremities are free of edema. Skin is warm and dry and without rashes. High resolution CT chest Impression: 1. Stable appearance of the chest with areas of pulmonary fibrosis. Findings could represent asbestosis given the calcified pleural plaques suggesting asbestos exposure. No acute change or worsening since the recent comparison. 2. New inflammation in a fat-containing upper abdominal ventral hernia probably representing and incarcerated infarcted portion of the omentum. Impression and plan Re: Tachycardia, cortical was increased today. Place patient on telemetry and monitor. See how he tolerates increased dose. Regarding possible asbestosis on CT chest, patient and his state he was not exposed to asbestos but they are aware of. 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 Await recommendations from Dr. Reyes. Regarding elevation in potassium, potassium is on hold. He is on Lasix once daily and spironolactone. He is on an ARB. Recheck basic metabolic profile tomorrow. Regarding ventral hernia seen on CT above, will discuss with surgery weatherization administrator. Patient is asymptomatic. The patient's states "I don't know what to feed him on his new diet". We' ll consult the dietitian for help with food options. Hospital Course Summary Disclaimer: The visit summary below is not to be considered part of the above Progress Note.
--- NOTE | 2017-03-12 13:34 | CT Scan Report ---
Indication: pulmonary fibrosis, bronchiectasis PROCEDURE: CT chest high res: Encounter: Initial Comparison: Chest x-ray dated March 09, [address] dated February 18, 2017 Technique: Axial CT images were performed through the chest without intravenous contrast. Coronal and sagittal two-dimensional reformats. Automated Exposure Control and Iterative Reconstruction dose reducing techniques were utilized. Findings: Small calcified pleural plaques are again seen. Subpleural fibrotic changes bilaterally with areas of bronchiectasis in the medial aspect of both lower lobes. There is also an area of bronchiectasis and scar in the peripheral right upper lobe. No acute-appearing consolidative or lobar pneumonia seen. No pneumothorax or pleural effusion. The central airways are patent. Calcified granuloma in the right lower lobe. No axillary or mediastinal adenopathy by CT size criteria. Heart size is normal. Large hiatal hernia with a partially intrathoracic stomach. Scattered arterial vascular calcifications in the great vessels. Cardiac pacemaker defibrillator. Metallic artifact from a right shoulder prosthesis. The upper abdomen shows a fat-containing ventral hernia with new stranding in the fat best seen on axial images 60 through 63. Fascial defect diameter is approximately 1 cm. Hernia sac measures 2.9 x 1.5 x 3.8 cm in size. Impression: 1. Stable appearance of the chest with areas of pulmonary fibrosis. Findings could represent asbestosis given the calcified pleural plaques suggesting asbestos exposure. No acute change or worsening since the recent comparison. 2. New inflammation in a fat-containing upper abdominal ventral hernia probably representing and incarcerated infarcted portion of the omentum. .
[2017-03-12] MEDS: ASCORBIC ACID 500 MG TABLET PO SCH (17:16)
[2017-03-12] MEDS: FERROUS SULFATE 324 MG TABLET PO SCH (17:17)
[2017-03-12] MEDS: MELATONIN 1 MG TABLET PO SCH (20:17)
[2017-03-12] MEDS: TAMSULOSIN 0.4 MG CAPSULE PO SCH (20:18)
[2017-03-12] MEDS: ATORVASTATIN 20 MG TABLET PO SCH (20:18)
[2017-03-13] MEDS: ALBUTEROL/IPRATROPIUM 2.5mg-0.5mg/3ml NEB AEROSOL SCH ×5 (02:56→20:10)
[2017-03-13] MEDS: ACETAMINOPHEN 500 MG TABLET PO PRN (03:10)
[2017-03-13] MEDS: OMEPRAZOLE 20 MG CAPSULE PO SCH (06:44)
[2017-03-13] MEDS: LEVOFLOXACIN 750 MG TABLET PO SCH (06:44)
[2017-03-13] MEDS: BUDESONIDE/FORMOTEROL 80/4.5mcg INHALER ORAL INH SCH ×2 (09:01→21:20)
--- NOTE | 2017-03-13 09:05 | Pharmacy Consult ---
Pharmacy Consult-Warfarin - Laboratory Information 03/07/17 03/08/17 03/09/17 03:17 04:38 04:46 INR 3.03 H 3.15 H 2.18 H 03/10/17 03/11/17 03/12/17 03:54 04:01 03:56 INR 1.88 H 2.68 H 3.92 H 03/13/17 04:05 INR 4.23 H - Consult Information We will hold warfarin today. Consider 1mg vitamin K orally if patient shows signs of bleeding or bruising. Thanks
[2017-03-13] MEDS: PredniSONE 20 MG TABLET PO SCH (10:02)
[2017-03-13] MEDS: FERROUS SULFATE 324 MG TABLET PO SCH ×2 (10:03→17:24)
[2017-03-13] MEDS: GUAIFENESIN 400MG TABLET PO SCH ×2 (10:03→20:31)
[2017-03-13] MEDS: CARVEDILOL 6.25 MG TABLET PO SCH ×2 (10:03→17:24)
[2017-03-13] MEDS: SACUBITRIL/VALSARTAN 24/26mg TABLET PO SCH ×2 (10:03→20:30)
[2017-03-13] MEDS: CITALOPRAM 20 MG TABLET PO SCH (10:04)
[2017-03-13] MEDS: SPIRONOLACTONE 25 MG TABLET PO SCH (10:04)
[2017-03-13] MEDS: MULTI-VIT + MINERAL (Opti-gen) TABLET PO SCH (10:04)
[2017-03-13] MEDS: FUROSEMIDE 40 MG TABLET PO SCH (10:04)
[2017-03-13] MEDS: FINASTERIDE 5 MG TABLET PO SCH (10:04)
[2017-03-13] MEDS: CLINDAMYCIN 300 MG CAPSULE PO SCH ×4 (10:05→20:30)
[2017-03-13] MEDS: ASCORBIC ACID 500 MG TABLET PO SCH ×2 (10:14→17:24)
[2017-03-13] MEDS: ASPIRIN *EC* 81 MG TABLET PO SCH (10:14)
--- NOTE | 2017-03-13 15:02 | Pulmonology Progress Note ---
Subjective Principal diagnosis: SOB Interval history: No new complaints. using O2 at 2-3 lpm. (this is his home rate) ready to d/c soon Exam Vital signs: Temperature 96.0 F L 03/13/17 08:00 Pulse Rate 97 03/13/17 08:00 Respiratory Rate 18 03/13/17 11:20 Blood Pressure 106/61 03/13/17 08:00 Pulse Oximetry 97 03/13/17 11:20 - Constitutional no acute distress - Routine Respiratory Exam Present: rales Comments: mild bibasilar rales - Routine Cardiovascular Exam Present: RRR. Absent: murmur Progress Note-A&P - Time Spent With Patient less than 15 minutes (1) Pneumonia Status: Acute Assessment and plan: finish antibiotics (levaquin/clinda) Current Visit: Yes (2) Pulmonary fibrosis Status: Acute Assessment and plan: possibly asbestosis vs chronic hsp (serra's lung) HRCT report: Impression: 1. Stable appearance of the chest with areas of pulmonary fibrosis. Findings could represent asbestosis given the calcified pleural plaques suggesting asbestos exposure. No acute change or worsening since the recent comparison. Plan to see him in the office in 1-2 weeks with PFT and will followup from that point. Resume home O2 and neb albuterol as needed. Observe off antibiotics Current Visit: Yes
--- NOTE | 2017-03-13 15:20 | Discharge Summary ---
Discharge Information Date of admission: 03/06/17 22:58 Anticipated date of discharge: 03/13/17 Attending Physician: Francine Henson MD Primary care physician: Sylvain Ramírez MD Consults: 03/10/17 10:12 Physician Consult [CONS] Routine Consulting Provider: Pravin Reyes D - Discharge Diagnosis (1) Cardiomyopathy Status: Chronic (2) HCAP (healthcare-associated pneumonia) Status: Acute (3) Chronic respiratory failure with hypoxia Status: Acute - Procedures Procedures: None - Laboratory Labs: 03/12/17 03:56 03/13/17 04:05 Laboratory Tests 03/06/17 03/06/17 03/07/17 21:15 22:51 03:17 INR B-Natriuretic Peptide 1380 H Plasma Lactate 1.5 0.9 Stool Occult Blood Vancomycin Trough Adenovirus (PCR) B.parapertussis DNA PCR C. pneumoniae DNA (PCR) Coronavirus OC43 (PCR) Coronavirus HKU1 (PCR) Coronavirus 229E (PCR) Coronavirus NL63 (PCR) Human Metapneumovir PCR Influenza Type A (PCR) Influenza Type B (PCR) M. pneumoniae (PCR) Parainfluenza 1 (PCR) Parainfluenza 2 (PCR) Parainfluenza 3 (PCR) Parainfluenza 4 (PCR) RSV (PCR) Entero/Rhino (PCR) 03/07/17 03/07/17 03/08/17 03:17 12:15 04:38 INR 3.03 H 3.15 H B-Natriuretic Peptide Plasma Lactate Stool Occult Blood Vancomycin Trough Adenovirus (PCR) Negative B.parapertussis DNA PCR Negative C. pneumoniae DNA (PCR) Negative Coronavirus OC43 (PCR) Negative Coronavirus HKU1 (PCR) Negative Coronavirus 229E (PCR) Negative Coronavirus NL63 (PCR) Negative Human Metapneumovir PCR Negative Influenza Type A (PCR) Negative Influenza Type B (PCR) Negative M. pneumoniae (PCR) Negative Parainfluenza 1 (PCR) Negative Parainfluenza 2 (PCR) Negative Parainfluenza 3 (PCR) Negative Parainfluenza 4 (PCR) Negative RSV (PCR) Negative Entero/Rhino (PCR) Negative 03/09/17 03/09/17 03/09/17 04:46 04:47 13:21 INR 2.18 H B-Natriuretic Peptide 2290 H Plasma Lactate Stool Occult Blood Vancomycin Trough 15.77 Adenovirus (PCR) B.parapertussis DNA PCR C. pneumoniae DNA (PCR) Coronavirus OC43 (PCR) Coronavirus HKU1 (PCR) Coronavirus 229E (PCR) Coronavirus NL63 (PCR) Human Metapneumovir PCR Influenza Type A (PCR) Influenza Type B (PCR) M. pneumoniae (PCR) Parainfluenza 1 (PCR) Parainfluenza 2 (PCR) Parainfluenza 3 (PCR) Parainfluenza 4 (PCR) RSV (PCR) Entero/Rhino (PCR) 03/10/17 03/10/17 03/10/17 03:54 03:54 10:01 INR 1.88 H B-Natriuretic Peptide 2700 H Plasma Lactate Stool Occult Blood Positive A Vancomycin Trough Adenovirus (PCR) B.parapertussis DNA PCR C. pneumoniae DNA (PCR) Coronavirus OC43 (PCR) Coronavirus HKU1 (PCR) Coronavirus 229E (PCR) Coronavirus NL63 (PCR) Human Metapneumovir PCR Influenza Type A (PCR) Influenza Type B (PCR) M. pneumoniae (PCR) Parainfluenza 1 (PCR) Parainfluenza 2 (PCR) Parainfluenza 3 (PCR) Parainfluenza 4 (PCR) RSV (PCR) Entero/Rhino (PCR) 03/11/17 03/12/17 03/13/17 04:01 03:56 04:05 INR 2.68 H 3.92 H 4.23 H B-Natriuretic Peptide Plasma Lactate Stool Occult Blood Vancomycin Trough Adenovirus (PCR) B.parapertussis DNA PCR C. pneumoniae DNA (PCR) Coronavirus OC43 (PCR) Coronavirus HKU1 (PCR) Coronavirus 229E (PCR) Coronavirus NL63 (PCR) Human Metapneumovir PCR Influenza Type A (PCR) Influenza Type B (PCR) M. pneumoniae (PCR) Parainfluenza 1 (PCR) Parainfluenza 2 (PCR) Parainfluenza 3 (PCR) Parainfluenza 4 (PCR) RSV (PCR) Entero/Rhino (PCR) - Microbiology Microbiology 03/09/17 20:47 Sputum, Expectorated Gram Stain - Final 03/09/17 20:47 Sputum, Expectorated Sputum Culture - Final Streptococcus viridans group Normal Resp Nadiya incl. Yeast 03/07/17 12:22 Urine Streptococcus pneumoniae Antigen (M - Final - Radiology Radiology: Chest x-ray 03/06/2017 FINDINGS: Areas of fibrosis and interstitial lung disease are again noted with possible slight increase in right lower lobe airspace consolidation adjacent to an elevated right hemidiaphragm. No pneumothorax or pleural effusion. Heart size and mediastinal contours are stable. Left pacemaker defibrillator. Pulmonary vascularity is stable. Scoliosis Impression: Chronic lung disease with possible superimposed right basilar pneumonia. Chest x-ray 03/09/2017 FINDINGS: Chronic lung abnormalities are redemonstrated with fibrosis. Chronically elevated presumably paralysed right hemidiaphragm. No pneumothorax. No definite pleural effusion. Prior right basilar airspace opacity is somewhat improved. There is chronic scarring along the diaphragmatic surface. Cardiomediastinal contours are stable. Impression: Overall chronic pulmonary abnormalities with fibrosis. No definite acute pneumonia currently. Recommend clinical and laboratory correlation. High-resolution CT chest Date of Exam: 03/12/17 Ordering Provider: Kaila Welch APRN Type of Exam(s): CT chest high res Reason for Exam(s): pulmonary fibrosis, bronchiectasis ADDENDUM Addendum: Impression #2 should read: New inflammation and a fat-containing upper abdominal ventral hernia probably representing an incarcerated infarcted portion of the omentum. The hernia sac is visible on the comparison CT from February 2017 but the inflammatory changes and stranding in the fat within the hernia sac are new. . Addendum Dictated By: Jerod Hernandez MD 03/12/17 1426 Addendum Signed By: Jerod Hernandez MD 03/12/17 1427 Addendum Transcribed By: [employer] 03/12/17 1426 Indication: pulmonary fibrosis, bronchiectasis PROCEDURE: CT chest high res: Encounter: Initial Comparison: Chest x-ray dated March 09, [address] dated February 18, 2017 Technique: Axial CT images were performed through the chest without intravenous contrast. Coronal and sagittal two-dimensional reformats. Automated Exposure Control and Iterative Reconstruction dose reducing techniques were utilized. Findings: Small calcified pleural plaques are again seen. Subpleural fibrotic changes bilaterally with areas of bronchiectasis in the medial aspect of both lower lobes. There is also an area of bronchiectasis and scar in the peripheral right upper lobe. No acute-appearing consolidative or lobar pneumonia seen. No pneumothorax or pleural effusion. The central airways are patent. Calcified granuloma in the right lower lobe. No axillary or mediastinal adenopathy by CT size criteria. Heart size is normal. Large hiatal hernia with a partially intrathoracic stomach. Scattered arterial vascular calcifications in the great vessels. Cardiac pacemaker defibrillator. Metallic artifact from a right shoulder prosthesis. The upper abdomen shows a fat-containing ventral hernia with new stranding in the fat best seen on axial images 60 through 63. Fascial defect diameter is approximately 1 cm. Hernia sac measures 2.9 x 1.5 x 3.8 cm in size. Impression: 1. Stable appearance of the chest with areas of pulmonary fibrosis. Findings could represent asbestosis given the calcified pleural plaques suggesting asbestos exposure. No acute change or worsening since the recent comparison. 2. New inflammation in a fat-containing upper abdominal ventral hernia probably representing and incarcerated infarcted portion of the omentum. . History of Present Illness HPI: Mr. Armstrong is a 77yo man with h/o CAD with ischemic CM, HTN, BPH, Hiatal hernia/ GERD/mckeon's and chronic hypoxic resp failure on 2L O2 for a year for unknown diagnosis with him denying COPD but perhaps the CHF. He was admitted to this facility 02/12-02/21/2017 for CAP and since home has been persistently weak with cough. Some pleurisy but no syncope or CP now. no other pain with him having an appetite but with emesis . 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 Please note that the patient was seen via telemedicine with nursing assistance on 03/06/2017. 03/13/17 15:21 HPI: Mr. Armstrong is a 77-year-old male with multiple chronic problems who was recently hospitalized with community-acquired pneumonia, acute hypoxic respiratory failure, and dysphasia. Evaluation suggested presbyesophagus in conjunction with large hiatal hernia. Antibiotic therapy was completed during the hospitalization and EGD was recommended in the near future. Patient return to the emergency room late yesterday evening complaining that he couldn't breathe and persistent cough causing chest pain. He denied sputum production but reports his chest feels very congested. He denies fevers, chills, or sweats. He reports sore throat and nasal congestion. Dyspnea has been worsening progressively as has cough since prior discharge. He is chronically on 3 L supplemental oxygen and was not hypoxic on arrival. In the emergency room the patient's indicated the patient has not been using his breathing treatments consistently because they trigger coughing spells. Chest x-ray demonstrated right lower lobe infiltrate and leukocytosis was present prompting admission for healthcare associated pneumonia. Objective Vital signs: Temperature 96.2 F L 03/13/17 15:14 Pulse Rate 105 H 03/13/17 15:14 Respiratory Rate 20 03/13/17 15:14 Blood Pressure 80/58 03/13/17 15:14 Pulse Oximetry 92 03/13/17 15:14 Height/Weight/BMI: Height 1.68 m Weight 74.5 kg Body Mass Index 26.4 Hospital Course This is a general summary of the patient's hospital course. For more details refer to the complete medical record. Hospital course: Recurrent right lower lobe pneumonia, recent hospitalization Strep.viridans positive sputum culture Leukocytosis Pulmonary fibrosis Possible asbestosis seen on high resolution CT scan Dysphasia (oropharyngeal/esophageal), esophageal dysmotility Dehydration Ischemic cardiomyopathy/CAD Paroxysmal atrial fibrillation DJD CKD BPH Sinus tachycardia New inflammation and a fat-containing upper abdominal ventral hernia probably representing an incarcerated infarcted portion of the omentum.-Seen on CT abdomen-asymptomatic The patient was admitted on 03/07/2017 Patient presents with recurrent pneumonia with high suspicion for aspiration based on dysphasia. Speech therapy evaluated and recommended pured diet with nectar thickened liquids with continued speech therapy. Patient was started on broad-spectrum antibiotics overnight with aztreonam, Levaquin, and vancomycin given potential for atypical exposure during recent hospitalization. Current antibiotics will be continued pending sputum culture and blood cultures. Strep pneumonia antigen was eventually negative. Respiratory viral panel has been sent and is negative. Home medications will be continued for multiple chronic problems. Pharmacy consulted to assist with dosing of vancomycin and warfarin. PT/OT consultations. Old records reviewed. Discussed with nursing and speech therapy. Over the hospital course, Marisolctam and vancomycin were discontinued. Levaquin was continued. Sputum culture was positive for strep viridans and clindamycin was added. Dr. Reyes was consulted regarding the patient's recurrent pneumonias, chronic respiratory failure with hypoxia, and pulmonary fibrosis. It was felt that his recurrent pneumonias were likely secondary to aspiration especially given strep. viridans found in sputum. The patient was placed on steroids and will be discharged on a steroid taper. Initially on admission, the patient was given IV fluids for sepsis and dehydration. He later needed Lasix for fluid overload. At this point he appears euvolemic with clear lung sounds and no edema. He will be dismissed off of Lasix. Regarding probable aspiration, the patient was followed by speech therapy. They are currently recommending that he sit up at 90 for all oral intake. He is on nectar thick liquids and soft diet. He can take his pills with putting. During the hospital course, the patient was started on Entresto and losartan was discontinued. He had some borderline sinus tachycardia and carvedilol was increased to 6.25 mg 1-1/2 tablets twice daily. He subsequently developed borderline hypotension and the Coreg was then decreased back to 6.25 mg 1 tablet twice daily. At the time of discharge, the patient's breathing had improved and he was on his baseline 2-3 L of oxygen per nasal cannula. He received over a week of antibiotics. Antibiotics were discontinued at the time of discharge. The patient had mild elevation of INR on admission as noted above. Warfarin was held for 2 days and then restarted at 3 mg a day on March 09 and March 10. Coumadin was then decreased to 2 mg on March 11. On March 12 INR was 3.92 and his Coumadin was held. On March 13 INR was 4.23 and Coumadin was held again. Plan is for outpatient monitoring on March 14 at [facility] to be called to Dr. Madrid's office with instructions on when to resume Coumadin and when to repeat INR. I did call and talk with Dr. Madrid his nurse, Abril and discussed discharge plans with her Patient was started on iron and vitamin C for borderline low iron. He had a positive fecal occult blood 1. He did undergo an EGD and colonoscopy in May 2014 showing diverticulosis and hiatal hernia. He denied any abdominal pain and did not have any obvious rectal bleeding and no vomiting. Hemoglobin is stable at 11.7 at discharge. Hemoglobin was 14.1 on admission and likely elevated secondary to dehydration. The patient underwent high resolution CT scan which showed possible findings of asbestos exposure as noted above. Also seen was a ventral hernia with possible infarction of fat. I did discuss this with Dr. Thayer. He stated that with this being asymptomatic and with the patient's multiple chronic medical problems he would not recommend any treatment. I did discuss that with the patient and his . If the patient has abdominal pain he may need reevaluation , but has not had any abdominal pain with this hospitalization. DVT Prophylaxis: Coumadin Discharge Plan - Med Rec/Dispo Referrals/Follow Up: Sylvain Ramírez MD [Family Provider] - 1 Week Pravin Reyes MD [Physician] - (Follow-up in one week. [facility] in the afternoon if possible.) Macario Madrid MD [Physician] - (Follow-up in 2-3 weeks regarding new medications) [facility] Instructions: Pneumonia (GEN) Prescriptions: New Ascorbic Acid [Vitamin C] 250 mg PO BIDWM tablet Benzonatate [Tessalon Perles] 200 mg PO TID PRN #20 cap PRN Reason: Cough SACUBITRIL/VALSARTAN 24/26mg [ENTRESTO 24/26mg] 1 tab PO BID #60 tab Ferrous Sulfate [Feosol] 324 mg PO BIDWM #60 tab predniSONE [Prednisone] 10 mg PO DAILY #18 tab Continue Citalopram Hydrobromide [Citalopram HBr] 20 mg PO DAILY #0 Mv-Min/FA/Vit K/Lycop/Lut/Zeax [Ocuvite Eye + Multi Tablet] 1 tab PO DAILY Albuterol HFA Inhaler [Ventolin Hfa 90 mcg/actuation] 2 puff ORAL INH Q4HR PRN 30 Days #1 inhaler PRN Reason: Shortness Of Air/Wheezing Albuterol Neb (0.083%) [Proventil Neb (0.083%)] 5 mg AEROSOL Q6H 30 Days # 120 neb Budesonide/Formoterol 80/4.5 [Symbicort Inhaler] 2 puff ORAL INH RTBID 30 Days #1 inhaler Spironolactone [Aldactone] 12.5 mg PO DAILY 30 Days #16 tab Finasteride 5 mg PO DAILY #0 Atorvastatin Calcium [Lipitor] 20 mg PO HS #0 Tamsulosin HCl 0.4 mg PO HS #0 Omeprazole 20 mg PO DAILY #0 Melatonin 1 mg PO HS Acetaminophen [Tylenol] 500 mg PO Q5H PRN tablet PRN Reason: Discomfort Aspirin *EC* [Ecotrin] 81 mg PO DAILY tablet Carvedilol [Coreg] 6.25 mg PO BIDWM Discontinued Warfarin [Coumadin] 3 mg PO HS Losartan Potassium 50 mg PO DAILY #0 Discharge Instructions/Outpatient Orders: Final Provider Discharge Instructions Location: Determined By Patient - Disposition 01 Discharged Home, Self-Care
[2017-03-13] MEDS: MENTHOL COUGH DROPS (RICOLA) MM PRN (19:34)
[2017-03-13] MEDS: SALINE FLUSH 10ml SYRINGE IV PRN ×2 (19:34→23:10)
[2017-03-13] MEDS: TAMSULOSIN 0.4 MG CAPSULE PO SCH (20:30)
[2017-03-13] MEDS: ATORVASTATIN 20 MG TABLET PO SCH (20:31)
[2017-03-13] MEDS: MELATONIN 1 MG TABLET PO SCH (20:31)
--- NOTE | 2017-03-13 22:24 | Progress Note ---
Subjective: The patient was seen in his room this afternoon accompanied by his . He was feeling quite well. He was up walking in his room without lightheadedness. He denied any chest pain or shortness of breath. He continued to have an occasional cough. We discussed again the importance of sitting upright and following dysphagia diet closely. INR continued to trend up today. He denies any bleeding. Objective Vital signs: Temperature 96.2 F L 03/13/17 15:14 Pulse Rate 109 H 03/13/17 16:34 Respiratory Rate 18 03/13/17 21:20 Blood Pressure 108/67 03/13/17 16:34 Pulse Oximetry 95 03/13/17 20:10 Height/Weight/BMI: Height 1.68 m Weight 74.5 kg Body Mass Index 26.4 Comments: GEN-alert, oriented, no acute distress HEENT-sclera anicteric, oropharynx is moist NECK-supple CV-regular rate and rhythm CHEST-decreased breath sounds in the bases, no rhonchi ABD-soft, nontender with positive bowel sounds -no [place] EXT-no edema NEURO-no focal deficits SKIN-warm and dry Results - Labs CBC & Chem 7: 03/12/17 03:56 03/13/17 04:05 Labs: INR today 4.23 up from 3.9 to yesterday Microbiology Results: Microbiology 03/09/17 20:47 Sputum, Expectorated Gram Stain - Final 03/09/17 20:47 Sputum, Expectorated Sputum Culture - Final Streptococcus viridans group Normal Resp Nadiya incl. Yeast 03/07/17 12:22 Urine Streptococcus pneumoniae Antigen (M - Final Assessment and Plan (1) Cardiomyopathy Problem details: Ejection fraction 25% 02/19/17, concentric LVH Current visit: No Status: Chronic 03/08/17 13:52 HFrEF EF 25% (2) HCAP (healthcare-associated pneumonia) Current visit: Yes Status: Acute 03/07/17 00:13 admit to inpatient care with cxs, IVF with normal lactate noted, triple antibiotics with vanco/azactam/levaquin based on noted allergies. If does not clinically improve after 2-3 days may need transfer for bronchoscopy/pulm eval. I was unaware of CT report/result prior to admit acceptance. Nebs and dose mucinex as well. (3) Chronic respiratory failure with hypoxia Current visit: Yes Status: Acute 03/07/17 00:14 stable requirement, but asbestosis/cause for need. Mention of COPD on record, but uncertain with no CT findings c/w emphysema, and would obstructive PFTs with the pleural plaques. Assessment and Plan: 03/13/2017 -Dr. Henson Impression Recurrent right lower lobe pneumonia, recent hospitalization Strep.viridans positive sputum culture Leukocytosis Pulmonary fibrosis Possible asbestosis seen on high resolution CT scan Dysphasia (oropharyngeal/esophageal), esophageal dysmotility Dehydration Ischemic cardiomyopathy/CAD Paroxysmal atrial fibrillation DJD CKD BPH Sinus tachycardia New inflammation and a fat-containing upper abdominal ventral hernia probably representing an incarcerated infarcted portion of the omentum.-Seen on CT abdomen-asymptomatic Plan The patient was doing quite well other than elevation of INR. He did not have any bleeding. Plan was for dismissal to home with close follow-up. Unfortunately, the patient developed hypotension which was asymptomatic. Coreg was decreased back to 6.25 mg twice daily instead of 9.375 twice daily. We will recheck INR tomorrow. Discussed steroid taper with Dr. Reyes. We'll discontinue antibiotics. Hopefully discharge tomorrow. Hospital Course Summary Disclaimer: The visit summary below is not to be considered part of the above Progress Note. Hospital Course: Recurrent right lower lobe pneumonia, recent hospitalization Strep.viridans positive sputum culture Leukocytosis Pulmonary fibrosis Possible asbestosis seen on high resolution CT scan Dysphasia (oropharyngeal/esophageal), esophageal dysmotility Dehydration Ischemic cardiomyopathy/CAD Paroxysmal atrial fibrillation DJD CKD BPH Sinus tachycardia New inflammation and a fat-containing upper abdominal ventral hernia probably representing an incarcerated infarcted portion of the omentum.-Seen on CT abdomen-asymptomatic The patient was admitted on 03/07/2017 Patient presents with recurrent pneumonia with high suspicion for aspiration based on dysphasia. Speech therapy evaluated and recommended pured diet with nectar thickened liquids with continued speech therapy. Patient was started on broad-spectrum antibiotics overnight with aztreonam, Levaquin, and vancomycin given potential for atypical exposure during recent hospitalization. Current antibiotics will be continued pending sputum culture and blood cultures. Strep pneumonia antigen was eventually negative. Respiratory viral panel has been sent and is negative. Home medications will be continued for multiple chronic problems. Pharmacy consulted to assist with dosing of vancomycin and warfarin. PT/OT consultations. Old records reviewed. Discussed with nursing and speech therapy. Over the hospital course, Azactam and vancomycin were discontinued. Levaquin was continued. Sputum culture was positive for strep viridans and clindamycin was added. Dr. Reyes was consulted regarding the patient's recurrent pneumonias, chronic respiratory failure with hypoxia, and pulmonary fibrosis. It was felt that his recurrent pneumonias were likely secondary to aspiration especially given strep. viridans found in sputum. The patient was placed on steroids and will be discharged on a steroid taper. Initially on admission, the patient was given IV fluids for sepsis and dehydration. He later needed Lasix for fluid overload. At this point he appears euvolemic with clear lung sounds and no edema. He will be dismissed off of Lasix. Regarding probable aspiration, the patient was followed by speech therapy. They are currently recommending that he sit up at 90 for all oral intake. He is on nectar thick liquids and soft diet. He can take his pills with putting. During the hospital course, the patient was started on Entresto and losartan was discontinued. He had some borderline sinus tachycardia and carvedilol was increased to 6.25 mg 1-1/2 tablets twice daily. He subsequently developed borderline hypotension and the Coreg was then decreased back to 6.25 mg 1 tablet twice daily. At the time of discharge, the patient's breathing had improved and he was on his baseline 2-3 L of oxygen per nasal cannula. He received over a week of antibiotics. Antibiotics were discontinued at the time of discharge. The patient had mild elevation of INR on admission as noted above. Warfarin was held for 2 days and then restarted at 3 mg a day on March 09 and March 10. Coumadin was then decreased to 2 mg on March 11. On March 12 INR was 3.92 and his Coumadin was held. On March 13 INR was 4.23 and Coumadin was held again. Plan is for outpatient monitoring on March 14 at [facility] [place] to be called to Dr. Madrid's office with instructions on when to resume Coumadin and when to repeat INR. I did call and talk with Dr. Madrid his nurse, Abril and discussed discharge plans with her Patient was started on iron and vitamin C for borderline low iron. He had a positive fecal occult blood 1. He did undergo an EGD and colonoscopy in May 2014 showing diverticulosis and hiatal hernia. He denied any abdominal pain and did not have any obvious rectal bleeding and no vomiting. Hemoglobin is stable at 11.7 at discharge. Hemoglobin was 14.1 on admission and likely elevated secondary to dehydration. The patient underwent high resolution CT scan which showed possible findings of asbestos exposure as noted above. Also seen was a ventral hernia with possible infarction of fat. I did discuss this with Dr. Thayer. He stated that with this being asymptomatic and with the patient's multiple chronic medical problems he would not recommend any treatment. I did discuss that with the patient and his . If the patient has abdominal pain he may need reevaluation , but has not had any abdominal pain with this hospitalization. 03/13/17 22:21 03/12/2017-I reviewed this chart, the patient history, and the PBX OPERATOR's/PA's documented findings as above. We discussed and formulated the assessment and plan as above with the additions below.-Dr. Henson The patient was seen today accompanied by his . He states his cough hasn't gotten much better over the past 3 weeks. He states that he was drinking thickened juice in bed today and had a coughing fit. He got up into the chair and is sitting upright at 90 and swallowing without a cough. I did recommend that he not try to eat, drink, or take any medications unless he is sitting upright at 90, and see if that helps with his cough. He denies any chest pain except when he is coughing. He denies having any abdominal pain. He had a bowel movement yesterday. He states he is urinating okay. He states he's getting up and walking with physical therapy once daily. He feels excited about possibly going home tomorrow. On exam he is alert and in no acute distress. He does not cough during my examination. Chest reveals decreased breath sounds throughout without wheezes or rhonchi. Cardio vascular reveals a borderline tachycardic rate with irregular rhythm. Abdomen is obese, soft and nontender and nondistended with positive bowel sounds. Extremities are free of edema. Skin is warm and dry and without rashes. High resolution CT chest Impression: 1. Stable appearance of the chest with areas of pulmonary fibrosis. Findings could represent asbestosis given the calcified pleural plaques suggesting asbestos exposure. No acute change or worsening since the recent comparison. 2. New inflammation in a fat-containing upper abdominal ventral hernia probably representing and incarcerated infarcted portion of the omentum. Impression and plan Re: Tachycardia, cortical was increased today. Place patient on telemetry and monitor. See how he tolerates increased dose. Regarding possible asbestosis on CT chest, patient and his state he was not exposed to asbestos but they are aware of. 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 Await recommendations from Dr. Reyes. Regarding elevation in potassium, potassium is on hold. He is on Lasix once daily and spironolactone. He is on an ARB. Recheck basic metabolic profile tomorrow. Regarding ventral hernia seen on CT above, will discuss with surgery communication electronic technician. Patient is asymptomatic. The patient's states "I don't know what to feed him on his new diet". We' ll consult the dietitian for help with food options.
[2017-03-13] MEDS: ONDANSETRON 4 MG/2 ML INJECTION IVP PRN (23:10)
[2017-03-14] MEDS: ALBUTEROL/IPRATROPIUM 2.5mg-0.5mg/3ml NEB AEROSOL SCH ×7 (04:02→22:55)
[2017-03-14] MEDS: OMEPRAZOLE 20 MG CAPSULE PO SCH (05:55)
[2017-03-14] MEDS: LEVOFLOXACIN 750 MG TABLET PO SCH (05:55)
[2017-03-14] MEDS: SACUBITRIL/VALSARTAN 24/26mg TABLET PO SCH ×2 (08:36→20:52)
[2017-03-14] MEDS: GUAIFENESIN 400MG TABLET PO SCH ×2 (08:36→20:53)
[2017-03-14] MEDS: CITALOPRAM 20 MG TABLET PO SCH (08:37)
[2017-03-14] MEDS: MULTI-VIT + MINERAL (Opti-gen) TABLET PO SCH (08:37)
[2017-03-14] MEDS: SPIRONOLACTONE 25 MG TABLET PO SCH (08:37)
[2017-03-14] MEDS: FERROUS SULFATE 324 MG TABLET PO SCH ×2 (08:38→17:14)
[2017-03-14] MEDS: ASPIRIN *EC* 81 MG TABLET PO SCH (08:38)
[2017-03-14] MEDS: FUROSEMIDE 40 MG TABLET PO SCH (08:38)
[2017-03-14] MEDS: ASCORBIC ACID 500 MG TABLET PO SCH ×2 (08:38→17:14)
[2017-03-14] MEDS: CARVEDILOL 6.25 MG TABLET PO SCH ×2 (08:39→17:14)
[2017-03-14] MEDS: CLINDAMYCIN 300 MG CAPSULE PO SCH ×4 (08:40→20:52)
[2017-03-14] MEDS: PredniSONE 20 MG TABLET PO SCH (08:40)
[2017-03-14] MEDS: FINASTERIDE 5 MG TABLET PO SCH (08:41)
--- NOTE | 2017-03-14 08:51 | Pulmonology Progress Note ---
Subjective Principal diagnosis: SOB Interval history: Pt sitting up in the chair. States still with cough, no sputum and no SOB noted today with ambulation on his 2L per NC. Was to go home yesterday but had some hypotension. Exam Vital signs: Temperature 97.5 F 03/14/17 07:57 Pulse Rate 97 03/14/17 07:48 Respiratory Rate 18 03/14/17 07:48 Blood Pressure 101/65 03/14/17 07:48 Pulse Oximetry 92 03/14/17 07:48 - Constitutional no acute distress, well developed - Routine HEENT Exam Head: Present: normocephalic, atraumatic Eye: Present: PERRL - Routine Neck Exam Present: supple, full ROM - Routine Chest/Breast/Axilla Exam Chest wall: Present: pacemaker - Routine Respiratory Exam Present: decreased breath sounds, crackles - Routine Cardiovascular Exam Present: RRR, no murmur - Routine Abdominal Exam Present: soft, normoactive bowel sounds - Routine Extremities Exam Present: no edema, full ROM - Routine Skin Exam Present: intact, dry - Routine Neurological Exam Present: alert, oriented X3, CN II-XII intact Progress Note-A&P - Time Spent With Patient Total time spent is greater than 50% in coordination of care (as documented) at patient's floor/unit and/or counseling patient: less than 15 minutes (1) Chronic respiratory failure with hypoxia Status: Acute Current Visit: Yes (2) Pulmonary fibrosis Problem details: 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 Currently on BT's with symbicort and a/a along with prednisone 40mg daily for his Pulmonary fibrosis. Was to dismiss yesterday but noted issues with hypotension, off coreg, still on lasix 40 daily , no edema noted. SBP 101 this am, follow per primary. Once dismissed will need to follow in our [facility] with Dr. Reyes, will need a PFT at time of appt also. Would continue him on the symbicort and wean his prednisone by 10mg every 3 days till off.
--- NOTE | 2017-03-14 09:14 | Pharmacy Consult ---
Pharmacy Consult-Warfarin - Laboratory Information 03/07/17 03/08/17 03/09/17 03:17 04:38 04:46 INR 3.03 H 3.15 H 2.18 H 03/10/17 03/11/17 03/12/17 03:54 04:01 03:56 INR 1.88 H 2.68 H 3.92 H 03/13/17 03/14/17 04:05 04:36 INR 4.23 H 2.61 H DINAH is a 77 yo male admitted with HCAP, who has a history of A. Fib. The home dose of Warfarin is reported as 3mg po daily. He takes it at bedtime at home.. Date INR Dose 03/07 3.03 3 mg given (03/06 @ 2100) 03/08 3.13 held. 03/09 2.18 3mg 03/10 1.88 3mg 03/11 2.65 2 mg 03/12 3.92 Held 03/13 4.23 Held 03/14 2.61 Plan 1 mg Noted multiple drug-drug interactions with: Citalopram 20mg po daily Levofloxacin 750mg po daily (New med to this patientand is most lilely to cause INR elevation.) Omeprazole 20mg po daily All of these meidcations can cause the INR to rise. I am going ro order warfarin 1 mg today. The pharmacy will closely monitor the INR and adjust the warfarin accordingly. Thank you for the Warfarin Dosing Protocol, Estevan Conley , Pharmacist.
[2017-03-14] MEDS: BUDESONIDE/FORMOTEROL 80/4.5mcg INHALER ORAL INH SCH ×2 (09:54→21:05)
[2017-03-14] MEDS: SALINE FLUSH 10ml SYRINGE IV PRN (11:19)
[2017-03-14] MEDS: NS 1,000 ML IV SCH ×2 (11:19→15:30)
[2017-03-14] MEDS ORDERED: WARFARIN 1 MG TABLET PO SCH (12:00)
--- NOTE | 2017-03-14 14:28 | Progress Note ---
Subjective: The patient was seen in his room this afternoon. I was called by his nurse this morning that his blood pressure was low. Lying was 79/49, sitting 88/56, standing 83/54. He denied any lightheadedness. I gave him a 1 L normal saline over 4 hours. He has had half of this so far. He denies any lightheadedness or shortness of breath. He denies any chest pain. He denies any palpitations. His cough is a little better today. He has no complaints. Objective Vital signs: Temperature 97.5 F 03/14/17 07:57 Pulse Rate 108 H 03/14/17 11:05 Respiratory Rate 16 03/14/17 11:21 Blood Pressure 102/65 03/14/17 11:05 Pulse Oximetry 96 03/14/17 11:21 Height/Weight/BMI: Height 1.68 m Weight 73.6 kg Body Mass Index 26.4 Comments: Telemetry did show a 10 beat run of V. tach that was asymptomatic GEN-alert, oriented, no acute distress CV-regular rate and rhythm CHEST-clear to auscultation bilaterally ABD-soft, nontender with positive bowel sounds -no [place] EXT-no edema NEURO-no focal deficits SKIN-warm and dry and without rashes Results - Labs CBC & Chem 7: 03/14/17 04:36 03/14/17 04:36 Labs: Neutrophils are 75%, bands 2%, INR 2.61 Microbiology Results: Microbiology 03/09/17 20:47 Sputum, Expectorated Gram Stain - Final 03/09/17 20:47 Sputum, Expectorated Sputum Culture - Final Streptococcus viridans group Normal Resp Nadiya incl. Yeast 03/07/17 12:22 Urine Streptococcus pneumoniae Antigen (M - Final Assessment and Plan (1) Cardiomyopathy Problem details: Ejection fraction 25% 02/19/17, concentric LVH Current visit: No Status: Chronic 03/08/17 13:52 HFrEF EF 25% (2) HCAP (healthcare-associated pneumonia) Current visit: Yes Status: Acute (3) Chronic respiratory failure with hypoxia Current visit: Yes Status: Acute Assessment and Plan: 03/14/2017 -Dr. Henson Impression Recurrent right lower lobe pneumonia, recent hospitalization Strep.viridans positive sputum culture Leukocytosis-likely secondary to steroids Pulmonary fibrosis Possible asbestosis seen on high resolution CT scan Dysphasia (oropharyngeal/esophageal), esophageal dysmotility-high risk for aspiration Dehydration Ischemic cardiomyopathy/CAD-on Coreg chronically, Entresto started Friday Paroxysmal atrial fibrillation DJD CKD BPH Sinus tachycardia New inflammation and a fat-containing upper abdominal ventral hernia probably representing an incarcerated infarcted portion of the omentum.-Seen on CT abdomen-asymptomatic Hypotension on 03/14/2017, I think his volume depletion likely secondary to Lasix which is not a chronic home meds. Supratherapeutic INR-improved Plan Re: Hypotension, I think this is volume depletion. DC Lasix. Give her 1 L fluid bolus. Recheck vitals. Regarding 10 beat run of nonsustained V. tach, I did discuss this with Dr. Madrid. He did not recommend any changes. The patient does have an AICD which did not fire. His AICD was interrogated a few weeks ago. Regarding recent medicine changes for cardiomyopathy, Dr. Madrid does agree with continuing entresto and coreg Hopefully discharge tomorrow if hypotension has resolved. Discussed with the patient, his , his nurse and Dr. Madrid. Hospital Course Summary Disclaimer: The visit summary below is not to be considered part of the above Progress Note. Hospital Course: Recurrent right lower lobe pneumonia, recent hospitalization Strep.viridans positive sputum culture Leukocytosis Pulmonary fibrosis Possible asbestosis seen on high resolution CT scan Dysphasia (oropharyngeal/esophageal), esophageal dysmotility Dehydration Ischemic cardiomyopathy/CAD Paroxysmal atrial fibrillation DJD CKD BPH Sinus tachycardia New inflammation and a fat-containing upper abdominal ventral hernia probably representing an incarcerated infarcted portion of the omentum.-Seen on CT abdomen-asymptomatic The patient was admitted on 03/07/2017 Patient presents with recurrent pneumonia with high suspicion for aspiration based on dysphasia. Speech therapy evaluated and recommended pured diet with nectar thickened liquids with continued speech therapy. Patient was started on broad-spectrum antibiotics overnight with aztreonam, Levaquin, and vancomycin given potential for atypical exposure during recent hospitalization. Current antibiotics will be continued pending sputum culture and blood cultures. Strep pneumonia antigen was eventually negative. Respiratory viral panel has been sent and is negative. Home medications will be continued for multiple chronic problems. Pharmacy consulted to assist with dosing of vancomycin and warfarin. PT/OT consultations. Old records reviewed. Discussed with nursing and speech therapy. Over the hospital course, Azactam and vancomycin were discontinued. Levaquin was continued. Sputum culture was positive for strep viridans and clindamycin was added. Dr. Reyes was consulted regarding the patient's recurrent pneumonias, chronic respiratory failure with hypoxia, and pulmonary fibrosis. It was felt that his recurrent pneumonias were likely secondary to aspiration especially given strep. viridans found in sputum. The patient was placed on steroids and will be discharged on a steroid taper. Initially on admission, the patient was given IV fluids for sepsis and dehydration. He later needed Lasix for fluid overload. At this point he appears euvolemic with clear lung sounds and no edema. He will be dismissed off of Lasix. Regarding probable aspiration, the patient was followed by speech therapy. They are currently recommending that he sit up at 90 for all oral intake. He is on nectar thick liquids and soft diet. He can take his pills with putting. During the hospital course, the patient was started on Entresto and losartan was discontinued. He had some borderline sinus tachycardia and carvedilol was increased to 6.25 mg 1-1/2 tablets twice daily. He subsequently developed borderline hypotension and the Coreg was then decreased back to 6.25 mg 1 tablet twice daily. At the time of discharge, the patient's breathing had improved and he was on his baseline 2-3 L of oxygen per nasal cannula. He received over a week of antibiotics. Antibiotics were discontinued at the time of discharge. The patient had mild elevation of INR on admission as noted above. Warfarin was held for 2 days and then restarted at 3 mg a day on March 09 and March 10. Coumadin was then decreased to 2 mg on March 11. On March 12 INR was 3.92 and his Coumadin was held. On March 13 INR was 4.23 and Coumadin was held again. Plan is for outpatient monitoring on March 14 at [facility] to be called to Dr. Madrid's office with instructions on when to resume Coumadin and when to repeat INR. I did call and talk with Dr. Madrid his nurse, Abril and discussed discharge plans with her Patient was started on iron and vitamin C for borderline low iron. He had a positive fecal occult blood 1. He did undergo an EGD and colonoscopy in May 2014 showing diverticulosis and hiatal hernia. He denied any abdominal pain and did not have any obvious rectal bleeding and no vomiting. Hemoglobin is stable at 11.7 at discharge. Hemoglobin was 14.1 on admission and likely elevated secondary to dehydration. The patient underwent high resolution CT scan which showed possible findings of asbestos exposure as noted above. Also seen was a ventral hernia with possible infarction of fat. I did discuss this with Dr. Thayer. He stated that with this being asymptomatic and with the patient's multiple chronic medical problems he would not recommend any treatment. I did discuss that with the patient and his . If the patient has abdominal pain he may need reevaluation , but has not had any abdominal pain with this hospitalization. 03/13/17 22:21 03/12/2017-I reviewed this chart, the patient history, and the RADIOLOGY RECEPTIONIST's/PA's documented findings as above. We discussed and formulated the assessment and plan as above with the additions below.-Dr. Henson The patient was seen today accompanied by his . He states his cough hasn't gotten much better over the past 3 weeks. He states that he was drinking thickened juice in bed today and had a coughing fit. He got up into the chair and is sitting upright at 90 and swallowing without a cough. I did recommend that he not try to eat, drink, or take any medications unless he is sitting upright at 90, and see if that helps with his cough. He denies any chest pain except when he is coughing. He denies having any abdominal pain. He had a bowel movement yesterday. He states he is urinating okay. He states he's getting up and walking with physical therapy once daily. He feels excited about possibly going home tomorrow. On exam he is alert and in no acute distress. He does not cough during my examination. Chest reveals decreased breath sounds throughout without wheezes or rhonchi. Cardio vascular reveals a borderline tachycardic rate with irregular rhythm. Abdomen is obese, soft and nontender and nondistended with positive bowel sounds. Extremities are free of edema. Skin is warm and dry and without rashes. High resolution CT chest Impression: 1. Stable appearance of the chest with areas of pulmonary fibrosis. Findings could represent asbestosis given the calcified pleural plaques suggesting asbestos exposure. No acute change or worsening since the recent comparison. 2. New inflammation in a fat-containing upper abdominal ventral hernia probably representing and incarcerated infarcted portion of the omentum. Impression and plan Re: Tachycardia, cortical was increased today. Place patient on telemetry and monitor. See how he tolerates increased dose. Regarding possible asbestosis on CT chest, patient and his state he was not exposed to asbestos but they are aware of. 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 Await recommendations from Dr. Reyes. Regarding elevation in potassium, potassium is on hold. He is on Lasix once daily and spironolactone. He is on an ARB. Recheck basic metabolic profile tomorrow. Regarding ventral hernia seen on CT above, will discuss with surgery telecommunications line mechanic. Patient is asymptomatic. The patient's states "I don't know what to feed him on his new diet". We' ll consult the dietitian for help with food options. 03/13/2017 -Dr. Henson Impression Recurrent right lower lobe pneumonia, recent hospitalization Strep.viridans positive sputum culture Leukocytosis Pulmonary fibrosis Possible asbestosis seen on high resolution CT scan Dysphasia (oropharyngeal/esophageal), esophageal dysmotility Dehydration Ischemic cardiomyopathy/CAD Paroxysmal atrial fibrillation DJD CKD BPH Sinus tachycardia New inflammation and a fat-containing upper abdominal ventral hernia probably representing an incarcerated infarcted portion of the omentum.-Seen on CT abdomen-asymptomatic Plan The patient was doing quite well other than elevation of INR. He did not have any bleeding. Plan was for dismissal to home with close follow-up. Unfortunately, the patient developed hypotension which was asymptomatic. Coreg was decreased back to 6.25 mg twice daily instead of 9.375 twice daily. We will recheck INR tomorrow. Discussed steroid taper with Dr. Reyes. We'll discontinue antibiotics. Hopefully discharge tomorrow.
[2017-03-14] MEDS: MENTHOL COUGH DROPS (RICOLA) MM PRN ×3 (16:03→21:02)
[2017-03-14] MEDS: MELATONIN 1 MG TABLET PO SCH (20:52)
[2017-03-14] MEDS: TAMSULOSIN 0.4 MG CAPSULE PO SCH (20:53)
[2017-03-14] MEDS: ATORVASTATIN 20 MG TABLET PO SCH (20:53)
[2017-03-14] MEDS: GUAIFENESIN/CODEINE 5ml ORAL LIQUID PO PRN (20:54)
[2017-03-15] MEDS: ALBUTEROL/IPRATROPIUM 2.5mg-0.5mg/3ml NEB AEROSOL SCH ×4 (02:55→15:50)
[2017-03-15] MEDS: BENZONATATE 200 MG CAPSULE PO PRN ×2 (04:04→11:44)
[2017-03-15] MEDS: MENTHOL COUGH DROPS (RICOLA) MM PRN ×2 (04:04→11:44)
[2017-03-15] MEDS: LEVOFLOXACIN 750 MG TABLET PO SCH (06:33)
[2017-03-15] MEDS: OMEPRAZOLE 20 MG CAPSULE PO SCH (06:33)
--- NOTE | 2017-03-15 07:55 | Pharmacy Consult ---
Pharmacy Consult-Warfarin - Laboratory Information 03/07/17 03/08/17 03/09/17 03:17 04:38 04:46 INR 3.03 H 3.15 H 2.18 H 03/10/17 03/11/17 03/12/17 03:54 04:01 03:56 INR 1.88 H 2.68 H 3.92 H 03/13/17 03/14/17 03/15/17 04:05 04:36 03:55 INR 4.23 H 2.61 H 2.16 H - Consult Information DINAH is a 77 yo male admitted with HCAP, who has a history of A. Fib. The home dose of Warfarin is reported as 3mg po daily. goal INR= 2.0-3.0 Date INR Dose 03/07 3.03 3 mg given (03/06 @ 2100) 03/08 3.13 held. 03/09 2.18 3mg 03/10 1.88 3mg 03/11 2.65 2 mg 03/12 3.92 Held 03/13 4.23 Held 03/14 2.61 1 mg 03/15 2.16 plan: 2 mg Noted multiple drug-drug interactions with: Citalopram 20mg po daily Levofloxacin 750mg po daily Omeprazole 20mg po daily All of these medications can cause the INR to rise. Will give warfarin 2 mg today. The pharmacy will closely monitor the INR and adjust the warfarin accordingly. Thank you for the Warfarin Dosing Protocol, Taisha Romero RPh
[2017-03-15 08:03] VITALS: TEMP 97.3
[2017-03-15] MEDS: ASCORBIC ACID 500 MG TABLET PO SCH (08:31)
[2017-03-15] MEDS: CLINDAMYCIN 300 MG CAPSULE PO SCH ×2 (08:31→13:38)
[2017-03-15] MEDS: FINASTERIDE 5 MG TABLET PO SCH (08:31)
[2017-03-15] MEDS: FERROUS SULFATE 324 MG TABLET PO SCH (08:31)
[2017-03-15] MEDS: CITALOPRAM 20 MG TABLET PO SCH (08:31)
[2017-03-15] MEDS: ASPIRIN *EC* 81 MG TABLET PO SCH (08:31)
[2017-03-15] MEDS: GUAIFENESIN 400MG TABLET PO SCH (08:31)
[2017-03-15] MEDS: PredniSONE 20 MG TABLET PO SCH (08:31)
[2017-03-15] MEDS: MULTI-VIT + MINERAL (Opti-gen) TABLET PO SCH (08:31)
[2017-03-15 09:01] VITALS: BP 119/66; PULSE 109
[2017-03-15] MEDS: SPIRONOLACTONE 25 MG TABLET PO SCH (09:03)
[2017-03-15] MEDS: CARVEDILOL 6.25 MG TABLET PO SCH (09:03)
[2017-03-15] MEDS: SACUBITRIL/VALSARTAN 24/26mg TABLET PO SCH (09:03)
[2017-03-15] MEDS: BUDESONIDE/FORMOTEROL 80/4.5mcg INHALER ORAL INH SCH (09:30)
[2017-03-15 11:19] VITALS: RESP 18; O2SAT 97
[2017-03-15] MEDS ORDERED: WARFARIN 2 MG TABLET PO SCH (12:00)
--- NOTE | 2017-03-15 15:01 | Discharge Summary ---
Discharge Information Date of admission: 03/06/17 22:58 Anticipated date of discharge: 03/15/17 Attending Physician: Francine Henson MD Primary care physician: Sylvain Ramírez MD Consults: 03/07/17 Pharmacy Consult [CONS] Routine Pharmacy Consult: Coumadin/Warfarin Comment: paroxysmal atrial fibrillation/cardiomyopathy 03/07/17 00:05 Dietary Consult [CONS] Routine Comment: states "I don't know what to feed him" Reason For Exam: help w food recs[facility] 03/10/17 10:12 Physician Consult [CONS] Routine Consulting Provider: Pravin Reyes Reason For Exam: pulmonary fibrosis, recurrent pneumonia Ordering Provider has Notified Dog Control Officer: Yes Comment: Fredi will text Dr Lemons - Discharge Diagnosis (1) Cardiomyopathy Status: Chronic (2) HCAP (healthcare-associated pneumonia) Status: Acute (3) Chronic respiratory failure with hypoxia Status: Chronic - Laboratory Labs: 03/15/17 13:28 03/14/17 04:36 - Microbiology Microbiology 03/09/17 20:47 Sputum, Expectorated Gram Stain - Final 03/09/17 20:47 Sputum, Expectorated Sputum Culture - Final Streptococcus viridans group Normal Resp Nadiya incl. Yeast 03/07/17 12:22 Urine Streptococcus pneumoniae Antigen (M - Final - Radiology Radiology: Chest x-ray 03/06/2017 FINDINGS: Areas of fibrosis and interstitial lung disease are again noted with possible slight increase in right lower lobe airspace consolidation adjacent to an elevated right hemidiaphragm. No pneumothorax or pleural effusion. Heart size and mediastinal contours are stable. Left pacemaker defibrillator. Pulmonary vascularity is stable. Scoliosis Impression: Chronic lung disease with possible superimposed right basilar pneumonia. Chest x-ray 03/09/2017 FINDINGS: Chronic lung abnormalities are redemonstrated with fibrosis. Chronically elevated presumably paralysed right hemidiaphragm. No pneumothorax. No definite pleural effusion. Prior right basilar airspace opacity is somewhat improved. There is chronic scarring along the diaphragmatic surface. Cardiomediastinal contours are stable. Impression: Overall chronic pulmonary abnormalities with fibrosis. No definite acute pneumonia currently. Recommend clinical and laboratory correlation. High-resolution CT chest Date of Exam: 03/12/17 Type of Exam(s): CT chest high res Indication: pulmonary fibrosis, bronchiectasis Comparison: Chest x-ray dated March 09, [address] dated February 18, 2017 Findings: Small calcified pleural plaques are again seen. Subpleural fibrotic changes bilaterally with areas of bronchiectasis in the medial aspect of both lower lobes. There is also an area of bronchiectasis and scar in the peripheral right upper lobe. No acute-appearing consolidative or lobar pneumonia seen. No pneumothorax or pleural effusion. The central airways are patent. Calcified granuloma in the right lower lobe. No axillary or mediastinal adenopathy by CT size criteria. Heart size is normal. Large hiatal hernia with a partially intrathoracic stomach. Scattered arterial vascular calcifications in the great vessels. Cardiac pacemaker defibrillator. Metallic artifact from a right shoulder prosthesis. The upper abdomen shows a fat-containing ventral hernia with new stranding in the fat best seen on axial images 60 through 63. Fascial defect diameter is approximately 1 cm. Hernia sac measures 2.9 x 1.5 x 3.8 cm in size. Impression: 1. Stable appearance of the chest with areas of pulmonary fibrosis. Findings could represent asbestosis given the calcified pleural plaques suggesting asbestos exposure. No acute change or worsening since the recent comparison. 2. New inflammation in a fat-containing upper abdominal ventral hernia probably representing and incarcerated infarcted portion of the omentum. Addendum: Impression #2 should read: New inflammation and a fat-containing upper abdominal ventral hernia probably representing an incarcerated infarcted portion of the omentum. The hernia sac is visible on the comparison CT from February 2017 but the inflammatory changes and stranding in the fat within the hernia sac are History of Present Illness HPI: Mr. Armstrong is a 77yo man with h/o CAD with ischemic CM, HTN, BPH, Hiatal hernia/ GERD/mckeon's and chronic hypoxic resp failure on 2L O2 for a year for unknown diagnosis with him denying COPD but perhaps the CHF. He was admitted to this facility 02/12-02/21/2017 for CAP and since home has been persistently weak with cough. Some pleurisy but no syncope or CP now. no other pain with him having an appetite but with emesis . 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 Please note that the patient was seen via telemedicine with nursing assistance on 03/06/2017. 03/13/17 15:21 HPI: Mr. Armstrong is a 77-year-old male with multiple chronic problems who was recently hospitalized with community-acquired pneumonia, acute hypoxic respiratory failure, and dysphasia. Evaluation suggested presbyesophagus in conjunction with large hiatal hernia. Antibiotic therapy was completed during the hospitalization and EGD was recommended in the near future. Patient return to the emergency room late yesterday evening complaining that he couldn't breathe and persistent cough causing chest pain. He denied sputum production but reports his chest feels very congested. He denies fevers, chills, or sweats. He reports sore throat and nasal congestion. Dyspnea has been worsening progressively as has cough since prior discharge. He is chronically on 3 L supplemental oxygen and was not hypoxic on arrival. In the emergency room the patient's indicated the patient has not been using his breathing treatments consistently because they trigger coughing spells. Chest x-ray demonstrated right lower lobe infiltrate and leukocytosis was present prompting admission for healthcare associated pneumonia. 03/14/2017 The patient was seen in his room this afternoon. I was called by his nurse this morning that his blood pressure was low. Lying was 79/49, sitting 88/56, standing 83/54. He denied any lightheadedness. I gave him a 1 L normal saline over 4 hours. He has had half of this so far. He denies any lightheadedness or shortness of breath. He denies any chest pain. He denies any palpitations. His cough is a little better today. He has no complaints. The patient did have a 10 beat run of VT for which he was asymptomatic. His ICD did not fire. 03/15/17 15:14 Today the patient is resting comfortably in bed. His is at bedside. His blood pressures are better. He would like to be discharged to home. His states that he is back to baseline from her standpoint and she is comfortable taking him home today. He denies feeling more short of breath than usual. He is wearing oxygen. He denies chest pain pressure or tightness. He denies lightheadedness or dizziness getting up to the bathroom. He does have a cough that this is not new. He frequently coughs so hard that he vomits. Again this is not new and the most recent occurrence was last night. His bowels are working. He is urinating without issues. They do not have home health at home that she states that she feels she's able to manage him just fine. Hospital Course This is a general summary of the patient's hospital course. For more details refer to the complete medical record. Hospital course: Recurrent right lower lobe pneumonia, recent hospitalization Strep.viridans positive sputum culture Leukocytosis Pulmonary fibrosis Possible asbestosis seen on high resolution CT scan Dysphasia (oropharyngeal/esophageal), esophageal dysmotility Dehydration Ischemic cardiomyopathy/CAD Paroxysmal atrial fibrillation DJD CKD BPH Sinus tachycardia New inflammation and a fat-containing upper abdominal ventral hernia probably representing an incarcerated infarcted portion of the omentum.-Seen on CT abdomen-asymptomatic The patient was admitted on 03/07/2017 Patient presents with recurrent pneumonia with high suspicion for aspiration based on dysphasia. Speech therapy evaluated and recommended pured diet with nectar thickened liquids with continued speech therapy. Patient was started on broad-spectrum antibiotics overnight with aztreonam, Levaquin, and vancomycin given potential for atypical exposure during recent hospitalization. Current antibiotics will be continued pending sputum culture and blood cultures. Strep pneumonia antigen was eventually negative. Respiratory viral panel has been sent and is negative. Home medications will be continued for multiple chronic problems. Pharmacy consulted to assist with dosing of vancomycin and warfarin. PT/OT consultations. Old records reviewed. Discussed with nursing and speech therapy. Over the hospital course, Azactam and vancomycin were discontinued. Levaquin was continued. Sputum culture was positive for strep viridans and clindamycin was added. Dr. Reyes was consulted regarding the patient's recurrent pneumonias, chronic respiratory failure with hypoxia, and pulmonary fibrosis. It was felt that his recurrent pneumonias were likely secondary to aspiration especially given strep. viridans found in sputum. The patient was placed on steroids and will be discharged on a steroid taper. Initially on admission, the patient was given IV fluids for sepsis and dehydration. He later needed Lasix for fluid overload. At this point he appears euvolemic with clear lung sounds and no edema. He will be dismissed off of Lasix. Regarding probable aspiration, the patient was followed by speech therapy. They are currently recommending that he sit up at 90 for all oral intake. He is on nectar thick liquids and soft diet. He can take his pills with putting. During the hospital course, the patient was started on Entresto and losartan was discontinued. He had some borderline sinus tachycardia and carvedilol was increased to 6.25 mg 1-1/2 tablets twice daily. He subsequently developed borderline hypotension and the Coreg was then decreased back to 6.25 mg 1 tablet twice daily. At the time of discharge, the patient's breathing had improved and he was on his baseline 2-3 L of oxygen per nasal cannula. He received over a week of antibiotics. Antibiotics were discontinued at the time of discharge. The patient had mild elevation of INR on admission as noted above. Warfarin was held for 2 days and then restarted at 3 mg a day on March 09 and March 10. Coumadin was then decreased to 2 mg on March 11. On March 12 INR was 3.92 and his Coumadin was held. On March 13 INR was 4.23 and Coumadin was held again. Plan is for outpatient monitoring on March 14 at [facility] to be called to Dr. Madrid's office with instructions on when to resume Coumadin and when to repeat INR. I did call and talk with Dr. Madrid his nurse, Abril and discussed discharge plans with her Patient was started on iron and vitamin C for borderline low iron. He had a positive fecal occult blood 1. He did undergo an EGD and colonoscopy in May 2014 showing diverticulosis and hiatal hernia. He denied any abdominal pain and did not have any obvious rectal bleeding and no vomiting. Hemoglobin is stable at 11.7 at discharge. Hemoglobin was 14.1 on admission and likely elevated secondary to dehydration. The patient underwent high resolution CT scan which showed possible findings of asbestos exposure as noted above. Also seen was a ventral hernia with possible infarction of fat. I did discuss this with Dr. Thayer. He stated that with this being asymptomatic and with the patient's multiple chronic medical problems he would not recommend any treatment. I did discuss that with the patient and his . If the patient has abdominal pain he may need reevaluation , but has not had any abdominal pain with this hospitalization. 03/13/17 22:21 03/12/2017-I reviewed this chart, the patient history, and the TURRET LATHE TENDER's/PA's documented findings as above. We discussed and formulated the assessment and plan as above with the additions below.-Dr. Henson The patient was seen today accompanied by his . He states his cough hasn't gotten much better over the past 3 weeks. He states that he was drinking thickened juice in bed today and had a coughing fit. He got up into the chair and is sitting upright at 90 and swallowing without a cough. I did recommend that he not try to eat, drink, or take any medications unless he is sitting upright at 90, and see if that helps with his cough. He denies any chest pain except when he is coughing. He denies having any abdominal pain. He had a bowel movement yesterday. He states he is urinating okay. He states he's getting up and walking with physical therapy once daily. He feels excited about possibly going home tomorrow. On exam he is alert and in no acute distress. He does not cough during my examination. Chest reveals decreased breath sounds throughout without wheezes or rhonchi. Cardio vascular reveals a borderline tachycardic rate with irregular rhythm. Abdomen is obese, soft and nontender and nondistended with positive bowel sounds. Extremities are free of edema. Skin is warm and dry and without rashes. High resolution CT chest Impression: 1. Stable appearance of the chest with areas of pulmonary fibrosis. Findings could represent asbestosis given the calcified pleural plaques suggesting asbestos exposure. No acute change or worsening since the recent comparison. 2. New inflammation in a fat-containing upper abdominal ventral hernia probably representing and incarcerated infarcted portion of the omentum. Impression and plan Re: Tachycardia, cortical was increased today. Place patient on telemetry and monitor. See how he tolerates increased dose. Regarding possible asbestosis on CT chest, patient and his state he was not exposed to asbestos but they are aware of. 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 Await recommendations from Dr. Reyes. Regarding elevation in potassium, potassium is on hold. He is on Lasix once daily and spironolactone. He is on an ARB. Recheck basic metabolic profile tomorrow. Regarding ventral hernia seen on CT above, will discuss with surgery recreation technician. Patient is asymptomatic. The patient's states "I don't know what to feed him on his new diet". We' ll consult the dietitian for help with food options. 03/13/2017 -Dr. Henson Impression Recurrent right lower lobe pneumonia, recent hospitalization Strep.viridans positive sputum culture Leukocytosis Pulmonary fibrosis Possible asbestosis seen on high resolution CT scan Dysphasia (oropharyngeal/esophageal), esophageal dysmotility Dehydration Ischemic cardiomyopathy/CAD Paroxysmal atrial fibrillation DJD CKD BPH Sinus tachycardia New inflammation and a fat-containing upper abdominal ventral hernia probably representing an incarcerated infarcted portion of the omentum.-Seen on CT abdomen-asymptomatic Plan The patient was doing quite well other than elevation of INR. He did not have any bleeding. Plan was for dismissal to home with close follow-up. Unfortunately, the patient developed hypotension which was asymptomatic. Coreg was decreased back to 6.25 mg twice daily instead of 9.375 twice daily. We will recheck INR tomorrow. Discussed steroid taper with Dr. Reyes. We'll discontinue antibiotics. Hopefully discharge tomorrow. 03/14/2017 -Dr. Henson Impression Recurrent right lower lobe pneumonia, recent hospitalization Strep.viridans positive sputum culture Leukocytosis-likely secondary to steroids Pulmonary fibrosis Possible asbestosis seen on high resolution CT scan Dysphasia (oropharyngeal/esophageal), esophageal dysmotility-high risk for aspiration Dehydration Ischemic cardiomyopathy/CAD-on Coreg chronically, Entresto started Friday Paroxysmal atrial fibrillation DJD CKD BPH Sinus tachycardia New inflammation and a fat-containing upper abdominal ventral hernia probably representing an incarcerated infarcted portion of the omentum.-Seen on CT abdomen-asymptomatic Hypotension on 03/14/2017, I think his volume depletion likely secondary to Lasix which is not a chronic home meds. Supratherapeutic INR-improved Plan Re: Hypotension, I think this is volume depletion. DC Lasix. Give her 1 L fluid bolus. Recheck vitals. Regarding 10 beat run of nonsustained V. tach, I did discuss this with Dr. Madrid. He did not recommend any changes. The patient does have an AICD which did not fire. His AICD was interrogated a few weeks ago. Regarding recent medicine changes for cardiomyopathy, Dr. Madrid does agree with continuing entresto and coreg Hopefully discharge tomorrow if hypotension has resolved. Discussed with the patient, his , his nurse and Dr. Madrid. 03/15/2017 The patient is doing much better today. His blood pressures are better with the Lasix discontinued. The Entresto is a naturetic and often times the pts do well off diuretics. His reports he is back to baseline today. He was getting up to the bathroom without symptoms of lightheadedness or dizziness. He is breathing was back to baseline. His lungs are diminished but fairly clear. His heart is fairly regular. He has no lower extremity edema. His abdomen is soft, nontender with positive bowel sounds. He has oxygen via nasal cannula in place. The patient is felt to be stable for discharge with close follow-up. Time spent with patient: 25 - 35 minutes Discharge Plan - Med Rec/Dispo Referrals/Follow Up: Pravin Reyes MD [Physician] - (Follow-up in one week. [facility] in the afternoon if possible.) Sylvain Ramírez MD [Family Provider] - 1 Week Macario Madrid MD [Physician] - (Follow-up in 2-3 weeks regarding new medications) Ana Instructions: Pneumonia (GEN), Chronic Respiratory Failure (DC) Prescriptions: New Ascorbic Acid [Vitamin C] 250 mg PO BIDWM tablet Benzonatate [Tessalon Perles] 200 mg PO TID PRN #20 cap PRN Reason: Cough SACUBITRIL/VALSARTAN 24/26mg [ENTRESTO 24/26mg] 1 tab PO BID #60 tab Ferrous Sulfate [Feosol] 324 mg PO BIDWM #60 tab predniSONE [Prednisone] 10 mg PO DAILY #18 tab # Warfarin Protocol # [Coumadin Protocol] 3 mg PO DAILY #0 tab Continue Citalopram Hydrobromide [Citalopram HBr] 20 mg PO DAILY #0 Mv-Min/FA/Vit K/Lycop/Lut/Zeax [Ocuvite Eye + Multi Tablet] 1 tab PO DAILY Albuterol HFA Inhaler [Ventolin Hfa 90 mcg/actuation] 2 puff ORAL INH Q4HR PRN 30 Days #1 inhaler PRN Reason: Shortness Of Air/Wheezing Albuterol Neb (0.083%) [Proventil Neb (0.083%)] 5 mg AEROSOL Q6H 30 Days # 120 neb Budesonide/Formoterol 80/4.5 [Symbicort Inhaler] 2 puff ORAL INH RTBID 30 Days #1 inhaler Spironolactone [Aldactone] 12.5 mg PO DAILY 30 Days #16 tab Finasteride 5 mg PO DAILY #0 Atorvastatin Calcium [Lipitor] 20 mg PO HS #0 Tamsulosin HCl 0.4 mg PO HS #0 Omeprazole 20 mg PO DAILY #0 Melatonin 1 mg PO HS Acetaminophen [Tylenol] 500 mg PO Q5H PRN tablet PRN Reason: Discomfort Aspirin *EC* [Ecotrin] 81 mg PO DAILY tablet Carvedilol [Coreg] 6.25 mg PO BIDWM Discontinued Warfarin [Coumadin] 3 mg PO HS Losartan Potassium 50 mg PO DAILY #0 Discharge Instructions/Outpatient Orders: Final Provider Discharge Instructions Location: Determined By Patient - Disposition 01 Discharged Home, Self-Care
== END 2017-03-15 16:05 | disposition home health service (06) | DRG 194 ==
LOC: ED 20:45 → MED 22:58 → SUATTDRO 22:58 → MED 23:20
PROVIDERS: ADMIT Hospitalist; ATTEND Internal Medicine

== ENCOUNTER 2017-03-16 01:09 | Inpatient (IN) ==
--- NOTE | 2017-03-16 01:50 | Emergency Department Report ---
General Adult HPI - General Chief complaint: Upper Respiratory Infection Stated complaint: Coughing up blood Time Seen by Provider: 03/16/17 01:39 Source: patient, family Mode of arrival: wheelchair Limitations: no limitations - History of Present Illness HPI narrative: 77-year-old male presents to the emergency department with a chief complaint of hemoptysis. Patient was released from [facility] this afternoon where he was being treated for pneumonia. Patient has not filled his antibiotic prescription since being discharged from the hospital. Patient denies any pain or discomfort. Patient had a coughing fit and produced a small amount of bright red hemoptysis at home. This was brought in by the . Patient denies any other complaints or associated symptoms. Patient is anticoagulated on Coumadin. Patient was at home when his symptoms occurred. Patient is currently asymptomatic. - Related Data Home Medications Medication Instructions Recorded Confirmed Atorvastatin Calcium [Lipitor] 20 mg PO HS #0 05/18/14 03/06/17 Finasteride 5 mg PO DAILY #0 05/18/14 03/06/17 Tamsulosin HCl 0.4 mg PO HS #0 05/18/14 03/06/17 Omeprazole 20 mg PO DAILY #0 02/21/16 03/06/17 Melatonin 1 mg PO HS 01/13/17 03/06/17 Mv-Min/FA/Vit K/Lycop/Lut/Zeax 1 tab PO DAILY 01/13/17 03/06/17 [Ocuvite Eye + Multi Tablet] Carvedilol [Coreg] 6.25 mg PO BIDWM 03/06/17 03/06/17 Previous Rx's Medication Instructions Recorded Acetaminophen [Tylenol] 500 mg PO Q5H PRN tablet 02/21/17 Albuterol HFA Inhaler [Ventolin 2 puff ORAL INH Q4HR PRN 30 Days 02/21/17 Hfa 90 mcg/actuation] #1 inhaler Albuterol Neb (0.083%) [Proventil 5 mg AEROSOL Q6H 30 Days #120 neb 02/21/17 Neb (0.083%)] Aspirin *EC* [Ecotrin] 81 mg PO DAILY tablet 02/21/17 Budesonide/Formoterol 80/4.5 2 puff ORAL INH RTBID 30 Days #1 02/21/17 [Symbicort Inhaler] inhaler Spironolactone [Aldactone] 12.5 mg PO DAILY 30 Days #16 tab 02/21/17 Ascorbic Acid [Vitamin C] 250 mg PO BIDWM tablet 03/13/17 Benzonatate [Tessalon Perles] 200 mg PO TID PRN #20 cap 03/13/17 Ferrous Sulfate [Feosol] 324 mg PO BIDWM #60 tab 03/13/17 SACUBITRIL/VALSARTAN 24/26mg 1 tab PO BID #60 tab 03/13/17 [ENTRESTO 24/26mg] predniSONE [Prednisone] 10 mg PO DAILY #18 tab 03/13/17 # Warfarin Protocol # [Coumadin 3 mg PO DAILY #0 tab 03/15/17 Protocol] Allergies Allergy/AdvReac Type Severity Reaction Status Date / Time Penicillins Allergy Unknown Verified 03/16/17 01:41 lisinopril AdvReac Unknown COUGH Verified 03/16/17 01:41 Review of Systems Constitutional: Denies: fever, chills Eyes: Denies: eye pain, vision change ENT: Denies: ear pain, throat pain Cardiovascular: Denies: chest pain, palpitations Respiratory: Reports: cough, hemoptysis. Denies: dyspnea Gastrointestinal: Denies: abdominal pain, nausea, vomiting, diarrhea Genitourinary: Denies: urgency, dysuria Musculoskeletal: Denies: back pain, arthralgia Integumentary: Denies: erythema, rash Neurological: Denies: headache, numbness Psychiatric: Denies: anxiety, depression Endocrine: Denies: fatigue, heat or cold intolerance Hematological/Lymphatic: Denies: easy bleeding, easy bruising Allergic/Immunologic: Denies: facial swelling, urticaria PFSH Patient Stated Medical History Cerebrovascular Accident Yes Cataracts Yes Dental Problems Yes Dysphagia Yes Macular Degeneration Yes Coronary Artery Disease Yes Myocardial Infarction Yes Pneumonia Yes: feb 2016 Gastroesophageal Reflux Yes Disease Hx Incontinence Yes Hx Kidney Stones Yes Surgical History: AICD. CABG. Inguinal hernia. Total knee. 05/19/2014 Colonoscopy - Diverticulosis. 05/19/2014 EGD - Hiatal hernia (No Barrets, H.Pylori neg) Family History: Reviewed and noncontributory. - Social History Smoking status: Never smoker Physical Exam - Limitations Limitations: no limitations - General General appearance: alert, in no apparent distress - Normal Exams: Head:: Normocephalic without trauma Eyes:: Pupils are PERRLA w/ EOMI, No scleral icterus, irritation, or foreign bodies noted ENMT:: No facial trauma, nasal exudates, pharyngeal erythema, or exudates are noted Dental: No fractured, loose, or missing teeth noted Neck:: Full range of motion, without adenopathy, JVD, bruits or thyromegaly Chest/Respirations:: Clear all akins, with good airflow, and symmetry bilaterally Cardiovascular:: Regular rate and rhythm, without murmur or gallop, Pulses 2+ all extremities, capillary refill, <2 seconds all extremities Abdomen:: Bowel sounds positive, soft, non-tender, non-distended, no hepatosplenomegaly, masses or bruits noted Lymphatic:: No lymphadenopathy, or lymphedema noted Musculoskeletal:: No tenderness, or deformity noted, good range of motion, all extremities Integumentary:: No rashes, hives, or bruising noted, hair and nails, without abnormality Neurological:: Patient is alert, and oriented, cranial nerves, motor/sensory/ cerebellar, exams w/o gross deficits, to observation Psychiatric:: Patient exhibits, appropriate attention, emotion and affect Course Vital Signs Temperature 97.8 F 03/16/17 01:20 Pulse Rate 106 H 03/16/17 01:20 Respiratory Rate 20 03/16/17 01:20 Blood Pressure 95/59 03/16/17 01:20 Pulse Oximetry 97 03/16/17 01:20 Temperature 97.8 F 03/16/17 01:20 Pulse Rate 106 H 03/16/17 01:20 Respiratory Rate 20 03/16/17 01:20 Blood Pressure 95/59 03/16/17 01:20 Pulse Oximetry 97 03/16/17 01:20 Medical Decision Making - [facility] Narrative Medical decision making narrative: Labs / imaging were discussed in detail with the patient and family and questions are answered. Patient is given gentle IV hydration. Patient is started on Levaquin 750 mg IV 1 in the emergency department after blood cultures and lactic acid are obtained. Patient was given Solu-Medrol 60 mg IV times one. Patient was started on the Levaquin at 0315 when sepsis was considered. Patient and family request to have the patient made a DO NOT RESUSCITATE upon admission to the hospital. Patient and family are in agreement with the current plan of management. Patient was discussed with the hospitalist Dr. Barbosa and admitted to the service of the hospitalist in improved condition. No further orders from accepting physician who is in agreement with the current plan of management. Levaquin 750 mg IV 1 was ordered at 0315 when sepsis was considered. - Differential Diagnosis pneumonia, bronchiectasis, supratherapeutic INR, dehydration, metabolic pro - Lab Data Result diagrams: 03/16/17 02:10 03/16/17 02:10 Lab Results 03/16/17 03/16/17 03/16/17 Range/Units 02:10 02:10 02:10 WBC 22.4 H (4.5-11.0) T/MM3 RBC 3.71 L (4.50-5.90) M/MM3 Hgb 11.2 L (13.5-17.5) GM/DL Hct 34.4 L (41-53) % MCV 92.7 (80-100) UM3 MCH 30.2 (26-34) UUG MCHC 32.6 (31-37) GM/DL RDW Std Deviation 46.1 (36.9-50.2) FL Plt Count 236 (130-400) T/MM3 MPV 9.7 (9.4-12.4) UM3 Immature Gran % (Auto) Not performed Neut % (Auto) Not performed Lymph % (Auto) Not performed [place] % (Auto) Not performed Eos % (Auto) Not performed Baso % (Auto) Not performed Neut # (Auto) Not performed Lymph # (Auto) Not performed [place] # (Auto) Not performed Eos # (Auto) Not performed Baso # (Auto) Not performed Abs Immat Gran (auto) Not performed Neutrophils % (Manual) 83.0 H (33-66) % Lymphocytes % (Manual) 14.0 L (23-45) % Monocytes % (Manual) 3.0 (0-9.0) % Neutrophils # (Manual) 18.6 H (1.8-7.7) T/MM3 Lymphocytes # (Manual) 3.1 (1-4.8) T/MM3 Monocytes # (Manual) 0.7 (0-0.8) T/MM3 RBC Morph Comment Normal INR 2.50 H (0.99-1.21) Turbidity < 20 (0-20) Sodium 136 (134-144) MEQ/L Potassium 5.2 H (3.6-5) MEQ/L Chloride 100 (98-107) MEQ/L Carbon Dioxide 30 (22-30) MEQ/L Anion Gap 6 (5-15) MEQ/L BUN 32.0 H (9-20) MG/DL Creatinine 1.2 (0.8-1.5) MG/DL GFR Calculation 58 BUN/Creatinine Ratio 27 H (6-26) RATIO Glucose 126 H (75-110) MG/DL Calculated Osmolality 271 (261-280) MOSM/KG Calcium 8.7 (8.4-10.2) MG/DL Total Bilirubin < 0.10 L (0.20-1.30) MG/DL Icterus Index < 2 (0-7) AST 17 (17-59) U/L ALT 39 (21-72) U/L Alkaline Phosphatase 56 (38-126) U/L Troponin I 0.047 (0-0.12) ng/ml Total Protein 6.1 L (6.3-8.2) G/DL Albumin 3.1 L (3.5-5.0) G/DL Globulin 3.0 (2.4-3.6) G/DL Albumin/Globulin Ratio 1.0 L (1.1-2.2) RATIO Plasma Lactate (0.6-2.2) MMOL/L Procalcitonin NG/ML Specimen Hemolysis < 15 (0-25) 03/16/17 03/16/17 Range/Units 03:22 03:22 WBC (4.5-11.0) T/MM3 RBC (4.50-5.90) M/MM3 Hgb (13.5-17.5) GM/DL Hct (41-53) % MCV (80-100) UM3 MCH (26-34) UUG MCHC (31-37) GM/DL RDW Std Deviation (36.9-50.2) FL Plt Count (130-400) T/MM3 MPV (9.4-12.4) UM3 Immature Gran % (Auto) Neut % (Auto) Lymph % (Auto) [place] % (Auto) Eos % (Auto) Baso % (Auto) Neut # (Auto) Lymph # (Auto) [place] # (Auto) Eos # (Auto) Baso # (Auto) Abs Immat Gran (auto) Neutrophils % (Manual) (33-66) % Lymphocytes % (Manual) (23-45) % Monocytes % (Manual) (0-9.0) % Neutrophils # (Manual) (1.8-7.7) T/MM3 Lymphocytes # (Manual) (1-4.8) T/MM3 Monocytes # (Manual) (0-0.8) T/MM3 RBC Morph Comment INR (0.99-1.21) Turbidity (0-20) Sodium (134-144) MEQ/L Potassium (3.6-5) MEQ/L Chloride (98-107) MEQ/L Carbon Dioxide (22-30) MEQ/L Anion Gap (5-15) MEQ/L BUN (9-20) MG/DL Creatinine (0.8-1.5) MG/DL GFR Calculation BUN/Creatinine Ratio (6-26) RATIO Glucose (75-110) MG/DL Calculated Osmolality (261-280) MOSM/KG Calcium (8.4-10.2) MG/DL Total Bilirubin (0.20-1.30) MG/DL Icterus Index (0-7) AST (17-59) U/L ALT (21-72) U/L Alkaline Phosphatase (38-126) U/L Troponin I (0-0.12) ng/ml Total Protein (6.3-8.2) G/DL Albumin (3.5-5.0) G/DL Globulin (2.4-3.6) G/DL Albumin/Globulin Ratio (1.1-2.2) RATIO Plasma Lactate 2.5 H (0.6-2.2) MMOL/L Procalcitonin < 0.05 NG/ML Specimen Hemolysis (0-25) - Radiology Data No obvious acute processes on chest x-ray which is similar to comparison exam. - EKG Data EKG #1 EKG results narrative: Sinus tachycardia. 114 bpm. No STEMI. No reciprocal changes. No chest pain. EKG is similar to 03/06/17. Disposition Clinical Impression: Hemoptysis Disposition: To [facility] Condition: Stable Time of Disposition: 03:10 - Seen By: physician
[2017-03-16] MEDS ORDERED: NS 1,000 ML IV ONE (03:09)
[2017-03-16] MEDS: LEVOFLOXACIN PB 750 MG/150 ML BAG IV SCH (03:31)
[2017-03-16] MEDS: SALINE FLUSH 10ml SYRINGE IVF PRN (03:33)
[2017-03-16] MEDS: METHYLPREDNISOLONE SOD SUCC 125mg/2ml INJECTION IVP SCH ×2 (03:33→10:33)
[2017-03-16] MEDS ORDERED: HYDROCODONE/APAP 7.5 MG/325 MG TABLET PO PRN (05:13)
[2017-03-16] MEDS ORDERED: ONDANSETRON 4 MG/2 ML INJECTION IVP PRN (05:13)
--- NOTE | 2017-03-16 06:10 | History & Physical Report ---
History of Present Illness Date: 03/16/17 Chief complaint: hemoptysis HPI: pleasant 77-year-old male was just discharged from the hospital yesterday morning after a stay for treatment for pneumonia. He has pulmonary fibrosis and bronchiectasis. He had strep viridans pronoun in this area. Review of the records indicate there were concern for aspiration though he denies having any new episodes at home. He was actually feeling pretty good, but after lunch had a relatively severe coughing fits where he thought he coughed up blood sugars, his describes that he had some sputum with flecks of clotted blood in them. He felt ill for a short while with that but actually feels ok and back to how he fabricio when discharged from the hospital recently Review of Systems All systems PM: 10-point ROS was reviewed, no additional remarkable complaints except PFSH Patient Stated Medical History Cerebrovascular Accident Yes Cataracts Yes Dental Problems Yes Dysphagia Yes Macular Degeneration Yes Coronary Artery Disease Yes Hypertension Yes Myocardial Infarction Yes Bronchitis Yes Pneumonia Yes: current Gastroesophageal Reflux Yes Disease Hiatal Hernia Yes Hx Benign Prostatic Yes Hyperplasia Hx Incontinence Yes Hx Kidney Stones Yes Surgical History: AICD. CABG. Inguinal hernia. Total knee. 05/19/2014 Colonoscopy - Diverticulosis. 05/19/2014 EGD - Hiatal hernia (No Barrets, H.Pylori neg) - Social History Smoking status: Never smoker Medications Home Medications Medication Instructions Recorded Confirmed Type Atorvastatin Calcium [Lipitor] 20 mg PO HS #0 05/18/14 03/16/17 History Finasteride 5 mg PO DAILY #0 05/18/14 03/16/17 History Tamsulosin HCl 0.4 mg PO HS #0 05/18/14 03/16/17 History Omeprazole 20 mg PO DAILY #0 02/21/16 03/16/17 History Melatonin 1 mg PO HS 01/13/17 03/16/17 History Mv-Min/FA/Vit K/Lycop/Lut/Zeax 1 tab PO DAILY 01/13/17 03/16/17 History [Ocuvite Eye + Multi Tablet] Carvedilol [Coreg] 6.25 mg PO BIDWM 03/06/17 03/16/17 History Allergies Allergy/AdvReac Type Severity Reaction Status Date / Time Penicillins Allergy Unknown Verified 03/16/17 01:41 lisinopril AdvReac Unknown COUGH Verified 03/16/17 01:41 Exam Vital Signs: Temperature 96.9 F 03/16/17 05:25 Pulse Rate 111 H 03/16/17 05:25 Respiratory Rate 18 03/16/17 05:25 Blood Pressure 122/74 03/16/17 05:25 Pulse Oximetry 95 03/16/17 05:25 Height/Weight/BMI: Height 1.68 m Weight 75.2 kg Body Mass Index 26.7 - Routine Psychiatric Exam Present: good insight - Additional findings Additional findings: generally is pleasant is sitting up in bed and is in no distress Nasal cannula oxygen in place HEENT is clear otherwise Lungs with fair air movement with diffuse mild crackles bilaterally Cardiovascular is regular without murmur gallop or rub Abdomen soft obese benign nontender Extremities trace edema Generally weak but not focally so Results - Labs CBC & Chem 7: 03/16/17 02:10 03/16/17 02:10 Assessment and Plan (1) Hemoptysis Current visit: Yes Status: Acute initially I didn't perceive this was a larger amount than it sounds like it was. The patient appears to be pretty much where he was when he left the hospital. His white count is elevated 20,000, this could be related to infection worsening or could just be from the effects. I've asked the emergency room to give him IV Levaquin, and he received a dose of IV steroids as well. Last seen to reassess need for further antibiotics with the recent strep species noted. He may be fine to dc home after some additional observation, perhaps not surprising to have a bit of blood with his INR 2.5 and infml inflammed airways 03/16/17 06:12 (2) Diffuse idiopathic pulmonary fibrosis Current visit: No Status: Chronic (3) COPD (chronic obstructive pulmonary disease) Current visit: No Status: Acute (4) Coronary artery disease Current visit: No Status: Chronic (5) Cardiomyopathy Problem details: Ejection fraction 25% 02/19/17, concentric LVH Current visit: No Status: Chronic (6) HCAP (healthcare-associated pneumonia) Current visit: No Status: Acute 03/16/17 06:14 recently had been treated with vancomycin and aztreonam, I don't think we need to resume those at this moment, but reassessing with pulm input may be a good idea (7) Chronic respiratory failure with hypoxia Current visit: No Status: Chronic (8) Dysphagia Current visit: No Status: Acute (9) Pulmonary fibrosis Problem details: 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) Current visit: No Status: Acute (10) Paroxysmal atrial fibrillation Current visit: Yes Status: Acute Resuscitation Status: Do Not Resuscitate Assessment and Plan: Recurrent right lower lobe pneumonia, recent hospitalization Strep.viridans positive sputum culture Leukocytosis-likely secondary to steroids but higher Pulmonary fibrosis Possible asbestosis seen on high resolution CT scan Dysphasia (oropharyngeal/esophageal), esophageal dysmotility-high risk for aspiration Dehydration Ischemic cardiomyopathy/CAD-on Coreg chronically, Entresto started Friday Paroxysmal atrial fibrillation DJD CKD BPH Sinus tachycardia Hospital Course Summary Disclaimer: The visit summary below is not to be considered part of the above Progress Note.
--- NOTE | 2017-03-16 09:01 | XRay Report ---
Indication: Cough PROCEDURE: XR chest 1V: Encounter: Initial Comparison: Chest CT dated March 12, 2017 Findings: Chest is stable with an elevated right hemidiaphragm and calcified pleural plaques. No focal pneumonia appreciated. Subpleural fibrotic changes. No pneumothorax. Heart size and mediastinal contours are unchanged. Left pacemaker defibrillator. Impression: Stable appearance of the chest. .
[2017-03-16] MEDS ORDERED: WARFARIN 1 MG TABLET PO SCH (12:00)
[2017-03-16] MEDS ORDERED: BENZONATATE 200 MG CAPSULE PO PRN (13:22)
[2017-03-16] MEDS ORDERED: ACETAMINOPHEN 500 MG TABLET PO PRN (13:22)
[2017-03-16] MEDS ORDERED: ASPIRIN *EC* 81 MG TABLET PO SCH (13:30)
[2017-03-16] MEDS ORDERED: SPIRONOLACTONE 25 MG TABLET PO SCH (13:30)
--- NOTE | 2017-03-16 13:34 | Progress Note ---
Subjective: Mr. Armstrong is a 77-year-old male patient with pulmonary fibrosis and bronchiectasis with chronic respiratory failure, cardiomyopathy with systolic heart failure and EF 25% on echo done this year. He has had multiple admissions for pneumonia most recently from 03/07/17 to 03/15/17. He was discharged on the on PO levofloxacin. For a long time the patient he has an ICD. He has had cough induced emesis. This dates back to the part of February and the end of January. At times he has noted coffee grown emesis. Once the patient was home last evening he coughed hard again, producing blood tinged sputum. Subsequently he presented to the emergency room. He initially didn't feel well but by the time he was admitted through the ER he was feeling much better. His white blood count had come up a bit from discharge. He was afebrile. He was admitted with the tele-hospitalist services. This morning the patient feels fine. He is not coughing as much. He's resting comfortably in bed. was not in the room this morning when I evaluated the patient. Objective Vital signs: Temperature 96.1 F L 03/16/17 07:19 Pulse Rate 121 H 03/16/17 08:25 Respiratory Rate 16 03/16/17 07:54 Blood Pressure 128/69 03/16/17 07:19 Pulse Oximetry 92 03/16/17 07:54 Height/Weight/BMI: Height 1.68 m Weight 74.1 kg Body Mass Index 26.7 Comments: Gen: alert and oriented. Resting comfortably. Non-labored breathing. O2 via NC Skin: warm and dry. HEENT: NC/AT PERRL, EOMI, Sclera, Lids and conjunctiva wnl. MMM. OP clear. Lungs: diminished breath sounds with dry crackles. Cardio: regular rate and rhythm without murmur gallop or rub Abdomen: soft, obese, nontender, +BS Extremities: no edema Neuro: no focal deficits Results - Labs CBC & Chem 7: 03/16/17 02:10 03/16/17 02:10 Assessment and Plan (1) Coronary artery disease Current visit: No Status: Chronic (2) Cardiomyopathy Problem details: Ejection fraction 25% 02/19/17, concentric LVH Current visit: No Status: Chronic (3) Diffuse idiopathic pulmonary fibrosis Current visit: No Status: Chronic (4) COPD (chronic obstructive pulmonary disease) Current visit: No Status: Acute (5) HCAP (healthcare-associated pneumonia) Current visit: No Status: Acute 03/16/17 06:14 recently had been treated with vancomycin and aztreonam, I don't think we need to resume those at this moment, but reassessing with pulm input may be a good idea (6) Chronic respiratory failure with hypoxia Current visit: No Status: Chronic (7) Dysphagia Current visit: No Status: Acute (8) Pulmonary fibrosis Problem details: 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 The patient appears to be pretty much where he was when he left the hospital. His white count is elevated 20,000, this could be related to infection worsening or could just be from the effects. I've asked the emergency room to give him IV Levaquin, and he received a dose of IV steroids as well. Last seen to reassess need for further antibiotics with the recent strep species noted. He may be fine to dc home after some additional observation, perhaps not surprising to have a bit of blood with his INR 2.5 and infml inflammed airways 03/16/17 06:12 (10) Paroxysmal atrial fibrillation Current visit: Yes Status: Acute Assessment and Plan: 1. Hemoptysis -This is not new. -INR upper therapeutic -No further episodes. 2. Recurrent right lower lobe pneumonia -Strep.viridans positive sputum culture -Leukocytosis -Pt on titrating dose of po steroids -CXR relatively unchanged 3. Pulmonary fibrosis -Possible asbestosis seen on high resolution CT scan -On steroids 4. Dysphasia (oropharyngeal/esophageal), esophageal dysmotility-high risk for aspiration 5. Ischemic cardiomyopathy -on Coreg chronically, Entresto started this past Friday 6. Paroxysmal atrial fibrillation -On coreg for rate control -On coumadin-Daily INR with coumadin dosing daily 7. CAD -Statin, BBL, ARB (entresto) -Not on asa 7. CKD-Stage 3A -stable 8. Prophylaxis -DVT with Coumadin -GI with PPI Hospital Course Summary Disclaimer: The visit summary below is not to be considered part of the above Progress Note.
[2017-03-16] MEDS: PredniSONE 10 MG TABLET PO SCH (13:56)
[2017-03-16] MEDS: OMEPRAZOLE 20 MG CAPSULE PO SCH (13:56)
[2017-03-16] MEDS: CARVEDILOL 6.25 MG TABLET PO SCH ×2 (13:57→16:41)
[2017-03-16] MEDS ORDERED: WARFARIN 1 MG TABLET PO ONE (15:18)
--- NOTE | 2017-03-16 15:21 | Pharmacy Consult ---
Pharmacy Consult-Warfarin - Consult Information We will give warfarin 1mg p.o. today and will continue to follow through warfarin protocol. Thanks
[2017-03-16] MEDS: ALBUTEROL 2.5mg/3ml (0.083%) NEB AEROSOL SCH ×2 (15:41→20:43)
[2017-03-16] MEDS ORDERED: NS 1,000 ML IV SCH (16:30)
[2017-03-16] MEDS: ASCORBIC ACID 500 MG TABLET PO SCH (16:40)
[2017-03-16] MEDS: FERROUS SULFATE 324 MG TABLET PO SCH (16:40)
[2017-03-16] MEDS ORDERED: PNEUMOCOCCAL 13 VACCINE 0.5ml INJECTION IM ONE (21:00)
[2017-03-16] MEDS: ATORVASTATIN 20 MG TABLET PO SCH (21:06)
[2017-03-16] MEDS: TAMSULOSIN 0.4 MG CAPSULE PO SCH (21:06)
[2017-03-16] MEDS: SACUBITRIL/VALSARTAN 24/26mg TABLET PO SCH (21:06)
[2017-03-16] MEDS: MELATONIN 1 MG TABLET PO SCH (21:06)
[2017-03-16] MEDS: BUDESONIDE/FORMOTEROL 80/4.5mcg INHALER ORAL INH SCH (21:55)
[2017-03-17] MEDS: ALBUTEROL 2.5mg/3ml (0.083%) NEB AEROSOL SCH ×4 (02:30→21:20)
[2017-03-17] MEDS: LEVOFLOXACIN PB 750 MG/150 ML BAG IV SCH (02:47)
[2017-03-17] MEDS: SALINE FLUSH 10ml SYRINGE IVF PRN ×2 (02:47→10:15)
[2017-03-17] MEDS: NS FLUSH BAG 500ml IV PRN ×2 (02:47→23:49)
[2017-03-17] MEDS: OMEPRAZOLE 20 MG CAPSULE PO SCH (06:31)
[2017-03-17] MEDS ORDERED: NS FLUSH BAG 500ml IV PRN ×2 (08:25→22:57)
[2017-03-17] MEDS ORDERED: PHYTONADIONE 5 MG/2.5 ML ORAL LIQUID PO ONE (09:28)
--- NOTE | 2017-03-17 09:56 | General Surgery Consult Note ---
Consult date: 03/17/17 Attending Physician: Francine Henson MD Reason for consult: other (anemia, GI bleed) PFSH Patient Stated Medical History Cerebrovascular Accident Yes Cataracts Yes Dental Problems Yes Dysphagia Yes Macular Degeneration Yes Coronary Artery Disease Yes Hypertension Yes Myocardial Infarction Yes Bronchitis Yes Pneumonia Yes: current Gastroesophageal Reflux Yes Disease Hiatal Hernia Yes Hx Benign Prostatic Yes Hyperplasia Hx Incontinence Yes Hx Kidney Stones Yes Surgical History: AICD. CABG. Inguinal hernia. Total knee. 05/19/2014 Colonoscopy - Diverticulosis. 05/19/2014 EGD - Hiatal hernia (No Barrets, H.Pylori neg) Family History: Mother and brother- CHF Brother - brain cancer Sister - Breast cancer - Social History Smoking status: Never smoker Household members: spouse Medications Home Medications Medication Instructions Recorded Confirmed Type Atorvastatin Calcium [Lipitor] 20 mg PO HS #0 05/18/14 03/16/17 History Finasteride 5 mg PO DAILY #0 05/18/14 03/16/17 History Tamsulosin HCl 0.4 mg PO HS #0 05/18/14 03/16/17 History Omeprazole 20 mg PO DAILY #0 02/21/16 03/16/17 History Melatonin 1 mg PO HS 01/13/17 03/16/17 History Mv-Min/FA/Vit K/Lycop/Lut/Zeax 1 tab PO DAILY 01/13/17 03/16/17 History [Ocuvite Eye + Multi Tablet] Carvedilol [Coreg] 6.25 mg PO BIDWM 03/06/17 03/16/17 History Allergies Allergy/AdvReac Type Severity Reaction Status Date / Time Penicillins Allergy Unknown Verified 03/16/17 01:41 lisinopril AdvReac Unknown COUGH Verified 03/16/17 01:41 Review of Systems 10-point ROS: negative except for HPI and the following: - Eyes/Ears/Nose/Throat Eyes: Present: vision problems (legally blind) - Cardiovascular Cardiovascular: Present: irregular heart beat - Respiratory Respiratory: Present: difficulty breathing, cough - Gastrointestinal Gastrointestinal: Present: nausea, vomiting - Musculoskeletal Musculoskeletal: Present: joint pain (uses a walker at home) - Hematologic/Lymphatic Hematologic/Lymphatic: Present: easy bruising, use of blood thinners - Vital Signs Last Vital Signs Temp 96.3 F L 03/17/17 07:41 Pulse 120 H 03/17/17 09:10 Resp 18 03/17/17 09:10 BP 103/56 03/17/17 09:10 Pulse Ox 92 03/17/17 09:10 - Laboratory Result Diagrams: 03/17/17 08:41 03/17/17 04:50 General Surgery Results - Results Labs: 03/17/17 08:41 03/17/17 04:50 Hospital Course Summary Disclaimer: The visit summary below is not to be considered part of the above Progress Note.
[2017-03-17] MEDS: CARVEDILOL 6.25 MG TABLET PO SCH (09:57)
[2017-03-17] MEDS: FERROUS SULFATE 324 MG TABLET PO SCH (09:57)
[2017-03-17] MEDS: PredniSONE 10 MG TABLET PO SCH (09:57)
[2017-03-17] MEDS: ASCORBIC ACID 500 MG TABLET PO SCH (09:57)
[2017-03-17] MEDS: FINASTERIDE 5 MG TABLET PO SCH (09:58)
[2017-03-17] MEDS: MULTI-VIT + MINERAL (Opti-gen) TABLET PO SCH (09:58)
[2017-03-17] MEDS: SACUBITRIL/VALSARTAN 24/26mg TABLET PO SCH (09:58)
[2017-03-17] MEDS: NS 1,000 ML IV SCH ×2 (10:00→19:33)
[2017-03-17] MEDS: PANTOPRAZOLE IV 80 MG in NS 250ml 250 ML IV SCH ×2 (10:10→21:47)
[2017-03-17] MEDS: METHYLPREDNISOLONE SOD SUCC 125mg/2ml INJECTION IVP SCH (10:15)
--- NOTE | 2017-03-17 10:25 | Progress Note ---
Subjective: The patient was seen this morning on the medical floor. He was noted to have a hemoglobin drop to 8.0 down from 11.2 yesterday. He was noted to have heme positive stool yesterday. I did do a rectal exam and stool was dark and Hemoccult was positive. He had drank some liquids this morning but had not eaten breakfast. He denies any chest pain or abdominal pain. He denies any shortness of breath. He continues to have an occasional productive cough. He denies any nausea or vomiting. He has vision difficulties and does not know how long his stools have been dark. He has been on oral iron. He states he is lightheaded when he first stands up but that is not uncommon for him. He was transferred to CCU this morning for closer monitoring with GI bleed on Coumadin with supratherapeutic INR. The pharmacist states that he took an extra dose of Coumadin on Friday evening after he was discharged. Prior to discharge on Friday he had received a dose of Coumadin at noon time. Objective Vital signs: Temperature 96.3 F L 03/17/17 07:41 Pulse Rate 115 H 03/17/17 09:57 Respiratory Rate 18 03/17/17 09:10 Blood Pressure 103/56 03/17/17 09:10 Pulse Oximetry 92 03/17/17 09:10 Height/Weight/BMI: Height 1.68 m Weight 73.5 kg Body Mass Index 26.7 Comments: Currently in intensive care, heart rate is 107, blood pressure 136/69, O2 sat is 90% on 2 L, respiratory rate is 32. Weight is 73.4 which is down from admission when it was 74.1 He has 3 bowel movements recorded which were all black GEN-alert, pale, no acute distress HEENT-sclera anicteric, tongue is mildly white coated but he denies any pain, mouth is dry NECK-supple CV-borderline tachycardic rate with irregular rhythm CHEST-clear to auscultation bilaterally, minimal cough ABD-soft, obese, nontender with positive bowel sounds -no [place] EXT-no edema NEURO-focal deficits SKIN-warm and dry and without rashes Results - Labs CBC & Chem 7: 03/17/17 08:41 03/17/17 04:50 Labs: INR is supratherapeutic at 4.92 Lactate today was 2.4 down from 2.7 Bands today are 6. Neutrophils are 79% down from 83% - Impressions Chest x-ray on admission showed stable appearance of the chest with an elevated right hemidiaphragm and calcified pleural plaques. No focal pneumonia appreciated. No pneumothorax. Assessment and Plan (1) Coronary artery disease Current visit: No Status: Chronic (2) Cardiomyopathy Problem details: Ejection fraction 25% 02/19/17, concentric LVH Current visit: No Status: Chronic (3) Diffuse idiopathic pulmonary fibrosis Current visit: No Status: Chronic (4) COPD (chronic obstructive pulmonary disease) Current visit: No Status: Acute (5) HCAP (healthcare-associated pneumonia) Current visit: No Status: Acute 03/16/17 06:14 recently had been treated with vancomycin and aztreonam, I don't think we need to resume those at this moment, but reassessing with pulm input may be a good idea (6) Chronic respiratory failure with hypoxia Current visit: No Status: Chronic (7) Dysphagia Current visit: No Status: Acute (8) Pulmonary fibrosis Problem details: 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 White count is elevated, which could be a combination of stress and GI bleed, cannot completely rule out sepsis. Questionable hemoptysis pulmonary fibrosis Dysphagia with aspiration Cardiomyopathy with ejection fraction of 25% and AICD Chronic A. fib Chronic respiratory failure on 2-3 L of oxygen chronically Recent sinus tachycardia on the kidney disease Recent initiation of Entresto for heart failure approximately one week ago. He has had some intermittent hypotension since that time which could've been secondary to this medication versus early signs of GI bleed Coronary artery disease Chronic kidney disease Plan Patient was transferred to CCU for close monitoring with presumed acute GI bleed and drop in hemoglobin from 11-8. 2 units of blood was typed and crossed and placed on hold 2 IVs were placed Protonix ip was started We'll obtain hemoglobin every [address] Thayer was consulted and will consider EGD later today. We'll keep the patient nothing by mouth. Vitamin K 10 mg orally given. Recheck INR at 2 PM Continue Levaquin for now for possible infection with elevated lactate. Patient is not hypotensive. check ua and chest xray was ok on admission, blood cultures on admission are negative today SCDs for DVT prophylaxis I called the patient's and notified her of changes in clinical status and transferred to CCU Discussed today with Dr. Thayer, patient's , pharmacy, and the patient's nurses. Greater than 1 hour critical care time spent seeing and evaluating the patient this morning. - Time spent with patient Time with patient PN: other (60minutes) Hospital Course Summary Disclaimer: The visit summary below is not to be considered part of the above Progress Note. 03/16/2017 1. Hemoptysis -This is not new. -INR upper therapeutic -No further episodes. 2. Recurrent right lower lobe pneumonia -Strep.viridans positive sputum culture -Leukocytosis -Pt on titrating dose of po steroids -CXR relatively unchanged 3. Pulmonary fibrosis -Possible asbestosis seen on high resolution CT scan -On steroids 4. Dysphasia (oropharyngeal/esophageal), esophageal dysmotility-high risk for aspiration 5. Ischemic cardiomyopathy -on Coreg chronically, Entresto started this past Friday 6. Paroxysmal atrial fibrillation -On coreg for rate control -On coumadin-Daily INR with coumadin dosing daily 7. CAD -Statin, BBL, ARB (entresto) -Not on asa 7. CKD-Stage 3A -stable 8. Prophylaxis -DVT with Coumadin -GI with PPI
[2017-03-17] MEDS ORDERED: PHYTONADIONE (Adult) INJ 5 MG in NS 50 ML IV ONE (13:19)
[2017-03-17] MEDS: BUDESONIDE/FORMOTEROL 80/4.5mcg INHALER ORAL INH SCH ×2 (13:24→21:50)
--- NOTE | 2017-03-17 15:50 | Consultation ---
DATE OF CONSULTATION 03/17/2017 FINDINGS Mr. Armstrong is a 77-year-old gentleman whom I was asked to see today as a result of his history for possible hematemesis/hemoptysis and decreasing hemoglobin. The patient is known to my surgical practice. I have seen him in the past as a result of a similar event. The patient does have significant associated medical comorbidities, mostly respiratory in nature. The patient was recently discharged from our facility as a result of pneumonia. The informs me that shortly after his discharge while at home the patient began to have a "coughing spell." The states that she was in the other room but heard him coughing and walked into the bedroom. Upon entering the bedroom the states that she had noted that there was blood upon the patient's face, shirt and upon the pillow. The patient states that he believes that he was "coughing up this blood." There is some uncertainty in regards to whether or not this was hemoptysis versus hematemesis. The patient denies currently any element of abdominal pain. He does state, however, that he has a history in the remote past for bleeding gastric ulcer. As a result of his decreasing hemoglobin the patient was transferred to the ICU for more careful observation. PAST MEDICAL HISTORY, PAST SURGICAL HISTORY, MEDICATIONS, ALLERGIES, SOCIAL HISTORY, FAMILY HISTORY REVIEW OF SYSTEMS Performed by my nurse practitioner, Julius Kelley APRN PHYSICAL EXAMINATION GENERAL: Mr. Armstrong is a 77-year-old gentleman who was seen earlier this afternoon. He did not appear to be in acute distress. VITAL SIGNS: Last recorded vitals include temperature 97.4, pulse 100, respirations 25, blood pressure 128/63, SAO2 96% on 2 liters per nasal cannula. HEENT: Normocephalic. Pupils are equally round and react to light and accommodation. CHEST: Auscultation of the chest did reveal diminished breath sounds. A few rales were noted. HEART: Regular rate and rhythm. No murmur auscultated. ABDOMEN: Palpation of the abdomen revealed it to be soft and completely nontender throughout. I did not appreciate any evidence for hepatosplenomegaly or other abnormal masses. EXTREMITIES: Without clubbing, cyanosis, or edema. NEURO: Cranial nerves II-XII grossly intact. Patient is without focal motor or sensory deficits. LABORATORY/RADIOGRAPHIC EVALUATION The patient's hemoglobin had gone from 11.2 yesterday down to 9.0. I was informed that the patient's hemoglobin had decreased to 8.0 although I do not see this within the record. He does have a component of leukocytosis with a white count of 26,000. The patient apparently was given recently steroids as a result of his respiratory status and therefore his leukocytosis may be a result of side effect from the corticosteroids more so than infectious in nature. The patient's INR was 2.5 earlier. The patient was given vitamin K and his INR has increased to 5.04 this afternoon. Plasma lactate has also increased from 2.9 to 3.6. He was found to have heme-positive stool. ASSESSMENT 77-year-old gentleman with multiple medical comorbidities who has recently had a bout of hematemesis versus hemoptysis. Patient with heme-positive stool and decreasing hemoglobin. PLAN I have reviewed the orders and agree with current management. The patient's INR is being reversed with vitamin K. The patient is being treated empirically for peptic ulcer disease and is on a Protonix drip currently. Once his INR has returned to an acceptable level I would recommend proceeding with esophagogastroduodenoscopy for further evaluation. The above plan was discussed with the patient and his this afternoon. They understood and agreed. MAGNOLIA
[2017-03-17] MEDS ORDERED: ACETAMINOPHEN 325 MG TABLET PO ONE (22:59)
[2017-03-17] MEDS ORDERED: DiphenhydrAMINE 25 MG CAPSULE PO ONE (23:00)
[2017-03-18] MEDS: ALBUTEROL 2.5mg/3ml (0.083%) NEB AEROSOL SCH ×4 (03:16→21:30)
[2017-03-18] MEDS: SALINE FLUSH 10ml SYRINGE IVF PRN ×3 (04:00→21:52)
[2017-03-18] MEDS: LEVOFLOXACIN PB 750 MG/150 ML BAG IV SCH (04:00)
[2017-03-18] MEDS: NS 1,000 ML IV SCH ×2 (06:03→08:27)
--- NOTE | 2017-03-18 09:15 | General Surgery Progress Note ---
Subjective Patient reports: no new complaints, bowel movement (reported as black and tarry yesterday), shortness of breath, other (no emesis or nausea) Narrative: He had 1 unit PRBC during the night, HGB noon yesterday 9.0, but dropped to 7.8 in the early evening, 1 unit transfused about midnight and HGB this am 7.7 - Vital Signs Last Vital Signs Temp 97.8 F 03/18/17 08:00 Pulse 107 H 03/18/17 08:00 Resp 20 03/18/17 08:52 BP 126/73 03/18/17 08:00 Pulse Ox 98 03/18/17 08:52 - Laboratory Result Diagrams: 03/18/17 04:08 03/18/17 04:08 - Abnormal Exam Eyes: other (legally blind) Cardiovascular: irregular rhythm (slightly) - Normal Exam General: awake, alert, oriented Respiratory: no labored breathing (although easily SOA with any exertion) Abdominal: soft, non-tender Assessment and Plan (1) GI bleeding Current Visit: Yes Status: Acute Qualifiers: GI bleed type/associated pathology: unspecified gastrointestinal hemorrhage type Qualified Code(s): K92.2 - Gastrointestinal hemorrhage, unspecified (2) Anemia due to blood loss, acute Current Visit: Yes Status: Acute Plan: INR now 1.5 HGB 7.7 after 1 unit PRBC about midnight. Stools remain black and tarry, last documented was yesterday. Plan EGD this afternoon. Hospital Course Summary Disclaimer: The visit summary below is not to be considered part of the above Progress Note.
[2017-03-18] MEDS: PANTOPRAZOLE IV 80 MG in NS 250ml 250 ML IV SCH (09:56)
[2017-03-18] MEDS: BUDESONIDE/FORMOTEROL 80/4.5mcg INHALER ORAL INH SCH ×2 (10:14→20:06)
[2017-03-18] MEDS: METHYLPREDNISOLONE SOD SUCC 125mg/2ml INJECTION IVP SCH (10:57)
--- NOTE | 2017-03-18 11:10 | Anesthesia Preoperative Report ---
Anesthesia Preoperative Record - Date and Time Date: 03/18/17 Preoperative Diagnosis: hemoptysis, pneumonia Proposed Procedure: EGD NPO Since Date: 03/17/17 NPO Since Time: 22:00 Allergies/Adverse Reactions: Allergies Allergy/AdvReac Type Severity Reaction Status Date / Time Penicillins Allergy Unknown Verified 03/16/17 01:41 lisinopril AdvReac Unknown COUGH Verified 03/16/17 01:41 - Vital Signs Vital Signs: Temperature 97.8 F 03/18/17 08:00 Pulse Rate 97 03/18/17 10:00 Respiratory Rate 17 03/18/17 10:00 Blood Pressure 126/73 03/18/17 08:00 Pulse Oximetry 97 03/18/17 10:00 Height and Weight: Height 1.68 m Weight 76.3 kg Body Mass Index 26.7 - Medications Inpatient Medications: Current Medications Acetaminophen (Tylenol) 500 mg PO Q5H PRN PRN Reason: Discomfort Hydrocodone Bitart/Acetaminophen ([place] 7.5/325) 1 tab PO Q6H PRN PRN Reason: Pain Albuterol Sulfate (Proventil Neb (0.083%)) 2.5 mg AEROSOL Q6H [facility] Last Admin: 03/18/17 08:49 Dose: 2.5 mg Ascorbic Acid (Vitamin C) 250 mg PO BIDWM [facility] Last Admin: 03/17/17 09:57 Dose: Not Given Aspirin (Ecotrin) 81 mg PO DAILY [facility] Last Admin: 03/16/17 13:56 Dose: 81 mg Atorvastatin Calcium (Lipitor) 20 mg PO HS [facility] Last Admin: 03/16/17 21:06 Dose: 20 mg Benzonatate (Tessalon Perles) 200 mg PO TID PRN PRN Reason: Cough Budesonide/Formoterol Fumarate (Symbicort Inhaler) 2 puff ORAL INH RTBID [facility] Last Admin: 03/18/17 10:14 Dose: 2 puff Carvedilol (Coreg) 6.25 mg PO BIDWM [facility] Last Admin: 03/17/17 09:57 Dose: Not Given Ferrous Sulfate (Feosol) 324 mg PO BIDWM [facility] Last Admin: 03/17/17 09:57 Dose: Not Given Finasteride (Proscar) 5 mg PO DAILY [facility] Last Admin: 03/17/17 09:58 Dose: Not Given Levofloxacin/Dextrose (Levaquin Premix) 750 mg in 150 mls @ 100 mls/hr IV Q24H [facility] Last Infusion: 03/18/17 05:30 Dose: Infused Pantoprazole Sodium 80 mg/ (Sodium Chloride) 250 mls @ 25 mls/hr IV .Q10H MATHEUS PRN Reason: 8 MG/HR Last Infusion: 03/18/17 10:00 Dose: 8 mg/hr, 25 mls/hr Sodium Chloride (Normal Saline) 1,000 mls @ 100 mls/hr IV .Q10H [facility] Last Infusion: 03/18/17 10:00 Dose: 100 mls/hr Melatonin (Melatonin) 1 mg PO HS [facility] Last Admin: 03/16/17 21:06 Dose: 1 mg Methylprednisolone Sodium Succinate (Solu-Medrol) 62.5 mg IVP DAILY [facility] Last Admin: 03/18/17 10:57 Dose: 62.5 mg Multivitamins/Minerals (Vision) 1 tab PO DAILY [facility] Last Admin: 03/17/17 09:58 Dose: Not Given Ondansetron HCl (Zofran) 4 mg IVP Q6H PRN PRN Reason: Nausea &/or vomiting Prednisone (Deltasone) 10 mg PO WB [facility] Last Admin: 03/17/17 09:57 Dose: Not Given Sacubitril/Valsartan (Entresto 24/26mg) 1 tab PO BID [facility] Last Admin: 03/17/17 09:58 Dose: Not Given Sodium Chloride (Iv Flush) 10 - 80 ml IVF PRN PRN PRN Reason: Flushing Last Admin: 03/18/17 04:00 Dose: 10 ml Sodium Chloride (Normal Saline) 500 ml IV PRN PRN Last Admin: 03/17/17 23:49 Dose: 500 ml Sodium Chloride (Normal Saline) 500 ml IV PRN PRN Sodium Chloride (Normal Saline) 500 ml IV PRN PRN Tamsulosin HCl (Flomax) 0.4 mg PO HS [facility] Last Admin: 03/16/17 21:06 Dose: 0.4 mg Warfarin Sodium (Coumadin Protocol) 0 MC NOTE [facility] Home Medications: Home Medications Medication Instructions Recorded Confirmed Type Atorvastatin Calcium [Lipitor] 20 mg PO HS #0 05/18/14 03/16/17 History Finasteride 5 mg PO DAILY #0 05/18/14 03/16/17 History Tamsulosin HCl 0.4 mg PO HS #0 05/18/14 03/16/17 History Omeprazole 20 mg PO DAILY #0 02/21/16 03/16/17 History Melatonin 1 mg PO HS 01/13/17 03/16/17 History Mv-Min/FA/Vit K/Lycop/Lut/Zeax 1 tab PO DAILY 01/13/17 03/16/17 History [Ocuvite Eye + Multi Tablet] Carvedilol [Coreg] 6.25 mg PO BIDWM 03/06/17 03/16/17 History Is Patient on Beta Ana?: Yes - Medical History Respiratory: Reports: Chronic Obstructive Pulmonary Disease (COPD), Pneumonia Cardiovascular: Reports: Abnormal EKG, Congestive Heart Failure, Heart Murmur, Hypertension, Other (AICD) Gastrointestional: Reports: Gastrointestinal Bleeding - Surgical History HEENT Surgeries: Reports: Eye Surgery, Tonsillectomy Cardiac Surgeries/Treatments: Reports: Cardiac Catheterization, Internal Defibrillator, Pacemaker Respiratory Surgery/Treatments: Reports: Oxygen Administration (2.5-3 lpm nc) GI Surgery/Treatments: Reports: Appendectomy, Hernia Repair (45 years ago), Colonoscopy Comment Only: Other (hernia) Surgery/Treatment: REPORT: Other (lithotripsy) Musculoskeletal Surgery/Tx: Reports: Shoulder Arthroscopy Anesthesia Reactions: None Hx Family Anesthesia Reaction: No History of Motion Sickness: No - Social History Smoking Status: Never smoker Hx Chewing Tobacco Use: No Second Hand Exposure: No Substance Use Type: does not use Alcohol Intake Frequency: does not drink - Pertinent Findings Laboratory: CBC and BMP 03/18/17 09:40 03/18/17 04:08 BMP 03/17/17 03/18/17 19:47 04:08 Sodium 136 137 Potassium 4.7 4.6 Chloride 101 103 Carbon Dioxide 25 28 BUN 28.0 H 26.0 H Creatinine 1.0 1.0 Glucose 158 H 107 Calcium 8.4 7.6 L D Liver Function 03/18/17 Range/Units 04:08 Albumin 2.3 L (3.5-5.0) G/DL Urine 03/17/17 Range/Units 10:34 Urine Color Yellow (YELLOW) Urine Clarity Clear Urine pH 6.0 (5.0-8.0) Ur Specific [place] 1.020 (1.015-1.025) Urine Protein Negative (NEGATIVE) Urine Glucose (UA) Negative (NEGATIVE) EKG: Sinus Tachycardia - Physical Exam Respiratory Exam: Present: wheezing Cardiovascular Exam: Present: regular rate and rhythm, systolic murmur - Airway Assessment Mallampati Score: III TMD: 3 Fingerbreadths Neck Extension: fair Teeth: chipped teeth/crowns Overall Assessment: may be difficult mask vent, may be difficult intubation - ASA ASA Score: 3 - Plan Anesthesia: General TIVA - Discussion Discussion: Discussed risks/options/alternatives of anesthesia and questions answered. Patient consents. Nursing pain assessment noted. Attestation Statement: Prior to the delivery of any anesthetic medication, I examined the patient, developed the plan, obtained the patient's consent and discussed the risk and benefits of the procedure with the patient/guardian. - Additional Information Seen by Anesthesia: Yes
[2017-03-18] MEDS ORDERED: PROPOFOL 500 MG/50 ML VIAL IV ONE (11:17)
[2017-03-18] MEDS ORDERED: LIDOCAINE VISCOUS 2% ORAL LIQUID 15ml ONE (11:37)
--- NOTE | 2017-03-18 12:00 | General Surgery Procedure Note ---
Date of Procedure: 03/18/17 Surgeon: Flaca Postoperative Diagnosis: Hiatal hernia, gastritis, marked esophagitis with ulcerations Procedure: EGD with esophageal biopsy Estimated Blood Loss: See Anesthesia Record.
--- NOTE | 2017-03-18 12:29 | Anesthesia Postoperative Note ---
- Date and Time Date: 03/18/17 Time: 12:28 - Status Patient Participated in Evaluation: Patient Participated in Person Vital Signs: Temperature 97.8 F 03/18/17 12:10 Pulse Rate 90 03/18/17 12:15 Respiratory Rate 25 H 03/18/17 12:15 Blood Pressure 110/59 03/18/17 12:15 Pulse Oximetry 94 03/18/17 12:15 Respiratory Function: Airway Patent Cardiovascular Function: Regular Pulse EKG: Sinus Rhythm Mental Status: Alert and Oriented Pain Intensity: 0 Hydration: IV Infusing Complications During Recover: None Apparent - Follow-Up Instructions Instructions: Per Surgeon
--- NOTE | 2017-03-18 12:56 | Progress Note ---
DATE 03/18/2017 FINDINGS Mr. Armstrong, this morning, was without complaints. He has not had any further coughing or hemoptysis. Nursing states that he has had several black stools. The patient denied any element of abdominal pain this morning. VITALS: Temperature 97.8, pulse 107, respirations 20, blood pressure 126/73, SaO2 98% on 1.5 liters per nasal cannula. HEENT: Normocephalic. Pupils are equal, round and reactive to light and accommodation CHEST: Clear to auscultation bilaterally. HEART: Regular rate and rhythm. Normal S1 and S2 without gallops, murmurs or clicks. ABDOMEN: Soft, nontender. No evidence for guarding or rebound. LABORATORY/RADIOGRAPH EVALUATION The patient's hemoglobin had gone from 11.2 down to 7.8. He has undergone a transfusion and his hemoglobin is now 8.4. His INR has returned to acceptable limits at 1.5. ASSESSMENT 77-year-old gentleman with multiple medical comorbidities who likely has upper GI bleed. PLAN Esophagogastroduodenoscopy. I informed the patient that now that his INR has returned to acceptable limits it is my recommendation that today we proceed with esophagogastroduodenoscopy. Risks of the procedure were explained to the patient which include, but are not limited to, bleeding and/or perforation. The patient understood and wished proceed. MAGNOLIA
[2017-03-18] MEDS: SUCRALFATE 1gm/10ml ORAL LIQUID PO SCH ×3 (13:15→21:44)
[2017-03-18] MEDS: FINASTERIDE 5 MG TABLET PO SCH (13:40)
[2017-03-18] MEDS: ASCORBIC ACID 500 MG TABLET PO SCH ×2 (13:40→21:44)
[2017-03-18] MEDS: MULTI-VIT + MINERAL (Opti-gen) TABLET PO SCH (13:42)
[2017-03-18] MEDS: SACUBITRIL/VALSARTAN 24/26mg TABLET PO SCH (13:42)
[2017-03-18] MEDS: FERROUS SULFATE 324 MG TABLET PO SCH ×2 (13:43→19:54)
[2017-03-18] MEDS: CARVEDILOL 6.25 MG TABLET PO SCH ×2 (13:43→19:16)
--- NOTE | 2017-03-18 14:59 | Progress Note ---
Subjective: The patient was seen initially this morning prior to EGD. He was then seen again after his EGD. He states he is feeling better. He denies any lightheadedness, chest pain or shortness of breath. He states he ate a good lunch after his EGD and is still hungry. He has had some small runs of nonsustained V. tach which are asymptomatic. He has had no hemoptysis. He continues to have his chronic cough. He did have a small soft black stool reported. Hemoglobin is stable. He is currently sitting up in a chair. The patient was transfused with 1 unit of blood last night secondary to drop in hemoglobin and elevated lactate without signs of active infection. Objective Vital signs: Temperature 98.3 F 03/18/17 12:40 Pulse Rate 113 H 03/18/17 14:15 Respiratory Rate 28 H 03/18/17 14:15 Blood Pressure 112/53 03/18/17 14:15 Pulse Oximetry 99 03/18/17 14:15 Height/Weight/BMI: Height 1.68 m Weight 76.3 kg Body Mass Index 26.7 Comments: GEN-alert, oriented, no acute distress HEENT-sclera anicteric, oropharynx is moist NECK-supple CV-borderline tachycardic rate with irregular rhythm, occasional ectopy CHEST-clear to auscultation with decreased breath sounds in the bases ABD-soft, obese, nontender with positive bowel sounds -no [place] EXT-no edema NEURO-no focal deficits SKIN-warm and dry and without rashes Results - Labs CBC & Chem 7: 03/18/17 09:40 03/18/17 04:08 Microbiology Results: Hemoglobin earlier this morning was 7.7 and up to 8.4 this afternoon. INR is down to 1.5. Lactate was high up to 5 yesterday and after transfusion of 1 unit of blood was down to 2.1 today. 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 The patient appears to be pretty much where he was when he left the hospital. His white count is elevated 20,000, this could be related to infection worsening or could just be from the effects. I've asked the emergency room to give him IV Levaquin, and he received a dose of IV steroids as well. Last seen to reassess need for further antibiotics with the recent strep species noted. He may be fine to dc home after some additional observation, perhaps not surprising to have a bit of blood with his INR 2.5 and infml inflammed airways 03/16/17 06:12 (10) Paroxysmal atrial fibrillation Current visit: Yes Status: Acute Assessment and Plan: 03/18/2017 Impression Acute blood loss anemia GI bleed-EGD today verbal report from Dr. Thayer showed marketed esophagitis and a long linear esophageal ulcers. Also seen was a 7-8 cm hiatal hernia and white exudate on the esophagus. Also seen was esophagitis and gastritis. Supratherapeutic INR in a patient on Coumadin who took an extra dose of Coumadin on Friday inadvertently-INR 1.5 today Recent steroid use -on low-dose Solu-Medrol now Recent strep viridans pneumonia -on Levaquin, chest x-ray unchanged Elevated lactate - uncertain significance. White count is elevated, which could be a combination of stress and GI bleed, cannot completely rule out sepsis. ---- --Elevated lactate resolved after blood transfusion with 1 unit. He was not hypotensive. Questionable hemoptysis -resolved pulmonary fibrosis Dysphagia with aspiration Cardiomyopathy with ejection fraction of 25% and AICD Nonsustained V. tach -asymptomatic, patient has AICD Chronic A. fib Chronic respiratory failure on 2-3 L of oxygen chronically Recent sinus tachycardia on the kidney disease Recent initiation of Entresto for heart failure approximately one week ago. He has had some intermittent hypotension since that time which could've been secondary to this medication versus early signs of GI bleed Coronary artery disease Chronic kidney disease Plan Patient was transferred to CCU on 03/17/2017 for close monitoring with presumed acute GI bleed and drop in hemoglobin from 11-8. 2 units of blood was typed and crossed and placed on hold-the patient was transfused 1 unit on 03/17/2017 Start Carafate regarding esophageal ulcers, esophagitis, gastritis Change Protonix from drip to 40 mg IV twice a day If hemoglobin is stable, could consider restarting Coumadin in 1-2 days. We'll try to keep INR around 2-2.5 Transfer to floor when the patient is stable We'll obtain hemoglobin every 6 hr On 03/17/2017 due to acute GI bleed, Vitamin K 10 mg orally given without improvement in INR, he was later given another 5 mg of vitamin K. Continue Levaquin for now for possible infection with elevated lactate. Patient is not hypotensive. (UA and chest xray were ok on admission, blood cultures on admission are negative -continue levaquin for now. SCDs for DVT prophylaxis Discussed today with Dr. Thayer, patient's , and the patient's nurses. Hospital Course Summary Disclaimer: The visit summary below is not to be considered part of the above Progress Note. Hospital Course: 03/18/17 15:0 03/17/2017 Impression Acute blood loss anemia GI bleed, likely upper Supratherapeutic INR in a patient on Coumadin who took an extra dose of Coumadin on Friday inadvertently Recent steroid use Recent strep viridans pneumonia Elevated lactate - uncertain significance. White count is elevated, which could be a combination of stress and GI bleed, cannot completely rule out sepsis. Questionable hemoptysis pulmonary fibrosis Dysphagia with aspiration Cardiomyopathy with ejection fraction of 25% and AICD Chronic A. fib Chronic respiratory failure on 2-3 L of oxygen chronically Recent sinus tachycardia on the kidney disease Recent initiation of Entresto for heart failure approximately one week ago. He has had some intermittent hypotension since that time which could've been secondary to this medication versus early signs of GI bleed Coronary artery disease Chronic kidney disease Plan Patient was transferred to CCU for close monitoring with presumed acute GI bleed and drop in hemoglobin from 11-8. 2 units of blood was typed and crossed and placed on hold 2 IVs were placed Protonix drip was started We'll obtain hemoglobin every [address] Thayer was consulted and will consider EGD later today. We'll keep the patient nothing by mouth. Vitamin K 10 mg orally given. Recheck INR at 2 PM Continue Levaquin for now for possible infection with elevated lactate. Patient is not hypotensive. check ua and chest xray was ok on admission, blood cultures on admission are negative today SCDs for DVT prophylaxis I called the patient's and notified her of changes in clinical status and transferred to CCU Discussed today with Dr. Thayer, patient's , pharmacy, and the patient's nurses. Greater than 1 hour critical care time spent seeing and evaluating the patient this morning.
[2017-03-18 15:49] VITALS: BMI 27.1
[2017-03-18] MEDS: PANTOPRAZOLE 40 MG INJECTION IVP SCH (21:44)
[2017-03-18] MEDS: MELATONIN 1 MG TABLET PO SCH (21:44)
[2017-03-18] MEDS: TAMSULOSIN 0.4 MG CAPSULE PO SCH (21:44)
[2017-03-18] MEDS: ATORVASTATIN 20 MG TABLET PO SCH (21:44)
[2017-03-19] MEDS: ALBUTEROL 2.5mg/3ml (0.083%) NEB AEROSOL SCH ×4 (03:04→21:18)
[2017-03-19] MEDS: NS FLUSH BAG 500ml IV PRN (03:14)
[2017-03-19] MEDS: LEVOFLOXACIN PB 750 MG/150 ML BAG IV SCH (03:14)
[2017-03-19] MEDS: SUCRALFATE 1gm/10ml ORAL LIQUID PO SCH ×4 (06:08→20:50)
--- NOTE | 2017-03-19 08:24 | General Surgery Progress Note ---
Subjective Patient reports: tolerating a regular diet (looking forward to oatmeal this morning), bowel movement (during the night liquid black per report) Narrative: Denies abd pain, chest pain. Feels that he would like to get up a walk some. - Vital Signs Last Vital Signs Temp 98.3 F 03/19/17 04:00 Pulse 79 03/19/17 06:01 Resp 19 03/19/17 06:01 BP 103/55 03/19/17 06:01 Pulse Ox 96 03/19/17 06:01 - Laboratory Result Diagrams: 03/19/17 08:09 03/19/17 04:38 - Abnormal Exam Respiratory: other (cough) Cardiovascular: irregular rhythm (slight) - Normal Exam General: awake, alert Respiratory: clear bilaterally, no labored breathing Abdominal: soft, no guarding, non-tender Psychiatric: normal affect Assessment and Plan (1) GI bleeding Current Visit: Yes Status: Acute Qualifiers: GI bleed type/associated pathology: unspecified gastrointestinal hemorrhage type Qualified Code(s): K92.2 - Gastrointestinal hemorrhage, unspecified (2) Anemia due to blood loss, acute Current Visit: Yes Status: Acute Plan: Found marked esophagitis with ulcerations of the esophagus yesterday on EGD. Started Carafate slurry QID and changed Protonix to PO daily. HGB stable at 7.8 at 8am (8.0 at 4am) he has had 1 unit PRBC, Tolerating soft diet. He is probably stable enough to start some PT for strengthen/ambulation. Hospital Course Summary Disclaimer: The visit summary below is not to be considered part of the above Progress Note. Hospital Course: 03/18/17 15:0 03/17/2017 Impression Acute blood loss anemia GI bleed, likely upper Supratherapeutic INR in a patient on Coumadin who took an extra dose of Coumadin on Friday inadvertently Recent steroid use Recent strep viridans pneumonia Elevated lactate - uncertain significance. White count is elevated, which could be a combination of stress and GI bleed, cannot completely rule out sepsis. Questionable hemoptysis pulmonary fibrosis Dysphagia with aspiration Cardiomyopathy with ejection fraction of 25% and AICD Chronic A. fib Chronic respiratory failure on 2-3 L of oxygen chronically Recent sinus tachycardia on the kidney disease Recent initiation of Entresto for heart failure approximately one week ago. He has had some intermittent hypotension since that time which could've been secondary to this medication versus early signs of GI bleed Coronary artery disease Chronic kidney disease Plan Patient was transferred to CCU for close monitoring with presumed acute GI bleed and drop in hemoglobin from 11-8. 2 units of blood was typed and crossed and placed on hold 2 IVs were placed Protonix drip was started We'll obtain hemoglobin every [address] Thayer was consulted and will consider EGD later today. We'll keep the patient nothing by mouth. Vitamin K 10 mg orally given. Recheck INR at 2 PM Continue Levaquin for now for possible infection with elevated lactate. Patient is not hypotensive. check ua and chest xray was ok on admission, blood cultures on admission are negative today SCDs for DVT prophylaxis I called the patient's and notified her of changes in clinical status and transferred to CCU Discussed today with Dr. Thayer, patient's , pharmacy, and the patient's nurses. Greater than 1 hour critical care time spent seeing and evaluating the patient this morning.
[2017-03-19] MEDS: METHYLPREDNISOLONE SOD SUCC 125mg/2ml INJECTION IVP SCH (08:51)
--- NOTE | 2017-03-19 08:52 | Infectious Disease Consult ---
Infectious Disease Consult Date of Consultation: 03/19/17 Requesting Physician: Francine Henson Reason for Consultation: antibiotic recs History of Present Illness: Mr. Armstrong is a 77 y/o man who was recently admitted here and treated for pneumonia. His sputum grew S. viridans. He was readmitted on 03/16, within hours of being discharged. He had a "coughing fit" at home and coughed up blood. On admission, his CXR was unchanged, and there were no obvious infiltrates. He was started on levaquin and methyprednisolone on admission. He is chronically on 2-3L of O2 at home. He can't tell me why, however, per records he has pulmonary fibrosis and bronchiectasis. His lactic acid was elevated on admission. I was asked to help with his antibiotics. He has not had fever. His Hgb was 11 on admission, and the next day it was 7.8. He was transferred to the ICU, and underwent EGD yesterday which showed hiatal hernia, gastritis, marked esophagitis with ulcerations. He reports that he is feeling better. 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 Medications Home Medications Medication Instructions Recorded Confirmed Type Atorvastatin Calcium [Lipitor] 20 mg PO HS #0 05/18/14 03/16/17 History Finasteride 5 mg PO DAILY #0 05/18/14 03/16/17 History Tamsulosin HCl 0.4 mg PO HS #0 05/18/14 03/16/17 History Omeprazole 20 mg PO DAILY #0 02/21/16 03/16/17 History Melatonin 1 mg PO HS 01/13/17 03/16/17 History Mv-Min/FA/Vit K/Lycop/Lut/Zeax 1 tab PO DAILY 01/13/17 03/16/17 History [Ocuvite Eye + Multi Tablet] Carvedilol [Coreg] 6.25 mg PO BIDWM 03/06/17 03/16/17 History Allergies Allergy/AdvReac Type Severity Reaction Status Date / Time Penicillins Allergy Unknown Verified 03/16/17 01:41 lisinopril AdvReac Unknown COUGH Verified 03/16/17 01:41 [facility] Patient Stated Medical History Cerebrovascular Accident Yes Cataracts Yes Dental Problems Yes Dysphagia Yes Macular Degeneration Yes Congestive Heart Failure Yes Coronary Artery Disease Yes Heart Murmur Yes Hypertension Yes Myocardial Infarction Yes Other Cardiology Yes: AICD Bronchitis Yes Chronic Obstructive Pulmonary Yes Disease (COPD) Pneumonia Yes Gastroesophageal Reflux Yes Disease Gastrointestinal Bleeding Yes Hiatal Hernia Yes Hx Benign Prostatic Yes Hyperplasia Hx Incontinence Yes Hx Kidney Stones Yes Chronic hypoxic respiratory failure with 2-3L O2 at home, h/o pulmonary fibrosis and bronchiectasis. Surgical History: AICD. CABG. Inguinal hernia. Total knee. 05/19/2014 Colonoscopy - Diverticulosis. 05/19/2014 EGD - Hiatal hernia (No Barrets, H.Pylori neg) Family History: Reviewed and noncontributory - Social History Smoking status: Never smoker Household members: spouse Does patient use chewing tobacco?: No Review of Systems All systems PM: 10-point ROS was reviewed, no additional remarkable complaints except (cough, which he states is improving) - Constitutional Constitutional: Absent: chills, fever(s) - EENMT Mouth/Throat: Absent: sore throat, painful swallowing - Cardiovascular Cardiovascular: Absent: chest pain - Respiratory Respiratory: Present: cough (mostly nonproductive). Absent: dyspnea - Gastrointestinal Gastrointestinal: Absent: abdominal pain, change in stool character, diarrhea, nausea, vomiting - Genitourinary Genitourinary: Absent: difficulty urinating, dysuria - Musculoskeletal Musculoskeletal: Absent: arthralgias - Integumentary/Breasts Integumentary: Absent: rash - Neurological Neurological: Absent: headache(s) Exam Vital Signs: Temperature 98.3 F 03/19/17 04:00 Pulse Rate 79 03/19/17 06:01 Respiratory Rate 19 03/19/17 06:01 Blood Pressure 103/55 03/19/17 06:01 Pulse Oximetry 96 03/19/17 06:01 Height/Weight/BMI: Height 1.68 m Weight 76.3 kg Body Mass Index 27.1 - Constitutional Present: no acute distress, well nourished, well developed - Routine HEENT Exam Head: Present: normocephalic, atraumatic Eye: Present: EOMI, PERRL ENT: Present: mucous membranes dry Comments: poor dentition - Routine Neck Exam Present: supple - Routine Respiratory Exam Present: decreased breath sounds (at bases), CTA bilaterally. Absent: accessory muscle use Comments: on 2-3L O2 - Routine Cardiovascular Exam Present: RRR. Absent: murmur - Routine Abdominal Exam Present: soft, normoactive bowel sounds, non distended. Absent: tenderness, rebound, guarding - Routine Extremities Exam Absent: cyanosis, clubbing, edema - Routine Skin Exam Present: intact. Absent: erythema, rash - Routine Neurological Exam Present: alert, oriented X3, CN II-XII intact. Absent: motor deficit - Routine Psychiatric Exam Present: normal affect Results - Labs CBC & Chem 7: 03/19/17 08:09 03/19/17 04:38 Impression: SIRS secondary to GI bleed Leukocytosis, suspect secondary to GI bleed and steroid use Lactic acidosis Chronic hypoxic respiratory failure with home O2 H/o pulmonary fibrosis and bronchiectasis per records S/p AICD placement (EF 25%) Esophagitis with ulcers, s/p esophageal biopsy 03/18 A fib with anticoagulation Recommendation: Recommend stopping Levaquin. I don't see convincing evidence of ongoing infection. His procalcitonin is negative. Would recommend monitoring off antibiotics. F/U of esophageal biopsies.
[2017-03-19] MEDS: PANTOPRAZOLE 40 MG INJECTION IVP SCH (08:54)
[2017-03-19] MEDS: FERROUS SULFATE 324 MG TABLET PO SCH ×2 (08:54→17:48)
[2017-03-19] MEDS: SALINE FLUSH 10ml SYRINGE IVF PRN ×3 (08:57→20:54)
[2017-03-19] MEDS: ASCORBIC ACID 500 MG TABLET PO SCH ×2 (09:09→17:49)
[2017-03-19] MEDS: MULTI-VIT + MINERAL (Opti-gen) TABLET PO SCH (09:10)
[2017-03-19] MEDS: CARVEDILOL 6.25 MG TABLET PO SCH ×2 (09:11→17:49)
[2017-03-19] MEDS: FINASTERIDE 5 MG TABLET PO SCH (09:11)
[2017-03-19] MEDS: BUDESONIDE/FORMOTEROL 80/4.5mcg INHALER ORAL INH SCH ×2 (10:34→21:18)
--- NOTE | 2017-03-19 10:44 | Progress Note ---
Subjective: F/U: Acute GI Bleed Resting in bed this am, but easily wakened. Feels okay overall. Breathing stable ; not feeling increased SOA, cough, congestion, or pain with breathing. Chest wall not sore or uncomfortable. No chest pressure or palpitations. Denies feeling dizzy when up (but reports not up much), strength and stamina decreased. No ab pain, nausea, or bloating. Denies mouth pain or pain with swallowing. Passing stools-denies fecal urgency. Urinating well. No f/c. Objective Vital signs: Temperature 98.3 F 03/19/17 04:00 Pulse Rate 93 03/19/17 08:00 Respiratory Rate 26 H 03/19/17 10:36 Blood Pressure 103/55 03/19/17 06:01 Pulse Oximetry 96 03/19/17 09:25 Height/Weight/BMI: Height 1.68 m Weight 77.1 kg Body Mass Index 27.1 - Constitutional Present: well nourished, well developed, cooperative. Absent: agitated, somnolent - Routine HEENT Exam Head: Present: normocephalic, atraumatic Eye: Present: EOMI, PERRL ENT: Present: mucous membranes moist (No thrush ) - Routine Respiratory Exam Present: decreased breath sounds. Absent: rales, respiratory distress, rhonchi , wheezes, crackles - Routine Cardiovascular Exam Present: RRR - Routine Abdominal Exam Present: soft, normoactive bowel sounds, non distended, non tender. Absent: guarding - Routine Extremities Exam Present: no edema, pulses intact. Absent: cyanosis, clubbing - Routine Musculoskeletal Exam Musculoskeletal: Present: no clubbing or cyanosis - Routine Skin Exam Present: dry, warm - Routine Neurological Exam Present: alert, oriented X3, moving all extremities, vision grossly intact, hearing grossly intact. Absent: motor deficit - Routine Psychiatric Exam Present: normal affect, normal thought process, cooperative. Absent: anxious, agitated Results - Labs CBC & Chem 7: 03/19/17 08:09 03/19/17 04:38 Assessment and Plan (1) GI bleeding Current visit: Yes Status: Acute (2) Anemia due to blood loss, acute Current visit: Yes Status: Acute (3) Coronary artery disease Current visit: No Status: Chronic (4) Cardiomyopathy Problem details: Ejection fraction 25% 02/19/17, concentric LVH Current visit: No Status: Chronic (5) Diffuse idiopathic pulmonary fibrosis Current visit: No Status: Chronic (6) COPD (chronic obstructive pulmonary disease) Current visit: No Status: Acute (7) HCAP (healthcare-associated pneumonia) Current visit: No Status: Acute (8) Chronic respiratory failure with hypoxia Current visit: No Status: Chronic (9) Dysphagia Current visit: No Status: Acute (10) Pulmonary fibrosis Problem details: 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 Recent steroid use -on low-dose Solu-Medrol now Recent strep viridans pneumonia -on Levaquin, chest x-ray unchanged Elevated lactate - uncertain significance. White count is elevated, which could be a combination of stress and GI bleed, cannot completely rule out sepsis. ---- --Elevated lactate resolved after blood transfusion with 1 unit. He was not hypotensive. Questionable hemoptysis -resolved Pulmonary fibrosis Dysphagia with aspiration Cardiomyopathy with ejection fraction of 25% and AICD Nonsustained V. tach -asymptomatic, patient has AICD Chronic A. fib Chronic respiratory failure on 2-3 L of oxygen chronically Recent sinus tachycardia on the kidney disease Recent initiation of Entresto for heart failure approximately one week ago. He has had some intermittent hypotension since that time which could've been secondary to this medication versus early signs of GI bleed Coronary artery disease Stage II chronic kidney disease Plan Will change Protonix to 40mg po BID, continue Carafate. Hold Anticoagulants for now - will restart Plavix in near future due to stent placement. Consult PT/OT to help increase strength and functional status. ID did see patient this am and recommends stopping antibiotics. Change Solu-Medrol to Prednisone 30mg daily and taper. Continue to monitor blood counts. Medically jorgito - will transfer to medical floor for continuation of care. Case discussed with CCU nursing. Time spent with patient care 25 minutes. Hospital Course Summary Disclaimer: The visit summary below is not to be considered part of the above Progress Note. Hospital Course: 03/17/2017 Impression Acute blood loss anemia GI bleed, likely upper Supratherapeutic INR in a patient on Coumadin who took an extra dose of Coumadin on Friday inadvertently Recent steroid use Recent strep viridans pneumonia Elevated lactate - uncertain significance. White count is elevated, which could be a combination of stress and GI bleed, cannot completely rule out sepsis. Questionable hemoptysis pulmonary fibrosis Dysphagia with aspiration Cardiomyopathy with ejection fraction of 25% and AICD Chronic A. fib Chronic respiratory failure on 2-3 L of oxygen chronically Recent sinus tachycardia on the kidney disease Recent initiation of Entresto for heart failure approximately one week ago. He has had some intermittent hypotension since that time which could've been secondary to this medication versus early signs of GI bleed Coronary artery disease Chronic kidney disease 03/16/17 Admitted for hemoptysis. 03/17/17 Patient was transferred to CCU for close monitoring with presumed acute GI bleed and drop in hemoglobin from 11.2 to 7.8. 2 units of blood was typed and crossed and placed on hold. 2 IVs were placed. Protonix drip was started. We'll obtain hemoglobin every [address] Thayer was consulted and will consider EGD later today. We'll keep the patient nothing by mouth. Vitamin K 10 mg orally given. Recheck INR at 2 PM. Continue Levaquin for now for possible infection with elevated lactate. Patient is not hypotensive. check ua and chest xray was ok on admission, blood cultures on admission are negative today. SCDs for DVT prophylaxis. 03/18/17 Transfused 1 unit pRBC. EGD by Dr Thayer - Esophagitis 03/19/17 Will change Protonix to 40mg po BID, continue Carafate. Hold Anticoagulants for now - will restart Plavix in near future due to stent placement. Consult PT/OT to help increase strength and functional status. ID did see patient this am and recommends stopping antibiotics. Change Solu-Medrol to Prednisone 30mg daily and taper. Continue to monitor blood counts. Medically jorgito - will transfer to medical floor for continuation of care.
--- NOTE | 2017-03-19 16:09 | Progress Note ---
DATE 03/19/2017 FINDINGS Mr. Armstrong today is without complaints. He denies any element of abdominal pain. He has had no further coughing spells or hematemesis. OBJECTIVE VITALS: Temperature 98.3, pulse 90, respirations 23, blood pressure 116/58, SaO2 95% on 3 liters per nasal cannula. CHEST: Clear to auscultation bilaterally. HEART: Regular rate and rhythm. Normal S1, S2, without gallops, murmurs or clicks. ABDOMEN: Palpation of the abdomen reveals it to be soft and completely nontender today. No evidence for guarding or rebound. LABORATORY/RADIOGRAPHIC EVALUATION Overall, the patient's hemoglobin is stable. It has went from 8.4 down to 7.8. BMP was obtained and found to be essentially within normal limits. ASSESSMENT 77-year-old gentleman with multiple associated medical comorbidities, recent history for melanotic stools, hematemesis. Status post EGD revealing significant esophagitis with associated ulcerations and gastritis. Patient, as above, currently improving. PLAN Continuation of current care. Would recommend continuing with Carafate for 4-6 weeks after discharge. Recommend the patient stay on a proton pump inhibitor long-term. The patient's diet has been advanced. Will go ahead and sign off the patient's care at this time. If further care is needed, please do not hesitate to recontact me if needed. MTDD
[2017-03-19] MEDS: PANTOPRAZOLE 40 MG TABLET PO SCH (17:48)
[2017-03-19] MEDS: TAMSULOSIN 0.4 MG CAPSULE PO SCH (20:50)
[2017-03-19] MEDS: ATORVASTATIN 20 MG TABLET PO SCH (20:50)
[2017-03-19] MEDS: MELATONIN 1 MG TABLET PO SCH (20:50)
[2017-03-19] MEDS: PANTOPRAZOLE IV 80 MG in NS 250ml 250 ML IV SCH (23:21)
[2017-03-20] MEDS: ALBUTEROL 2.5mg/3ml (0.083%) NEB AEROSOL SCH ×4 (03:48→21:29)
[2017-03-20] MEDS: SUCRALFATE 1gm/10ml ORAL LIQUID PO SCH ×4 (06:05→20:49)
[2017-03-20] MEDS: PANTOPRAZOLE 40 MG TABLET PO SCH ×2 (06:06→17:52)
[2017-03-20] MEDS ORDERED: PredniSONE 10 MG TABLET PO SCH (08:00)
[2017-03-20] MEDS: CARVEDILOL 6.25 MG TABLET PO SCH ×2 (10:34→17:53)
[2017-03-20] MEDS: ASCORBIC ACID 500 MG TABLET PO SCH ×2 (10:34→17:53)
[2017-03-20] MEDS: FINASTERIDE 5 MG TABLET PO SCH (10:34)
[2017-03-20] MEDS: MULTI-VIT + MINERAL (Opti-gen) TABLET PO SCH (10:34)
[2017-03-20] MEDS: FERROUS SULFATE 324 MG TABLET PO SCH ×2 (10:34→17:53)
[2017-03-20] MEDS: BUDESONIDE/FORMOTEROL 80/4.5mcg INHALER ORAL INH SCH ×2 (11:04→21:31)
--- NOTE | 2017-03-20 14:09 | Progress Note ---
Subjective: F/U: Acute GI Bleed Feeling well today. Breathing doing well-noted cough (than he says he has had for '70' years), but not feeling SOA or congested. No pain with breathing. No chest pressure or discomfort. Eating well. Food not hurting or catching as he swallows. Denies ab pain or nausea. Appetite good. Stools slightly slow, but not feeling bloated or constipated. Feels strength and stability are fine. Worked with therapy - limitations noted. Objective Vital signs: Temperature 97.1 F 03/20/17 11:58 Pulse Rate 90 03/20/17 11:58 Respiratory Rate 20 03/20/17 11:58 Blood Pressure 127/63 03/20/17 11:58 Pulse Oximetry 97 03/20/17 11:58 Height/Weight/BMI: Height 1.68 m Weight 75.1 kg Body Mass Index 27.1 - Constitutional Present: well nourished, well developed, cooperative - Routine HEENT Exam Head: Present: normocephalic, atraumatic Eye: Present: EOMI, PERRL ENT: Present: mucous membranes moist - Routine Respiratory Exam Present: decreased breath sounds. Absent: rales, respiratory distress, rhonchi , wheezes, crackles - Routine Cardiovascular Exam Present: RRR, no murmur - Routine Abdominal Exam Present: soft, normoactive bowel sounds, non distended, non tender - Routine Extremities Exam Present: cyanosis, clubbing, no edema, pulses intact - Routine Musculoskeletal Exam Musculoskeletal: Present: no clubbing or cyanosis, normal strength - Routine Skin Exam Present: intact, dry, warm - Routine Neurological Exam Present: alert, CN II-XII intact, moving all extremities, vision grossly intact , hearing grossly intact. Absent: altered mental status - Routine Psychiatric Exam Present: normal affect, normal thought process, cooperative. Absent: anxious, agitated Results - Labs CBC & Chem 7: 03/20/17 04:34 03/20/17 04:34 Assessment and Plan (1) GI bleeding Current visit: Yes Status: Acute (2) Anemia due to blood loss, acute Current visit: Yes Status: Acute (3) Coronary artery disease Current visit: No Status: Chronic (4) Cardiomyopathy Problem details: Ejection fraction 25% 02/19/17, concentric LVH Current visit: No Status: Chronic (5) Diffuse idiopathic pulmonary fibrosis Current visit: No Status: Chronic (6) COPD (chronic obstructive pulmonary disease) Current visit: No Status: Acute (7) HCAP (healthcare-associated pneumonia) Current visit: No Status: Acute 03/16/17 06:14 recently had been treated with vancomycin and aztreonam, I don't think we need to resume those at this moment, but reassessing with pulm input may be a good idea (8) Chronic respiratory failure with hypoxia Current visit: No Status: Chronic (9) Dysphagia Current visit: No Status: Acute (10) Pulmonary fibrosis Problem details: 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 The patient appears to be pretty much where he was when he left the hospital. His white count is elevated 20,000, this could be related to infection worsening or could just be from the effects. I've asked the emergency room to give him IV Levaquin, and he received a dose of IV steroids as well. Last seen to reassess need for further antibiotics with the recent strep species noted. He may be fine to dc home after some additional observation, perhaps not surprising to have a bit of blood with his INR 2.5 and infml inflammed airways 03/16/17 06:12 (12) Paroxysmal atrial fibrillation Current visit: Yes Status: Acute DVT Prophylaxis: SCD's Resuscitation Status: Full Code Assessment and Plan: Impression Acute blood loss anemia GI bleed - upper EGD 03/19 - Esophagitis Supratherapeutic INR in a patient on Coumadin who took an extra dose of Coumadin on Friday inadvertently - Coumadin stopped due to acute GI bleed. Recent steroid use -on low-dose Solu-Medrol now Recent strep viridans pneumonia -on Levaquin, chest x-ray unchanged Elevated lactate - uncertain significance. White count is elevated, which could be a combination of stress and GI bleed, cannot completely rule out sepsis. ---- --Elevated lactate resolved after blood transfusion with 1 unit. He was not hypotensive. Questionable hemoptysis -resolved Pulmonary fibrosis Dysphagia with aspiration Cardiomyopathy with ejection fraction of 25% and AICD Nonsustained V. tach -asymptomatic, patient has AICD Chronic A. fib Chronic respiratory failure on 2-3 L of oxygen chronically Recent sinus tachycardia on the kidney disease Recent initiation of Entresto for heart failure approximately one week ago. He has had some intermittent hypotension since that time which could've been secondary to this medication versus early signs of GI bleed Coronary artery disease Stage II chronic kidney disease Plan Continue therapy and activities to build up strength and abilities. Discussed with patient about possible Skilled care post discharge. He does not feel he has any functional deficits. Some instability/weakness noted by therapy. Decrease Prednisone to 20mg daily starting tomorrow. CXR from this am pending. Recheck CBC in am to assess leukocytosis and anemia. Likely discharge to home tomorrow. Patient desired to return home. Continue to monitor and work on functional status. Case discussed with CM. Time spent with patient care 25 minutes. Hospital Course Summary Disclaimer: The visit summary below is not to be considered part of the above Progress Note. Hospital Course: 03/17/2017 Impression Acute blood loss anemia GI bleed, likely upper Supratherapeutic INR in a patient on Coumadin who took an extra dose of Coumadin on Friday inadvertently Recent steroid use Recent strep viridans pneumonia Elevated lactate - uncertain significance. White count is elevated, which could be a combination of stress and GI bleed, cannot completely rule out sepsis. Questionable hemoptysis pulmonary fibrosis Dysphagia with aspiration Cardiomyopathy with ejection fraction of 25% and AICD Chronic A. fib Chronic respiratory failure on 2-3 L of oxygen chronically Recent sinus tachycardia on the kidney disease Recent initiation of Entresto for heart failure approximately one week ago. He has had some intermittent hypotension since that time which could've been secondary to this medication versus early signs of GI bleed Coronary artery disease Chronic kidney disease 03/16/17 Admitted for hemoptysis. 03/17/17 Patient was transferred to CCU for close monitoring with presumed acute GI bleed and drop in hemoglobin from 11.2 to 7.8. 2 units of blood was typed and crossed and placed on hold. 2 IVs were placed. Protonix drip was started. We'll obtain hemoglobin every [address] Thayer was consulted and will consider EGD later today. We'll keep the patient nothing by mouth. Vitamin K 10 mg orally given. Recheck INR at 2 PM. Continue Levaquin for now for possible infection with elevated lactate. Patient is not hypotensive. check ua and chest xray was ok on admission, blood cultures on admission are negative today. SCDs for DVT prophylaxis. 03/18/17 Transfused 1 unit pRBC. EGD by Dr Thayer - Esophagitis 03/19/17 Will change Protonix to 40mg po BID, continue Carafate. Consult PT/OT to help increase strength and functional status. ID did see patient this am and recommends stopping antibiotics. Change Solu-Medrol to Prednisone 30mg daily and taper. Continue to monitor blood counts. Medically jorgito - will transfer to medical floor for continuation of care. 03/20/17 Continue therapy and activities to build up strength and abilities. Discussed with patient about possible Skilled care post discharge. He does not feel he has any functional deficits. Some instability/weakness noted by therapy. Decrease Prednisone to 20mg daily starting tomorrow. CXR from this am pending. Recheck CBC in am to assess leukocytosis and anemia. Likely discharge to home tomorrow. Patient desired to return home. Continue to monitor and work on functional status.
--- NOTE | 2017-03-20 16:07 | XRay Report ---
INDICATION: F/U infiltrate PROCEDURE: CHEST 2-VIEWS UPRIGHT (PA & LAT) Encounter: Initial COMPARISON: March 16, 2012 FINDINGS: Chest is stable in appearance with fibrosis, bronchiectasis and calcified pleural plaques. No acute consolidative pneumonia appreciated. Elevated right hemidiaphragm. No pneumothorax or pleural effusion. Heart size and mediastinal contours are stable. Left pacemaker defibrillator. Right shoulder replacement. Impression: Stable appearance of the chest with pulmonary fibrosis but no focal pneumonia or overt congestive failure. .
[2017-03-20] MEDS: SALINE FLUSH 10ml SYRINGE IVF PRN (17:52)
[2017-03-20] MEDS: ATORVASTATIN 20 MG TABLET PO SCH (20:49)
[2017-03-20] MEDS: TAMSULOSIN 0.4 MG CAPSULE PO SCH (20:49)
[2017-03-20] MEDS: MELATONIN 1 MG TABLET PO SCH (20:49)
[2017-03-21] MEDS: ALBUTEROL 2.5mg/3ml (0.083%) NEB AEROSOL SCH ×3 (03:07→15:05)
[2017-03-21] MEDS: PANTOPRAZOLE 40 MG TABLET PO SCH (06:02)
[2017-03-21] MEDS: SUCRALFATE 1gm/10ml ORAL LIQUID PO SCH ×2 (06:02→13:34)
[2017-03-21] MEDS ORDERED: PredniSONE 20 MG TABLET PO SCH (08:00)
[2017-03-21] MEDS: ASCORBIC ACID 500 MG TABLET PO SCH (09:13)
[2017-03-21] MEDS: FINASTERIDE 5 MG TABLET PO SCH (09:13)
[2017-03-21] MEDS: MULTI-VIT + MINERAL (Opti-gen) TABLET PO SCH (09:13)
[2017-03-21] MEDS: FERROUS SULFATE 324 MG TABLET PO SCH (09:14)
[2017-03-21] MEDS: CARVEDILOL 6.25 MG TABLET PO SCH (09:14)
[2017-03-21] MEDS: SALINE FLUSH 10ml SYRINGE IVF PRN (09:14)
[2017-03-21] MEDS: BUDESONIDE/FORMOTEROL 80/4.5mcg INHALER ORAL INH SCH (11:40)
[2017-03-21 12:09] VITALS: BP 121/62; PULSE 99; RESP 18; TEMP 96.9
--- NOTE | 2017-03-21 14:01 | Progress Note ---
Subjective: F/U: Acute GI Bleed Doing well. Eating without problems. No ab pain or nausea. Stools stable. Breathing feel well-not feeling increased congestion or SOA. Adherent with O2. No pain with breathing. No chest pressure or palpitations. Feels strength doing well. Strongly wanting to go home. Does not feel needs and skilled care or home health care. Objective Vital signs: Temperature 96.9 F 03/21/17 12:09 Pulse Rate 99 03/21/17 12:09 Respiratory Rate 18 03/21/17 12:09 Blood Pressure 121/62 03/21/17 12:09 Pulse Oximetry 100 03/21/17 12:09 Height/Weight/BMI: Height 1.68 m Weight 74 kg Body Mass Index 27.1 - Constitutional Present: no acute distress, well nourished, well developed, average body habitus - Routine HEENT Exam Head: Present: normocephalic, atraumatic Eye: Present: EOMI, PERRL ENT: Present: mucous membranes moist - Routine Respiratory Exam Present: decreased breath sounds, distant breath sounds, diminished air movement. Absent: rales, respiratory distress, rhonchi - Routine Cardiovascular Exam Present: RRR, no murmur - Routine Abdominal Exam Present: soft, normoactive bowel sounds, non distended, non tender - Routine Extremities Exam Present: no edema, pulses intact. Absent: cyanosis Comments: SCD in place - Routine Musculoskeletal Exam Musculoskeletal: Present: no clubbing or cyanosis, normal strength - Routine Skin Exam Present: dry, warm. Absent: pallor, mottling - Routine Neurological Exam Present: alert, oriented X3, CN II-XII intact, moving all extremities, vision grossly intact, hearing grossly intact. Absent: motor deficit - Routine Psychiatric Exam Present: normal affect, normal thought process Results - Labs CBC & Chem 7: 03/21/17 04:15 03/21/17 04:16 Assessment and Plan (1) GI bleeding Current visit: Yes Status: Acute (2) Anemia due to blood loss, acute Current visit: Yes Status: Acute (3) Coronary artery disease Current visit: No Status: Chronic (4) Cardiomyopathy Problem details: Ejection fraction 25% 02/19/17, concentric LVH Current visit: No Status: Chronic (5) Diffuse idiopathic pulmonary fibrosis Current visit: No Status: Chronic (6) COPD (chronic obstructive pulmonary disease) Current visit: No Status: Acute (7) HCAP (healthcare-associated pneumonia) Current visit: No Status: Acute 03/16/17 06:14 recently had been treated with vancomycin and aztreonam, I don't think we need to resume those at this moment, but reassessing with pulm input may be a good idea (8) Chronic respiratory failure with hypoxia Current visit: No Status: Chronic (9) Dysphagia Current visit: No Status: Acute (10) Pulmonary fibrosis Problem details: 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 The patient appears to be pretty much where he was when he left the hospital. His white count is elevated 20,000, this could be related to infection worsening or could just be from the effects. I've asked the emergency room to give him IV Levaquin, and he received a dose of IV steroids as well. Last seen to reassess need for further antibiotics with the recent strep species noted. He may be fine to dc home after some additional observation, perhaps not surprising to have a bit of blood with his INR 2.5 and infml inflammed airways 03/16/17 06:12 (12) Paroxysmal atrial fibrillation Current visit: Yes Status: Acute DVT Prophylaxis: SCD's Resuscitation Status: Full Code Assessment and Plan: Impression Acute blood loss anemia GI bleed - upper EGD 03/19 - Esophagitis Supratherapeutic INR in a patient on Coumadin who took an extra dose of Coumadin on Friday inadvertently - Coumadin stopped due to acute GI bleed. Recent steroid use -on low-dose Solu-Medrol now Recent strep viridans pneumonia -on Levaquin, chest x-ray unchanged Elevated lactate - uncertain significance. White count is elevated, which could be a combination of stress and GI bleed, cannot completely rule out sepsis. ---- --Elevated lactate resolved after blood transfusion with 1 unit. He was not hypotensive. Questionable hemoptysis -resolved Pulmonary fibrosis Dysphagia with aspiration Cardiomyopathy with ejection fraction of 25% and AICD Nonsustained V. tach -asymptomatic, patient has AICD Chronic A. fib Chronic respiratory failure on 2-3 L of oxygen chronically Recent sinus tachycardia on the kidney disease Recent initiation of Entresto for heart failure approximately one week ago. He has had some intermittent hypotension since that time which could've been secondary to this medication versus early signs of GI bleed Coronary artery disease Stage II chronic kidney disease Plan Will discharge to home. May use prednisone 20mg daily for 1 week and then stop. Omeprazole 40mg BID with meals for 30 days, then decrease to 40mg daily. Will need Carafate 1 gram ac meals and at night for 30 days, then may stop. Iron and vitamin C to help improve blood counts. F/U with Dr Ramírez in 1 week - recommend rechecking BMP and CBC at that time. Would recommend patient being off Coumadin for about 6 weeks to allow for esophagitis to heal. Encourage continued follow up with Dr Reyes for pulmonary care. Continue prior cardiac care. See orders for details Case discussed with CM and patient's . Time spent with patient care and discharge greater than 30 minutes. Hospital Course Summary Disclaimer: The visit summary below is not to be considered part of the above Progress Note. Hospital Course: 03/17/2017 Impression Acute blood loss anemia GI bleed, likely upper Supratherapeutic INR in a patient on Coumadin who took an extra dose of Coumadin on Friday inadvertently Recent steroid use Recent strep viridans pneumonia Elevated lactate - uncertain significance. White count is elevated, which could be a combination of stress and GI bleed, cannot completely rule out sepsis. Questionable hemoptysis pulmonary fibrosis Dysphagia with aspiration Cardiomyopathy with ejection fraction of 25% and AICD Chronic A. fib Chronic respiratory failure on 2-3 L of oxygen chronically Recent sinus tachycardia on the kidney disease Recent initiation of Entresto for heart failure approximately one week ago. He has had some intermittent hypotension since that time which could've been secondary to this medication versus early signs of GI bleed Coronary artery disease Chronic kidney disease 03/16/17 Admitted for hemoptysis. 03/17/17 Patient was transferred to CCU for close monitoring with presumed acute GI bleed and drop in hemoglobin from 11.2 to 7.8. 2 units of blood was typed and crossed and placed on hold. 2 IVs were placed. Protonix drip was started. We'll obtain hemoglobin every [address] Thayer was consulted and will consider EGD later today. We'll keep the patient nothing by mouth. Vitamin K 10 mg orally given. Recheck INR at 2 PM. Continue Levaquin for now for possible infection with elevated lactate. Patient is not hypotensive. check ua and chest xray was ok on admission, blood cultures on admission are negative today. SCDs for DVT prophylaxis. 03/18/17 Transfused 1 unit pRBC. EGD by Dr Thayer - Esophagitis 03/19/17 Will change Protonix to 40mg po BID, continue Carafate. Consult PT/OT to help increase strength and functional status. ID did see patient this am and recommends stopping antibiotics. Change Solu-Medrol to Prednisone 30mg daily and taper. Continue to monitor blood counts. Medically jorgito - will transfer to medical floor for continuation of care. 03/20/17 Continue therapy and activities to build up strength and abilities. Discussed with patient about possible Skilled care post discharge. He does not feel he has any functional deficits. Some instability/weakness noted by therapy. Decrease Prednisone to 20mg daily starting tomorrow. CXR from this am pending. Recheck CBC in am to assess leukocytosis and anemia. Likely discharge to home tomorrow. Patient desired to return home. Continue to monitor and work on functional status. 03/21/17 Will discharge to home. May use prednisone 20mg daily for 1 week and then stop. Omeprazole 40mg BID with meals for 30 days, then decrease to 40mg daily. Will need Carafate 1 gram ac meals and at night for 30 days, then may stop. Iron and vitamin C to help improve blood counts. F/U with Dr Ramírez in 1 week - recommend rechecking BMP and CBC at that time. Would recommend patient being off Coumadin for about 6 weeks to allow for esophagitis to heal. Encourage continued follow up with Dr Reyes for pulmonary care. Continue prior cardiac care. See orders for details
--- NOTE | 2017-03-21 14:12 | Discharge Summary ---
Discharge Information Date of admission: 03/16/17 04:11 Anticipated date of discharge: 03/21/17 Attending Physician: Cornelio Sandoval MD Primary care physician: Sylvain Ramírez MD Consults: Physician Consult: Briana Murillo Reason For Exam: increased WBCs and lactic acid despite antibiotic Physician Consult: Pravin Thayer Reason For Exam: gi bleed Dietary Consult PT/OT - Discharge Diagnosis (1) GI bleeding Status: Acute (2) Anemia due to blood loss, acute Status: Acute (3) Coronary artery disease Status: Chronic (4) Cardiomyopathy Status: Chronic (5) Diffuse idiopathic pulmonary fibrosis Status: Chronic (6) COPD (chronic obstructive pulmonary disease) Status: Acute (7) HCAP (healthcare-associated pneumonia) Status: Acute (8) Chronic respiratory failure with hypoxia Status: Chronic (9) Dysphagia Status: Acute (10) Pulmonary fibrosis Status: Acute (11) Hemoptysis Status: Acute (12) Paroxysmal atrial fibrillation Status: Acute Discharge Diagnosis: Discharge diagnosis Acute blood loss anemia GI bleed - upper EGD 03/19 - Gastritis, marked esophagitis with ulcerations Associated conditions and complications Supratherapeutic INR in a patient on Coumadin who took an extra dose of Coumadin on Friday inadvertently - Coumadin stopped due to acute GI bleed. Recent steroid use -on low-dose Solu-Medrol now Recent strep viridans pneumonia -on Levaquin, chest x-ray unchanged Elevated lactate - uncertain significance. White count is elevated, which could be a combination of stress and GI bleed, cannot completely rule out sepsis. ---- --Elevated lactate resolved after blood transfusion with 1 unit. He was not hypotensive. Questionable hemoptysis -resolved Pulmonary fibrosis Dysphagia with aspiration Cardiomyopathy with ejection fraction of 25% and AICD Nonsustained V. tach -asymptomatic, patient has AICD Chronic A. fib Chronic respiratory failure on 2-3 L of oxygen chronically Recent sinus tachycardia on the kidney disease Recent initiation of Entresto for heart failure approximately one week ago. He has had some intermittent hypotension since that time which could've been secondary to this medication versus early signs of GI bleed Coronary artery disease Stage II chronic kidney disease - Procedures Procedures: Date of Procedure: 03/18/17 Surgeon: Flaca Postoperative Diagnosis: Hiatal hernia, gastritis, marked esophagitis with ulcerations Procedure: EGD with esophageal biopsy - Laboratory Labs: Admit Lab 03/17/17 03/17/17 12:58 19:47 WBC 25.8 H* Hgb 9.0 L D 7.8 L Hct 24.3 L Plt Count 236 Neutrophils % (Manual) 86.0 H Lymphocytes % (Manual) 10.0 L Admit Lab 03/16/17 02:10 Sodium 136 Potassium 5.2 H Chloride 100 Carbon Dioxide 30 Anion Gap 6 BUN 32.0 H Creatinine 1.2 GFR Calculation 58 BUN/Creatinine Ratio 27 H Glucose 126 H Total Bilirubin < 0.10 L AST 17 ALT 39 Troponin I 0.047 Total Protein 6.1 L Admit Lab 03/16/17 02:10 INR 2.50 H 03/21/17 04:15 03/21/17 04:16 - Radiology Radiology: Date of Exam: 03/16/17 PROCEDURE: XR chest 1V Findings: Chest is stable with an elevated right hemidiaphragm and calcified pleural plaques. No focal pneumonia appreciated. Subpleural fibrotic changes. No pneumothorax. Heart size and mediastinal contours are unchanged. Left pacemaker defibrillator. Impression: Stable appearance of the chest. Date of Exam: 03/20/17 PROCEDURE: CHEST 2-VIEWS UPRIGHT (PA & LAT) FINDINGS: Chest is stable in appearance with fibrosis, bronchiectasis and calcified pleural plaques. No acute consolidative pneumonia appreciated. Elevated right hemidiaphragm. No pneumothorax or pleural effusion. Heart size and mediastinal contours are stable. Left pacemaker defibrillator. Right shoulder replacement. Impression: Stable appearance of the chest with pulmonary fibrosis but no focal pneumonia or overt congestive failure. History of Present Illness HPI: Pleasant 77-year-old male was just discharged from the hospital yesterday morning after a stay for treatment for pneumonia. He has pulmonary fibrosis and bronchiectasis. He had strep viridans pronoun in this area. Review of the records indicate there were concern for aspiration though he denies having any new episodes at home. He was actually feeling pretty good, but after lunch had a relatively severe coughing fits where he thought he coughed up blood sugars, his describes that he had some sputum with flecks of clotted blood in them. He felt ill for a short while with that but actually feels ok and back to how he fabricio when discharged from the hospital recently For complete details of the H&P refer to that document. Objective Vital signs: Temperature 96.9 F 03/21/17 12:09 Pulse Rate 99 03/21/17 12:09 Respiratory Rate 18 03/21/17 12:09 Blood Pressure 121/62 03/21/17 12:09 Pulse Oximetry 100 03/21/17 12:09 Height/Weight/BMI: Height 1.68 m Weight 74 kg Body Mass Index 27.1 Hospital Course This is a general summary of the patient's hospital course. For more details refer to the complete medical record. Hospital course: 03/17/2017 Impression Acute blood loss anemia GI bleed, likely upper Supratherapeutic INR in a patient on Coumadin who took an extra dose of Coumadin on Friday inadvertently Recent steroid use Recent strep viridans pneumonia Elevated lactate - uncertain significance. White count is elevated, which could be a combination of stress and GI bleed, cannot completely rule out sepsis. Questionable hemoptysis pulmonary fibrosis Dysphagia with aspiration Cardiomyopathy with ejection fraction of 25% and AICD Chronic A. fib Chronic respiratory failure on 2-3 L of oxygen chronically Recent sinus tachycardia on the kidney disease Recent initiation of Entresto for heart failure approximately one week ago. He has had some intermittent hypotension since that time which could've been secondary to this medication versus early signs of GI bleed Coronary artery disease Chronic kidney disease 03/16/17 Admitted for hemoptysis. 03/17/17 Patient was transferred to CCU for close monitoring with presumed acute GI bleed and drop in hemoglobin from 11.2 to 7.8. 2 units of blood was typed and crossed and placed on hold. 2 IVs were placed. Protonix drip was started. We'll obtain hemoglobin every [address] Thayer was consulted and will consider EGD later today. We'll keep the patient nothing by mouth. Vitamin K 10 mg orally given. Recheck INR at 2 PM. Continue Levaquin for now for possible infection with elevated lactate. Patient is not hypotensive. check ua and chest xray was ok on admission, blood cultures on admission are negative today. SCDs for DVT prophylaxis. 03/18/17 Transfused 1 unit pRBC. EGD by Dr Thayer - Esophagitis 03/19/17 Will change Protonix to 40mg po BID, continue Carafate. Consult PT/OT to help increase strength and functional status. ID did see patient this am and recommends stopping antibiotics. Change Solu-Medrol to Prednisone 30mg daily and taper. Continue to monitor blood counts. Medically jorgito - will transfer to medical floor for continuation of care. 03/20/17 Continue therapy and activities to build up strength and abilities. Discussed with patient about possible Skilled care post discharge. He does not feel he has any functional deficits. Some instability/weakness noted by therapy. Decrease Prednisone to 20mg daily starting tomorrow. CXR from this am pending. Recheck CBC in am to assess leukocytosis and anemia. Likely discharge to home tomorrow. Patient desired to return home. Continue to monitor and work on functional status. 03/21/17 Will discharge to home. May use prednisone 20mg daily for 1 week and then stop. Omeprazole 40mg BID with meals for 30 days, then decrease to 40mg daily. Will need Carafate 1 gram ac meals and at night for 30 days, then may stop. Iron and vitamin C to help improve blood counts. F/U with Dr Ramírez in 1 week - recommend rechecking BMP and CBC at that time. Would recommend patient being off Coumadin for about 6 weeks to allow for esophagitis to heal. Encourage continued follow up with Dr Reyes for pulmonary care. Continue prior cardiac care. See orders for details Time spent with patient: discharge greater than 30 minutes DVT Prophylaxis: SCD's GI Prophylaxis: Protonix Discharge Plan - Med Rec/Dispo Referrals/Follow Up: Sylvain Ramírez MD [Family Provider] - 1 Week (Hopsital follow up for GI bleed. Check CBC due to anemia. Check BMP secondary to medication use. ) Prescriptions: New PredniSONE [Deltasone] 20 mg PO WB #7 tab Sucralfate [Carafate] 1 gm PO ACHS #120 tab Omeprazole 1 cap PO BIDWM #60 cap Continue Mv-Min/FA/Vit K/Lycop/Lut/Zeax [Ocuvite Eye + Multi Tablet] 1 tab PO DAILY Albuterol HFA Inhaler [Ventolin Hfa 90 mcg/actuation] 2 puff ORAL INH Q4HR PRN 30 Days #1 inhaler PRN Reason: Shortness Of Air/Wheezing Albuterol Neb (0.083%) [Proventil Neb (0.083%)] 5 mg AEROSOL Q6H 30 Days # 120 neb Budesonide/Formoterol 80/4.5 [Symbicort Inhaler] 2 puff ORAL INH RTBID 30 Days #1 inhaler Spironolactone [Aldactone] 12.5 mg PO DAILY 30 Days #16 tab Ascorbic Acid [Vitamin C] 250 mg PO BIDWM tablet Benzonatate [Tessalon Perles] 200 mg PO TID PRN #20 cap PRN Reason: Cough SACUBITRIL/VALSARTAN 24/26mg [ENTRESTO 24/26mg] 1 tab PO BID #60 tab Finasteride 5 mg PO DAILY #0 Atorvastatin Calcium [Lipitor] 20 mg PO HS #0 Tamsulosin HCl 0.4 mg PO HS #0 Omeprazole 20 mg PO DAILY #0 Melatonin 1 mg PO HS Acetaminophen [Tylenol] 500 mg PO Q5H PRN tablet PRN Reason: Discomfort Carvedilol [Coreg] 6.25 mg PO BIDWM Ferrous Sulfate [Feosol] 324 mg PO BIDWM #60 tab predniSONE [Prednisone] 10 mg PO DAILY #18 tab Discontinued Aspirin *EC* [Ecotrin] 81 mg PO DAILY tablet # Warfarin Protocol # [Coumadin Protocol] 3 mg PO DAILY #0 tab Discharge Instructions/Outpatient Orders: Provider Discharge Instructions Location: Determined By Patient - Disposition 01 Discharged Home, Self-Care - Attestation Attestation Narrative: 03/21/17 14:25 I have independently interviewed and examined patient prior to discharge. See my progress not for details. Medically stable for discharge to home.
[2017-03-21 15:08] VITALS: O2SAT 97
--- NOTE | 2017-03-22 13:14 | Right on Track Program ---
Right on Track Program Date of Discharge: 03/21/17 Home Medications: Home Medications Medication Instructions Recorded Confirmed Atorvastatin Calcium [Lipitor] 20 mg PO HS #0 05/18/14 03/16/17 Finasteride 5 mg PO DAILY #0 05/18/14 03/16/17 Tamsulosin HCl 0.4 mg PO HS #0 05/18/14 03/16/17 Omeprazole 20 mg PO DAILY #0 02/21/16 03/16/17 Melatonin 1 mg PO HS 01/13/17 03/16/17 Mv-Min/FA/Vit K/Lycop/Lut/Zeax 1 tab PO DAILY 01/13/17 03/16/17 [Ocuvite Eye + Multi Tablet] Carvedilol [Coreg] 6.25 mg PO BIDWM 03/06/17 03/16/17 Previous Rx's Medication Instructions Recorded Acetaminophen [Tylenol] 500 mg PO Q5H PRN tablet 02/21/17 Albuterol HFA Inhaler [Ventolin 2 puff ORAL INH Q4HR PRN 30 Days 02/21/17 Hfa 90 mcg/actuation] #1 inhaler Albuterol Neb (0.083%) [Proventil 5 mg AEROSOL Q6H 30 Days #120 neb 02/21/17 Neb (0.083%)] Budesonide/Formoterol 80/4.5 2 puff ORAL INH RTBID 30 Days #1 02/21/17 [Symbicort Inhaler] inhaler Spironolactone [Aldactone] 12.5 mg PO DAILY 30 Days #16 tab 02/21/17 Ascorbic Acid [Vitamin C] 250 mg PO BIDWM tablet 03/13/17 Benzonatate [Tessalon Perles] 200 mg PO TID PRN #20 cap 03/13/17 Ferrous Sulfate [Feosol] 324 mg PO BIDWM #60 tab 03/13/17 SACUBITRIL/VALSARTAN 24/26mg 1 tab PO BID #60 tab 03/13/17 [ENTRESTO 24/26mg] predniSONE [Prednisone] 10 mg PO DAILY #18 tab 03/13/17 Omeprazole 1 cap PO BIDWM #60 cap 03/21/17 PredniSONE [Deltasone] 20 mg PO WB #7 tab 03/21/17 Sucralfate [Carafate] 1 gm PO ACHS #120 tab 03/21/17 - Right on Track Program PHONE CALL 03/22/17 Date: 03/22/17 Right on Track Program: 24 Hour Follow-Up Discharge Summary Received: Yes Care Plan Received: Yes Follow Up: Follow Up Appointment Scheduled Education: Diagnosis Education Reviewed, Education Provided To Caregiver Referral: Primary Care Physician Comments: I spoke with the Isaac & Emelyn on 03/22/17. He's been sleeping a lot but seems to be doing well otherwise. They did not have any problems getting his Rx filled , and actually had one of them at home already (she's not sure which one off the top of her head). He is not taking ASA or Coumadin. He has not had any nausea or abdominal pain. His breathing has been stable. Emelyn is planning to call Dr. Ramírez on Friday to schedule an appt. Discussed With Patient and Caregiver: Yes Recommendations For Follow-up: 1. F/U with Dr. Ramírez 2. Home visit planned on 05/03/17 at noon. [id number]-JK-TRKE FOLLOW UP Date: 04/02/17 Right on Track Program: 7-14 Day [id number] Discharge Summary Received: Yes Care Plan Received: Yes Follow Up: Follow Up Appointment Scheduled Education: Diagnosis Education Reviewed, Education Provided To Caregiver Referral: Social Work, Primary Care Physician Comments: SUBJECTIVE I visited and Mrs. Armstrong in their home in [place] on 04/02/17. He has had 3 recent hospitalizations at [facility], the most recent being for an upper GI bleed due to marked esophagitis; he's also recently been treated for HCAP and COPD exacerbation. He has a PMH including cardiomyopathy with EF of 25%, CAD, PAF, COPD, and pulmonary fibrosis. Overall, he feels like things are going well, except he is still very weak in general. He rates his quality of life as "good" . He has a chronic cough but denies fever/chills. His breathing is stable on chronic oxygen. He has not had any chest pain or leg swelling. He has been eating well without any nausea, vomiting, diarrhea or constipation. He has been sleeping well. He denies feeling down or depressed. Medication reconciliation was completed with Mrs. Armstrong, who organizes his medications into a pill box for him. The following discrepancies were noted: Isaac is not using the Symbicort inhaler (Rx BID) nor the albuterol PRN inhaler (hasn't needed it). His was unable to fill the Rx for Entresto, which was Rx by Dr. Emily Camacho on 03/15/17, due to insurance reasons, and isn't sure if he should be on this medication. He was also given a limited one-month supply of low dose Spironolactone by Dr. Cezar Castelan on 02/21/17, and that Rx is nearly out - she would like to know if he should continue on this medication. She reports that he is not on tamsulosin 0.4 mg, and is only on finasteride 5 mg for his prostate. Prednisone course has been completed. He is not taking ASA or Coumadin, as instructed. He is not taking ibuprofen or naproxen. He is taking omeprazole BID and sucralfate 1 gm ACHS as Rx. Oral intake: His appetite has been good, but his reports an approximate 20 lb. weight loss since he first became sick. He was 76 kg on 03/18/[address] Ramírez's office on 04/01/17 he was 64.9 kg. He is at risk for malnutrition. They do not add salt to their food, but they do not intentionally cook a low- sodium diet (though his has heart disease and diabetes, so she tries to prepare healthy options). Advanced care directives: He does not have any advanced directives in place. He would like to name his as DPOA, and she's in agreement. We discussed what a living will entails, and also discussed DNR versus full resuscitation. They are not yet prepared to make decisions beyond DPOA designation, but agreed to consider this topic further as they realize the importance. OBJECTIVE EXAM: General: A&O x3, quiet, no distress. He was sitting in a recliner with O2 in place watching television. It appears he spends much time here, as a bedside table is full of easy-access medications/supplies and a trash can is full of empty water bottles. Neuro: Face is symmetric; moves extremities equally. HEENT: Sclera anicteric. PERRL. Mucous membranes moist; no thrush. CV/circulation: Heart rate was slightly irregular. No pedal or lower extremity edema. Skin color was pale. Pulmonary: Lungs were slightly coarse in bases; diminished air movement. Discussed With Patient and Caregiver: Yes Recommendations For Follow-up: ASSESSMENT AND PLAN Esophagitis causing upper GI bleed - Counseled to avoid NSAIDS. - Confirmed that he is not taking ASA or Coumadin. - He has been taking sucralfate and omeprazole as Rx. COPD & pulmonary fibrosis - He is using oxygen /. - He has not been using Symbicort. Hasn't required Albuterol PRN yet. - Discussed with Kaila Carrillo APRN with Dr. Reyes: She reported medication questions to Dr. Reyes. - F/U with Dr. Reyes on 04/03/17. - Discussed that condition will not improve but medications may stabilize and prolong quality of life. Cardiomyopathy with EF of 25%, CAD, PAF - Was unable to fill Rx for Entresto (Rx on 03/15/[address] Gay @ [facility]) d/ t insurance reasons. - Nearly out of Rx Spironolactone 12.5 mg daily (Rx by Dr. Castelan @ [facility]) and unsure whether to continue or not. - Dr. Madrid will help determine when to resume Coumadin/ASA (typically 6 weeks out, which would be approximately the beginning of May. - May need education on low-sodium diet. - Contacted Dr. Madrid' office to relay concerns. - Appointment with Dr. Madrid scheduled on 04/04/17. Weight loss - Consider outpatient nutritional consult. - Denies depression but may benefit from follow up questions. Advanced care planning - Emailed [facility] to inquire about helping them with DPOA form. - Mailed [facility] [facility] packet to them so they can begin discussion on living will and code status. - F/U with Dr. Ramírez to get these forms signed.
--- NOTE | 2017-03-22 13:16 | Operative Note ---
DATE OF SERVICE 03/18/2017 SURGEON Pravin Thayer MD PREOPERATIVE DIAGNOSES Personal history for hematemesis, anemia, heme-positive stool. POSTOPERATIVE DIAGNOSES Personal history for hematemesis, anemia, heme-positive stool. Marked esophagitis with linear ulcerations involving mid esophagus, hiatal hernia. PROCEDURE Esophagogastroduodenoscopy with biopsies from esophagus via cold biopsy technique. ANESTHESIA TIVA BRIEF HISTORY/INDICATIONS Mr. Armstrong is a 77-year-old gentleman whom I was recently asked to see as a result of his history for hematemesis, anemia, heme-positive stools. It was recommended to the patient that he undergo upper endoscopy/EGD for further evaluation. For completeness please refer to notes included in the patient's chart. FINDINGS Upon upper endoscopy the patient was found to have marked esophagitis with long linear ulcerations involving the mid esophagus. Photos were obtained for documentation purposes. The patient was also found to have a moderate hiatal hernia. Stomach and duodenum were otherwise within normal limits. NARRATIVE OF PROCEDURE After informed consent was obtained the patient was brought to the endoscopy suite and placed in the left lateral decubitus position. Patient subsequently underwent total intravenous anesthesia by the nurse head greenskeeper at my request. Formal time-out was then completed. Next, an Olympus gastroscope was inserted in the oral hypopharynx and subsequently the esophagus under direct visualization. Gastroscope was advanced through the esophagus, stomach, pylorus , duodenal bulb, and second portion of the duodenum. Scope was slowly withdrawn. First and second portions of the duodenum were without evidence for duodenitis or ulcerations. Scope was drawn back to the prepyloric region and antrum. Again no marked gastritis or ulcerations were noted. J-maneuver was then performed. The patient was found a moderate-size hiatal hernia. Otherwise , the cardia and fundus were within normal limits. Scope was allowed to straighten and was slowly withdrawn. The remaining corpus of the stomach was well visualized and again without noted abnormalities. Scope was drawn back to the level of the distal esophagus which was perhaps about 8-10 cm above the level of the diaphragm, i.e., the patient had about an 8-cm hiatal hernia. Distal esophagus was found to be erythematous in nature. Scope was then continued to be withdrawn and one could see very long linear ulcerations that were perhaps on the order of 8-9 cm in length involving the mid esophagus. Photos were obtained for documentation purposes. There was a white exudate- like material overlying these multiple ulcerations. Several biopsies were obtained from these areas of marked esophagitis via cold biopsy technique. Gastroscope was slowly withdrawn and the remaining cervical esophageal mucosa was without marked abnormalities. Patient tolerated the procedure without difficulty and was sent back to the preop area in stable condition. [facility]
== END 2017-03-21 16:00 | disposition home or self-care (01) | DRG 377 ==
LOC: ED 01:09 → MED 04:11 → SUATTDRO 04:11 → MED 05:10 → CCU 03-17 09:45 → MED 03-19 19:07
PROVIDERS: ADMIT Pediatrics; ATTEND Hospitalist
PROC: END.EGD (2017-03-18 13:00)

== ENCOUNTER 2017-12-04 18:17 | Inpatient (IN) ==
--- NOTE | 2017-12-04 18:42 | Emergency Department Report ---
Asthma HPI - General Stated Complaint: not feeling good, not eating, falls Time Seen by Provider: 12/04/17 18:39 - History of Present Illness HPI Narrative: 77-year-old male with a history of COPD. He presents to ER with shortness of breath, fatigue and exhaustion which is been worsening over the last 2-3 days. He has been trying to cough, but does not have the energy to bring up much mucus. Last February he was admitted for pneumonia/sepsis and states that his symptoms are much the same today. Denies chest pain. Nonsmoker, no chemical exposures. - Related Data Home Medications Medication Instructions Recorded Confirmed Melatonin 1 mg PO HS 01/13/17 12/04/17 Mv-Min/FA/Vit K/Lycop/Lut/Zeax 1 tab PO DAILY 01/13/17 12/04/17 [Ocuvite Eye Plus Multi Tablet] Atorvastatin [Lipitor] 20 mg PO HS 06/21/17 12/04/17 Carvedilol 12.5 mg PO BID 06/21/17 12/04/17 Citalopram [Celexa] 20 mg PO DAILY 06/21/17 12/04/17 Finasteride [Proscar] 5 mg PO DAILY 06/21/17 12/04/17 Losartan [Cozaar] 50 mg PO DAILY 06/21/17 12/04/17 Omeprazole [Prilosec] 20 mg PO BID 06/21/17 12/04/17 Tamsulosin [Flomax] 0.4 mg PO HS 06/21/17 12/04/17 Warfarin Sodium 3 mg PO SUMOTUWETHSA 06/21/17 12/04/17 Warfarin Sodium 2 mg PO FR 12/04/17 12/04/17 Previous Rx's Medication Instructions Recorded Albuterol Neb (0.083%) [Proventil 2.5 mg AEROSOL RTQID PRN each 12/11/17 Neb (0.083%)] Albuterol/Ipratropium [Duoneb] 3 ml AEROSOL RTTID each 12/11/17 PredniSONE [Deltasone 20 mg] 40 mg PO WB #17 tab 12/11/17 Promethazine + Cod Liq [Phenergan 5 ml PO Q4H PRN #100 ml 12/11/17 + Codeine] Allergies Allergy/AdvReac Type Severity Reaction Status Date / Time Penicillins Allergy Unknown Verified 12/04/17 18:58 lisinopril AdvReac Unknown COUGH Verified 12/04/17 18:58 Review of Systems All systems: reviewed and negative except as stated PFSH Patient Stated Medical History Cerebrovascular Accident Yes Cataracts Yes Dental Problems Yes Dysphagia Yes Macular Degeneration Yes Congestive Heart Failure Yes Coronary Artery Disease Yes Heart Murmur Yes Hypertension Yes Myocardial Infarction Yes Other Cardiology Yes: AICD Bronchitis Yes Chronic Obstructive Pulmonary Yes Disease (COPD) Pneumonia Yes Gastroesophageal Reflux Yes Disease Gastrointestinal Bleeding Yes Hiatal Hernia Yes Hx Benign Prostatic Yes Hyperplasia Hx Incontinence Yes Hx Kidney Stones Yes Surgical History: AICD. CABG. Inguinal hernia. Total knee. 05/19/2014 Colonoscopy - Diverticulosis. 05/19/2014 EGD - Hiatal hernia (No Barrets, H.Pylori neg) - Social History Smoking status: Never smoker second hand exposure: No Substance use type: does not use Alcohol intake: never Alcohol intake frequency: does not drink Housing: house Household members: spouse Current occupational status: retired Does patient use chewing tobacco?: No Current residence: Apartment/Private Home Physical Exam - Limitations Limitations: no limitations - General General appearance: alert, in distress (feeling very short of air) - Normal Exams: Head:: Normocephalic without trauma (poor dentition) Abdomen:: Bowel sounds positive, soft, non-tender, non-distended, no hepatosplenomegaly, masses or bruits noted Neurological:: Patient is alert, and oriented, cranial nerves, motor/sensory/ cerebellar, exams w/o gross deficits, to observation Psychiatric:: Patient exhibits, appropriate attention, emotion and affect - Respiratory Respiratory exam: Present: wheezes, crackles (tachypnea) - Cardiovascular Cardiovascular exam: Present: regular rate, tachycardia, normal heart sounds Dyspnea - [facility] Narrative Medical decision making narrative: Peripheral IV placed, normal saline ordered 1 L bolus. Sepsis workup started including blood culture, urine culture, CBC, UA, lactate and pro-calcitonin. EKG and troponin were ordered chest x-ray ordered. White count elevated with moderately elevated beta natruretic protein. Chest x-ray shows right-sided infiltrate. And Rocephin ordered 1 g IV. D-dimer is positive and patient sent for CT angiogram to rule out PE. CT angios was negative for PE, but did document the upper lobe pneumonia as well as moderate damage to heart from previous WI. EKG shows possible active ischemia. Troponin is negative and patient does not have chest pain. He was requiring 10 L oxygen to maintain saturation, respiratory therapy is present and has done DuoNeb as well. Hospitalist was consulted, case explained and patient will be admitted to CCU. Continuation of serial troponins as well as follow-up labs will be ordered by hospitalist. - Differential Diagnosis Differential diagnosis: Likely: Acute exacerbation, Acute asthmatic bronchitis, PE, Pneumonia, COPD exacerbation, ARDS - Lab Data Result diagrams: 12/10/17 04:05 12/11/17 04:54 - EKG Data EKG #1 EKG attestation: Yes: I reviewed and interpreted this EKG. EKG results narrative: 82 bpm EKG shows normal: sinus rhythm Rate [ED.COU.EKR]: normal Rhythm: NSR, PVC's Q waves: I, aVL, v3, v4, v5, v6 Critical Care Time Critical Care Time: Yes Total Critical Care Time: 45 Attestation: 45 minutes critical care time was spent both in direct conversation with patient, evaluation and treatment, research, discussion with other providers and documentation. Disposition Clinical Impression: Pneumonia Disposition: 02 To [facility] [place] Acute Care Condition: Stable for Transport Time of Disposition: 10:09 - Seen By: physician
--- OUTSIDE RECORDS SUMMARY | 2017-12-04 18:42 | External Medical Summary | Referral Summary ---
:1940 Author Organization [facility] [address] [place] [address] Care Team Providers Name Role Phone Sylvain Ramírez Primary Care Physician Encounter Date(s): 04/01/17 - 04/01/17 [facility] [address] [place] [id number] Discharge Diagnosis: Diffuse idiopathic pulmonary fibrosis Discharge Diagnosis: Hypertension Discharge Diagnosis: CAP (community acquired pneumonia) Discharge Diagnosis: CVA (cerebral infarction) Discharge Diagnosis: Coronary arteriosclerosis (disorder) Discharge Diagnosis: BPH with Prostatism, ABN. Right Prostate Lobe Discharge Diagnosis: High cholesterol Discharge Diagnosis: Dual implantable cardioverter-defibrillator in situ Discharge Diagnosis: Supplemental oxygen dependent Discharge Diagnosis: Anemia Discharge Disposition: 01-Home or Self Care Attending Physician: Sylvain Ramírez MD Admitting Physician: Sylvain Ramírez MD Vital Signs Most recent to oldest [Reference Range]: 1 Temperature Tympanic [36.6-38.1 degC] 36.4 degC *LOW* (04/01/17 9:59 AM) Peripheral Pulse Rate [60-100 bpm] 114 bpm *HI* (04/01/17 9:59 AM) Blood Pressure [90-140/60-90 mmHg] 120/70 mmHg (04/01/17 9:59 AM) SpO2 94 % (04/01/17 9:59 AM) Problem List Condition Effective Dates Status Health Status Informant Acute bilateral low back pain without Active sciatica(Confirmed) Age-related macular Active degeneration(Confirmed) Anxious depression(Confirmed) Active 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 Right Active Prostate Lobe(Confirmed) Dual implantable Active cardioverter-defibrillator in situ(Confirmed) Cataracts(Confirmed) Active CVA (cerebral infarction)(Confirmed) Active Stroke(Confirmed) Active Chronic diastolic heart failure Active secondary to idiopathic cardiomyopathy(Confirmed) Coronary arteriosclerosis Active (disorder)(Confirmed) Coronary artery disease(Confirmed) Active Supplemental oxygen Active dependent(Confirmed) Cor athrscl - unsp vessel(Confirmed) Active S/P [...] Reaction Severity Status lisinopril COUGH Active Medications albuterol 0 Refill(s) Start Date: 04/01/17 Status: Orderedalbuterol 2.5 mg/3 mL (0.083%) inhalation solution 2.5 mg 3 mL, NEB, q6hr (scheduled), # 120 Each, 0 Refill(s) Start Date: 04/01/17 Status: Orderedcitalopram 20 mg oral tablet 20 mg 1 tabs, Oral, Daily, # 30 tabs, 1 Refill(s), Pharmacy: [id number], 1 tabs Oral Daily Start Date: 03/26/17 Status: OrderedEntresto 24 mg-26 mg oral tablet 1 tabs, Oral, BID, # 60 tabs, 0 Refill(s) Start Date: 04/01/17 Status: Orderedferrous sulfate Oral, 0 Refill(s) Start Date: 04/01/17 Status: Orderedfinasteride 5 mg oral tablet 5 mg 1 tabs, Oral, Daily, LAST FILL. PT. NEEDS A MED. CHECK APPT., # 90 tabs, 1 Refill(s), Pharmacy:[facility], 1 tabs Oral Daily,Instr:LAST FILL. PT. NEEDS A MED. CHECK APPT. Start Date: 10/30/16 Status: OrderedMelatonin Bedtime (once a day), 0 Refill(s) Start Date: 01/01/16 Status: OrderedMucinex DM tabs, Oral, q12hr, 0 Refill(s) Start Date: 01/01/16 Status: OrderedOcuvite 1 tabs, Oral, Daily, 0 Refill(s) Start Date: 02/17/15 Status: Orderedomeprazole 20 mg oral delayed release capsule See Instructions, TAKE ONE CAPSULE BY MOUTH TWICE DAILY, # 180 caps, eRx: [id number] Start Date: 09/19/16 Status: OrderedSymbicort 160 mcg-4.5 mcg/inh inhalation aerosol 2 puffs, Inhalation, BID, # 6 g, 0 Refill(s) Start Date: 04/01/17 Status: Orderedtamsulosin 0.4 mg oral capsule See Instructions, TAKE 1 CAPSULE AT BEDTIME, # 90 caps, 3 Refill(s), Pharmacy: [facility], TAKE 1 CAPSULE AT BEDTIME Start Date: 09/19/16 Status: OrderedTessalon Perles mg, Oral, TID, 0 Refill(s) Start Date: 04/01/17 Status: OrderedVitamin C Daily, 0 Refill(s) Start Date: 04/01/17 Status: Orderedwarfarin 3 mg oral tablet 3 mg 1 tabs, Oral, Daily, # 90 tabs, 3 Refill(s), Pharmacy: [facility] Start Date: 12/30/16 Status: Ordered Immunizations Given and Recorded Vaccine Date Status [...] History Type Response Smoking Status Never smoker entered on: 11/16/13 Assessment and Plan Extracted from: Title: Ambulatory Patient Education Author: Sylvain Ramírez MD Date: 04/01 Obstetrics and Gynecology Anemia, Nonspecific Anemia is a condition in which the concentration of red blood cells or hemoglobin in the blood is below normal. Hemoglobin is a substance in red blood cells that carries oxygen to the tissues of the bod y. Anemia results in not enough oxygen reaching these tissues. CAUSES Common causes of anemia include: Excessive bleeding. Bleeding may be internal or external. This includes excessive bleeding from periods (in women) or from the intestine. Poor nutrition. Chronic kidney, thyroid, and liver disease. Bone marrow disorders that decrease red blood cell production. Cancer and treatments for cancer. HIV, AIDS, and their treatments. Spleen problems that increase red blood cell destruction. Blood disorders. Excess destruction of red blood cells due to infection, medicines, and autoimmune disorders. SIGNS AND SYMPTOMS Minor weakness. Dizziness. Headache. Palpitations. Shortness of breath, especially with exercise. Paleness. Cold sensitivity. Indigestion. Nausea. Difficulty sleeping. Difficulty concentrating. Symptoms may occur suddenly or they may develop slowly. DIAGNOSIS Additional blood tests are often needed. These help your health care provider determine the best treatment. Your health care provider will check your stool for blood and look for other causes of blood loss. TREATMENT Treatment varies depending on the cause of the anemia. Treatment can include: Supplements of iron, vitamin B12, or folic acid. Hormone medicines. A blood transfusion. This may be needed if blood loss is severe. Hospitalization. This may be needed if there is significant continual blood loss. Dietary changes. Spleen removal. HOME CARE INSTRUCTIONS Keep all follow-up appointments. It often takes many weeks to correct anemia, and having your health care provider check on your condition and your response to treatment is very important. SEEK IMMEDIATE MEDICAL CARE IF: You develop extreme weakness, shortness of breath, or chest pain. You become dizzy or have trouble concentrating. You develop heavy vaginal bleeding. You develop a rash. You have bloody or black, tarry stools. You faint. You vomit up blood. You vomit repeatedly. You have abdominal pain. You have a fever or persistent symptoms for more than 23 days. You have a fever and your symptoms suddenly get worse. You are dehydrated. MAKE SURE YOU: Understand these instructions. Will watch your condition. Will get help right away if you are not doing well or get worse. This information is not intended to replace advice given to you by your health care provider. Make sure you discuss any questions you have with your health care provider. Document Released: 07/03/2005 Document Revised: 01/26/2014 Document Reviewed: 11/19/2013 [employer] Interactive Patient Education 2017 [employer] No follow up information was provided. Extracted from: Title: Office Visit Note Author: Sylvain Ramírez MD Date: 04/01/17 Anemia We discussed several options for treatment for this condition. The patient declined any changes or other treatments at this time. BPH with Prostatism, ABN. Right Prostate Lobe This issue was reviewed, appears stable, and current therapy continued except as mentioned. Appropriate lab was reviewed from the most recent appropriate entry and lab was ordered if needed in the cp oe/nursing orders, and follow up recommended generally in 90 days and no later then six months. CAP (community acquired pneumonia) The patient's issue is nearly or completely resolved. There is no further issues or testing desired by them at this time. CT on 03/12 was stable and didn't have any infiltrate. IMPRESSION: 1. Chronic interstitial changes. No obvious acute infiltrate identified. 2. Hiatal hernia. 3. Stable cardiac enlargement without pulmonary edema. [1] Coronary arteriosclerosis (disorder) This issue was reviewed, appears stable, and current therapy continued except as mentioned. Appropriate lab was reviewed from the most recent appropriate entry and lab was ordered if needed in the cp oe/nursing orders, and follow up recommended generally in 90 days and no later then six months. Seeing Dr. Madrid. Assessment/Plan 1.Ischemic cardiomyopathy Ordered: Icd Device Progr Eval Dual 30665 Office Visit Level 4 Est 57226 Request for Cardiovascular Echo Return to Clinic 2.Diffuse idiopathic pulmonary fibrosis 3.Dual implantable cardioverter-defibrillator in situ [2] CVA (cerebral infarction) This issue was reviewed, appears stable, and current therapy continued except as mentioned. Appropriate lab was reviewed from the most recent appropriate entry and lab was ordered if needed in the cp oe/nursing orders, and follow up recommended generally in 90 days and no later then six months. Diffuse idiopathic pulmonary fibrosis This issue was reviewed, appears stable, and current therapy continued except as mentioned. Appropriate lab was reviewed from the most recent appropriate entry and lab was ordered if needed in the cp oe/nursing orders, and follow up recommended generally in 90 days and no later then six months. To Pulmonology/Dr. Reyes locally at family request. The patient has family members present who are agreeable with today's plan and have no additional concerns or requests. Emelyn here. Dual implantable cardioverter-defibrillator in situ This issue was reviewed, appears stable, and current therapy continued except as mentioned. Appropriate lab was reviewed from the most recent appropriate entry and lab was ordered if needed in the cp oe/nursing orders, and follow up recommended generally in 90 days and no later then six months. [address] Madrid. High cholesterol This issue was reviewed, appears stable, and current therapy continued except as mentioned. Appropriate lab was reviewed from the most recent appropriate entry and lab was ordered if needed in the cp oe/nursing orders, and follow up recommended generally in 90 days and no later then six months. Hypertension This issue was reviewed, appears stable, and current therapy continued except as mentioned. Appropriate lab was reviewed from the most recent appropriate entry and lab was ordered if needed in the cp oe/nursing orders, and follow up recommended generally in 90 days and no later then six months. The patient reports their blood pressure has been stable at home and is not having any significant or related problems. There has been no chest pain, chest pressure, soa/engel. Supplemental oxygen dependent This issue was reviewed, appears stable, and current therapy continued except as mentioned. Appropriate lab was reviewed from the most recent appropriate entry and lab was ordered if needed in the cp oe/nursing orders, and follow up recommended generally in 90 days and no later then six months. Adrien papers completed. Await Pulmonology consult. Home Health offered and declined. Addendum by Sylvain Ramírez MD on April 01, 2017 10:48:09 CDT Needs to work with Dr. Madrid about his coumadin. No GI bleeding noted. Anemia was modest at best at [facility] at 11.8?
--- OUTSIDE RECORDS SUMMARY | 2017-12-04 18:43 | External Medical Summary | Referral Summary ---
:1940 Author Organization [facility] Address [address] [place] [address] Care Team Providers Name Role Phone Sylvain Ramírez Primary Care Physician Encounter VC Date(s): 04/04/17 - 04/04/17 [facility] [address] [place] [address] [place] Discharge Disposition: 01-Home or Self Care Attending Physician: Kevin Madrid MD Admitting Physician: Kevin Madrid MD Referring Physician: Kevin Madrid MD Vital Signs Most recent to oldest [Reference Range]: 1 Peripheral Pulse Rate [60-100 bpm] 68 bpm (04/04/17 2:30 PM) Blood Pressure [90-140/60-90 mmHg] 124/68 mmHg (04/04/17 2:30 PM) Problem List Condition Effective Dates Status Health Status Informant Acute bilateral low back pain without Active sciatica(Confirmed) Age-related macular Active degeneration(Confirmed) Anxious depression(Confirmed) Active Presence of automatic Active cardioverter/defibrillator (AICD)(Confirmed) Barretts esophagus(Confirmed) 2003 Active BPH with Prostatism, ABN. Right Active Prostate Lobe(Confirmed) Cataracts(Confirmed) Active CVA (cerebral infarction)(Confirmed) Active Stroke(Confirmed) Active Chronic hypoxemic respiratory Active failure(Confirmed) Coronary arteriosclerosis Active (disorder)(Confirmed) Coronary artery disease(Confirmed) Active Supplemental oxygen Active dependent(Confirmed) Cor athrscl - unsp vessel(Confirmed) Active S/P ICD(Confirmed) Active Left Anterior Descending Infarction - Active angioplasty(Confirmed) PT IS CIRCUMCISED(Confirmed) Active Dyslipidemia(Confirmed) Active Ischemic cardiomyopathy(Confirmed) Active Heart failure(Confirmed) Active History of esophagitis(Confirmed) Active High cholesterol(Confirmed) Active Hypertension(Confirmed) Active Irritable bowel syndrome Active (IBS)(Confirmed) Kidney disease(Confirmed) Active Kidney stones(Confirmed) Active Chronic anticoagulation(Confirmed) Active Hernia, hiatal(Confirmed) Active Heart failure with reduced ejection Active fraction(Confirmed) TIA (transient ischemic Active attack)(Confirmed) Diffuse idiopathic pulmonary Active fibrosis(Confirmed) Chicken pox(Confirmed) Active Allergies, Adverse Reactions, Alerts Substance Reaction Severity Status lisinopril COUGH Active Medications albuterol 0 Refill(s) Start Date: 04/01/17 Status: Orderedalbuterol 2.5 mg/3 mL (0.083%) inhalation solution 2.5 mg 3 mL, NEB, q6hr (scheduled), # 120 Each, 0 Refill(s) Start Date: 04/01/17 Status: Orderedcarvedilol 6.25 mg oral tablet 9.375 mg 1.5 tabs, Oral, BID, # 90 tabs, 3 Refill(s), Pharmacy: [id number], Does not need refill but increased dose and will run out sooner. Please update file and refills., 1.5 tabs Oral BID Start Date: 04/04/17 Status: Orderedcitalopram 20 mg oral tablet 20 mg 1 tabs, Oral, Daily, # 30 tabs, 1 Refill(s), Pharmacy: [id number], 1 tabs Oral Daily Start Date: 03/26/17 Status: OrderedEntresto 24 mg-26 mg oral tablet 1 tabs, Oral, BID, # 60 tabs, 0 Refill(s) Start Date: 04/01/17 Status: Suspendedferrous sulfate Oral, 0 Refill(s) Start Date: 04/01/17 Status: Orderedfinasteride 5 mg oral tablet 5 mg 1 tabs, Oral, Daily, LAST FILL. PT. NEEDS A MED. CHECK APPT., # 90 tabs, 1 Refill(s), Pharmacy:[facility], 1 tabs Oral Daily,Instr:LAST [...] MOUTH TWICE DAILY, # 180 caps, eRx: [id number] Start Date: 09/19/16 Status: Orderedspironolactone 25 mg oral tablet 12.5 mg 0.5 tabs, Oral, Daily, # 45 tabs, 3 Refill(s), Pharmacy: [id number], 0.5 tabs Oral Daily Start Date: 04/04/17 Status: OrderedSymbicort 160 mcg-4.5 mcg/inh inhalation aerosol 2 puffs, Inhalation, BID, # 6 g, 0 Refill(s) Start Date: 04/01/17 Status: Orderedtamsulosin 0.4 mg oral capsule See Instructions, TAKE 1 CAPSULE AT BEDTIME, # 90 caps, 3 Refill(s), Pharmacy: [facility], TAKE 1 CAPSULE AT BEDTIME Start Date: 09/19/16 Status: OrderedTessalon Perles mg, Oral, TID, 0 Refill(s) Start Date: 04/01/17 Status: OrderedVitamin C Daily, 0 Refill(s) Start Date: 04/01/17 Status: Orderedwarfarin 3 mg oral tablet 3 mg 1 tabs, Oral, Daily, # 90 tabs, 3 Refill(s), Pharmacy: [id number], 1 tabs Oral Daily Start Date: 04/04/17 Status: Ordered Immunizations Given and Recorded Vaccine [...] 11/16/13 Assessment and Plan Extracted from: Title: POC INR Retraining Author: Abril Avery RN Date: 04/04/17 Patient, patient's and patient's daughter present at appointment. Patient' s brought [employer] machine provided by [employer] to the visit as requested. Patient's assists patient with INR check . Reviewed use of [employer] machine with patient's and daughter. Patient's completed 1 successful fingerstick with patient. Patient's verbalized understanding of use of [employer] machine. Patient's given a copy of instruction sheet below. Instructed lakshmi sr and patient's to call with any questions or concerns. Direct number for anticoagulation clinic provided. How to use [employer]aguChek machine: Turn machine on using the button with the circled I. Wait for the flashing strip. Insert the strip into the machine with the arrows going into the machine, white side up. Verify the code number on the screen with code number on the strip bottle. Press the M Wait for the beep and the countdown. Poke the side of your finger using the lancet to get a drop of blood. Move your finger to the side of the clear window on the strip and wait for the strip to absorb the blood. Once the machine beeps, move your finger away from the strip and wait for the INR result. M=match code to move on or memory
--- OUTSIDE RECORDS SUMMARY | 2017-12-04 18:43 | External Medical Summary | Referral Summary ---
:1940 Author Organization [facility] [address] [place] [address] Care Team Providers Name Role Phone Sylvain Ramírez Primary Care Physician Encounter [facility] [id number] Date(s): 02/06/17 - 02/06/17 [facility] [address] [place] [address] Discharge Diagnosis: Supplemental oxygen dependent Discharge Diagnosis: Coronary arteriosclerosis (disorder) Discharge Diagnosis: Acute bilateral low back pain without sciatica Discharge Diagnosis: Kidney disease Discharge Diagnosis: Kidney stones Discharge Diagnosis: Dual implantable cardioverter-defibrillator in situ Discharge Diagnosis: Diffuse idiopathic pulmonary fibrosis Discharge Disposition: 01-Home or Self Care Attending Physician: Sylvain Ramírez MD Admitting Physician: Sylvain Ramírez MD Vital Signs Most recent to oldest [Reference Range]: 1 Peripheral Pulse Rate [60-100 bpm] 110 bpm *HI* (02/06/17 2:13 PM) Blood Pressure [90-140/60-90 mmHg] 120/80 mmHg (02/06/17 2:13 PM) SpO2 85 % (02/06/17 2:13 PM) Problem List Condition Effective Dates Status [...] Reaction Severity Status lisinopril COUGH Active Medications atorvastatin 20 mg oral tablet 20 mg 1 tabs, Oral, Daily, # 90 tabs, 0 Refill(s), Pharmacy: [facility] [id number], 1 tabs Oral Daily Start Date: 02/06/17 Status: Orderedcitalopram 20 mg oral tablet 20 mg 1 tabs, Oral, Daily, Last fill, next RX to come from new PCP., # 30 tabs, 0 Refill(s), Pharmacy: [facility] [id number], 1 tabs Oral Daily,Instr:Last fill , next RX to come from new PCP. Start Date: 12/27/16 Status: OrderedCoreg 6.25 mg oral tablet See Instructions, TAKE 1 TABLET TWICE DAILY, # 180 tabs, 3 Refill(s), Pharmacy: [facility] [id number], TAKE 1 TABLET TWICE DAILY Start Date: 09/19/16 Status: Orderedfinasteride 5 mg oral tablet 5 mg 1 tabs, Oral, Daily, LAST FILL. PT. NEEDS A MED. CHECK APPT., # 90 tabs, 1 Refill(s), Pharmacy:[facility], 1 tabs Oral Daily,Instr:LAST FILL. PT. NEEDS A MED. CHECK APPT. Start Date: 10/30/16 Status: Orderedlosartan 50 mg oral tablet See Instructions, TAKE ONE TABLET BY MOUTH ONCE DAILY/LAST FILL. Pt must choose a new PCP, next rx to come from new PCP., # 30 tabs, 0 Refill(s), Pharmacy: [facility], TAKE ONE TABLET BYMOUTH ONCE DAILY/LAST FILL. Pt must choose a new... Start Date: 11/29/16 Status: OrderedMelatonin Bedtime (once a day), 0 Refill(s) Start Date: 01/01/16 Status: OrderedMucinex DM tabs, Oral, q12hr, 0 Refill(s) Start Date: 01/01/16 Status: OrderedOcuvite 1 tabs, Oral, Daily, 0 Refill(s) Start Date: 02/17/15 Status: Orderedomeprazole 20 mg oral delayed release capsule See Instructions, TAKE ONE CAPSULE BY MOUTH TWICE DAILY, # 180 caps, eRx: [id number] Start Date: 09/19/16 Status: Orderedtamsulosin 0.4 mg oral capsule See Instructions, TAKE 1 CAPSULE AT BEDTIME, # 90 caps, 3 Refill(s), Pharmacy: [facility], TAKE 1 CAPSULE AT BEDTIME Start Date: 09/19/16 Status: OrderedtraMADol 50 mg oral tablet 50 mg 1 tabs, Oral, q4hr, Take 1-2 tabs every 4 hours and no more than 8 per day , # 60 tabs, 0 Refill(s) Start Date: 05/14/16 Status: Orderedwarfarin 3 mg oral tablet 3 mg 1 tabs, Oral, Daily, # 90 tabs, 3 Refill(s), Pharmacy: [facility] Start Date: 12/30/16 Status: Ordered Results Hematology Most recent to oldest [Reference Range]: 1 WBC [4.8-10.8 10*3/uL] 10.8 10*3/uL (02/06/17 2:55 PM) RBC [4.60-6.20] 5.24 (02/06/17 2:55 PM) Hgb [14.0-18.0 gm/dL] 15.2 gm/dL (02/06/17 2:55 PM) Hct [42.0-52.0 %] 47.6 % (02/06/17 2:55 PM) MCV [82.0-99.0 fL] 90.8 fL (02/06/17 2:55 PM) MCH [27.0-32.0 pg] 29.0 pg (02/06/17 2:55 PM) MCHC [32.0-36.0 gm/dL] 31.9 gm/dL *LOW* (02/06/17 2:55 PM) RDW [11.5-14.5 %] 13.7 % (02/06/17 2:55 PM) Platelet [150-400 10*3/uL] 155 10*3/uL (02/06/17 2:55 PM) MPV [8.8-14.8 fL] 11.7 fL (02/06/17 2:55 PM) Immature Granulocytes [0.0-1.0 %] 0.5 % (02/06/17 2:55 PM) Neutrophils [51-75 %] 53 % (02/06/17 2:55 PM) Lymphocytes [20-46 %] 33 % (02/06/17 2:55 PM) Monocytes [4-11 %] 9 % (02/06/17 2:55 PM) Eosinophils [0-4 %] 4 % (02/06/17 2:55 PM) Basophils [0-2 %] 1 % (02/06/17 2:55 PM) Neutro Absolute [1.90-7.00] 5.70 (02/06/17 2:55 PM) Lymph Absolute [0.80-3.30] 3.59 *HI* (02/06/17 2:55 PM) Castro Absolute [0.30-1.00] 1.00 (02/06/17 2:55 PM) Eos Absolute [0.00-0.50] 0.45 (02/06/17 2:55 PM) Baso Absolute [0.00-0.20] 0.06 (02/06/17 2:55 PM) Chemistry Most recent to oldest [Reference Range]: 1 Sodium Lvl [135-144 mEq/L] 138 mEq/L (02/06/17 2:55 PM) Potassium Lvl [3.5-5.2 mEq/L] 4.8 mEq/L (02/06/17 2:55 PM) Chloride [99-111 mEq/L] 99 mEq/L (02/06/17 2:55 PM) CO2 [23-31 mEq/L] 30 mEq/L (02/06/17 2:55 PM) AGAP [3-20 mEq/L] 9 mEq/L (02/06/17 2:55 PM) BUN [8-26 mg/dL] 23 mg/dL (02/06/17 2:55 PM) Glucose Lvl [70-99 mg/dL] 125 mg/dL *HI* (02/06/17 2:55 PM) Creatinine Lvl [0.72-1.25 mg/dL] 1.36 mg/dL *HI* (02/06/17 2:55 PM) eGFR [>60 mL/min] 51 mL/min 1 *ABN* (02/06/17 2:55 PM) Calcium Lvl [8.4-10.2 mg/dL] 9.5 mg/dL (02/06/17 2:55 PM) Albumin Lvl [3.4-4.8 gm/dL] 4.2 gm/dL (02/06/17 2:55 PM) Total Protein [6.0-7.6 gm/dL] 7.5 gm/dL (02/06/17 2:55 PM) Globulin [1.8-4.0 gm/dL] 3.3 gm/dL (02/06/17 2:55 PM) ALT [0-55 U/L] 18 U/L (02/06/17 2:55 PM) AST [5-34 U/L] 20 U/L (02/06/17 2:55 PM) Alk Phos [40-150 U/L] 77 U/L (02/06/17 2:55 PM) Bili Total [0.2-1.2 mg/dL] 1.0 mg/dL (02/06/17 2:55 PM) BNP [0-99 pg/mL] 86 pg/mL (02/06/17 2:55 PM) Chol [0-199 mg/dL] 159 mg/dL (02/06/17 2:55 PM) Trig [0-149 mg/dL] 107 mg/dL (02/06/17 2:55 PM) HDL [40-84 mg/dL] 51 mg/dL (02/06/17 2:55 PM) LDL [0-130 mg/dL] 87 mg/dL (02/06/17 2:55 PM) VLDL Cholesterol [0-28 mg/dL] 21 mg/dL (02/06/17 2:55 PM) Cardiac Risk [0.0-5.7] 3.1 (02/06/17 2:55 PM) TSH with Reflex Free T4 [0.35-4.94] 3.74 (02/06/17 2:55 PM) 1Result Comment: Multiply eGFR results by 1.21 for race. Immunizations Given and Recorded Vaccine Date Status [...] Patient Education Author: Sylvain Ramírez MD Date: Preventive Health Back Exercises The following exercises strengthen the muscles that help to support the back. They also help to keep the lower back flexible. Doing these exercises can help to prevent back pain or lessen existing pain. If you have back pain or discomfort, try doing these exercises 23 times each day or as told by your health care provider. When the pain goes away, do them once each day, but increase the number of ti mes that you repeat the steps for each exercise (do more repetitions). If you do not have back pain or discomfort, do these exercises once each day or as told by your health care provider. EXERCISES Single Knee to Chest Repeat these steps 35 times for each le. Lie on your back on a firm bed or the floor with your legs extended. 2. Bring one knee to your chest. Your other leg should stay extended and in contact with the floor. 3. Hold your knee in place by grabbing your knee or thigh. 4. Pull on your knee until you feel a gentle stretch in your lower back. 5. Hold the stretch for 1030 seconds. 6. Slowly release and straighten your leg. Pelvic Tilt Repeat these steps 510 times: 1. Lie on your back on a firm bed or the floor with your legs extended. 2. Bend your knees so they are pointing toward the ceiling and your feet are flat on the floor. 3. Tighten your lower abdominal muscles to press your lower back against the floor. This motion will tilt your pelvis so your tailbone points up toward the ceiling instead of pointing to your feet or the floor. 4. With gentle tension and even breathing, hold this position for 510 seconds. CatCow Repeat these steps until your lower back becomes more flexible: 1. Get into a [id number] position on a firm surface. Keep your hands under your shoulders, and keep your knees under your hips. You may place padding under your knees for comfort. 2. Let your head hang down, and point your tailbone toward the floor so your lower back becomes rounded like the back of a cat. 3. Hold this position for 5 seconds. 4. Slowly lift your head and point your tailbone up toward the ceiling so your back forms a sagging arch like the back of a cow. 5. Hold this position for 5 seconds. Press-Ups Repeat these steps 510 times: 1. Lie on your abdomen (face-down) on the floor. 2. Place your palms near your head, about shoulder-width apart. 3. While you keep your back as relaxed as possible and keep your hips on the floor, slowly straighten your arms to raise the top half of your body and lift your shoulders. Do not use your back muscles t o raise your upper torso. You may adjust the placement of your hands to make yourself more comfortable. 4. Hold this position for 5 seconds while you keep your back relaxed. 5. Slowly return to lying flat on the floor. Bridges Repeat these steps 10 times: 1. Lie on your back on a firm surface. 2. Bend your knees so they are pointing toward the ceiling and your feet are flat on the floor. 3. Tighten your buttocks muscles and lift your buttocks off of the floor until your waist is at almost the same height as your knees. You should feel the muscles working in your buttocks and the back of your thighs. If you do not feel these muscles, slide your feet 12 inches farther away from your buttocks. 4. Hold this position for 35 seconds. 5. Slowly lower your hips to the starting position, and allow your buttocks muscles to relax completely. If this exercise is too easy, try doing it with your arms crossed over your chest. Abdominal Crunches Repeat these steps 510 times: 1. Lie on your back on a firm bed or the floor with your legs extended. 2. Bend your knees so they are pointing toward the ceiling and your feet are flat on the floor. 3. Cross your arms over your chest. 4. Tip your chin slightly toward your chest without bending your neck. 5. Tighten your abdominal muscles and slowly raise your trunk (torso) high enough to lift your shoulder blades a tiny bit off of the floor. Avoid raising your torso higher than that, because it can put too much stress on your low back and it does not help to strengthen your abdominal muscles. 6. Slowly return to your starting position. Back Lifts Repeat these steps 510 times: 1. Lie on your abdomen (face-down) with your arms at your sides, and rest your forehead on the floor. 2. Tighten the muscles in your legs and your buttocks. 3. Slowly lift your chest off of the floor while you keep your hips pressed to the floor. Keep the back of your head in line with the curve in your back. Your eyes should be looking at the floor. 4. Hold this position for 35 seconds. 5. Slowly return to your starting position. SEEK MEDICAL CARE IF: Your back pain or discomfort gets much worse when you do an exercise. Your back pain or discomfort does not lessen within 2 hours after you exercise. If you have any of these problems, stop doing these exercises right away. Do not do them again unless your health care provider says that you can. SEEK IMMEDIATE MEDICAL CARE IF: You develop sudden, severe back pain. If this happens, stop doing the exercises right away. Do not do them again unless your health care provider says that you can. This information is not intended to replace advice given to you by your health care provider. Make sure you discuss any questions you have with your health care provider. Document Released: 07/03/2005 Document Revised: 02/14/2016 Document Reviewed: 07/20/2015 Elsevier Interactive Patient Education 2016 [employer] No follow up information was provided. Extracted from: Title: Office Visit Note Author: Sylvain Ramírez MD Date: 02/06/17 Acute bilateral low back pain without sciatica This issue was reviewed, appears stable, and current therapy continued except as mentioned. Appropriate lab was reviewed from the most recent appropriate entry and lab was ordered if needed in the cp oe/nursing orders, and follow up recommended generally in 90 days and no later then six months. Not needing norco at this time. BP (high blood pressure) This issue was reviewed, appears stable, and [...] been no chest pain, chest pressure, soa/engel. Ordered: CBC w/ Differential Comprehensive Metabolic Panel TSH with Reflex Free T4 Bronchitis The patient's issue is nearly or completely resolved. There is no further issues or testing desired by them at this time. CXR for a recheck. ABX if indicated. Ordered: XR Chest 2 Views Coronary arteriosclerosis (disorder) This issue was reviewed, appears stable, and current therapy continued except as mentioned. Appropriate lab was reviewed from the most recent appropriate entry and lab was ordered if needed in the cp oe/nursing orders, and follow up recommended generally in 90 days and no later then six months. Assessment/Plan 1.Ischemic cardiomyopathy Ordered: Icd Device Progr Eval Dual 07140 Office Visit Level 4 Est 41793 Request for Cardiovascular Echo Return to Clinic 2.Diffuse idiopathic pulmonary fibrosis 3.Dual implantable cardioverter-defibrillator in situ 4.LV (left ventricular) mural thrombus following TX 5.On warfarin therapy Dictation performed with dragon voice recognition [1] Diffuse idiopathic pulmonary fibrosis This issue was reviewed, appears stable, and current therapy continued except as mentioned. Appropriate lab was reviewed from the most recent appropriate entry and lab was ordered if needed in the cp oe/nursing orders, and follow up recommended generally in 90 days and no later then six months. Recert for oxygen. O2Sats were 85% on RA. CXR pending. IMPRESSION: 1: There is a moderate-sized hiatal hernia causing the increased density behind the heart. 2: The thoracic aorta is tortuous, but there is no aneurysm. Besides the hiatal hernia, there is no mediastinal mass. 3: There are peripheral sub-plural reticulonodular changes throughout both lungs with associated bronchiectasis concerning for pulmonary fibrosis or scarring. 4: Elevation of the right hemidiaphragm. 5: Likely cyst seen within the right lobe of the liver. [2] Pulmonology consult offered and declined. IMPRESSION: Chronic areas of scarring, elevated diaphragm, and retrocardiac hernia all unchanged. [3] Dual implantable cardioverter-defibrillator in situ This issue was reviewed, appears stable, and current therapy continued except as mentioned. Appropriate lab was reviewed from the most recent appropriate entry and lab was ordered if needed in the cp oe/nursing orders, and follow up recommended generally in 90 days and no later then six months. High cholesterol This issue was reviewed, appears stable, and current therapy continued except as mentioned. Appropriate lab was reviewed from the most recent appropriate entry and lab was ordered if needed in the cp oe/nursing orders, and follow up recommended generally in 90 days and no later then six months. Ordered: Lipid Panel Kidney disease This issue was reviewed, appears stable, and current therapy continued except as mentioned. Appropriate lab was reviewed from the most recent appropriate entry and lab was ordered if needed in the cp oe/nursing orders, and follow up recommended generally in 90 days and no later then six months. Kidney stones The patient's issue is nearly or completely resolved. There is no further issues or testing desired by them at this time. SOB (shortness of breath) See above.CXR pending. Recert andrestart oxygen, not usingright now. Lab pending. To [facility] if worse in anyway. Ordered: B-Type Natriuretic Peptide XR Chest 2 Views Supplemental oxygen dependent See above. The patient has family members present who are agreeable with today's plan and have no additional concerns or requests. here.
--- OUTSIDE RECORDS SUMMARY | 2017-12-04 18:44 | External Medical Summary | Referral Summary ---
:1940 Author Organization [facility] Address [address] [place] [address] Care Team Providers Name Role Phone Sylvain Ramírez Primary Care Physician Encounter [facility] Date(s): 10/28/17 - 10/28/17 [facility] [address] [place] [address]- [place] Encounter Diagnosis Heart failure with reduced ejection fraction (Discharge Diagnosis) - 10/28/17 Presence of automatic cardioverter/defibrillator (AICD) (Discharge Diagnosis) - 10/28/17 Supplemental oxygen dependent (Discharge Diagnosis) - 10/28/17 Ventricular tachycardia (Discharge Diagnosis) - 10/28/17 Ischemic cardiomyopathy (Discharge Diagnosis) - 10/28/17 Discharge Disposition: 01-Home or Self Care Attending Physician: Kevin Madrid MD Admitting Physician: Kevin Madrid MD Vital Signs Most recent to oldest [Reference Range]: 1 Peripheral Pulse Rate [60-100 bpm] 76 bpm (10/28/17 2:32 PM) Blood Pressure [90-140/60-90 mmHg] 124/84 mmHg (10/28/17 2:32 PM) Problem List Condition Effective Dates Status Health Status Informant Acute bilateral low back pain without Active sciatica(Confirmed) Age-related macular Active degeneration(Confirmed) Anxious depression(Confirmed) Active Presence of automatic Active cardioverter/defibrillator (AICD)(Confirmed) Barretts esophagus(Confirmed) 2003 Active BPH with Prostatism, ABN. Right Active Prostate Lobe(Confirmed) Cataracts(Confirmed) Active Chronic hypoxemic respiratory Active failure(Confirmed) Coronary arteriosclerosis Active (disorder)(Confirmed) Coronary artery disease(Confirmed) Active Supplemental oxygen Active dependent(Confirmed) Cor athrscl - unsp vessel(Confirmed) Active S/P ICD(Confirmed) Active Left Anterior Descending Infarction - Active angioplasty(Confirmed) PT IS CIRCUMCISED(Confirmed) Active Dyslipidemia(Confirmed) Active Ischemic cardiomyopathy(Confirmed) Active Heart failure(Confirmed) Active History of stroke(Confirmed) Active History of esophagitis(Confirmed) Active High cholesterol(Confirmed) Active Hypertension(Confirmed) Active Irritable bowel syndrome Active (IBS)(Confirmed) Kidney disease(Confirmed) Active Kidney stones(Confirmed) Active Chronic anticoagulation(Confirmed) Active Hernia, hiatal(Confirmed) Active Heart failure with reduced ejection Active fraction(Confirmed) TIA (transient ischemic Active attack)(Confirmed) Diffuse idiopathic pulmonary Active fibrosis(Confirmed) Chicken pox(Confirmed) Active Ventricular tachycardia(Confirmed) Active Allergies, Adverse Reactions, Alerts Substance Reaction Severity Status lisinopril COUGH Active Medications atorvastatin 20 mg oral tablet 20 mg 1 tabs, Oral, Daily, # 90 tabs, 0 Refill(s) Start Date: 04/29/17 Status: Orderedcarvedilol 12.5 mg oral tablet 18.75 mg 1.5 tabs, Oral, BID, # 90 tabs, 6 Refill(s), Pharmacy: [facility], 1.5 tabs OralBID Start Date: 06/16/17 Status: Orderedcitalopram 20 mg oral tablet 20 mg 1 tabs, Oral, Daily, # 30 tabs, 1 Refill(s), Pharmacy: [facility], 1 tabs Oral Daily Start Date: 03/26/17 Status: Orderedferrous sulfate Oral, 0 Refill(s) Start Date: 04/01/17 Status: Orderedfinasteride 5 mg oral tablet 5 mg 1 tabs, Oral, Daily, LAST FILL. PT. NEEDS A MED. CHECK APPT., # 90 tabs, 1 Refill(s), Pharmacy:[facility], 1 tabs Oral Daily,Instr:LAST FILL. PT. NEEDS A MED. CHECK APPT. Start Date: 10/30/16 Status: Orderedlosartan 50 mg oral tablet 50 mg 1 tabs, Oral, Daily, # 90 tabs, 0 Refill(s) Start Date: 04/29/17 Status: OrderedMelatonin Bedtime (once a day), 0 Refill(s) Start Date: 01/01/16 Status: OrderedOcuvite 1 tabs, Oral, Daily, 0 Refill(s) Start Date: 02/17/15 Status: Orderedomeprazole 20 mg oral delayed release capsule See Instructions, TAKE ONE CAPSULE BY MOUTH TWICE DAILY, # 180 caps, eRx: [id number] Start Date: 09/19/16 Status: Orderedsucralfate 1 g oral tablet 1 g 1 tabs, Oral, QIDACHS, # 360 tabs, 0 Refill(s) Start Date: 04/29/17 Status: OrderedTessalon Perles mg, Oral, TID, as needed for cough, 0 Refill(s) Start Date: 04/01/17 Status: OrderedVitamin C Daily, 0 Refill(s) Start Date: 04/01/17 Status: Orderedwarfarin 3 mg oral tablet 3 mg 1 tabs, Oral, Daily, # 90 tabs, 3 Refill(s), Pharmacy: [facility], 1 tabs Oral Daily Start Date: 04/04/17 Status: Ordered Immunizations Given and Recorded Vaccine Date Status Refusal Reason influenza virus vaccine, inactivated 04/01/16 Given influenza virus vaccine, inactivated 04/14/15 Given Procedures Procedure Date Related Diagnosis Body Site Status Colonoscopy1 05/19/14 Completed Esophagogastroduodenoscopy and biopsy2 05/19/14 Completed Implantable Defibrillator 07/17/11 Completed Pacemaker 07/17/11 Completed Cataract right 03/12/11 Completed Cataract Left 02/19/11 Completed cysto, p- bx 09/10/10 Completed Cardiac pacemaker Completed H/O total knee replacement Completed Hernia Completed History of repair of inguinal hernia Completed 1Diverticula. Will not need to repeat unless symptoms warrant.2Negative for CLOtest a N negative for [place]'s. The patient continues with abdominal pain we'll obtain a gallbladder sono. Social History Social History Type Response Smoking Status Never smoker entered on: 11/16/13 Assessment and Plan Extracted from: Title: Office Visit Note Author: Kevin Madrid MD Date: 10/28/17 1.Heart failure with reduced ejection fraction Ordered: Icd Device Progr Eval Mult 48410 Office Visit Level 4 Est 16792 Return to Clinic 2.Ischemic cardiomyopathy 3.Presence of automatic cardioverter/defibrillator (AICD) 4.Supplemental oxygen dependent 5.Ventricular tachycardia Referrals to Other Providers Referred by: Kevin Madrid MD
--- OUTSIDE RECORDS SUMMARY | 2017-12-04 18:44 | External Medical Summary | Referral Summary ---
:1940 Author Organization [facility] Address [address] [place] [address] Care Team Providers Name Role Phone Sylvain Ramírez Primary Care Physician Encounter [facility] Date(s): 04/29/17 - 04/29/17 [facility] [address] [place] [address]- [place] Discharge Disposition: 01-Home or Self Care Attending Physician: Kevin Madrid MD Admitting Physician: Kevin Madrid MD Referring Physician: Kevin Madrid MD Problem List Condition Effective Dates Status Health [...] 04/29/17 Status: Orderedcarvedilol 12.5 mg oral tablet 12.5 mg 1 tabs, Oral, BID, # 60 tabs, 6 Refill(s), Pharmacy: [facility], 1 tabs Oral BID Start Date: 04/29/17 Status: Orderedcitalopram 20 mg oral tablet 20 mg 1 tabs, Oral, Daily, # 30 tabs, 1 Refill(s), Pharmacy: [facility], 1 tabs Oral Daily Start Date: 03/26/17 Status: Orderedferrous sulfate Oral, 0 Refill(s) Start Date: 04/01/17 Status: Orderedfinasteride 5 mg oral tablet 5 mg 1 tabs, Oral, Daily, LAST FILL. PT. NEEDS A MED. CHECK APPT., # 90 tabs, 1 Refill(s), Pharmacy:[facility], 1 tabs Oral Daily,Instr:LAST [...] MOUTH TWICE DAILY, # 180 caps, eRx: [facility] Start Date: 09/19/16 Status: Orderedsucralfate [...] # 90 tabs, 3 Refill(s), Pharmacy: [facility], [...]
[2017-12-04] MEDS ORDERED: NS 1,000 ML IV ONE ×2 (18:46→20:09)
[2017-12-04] MEDS: SALINE FLUSH 10ml SYRINGE IVF PRN (18:54)
[2017-12-04] MEDS ORDERED: ALBUTEROL/IPRATROPIUM 2.5mg-0.5mg/3ml NEB AEROSOL ONE (19:01)
[2017-12-04] MEDS ORDERED: CEFTRIAXONE (ER USE ONLY) 1 GM in NS 100 ML IV ONE (19:02)
[2017-12-04] MEDS ORDERED: IOHEXOL 350mg/ml 75ml INJECTION ONE (20:58)
[2017-12-04] MEDS ORDERED: SALINE FLUSH 10ml SYRINGE ONE (20:59)
[2017-12-05] MEDS ORDERED: WARFARIN 3 MG TABLET PO SCH (00:42)
[2017-12-05] MEDS ORDERED: PANTOPRAZOLE 40 MG INJECTION IVP SCH (00:42)
[2017-12-05] MEDS ORDERED: ALBUTEROL 2.5mg/3ml (0.083%) NEB AEROSOL PRN (00:42)
[2017-12-05 00:45] VITALS: BMI 25.7
--- NOTE | 2017-12-05 00:54 | History & Physical Report ---
History of Present Illness Date: 12/05/17 Chief complaint: short of breath HPI: This is a 77 y/o male who has a history of COPD who in the past has been on 2 l of oxygen. It should be pointed out that it was difficult getting a history from this patient who is on high flow oxygen and difficult to understand. The patient reports that over the past 1 to 2 weeks he has had increased shortness of breath. He has a chronic cough but has been non productive. He relates sx worsening as the weather worsened. It is not clear why tonight he presented to the ED except for the fact that he wasn't getting better. In the ED he was requiring 10 L of oxygen to maintain his saturations . He had a pCXR that demonstrated significant what appears to be elevation of the right hemidiaphragm. There is associated atelectasis and or infiltrate in the right upper lobe Because his dimer was elevated he had a CTA of the chest completed. The report is not yet in the computer but is reported to demonstrate infiltrate in the right upper lobe. Note that pulmonary note from recent cx describes perhaps similar findings. The patient will be admitted with coverage for community acquired pneumonia and mild COPD exacerbation. Note that the patient does have a history of ischemic cardiomyopathy ( has AICD implanted). His history does not inform increased orthopnea. His exam does not demonstrate peripheral edema. His CXR is not overly c/w pulm vascular congestion. AT this time the patient will be admitted with rule out, and further management of hypoxic respiratory failure. Review of Systems Review of systems: no headache, no fever, chills, has sweated but relates this to environmental effects, no sore throat, no congestion, no neck or jaw pain, no chest pain, no increased orthopnea, no pnd, no abdomen pain, no nausea/vomiting, no increased edema to legs, no skin rashes, no focal neuro complaints. 12 point ROS negative except for outlined above. Past Medical History Medical History Updates: COPD (previously on 2L), paroxysmal atrial fibrillation , CAD, ischemic cardiomopathy, HTN, BPH, GERD Surgical History: AICD. CABG. Inguinal hernia. Total knee. 05/19/2014 Colonoscopy - Diverticulosis. 05/19/2014 EGD - Hiatal hernia (No Barrets, H.Pylori neg) Family History: Unable to Obtain - Social History Smoking status: Never smoker Substance use type: does not use Alcohol intake frequency: does not drink Housing: house Household members: spouse Current occupational status: retired Does patient use chewing tobacco?: No Current residence: Apartment/Private Home Medications Home Medications Medication Instructions Recorded Confirmed Type Melatonin 1 mg PO HS 01/13/17 12/04/17 History Mv-Min/FA/Vit K/Lycop/Lut/Zeax 1 tab PO DAILY 01/13/17 12/04/17 History [Ocuvite Eye Plus Multi Tablet] Atorvastatin [Lipitor] 20 mg PO HS 06/21/17 12/04/17 History Carvedilol [Carvedilol] 12.5 mg PO BID 06/21/17 12/04/17 History Citalopram [Celexa] 20 mg PO DAILY 06/21/17 12/04/17 History Finasteride [Proscar] 5 mg PO DAILY 06/21/17 12/04/17 History Losartan [Cozaar] 50 mg PO DAILY 06/21/17 12/04/17 History Omeprazole [Prilosec] 20 mg PO BID 06/21/17 12/04/17 History Tamsulosin [Flomax] 0.4 mg PO HS 06/21/17 12/04/17 History Warfarin Sodium [Warfarin Sodium] 3 mg PO SUMOTUWETHSA 06/21/17 12/04/17 History Promethazine + Cod Liq [Phenergan 5 ml PO Q4H PRN 12/04/17 12/04/17 History + Codeine] Warfarin Sodium [Warfarin Sodium] 2 mg PO FR 12/04/17 12/04/17 History Allergies Allergy/AdvReac Type Severity Reaction Status Date / Time Penicillins Allergy Unknown Verified 12/04/17 18:58 lisinopril AdvReac Unknown COUGH Verified 12/04/17 18:58 Exam Vital Signs: Temperature 98.6 F 12/05/17 00:15 Pulse Rate 89 12/05/17 00:15 Respiratory Rate 24 12/05/17 00:15 Blood Pressure 137/71 12/05/17 00:15 Pulse Oximetry 98 12/05/17 00:15 Height/Weight/BMI: Height 1.7 m Weight 74.4 kg Body Mass Index 25.7 - Constitutional Present: mild distress - Routine HEENT Exam Head: Present: normocephalic, atraumatic Eye: Present: EOMI ENT: Present: mucous membranes dry - Routine Neck Exam Present: supple, full ROM - Routine Respiratory Exam Comments: diminished, I could not appreciate rhonchi or even wheezes - Routine Cardiovascular Exam Present: RRR, no murmur - Routine Abdominal Exam Present: soft, normoactive bowel sounds, non distended, non tender - Routine Extremities Exam Present: no edema, non tender - Routine Back/Spine/Pelvis Exam Back/Spine: Present: full ROM - Routine Skin Exam Present: intact - Routine Neurological Exam Present: alert, oriented X3, moving all extremities, normal tone, vision grossly intact, hearing grossly intact - Routine Psychiatric Exam Present: normal affect, normal thought process Results - Labs CBC & Chem 7: 12/05/17 01:18 12/05/17 01:18 Labs: reviewed and will be discussed below Assessment and Plan (1) Paroxysmal atrial fibrillation Current visit: No Status: Acute (2) Pulmonary fibrosis Problem details: 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) Current visit: No Status: Acute (3) Community acquired pneumonia Current visit: No Status: Ruled-out (4) Acute respiratory failure with hypoxia Current visit: Yes Status: Acute (5) COPD exacerbation Current visit: Yes Status: Acute (6) Coronary artery disease Current visit: No Status: Chronic Assessment and Plan: 1. community acquired pneumonia acute POA: This patient CT suggest right upper lobe infiltrate. Note that this is perhaps chronic based on notes from pulmonary. He has increased dyspnea. dry cough, but no fever and no chills. sweats relating to temperature ambient. He has min WBC count. Normal differential. Regardless will start levaquin and culture and address further as indicated. 2. hypoxic respirtory failure POA: DDX: PE ruled out. infiltrate, copd exacerbation, pulm vascular congestion. Currently requires 10L. titrate for sats 91%only. see below discussion 3 COPD/.pulmonary fibrosis with acute exacerbation COPD acute POA: solumedrol, duoneb, albuterol, oxygen for sats 91%. reassess in the am, taper to oral steroids rapidly. 4. CAD chronic POA: continue meds (b chanell, statin, coumadin). trop slightly up .05. will cycle as a precaution while on tele. No chest pain. EKG is sinus and non ischemic 5. atrial fib paroxysmal chronic not POA: currently sinus. coumadin, monitor inr with levaquin, b chanell, good rate control. 6. DVT ppx; SCD, coumadin 7. ICM chronic POA: s/p CAD. currently does not appear to be in failure. will not acively diures. challenging patient who presents with acute hypoxic resp failure. It will be presumed pulmonary in origin initially as noted above. Keep in mind that patient could have heart failure exacerbation. If needed echo could help better determine. DVT Prophylaxis: SCD's, Coumadin Resuscitation Status: Full Code - Time spent with patient Time with patient PN: 50 minutes - Physician Narrative Physician: Pabilto Castillo MD Narrative: Date: 12/05/17 Time: I have independently interviewed and examined pt. Chart reviewed. Reviewed above note and concur. HPI: 77 yo male with COPD, pulmonary fibrosis, ischemic cardiomyopathy who presented with dyspnea. He is not sure how much O2 he is on at home, but records say he is on 2L. He needed 10L HFNC in ED. CTA was negative for PE but suggested RUL pneumonia. Patient was started on Levaquin and Solu-Medrol. He has some confusion and is unable to give much history. He says his breathing feels better, so he is ready to go home. He denies chest pain. He says his cough has not been productive. No fever/chills. PMHx: COPD (previously on 2L), paroxysmal atrial fibrillation, CAD, ischemic cardiomopathy, HTN, BPH, GERD, pulmonary fibrosis. PSHx: AICD. CABG. Inguinal hernia. Total knee. 05/19/2014 Colonoscopy - Diverticulosis. 05/19/2014 EGD - Hiatal hernia (No Barrets, H.Pylori neg) FHx: Shx: never smoked, lives with his . ROS: In addition to above, poor vision, no BLE edema. Remainder of complete ROS is negative. Physical exam: VS: afeb 144/68 91 91% 8L Gen: confused HEENT: nc/at, perrl, anicteric, poor dentition neck: supple, trachea midline Lungs: diminished air movement with crackles right > left. No use of accessory muscles. CV: RRR. No murmur Abd: s/nt/nd +bs Ext: no c/c/e Neuro: cn II-XII grossly intact. KHAN. No oriented to time, place Assessment acute on chronic hypoxic respiratory failure COPD with exacerbation CAP CAD ischemic cardiomyopathy pulmonary fibrosis Paroxysmal a fib chronic anticoagulation HTN GERD BPH Plan Admit to CCU. Continue Levaquin, but monitor for increased delirium. Patient's has told nurse that confusion in the morning is normal for the patient. Begin steroid taper. Continue duonebs. Titrate O2 to keep sats > 90%. Continue ARB and BB for HFrEF. Diurese. Monitor i/os Continue coumadin and monitor on Levaquin. Resume oral PPI PT/OT to eval and treat Hospital Course Summary Disclaimer: The visit summary below is not to be considered part of the above Progress Note. Hospital Course: 12/05 Admit to CCU. Continue Levaquin, but monitor for increased delirium. Patient's has told nurse that confusion in the morning is normal for the patient. Begin steroid taper. Continue duonebs. Titrate O2 to keep sats > 90%. Continue ARB and BB for HFrEF. Diurese. Monitor i/os Continue coumadin and monitor on Levaquin. Resume oral PPI PT/OT to eval and treat
[2017-12-05] MEDS: METHYLPREDNISOLONE SOD SUCC 125mg/2ml INJECTION IVP SCH ×2 (01:09→06:07)
[2017-12-05] MEDS: LEVOFLOXACIN PB 750 MG/150 ML BAG IV SCH (01:25)
[2017-12-05] MEDS: ALBUTEROL/IPRATROPIUM 2.5mg-0.5mg/3ml NEB AEROSOL SCH ×4 (04:52→18:50)
--- NOTE | 2017-12-05 07:29 | CT Scan Report ---
EXAM: CT angio pulm emboli LOCATION OF DICTATION: [facility] HISTORY: soa COMPARISON: No prior studies available for comparison. TECHNIQUE: Multiple contiguous axial images were obtained of the chest with contrast utilizing 85 mL of Omnipaque [address] angiogram protocol. Coronal, sagittal, and MIP reformatted images were utilized. Automated Exposure Control and Iterative Reconstruction dose reducing techniques were utilized. FINDINGS: There is some elevation the right hemidiaphragm again demonstrated. There is a large hiatal hernia. Heart size is mildly enlarged. There is some thinning of the myocardium with distal left ventricular apex dilatation suggested. The findings could indicate chronic myocardial infarcts. Clinical correlation recommended There is no pleural effusion. Mild to moderate calcific atherosclerotic disease of the coronary arteries and thoracic aorta. Left-sided pacemaker in place. There are no central pulmonary artery filling defects to suggest pulmonary embolism. Chronic interstitial changes and pleural parenchymal reticular and groundglass opacities demonstrated. There is some consolidation within the anterior right upper lobe which could reflect area of atelectatic lung or infiltrates and follow-up chest x-rays are recommended. There are no pleural effusions. There is no pneumothorax. There is no axillary, hilar, or mediastinal lymphadenopathy. There is moderate spondylosis of the thoracic spine. Right humeral prosthesis demonstrated. IMPRESSION: 1. No visible pulmonary embolism. 2. There are pleural parenchymal reticular and groundglass opacities bilaterally. Consolidating opacity within the anterior right upper lobe may reflect infiltrates/pneumonia. Follow-up chest x-rays recommended. 3. Large hiatal hernia. 4. Chronic myocardial infarct suggested with mild dilatation of the left ventricular apex. .
--- NOTE | 2017-12-05 07:35 | XRay Report ---
LOCATION OF DICTATION: [facility] EXAM: XR chest 2V HISTORY: dyspnea COMPARISON: Compared to the condyle current CT scan dated November 26, 2017 and chest x-ray dated June 21, 2017 FINDINGS: Significant elevation the right hemidiaphragm. Large hiatal hernia. Heart size is upper limits normal to mildly enlarged. Left-sided dual-lead pacer defibrillator leads in stable position. There are hazy interstitial opacities demonstrated bilaterally with more consolidating opacity within the right upper lobe. Right upper lobe pneumonia is not excluded and follow-up chest x-rays are recommended. There are no visible pleural effusions. No pneumothorax. Right shoulder prosthesis is noted. Mild spondylosis of the thoracic spine. IMPRESSION: 1. The heart size is upper limits normal to mildly enlarged. 2. Bilateral hazy interstitial opacities with more consolidation within the right upper lobe may reflect pneumonia and follow-up chest x-rays recommended. .
[2017-12-05] MEDS: CARVEDILOL 12.5 MG TABLET PO SCH ×2 (08:46→17:43)
[2017-12-05] MEDS: LOSARTAN 50 MG TABLET PO SCH (08:46)
[2017-12-05] MEDS ORDERED: WARFARIN - PHARMACY CONSULT MC ONE (10:25)
[2017-12-05] MEDS: FUROSEMIDE 40 MG/4 ML INJECTION IVP SCH (10:50)
--- NOTE | 2017-12-05 11:23 | Pharmacy Consult ---
Pharmacy Consult-Warfarin - Laboratory Information 12/05/17 12/05/17 01:18 06:51 Hgb 11.9 L Hct 36.1 L INR 3.12 H - Consult Information COUMADIN CONSULT (Initial): Dx: A. FIB Baseline INR = 3.12. Will give NO Warfarin today. It appears patient has not had dose on the 04 of December yet INR remains above 3. Will hold x 1 day to allow INR to come into range. Thank you.
[2017-12-05] MEDS: OMEPRAZOLE 20 MG CAPSULE PO SCH (17:43)
[2017-12-05] MEDS ORDERED: WARFARIN 2 MG TABLET PO SCH (23:34)
[2017-12-06] MEDS: LEVOFLOXACIN PB 750 MG/150 ML BAG IV SCH (00:16)
[2017-12-06] MEDS: SALINE FLUSH 10ml SYRINGE IVF PRN ×2 (00:16→08:51)
[2017-12-06] MEDS: NS FLUSH BAG 500ml IV PRN (00:17)
[2017-12-06] MEDS: ALBUTEROL/IPRATROPIUM 2.5mg-0.5mg/3ml NEB AEROSOL SCH ×4 (00:56→19:59)
[2017-12-06] MEDS: OMEPRAZOLE 20 MG CAPSULE PO SCH ×2 (05:46→18:09)
[2017-12-06] MEDS: CARVEDILOL 12.5 MG TABLET PO SCH ×2 (08:45→18:13)
[2017-12-06] MEDS: LOSARTAN 50 MG TABLET PO SCH (08:45)
[2017-12-06] MEDS: PredniSONE 20 MG TABLET PO SCH (08:46)
[2017-12-06] MEDS: FUROSEMIDE 40 MG/4 ML INJECTION IVP SCH (08:48)
--- NOTE | 2017-12-06 10:30 | Progress Note ---
- Date 12/06/17 Subjective: Up to chair. Says his breathing is OK. c/o difficulty urinating - gets on commode and can't go, then goes after getting back in bed. Cough is not productive. and daughter present and all questions answered. Objective Vital signs: Temperature 97.8 F 12/06/17 04:01 Pulse Rate 68 12/06/17 06:01 Respiratory Rate 20 12/06/17 07:50 Blood Pressure 141/70 H 12/06/17 06:01 Pulse Oximetry 96 12/06/17 07:50 Rhythm: Normal Sinus Rhythm Height/Weight/BMI: Height 5 ft 7 in Weight 74.6 kg Body Mass Index 25.7 - Constitutional Present: no acute distress - Routine HEENT Exam Head: Present: normocephalic, atraumatic Eye: Present: EOMI, PERRL ENT: Present: mucous membranes moist - Routine Respiratory Exam Present: diminished air movement - Routine Cardiovascular Exam Present: RRR - Routine Abdominal Exam Present: soft, normoactive bowel sounds, non distended, non tender - Routine Extremities Exam Present: no edema - Routine Neurological Exam Present: alert, moving all extremities Results - Labs CBC & Chem 7: 12/05/17 01:18 12/06/17 04:14 Assessment and Plan (1) Paroxysmal atrial fibrillation Current visit: No Status: Acute (2) Pulmonary fibrosis Problem details: 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 Continue Levaquin. Monitor for increased delirium. Prednisone. Continue duonebs. Titrate O2 to keep sats > 90%. Continue ARB and BB for HFrEF. Diurese. Monitor i/os Hold coumadin and monitor on Levaquin. Resume oral PPI PT/OT to eval and treat Restart finasteride and flomax - Physician Narrative Narrative: Date: 12/06/17 Time: 1027 Hospital Course Summary Disclaimer: The visit summary below is not to be considered part of the above Progress Note. Hospital Course: 12/05 Admit to CCU. Continue Levaquin, but monitor for increased delirium. Patient's has told nurse that confusion in the morning is normal for the patient. Begin steroid taper. Continue duonebs. Titrate O2 to keep sats > 90%. Continue ARB and BB for HFrEF. Diurese. Monitor i/os Continue coumadin and monitor on Levaquin. Resume oral PPI PT/OT to eval and treat 12/06 Transfer to floor. Continue Levaquin. Monitor for increased delirium. Prednisone. Continue duonebs. Titrate O2 to keep sats > 90%. Continue ARB and BB for HFrEF. Diurese. Monitor i/os Hold coumadin and monitor on Levaquin. Resume oral PPI PT/OT to eval and treat Restart finasteride and flomax
[2017-12-06] MEDS ORDERED: PHYTONADIONE 1 MG/0.5 ML ORAL LIQUID PO ONE (11:22)
--- NOTE | 2017-12-06 11:49 | Pharmacy Consult ---
Pharmacy Consult-Warfarin - Laboratory Information 12/05/17 12/05/17 12/06/17 01:18 06:51 04:14 Hgb 11.9 L Hct 36.1 L INR 3.12 H 5.08 H* - Consult Information COUMADIN CONSULT): Day 2 is a 77 y/o male who has a history of COPD who in the past has been on 2 l of oxygen. The patient reports that over the past 1 to 2 weeks he has had increased shortness of breath. He has a chronic cough but has been non productive. The patient was admitted with coverage for community acquired pneumonia and mild COPD exacerbation. The Patient was on anticoagulant therapy (warfarin) for paroxysmal atrial fibrillation. Date INR Dose 12/05 3.12 None given 12/06 5.08 Gave Vit K 1 mg po @ 1130 The INR has gone from 3.12 to 5.08. Will give vitamin K 1 mg orallu today to get the INR down. The pharmacy will continue to monitor the INR's and adjust the warfarin accordingly. Thanks, Estevan Conley, Pharmacist
[2017-12-06] MEDS: FINASTERIDE 5 MG TABLET PO SCH (12:38)
[2017-12-06] MEDS: CITALOPRAM 20 MG TABLET PO SCH (12:38)
[2017-12-06] MEDS: MULTI-VITAMIN + MINERAL TABLET PO SCH (12:55)
[2017-12-06] MEDS: MELATONIN 1 MG TABLET PO SCH (20:23)
[2017-12-06] MEDS: ATORVASTATIN 20 MG TABLET PO SCH (20:23)
[2017-12-06] MEDS: TAMSULOSIN 0.4 MG CAPSULE PO SCH (20:23)
[2017-12-06] MEDS ORDERED: OMEPRAZOLE 20 MG CAPSULE PO SCH (21:00)
[2017-12-07] MEDS: LEVOFLOXACIN PB 750 MG/150 ML BAG IV SCH (00:17)
[2017-12-07] MEDS: SALINE FLUSH 10ml SYRINGE IVF PRN (00:18)
[2017-12-07] MEDS: NS FLUSH BAG 500ml IV PRN (00:18)
[2017-12-07] MEDS: ALBUTEROL/IPRATROPIUM 2.5mg-0.5mg/3ml NEB AEROSOL SCH ×4 (01:18→19:06)
[2017-12-07] MEDS: OMEPRAZOLE 20 MG CAPSULE PO SCH ×2 (06:41→17:43)
--- NOTE | 2017-12-07 08:38 | Pharmacy Consult ---
Pharmacy Consult-Warfarin - Laboratory Information 12/05/17 12/05/17 12/06/17 01:18 06:51 04:14 Hgb 11.9 L Hct 36.1 L INR 3.12 H 5.08 H* 12/06/17 12/07/17 12/07/17 18:08 04:32 04:32 Hgb 11.9 L Hct 35.8 L INR 3.96 H 2.12 H - Consult Information COUMADIN CONSULT): Day 3 is a 77 y/o male who has a history of COPD who in the past has been on 2 l of oxygen. The patient reports that over the past 1 to 2 weeks he has had increased shortness of breath. He has a chronic cough but has been non productive. The patient was admitted with coverage for community acquired pneumonia and mild COPD exacerbation. The Patient was on anticoagulant therapy (warfarin) for paroxysmal atrial fibrillation. Date INR Dose 12/05 3.12 None given 12/06 5.08 Gave Vit K 1 mg po @ 1130 7.01 2.12 2 mg The INR has returned to normal (between 2.0-3.0). I ordered Warfarin 2 mg po today. The pharmacy will continue to monitor the INR's and adjust the warfarin accordingly. Thanks, Estevan Conley, Pharmacist
[2017-12-07] MEDS: LOSARTAN 50 MG TABLET PO SCH (09:29)
[2017-12-07] MEDS: CARVEDILOL 12.5 MG TABLET PO SCH ×2 (09:30→17:43)
[2017-12-07] MEDS: CITALOPRAM 20 MG TABLET PO SCH (09:30)
[2017-12-07] MEDS: FINASTERIDE 5 MG TABLET PO SCH (09:30)
[2017-12-07] MEDS: PredniSONE 20 MG TABLET PO SCH (09:30)
[2017-12-07] MEDS: MULTI-VITAMIN + MINERAL TABLET PO SCH (09:30)
[2017-12-07] MEDS: FUROSEMIDE 40 MG/4 ML INJECTION IVP SCH (09:31)
[2017-12-07] MEDS ORDERED: WARFARIN 2 MG TABLET PO SCH (12:00)
--- NOTE | 2017-12-07 14:35 | Progress Note ---
- Date 12/07/17 Subjective: Patient is concerned that he is not getting better. His says he is more confused today. Patient says his breathing is OK at rest. He denies chest pain. He says he slept well. Objective Vital signs: Temperature 97.8 F 12/07/17 11:07 Pulse Rate 84 12/07/17 11:07 Respiratory Rate 24 12/07/17 12:55 Blood Pressure 135/82 12/07/17 11:07 Pulse Oximetry 91 12/07/17 13:01 Rhythm: Normal Sinus Rhythm Height/Weight/BMI: Height 5 ft 7 in Weight 72.8 kg Body Mass Index 25.7 - Constitutional Present: no acute distress - Routine HEENT Exam Head: Present: normocephalic, atraumatic Eye: Present: EOMI, PERRL ENT: Present: mucous membranes moist - Routine Respiratory Exam Present: decreased breath sounds - Routine Cardiovascular Exam Present: RRR, S1, S2 - Routine Abdominal Exam Present: soft, normoactive bowel sounds, non distended, non tender - Routine Extremities Exam Present: no edema - Routine Neurological Exam Present: alert - Routine Psychiatric Exam Present: depressed Results - Labs CBC & Chem 7: 12/07/17 04:32 12/07/17 04:32 Microbiology Results: Microbiology 12/06/17 03:13 Urine Legionella Urinary Antigen - Final Assessment and Plan (1) Paroxysmal atrial fibrillation Current visit: No Status: Acute (2) Pulmonary fibrosis Problem details: 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 Monitor for increased delirium. WBC up. Will follow. Prednisone. Continue duonebs. Titrate O2 to keep sats > 90%. Frequent orientation and supportive care for confusion. May also be related to Levaquin. Continue ARB and BB for HFrEF. Diurese. Monitor i/os. Wt trending down. Change to oral lasix. K down to 3.7. Start KCl INR OK, continue coumadin and monitor on Levaquin. Resume oral PPI PT/OT to eval and treat Restarted finasteride and flomax - Physician Narrative Narrative: Date: 12/07/17 Time: 1430 Hospital Course Summary Disclaimer: The visit summary below is not to be considered part of the above Progress Note. Hospital Course: 12/05 Admit to CCU. Continue Levaquin, but monitor for increased delirium. Patient's has told nurse that confusion in the morning is normal for the patient. Begin steroid taper. Continue duonebs. Titrate O2 to keep sats > 90%. Continue ARB and BB for HFrEF. Diurese. Monitor i/os Continue coumadin and monitor on Levaquin. Resume oral PPI PT/OT to eval and treat 12/06 Transfer to floor. Continue Levaquin. Monitor for increased delirium. Prednisone. Continue duonebs. Titrate O2 to keep sats > 90%. Continue ARB and BB for HFrEF. Diurese. Monitor i/os Hold coumadin and monitor on Levaquin. Resume oral PPI PT/OT to eval and treat Restart finasteride and flomax 12/07 Continue Levaquin (day 3). Monitor for increased delirium. WBC up. Will follow. Prednisone. Continue duonebs. Titrate O2 to keep sats > 90%. Frequent orientation and supportive care for confusion. May also be related to Levaquin. Continue ARB and BB for HFrEF. Diurese. Monitor i/os. Wt trending down. Change to oral lasix. K down to 3.7. Start KCl INR OK, continue coumadin and monitor on Levaquin. Resume oral PPI PT/OT to eval and treat Restarted finasteride and flomax
[2017-12-07] MEDS: FUROSEMIDE 40 MG TABLET PO SCH (17:43)
[2017-12-07] MEDS: TAMSULOSIN 0.4 MG CAPSULE PO SCH (21:21)
[2017-12-07] MEDS: MELATONIN 1 MG TABLET PO SCH (21:22)
[2017-12-07] MEDS: ATORVASTATIN 20 MG TABLET PO SCH (21:22)
[2017-12-08] MEDS: LEVOFLOXACIN PB 750 MG/150 ML BAG IV SCH (00:34)
[2017-12-08] MEDS: ALBUTEROL/IPRATROPIUM 2.5mg-0.5mg/3ml NEB AEROSOL SCH ×4 (01:16→19:14)
[2017-12-08] MEDS: OMEPRAZOLE 20 MG CAPSULE PO SCH ×2 (06:10→18:40)
--- NOTE | 2017-12-08 08:59 | Pharmacy Consult ---
Pharmacy Consult-Warfarin - Laboratory Information 12/05/17 12/05/17 12/06/17 01:18 06:51 04:14 Hgb 11.9 L Hct 36.1 L INR 3.12 H 5.08 H* 12/06/17 12/07/17 12/07/17 18:08 04:32 04:32 Hgb 11.9 L Hct 35.8 L INR 3.96 H 2.12 H 12/08/17 12/08/17 04:07 04:07 Hgb 12.1 L Hct 36.9 L INR 1.49 H - Consult Information COUMADIN CONSULT (Recurring): 77 y/o male with a history of COPD. The patient was admitted with coverage for community acquired pneumonia and mild COPD exacerbation. The Patient was on anticoagulant therapy (warfarin) for paroxysmal atrial fibrillation. The patient had one dose of 1 GM Rocephin in the ED then was put on Levaquin 750 mg IV q24hrs. The antibiotics can increase the INR. DATE INR DOSE 12/05 3.12 Warfarin Held 12/06 5.08 Warfarin Held - 1 MG oral Vit K given 12/06 3.96 (checked after the Vit K given) 12/07 2.12 2 MG 12/08 1.49 Will give 3 MG Warfarin today The patient's home dose of Warfarin is 3 MG 6 days a week and 2 MG on Fridays. Pharmacy will continue to monitor the INR and adjust the Warfarin dose accordingly. Thank you. Laura Sanchez, EstephaniaD
[2017-12-08] MEDS: FUROSEMIDE 40 MG TABLET PO SCH ×2 (09:56→18:38)
[2017-12-08] MEDS: LOSARTAN 50 MG TABLET PO SCH (09:56)
[2017-12-08] MEDS: CITALOPRAM 20 MG TABLET PO SCH (09:56)
[2017-12-08] MEDS: CARVEDILOL 12.5 MG TABLET PO SCH ×2 (09:57→18:39)
[2017-12-08] MEDS: MULTI-VITAMIN + MINERAL TABLET PO SCH (09:57)
[2017-12-08] MEDS: FINASTERIDE 5 MG TABLET PO SCH (09:57)
[2017-12-08] MEDS: PredniSONE 20 MG TABLET PO SCH (10:00)
[2017-12-08] MEDS ORDERED: WARFARIN 3 MG TABLET PO SCH (12:00)
--- NOTE | 2017-12-08 15:47 | XRay Report ---
Indication: pneumonia PROCEDURE: XR chest 1V: Encounter: Initial Comparison: Chest x-ray and chest CT dated December 04, 2017 Findings: Improving aeration of the right midlung and left lower lobe with residual scattered airspace disease remaining. Elevated right hemidiaphragm with low lung volumes. No pneumothorax or definite effusion. Heart size and mediastinal contours are stable with a left pacemaker defibrillator. Right shoulder replacement. Impression: Improving appearance of the chest. .
--- NOTE | 2017-12-08 19:03 | Progress Note ---
- Date 12/08/17 Subjective: F/U: Acute on chronic hypoxic respiratory failure, CAP, COPD with exacerbation, Pulmonary fibrosis Improving slowly, breathing feels better. Still with congestion to chest. No pain with breathing. Cough varies. Appetite improving. No ab pain or nausea. Reports bowel movement yesterday. No f/c. Objective Vital signs: Temperature 97.8 F 12/08/17 16:30 Pulse Rate 89 12/08/17 16:30 Respiratory Rate 18 12/08/17 16:30 Blood Pressure 140/82 H 12/08/17 16:30 Pulse Oximetry 93 12/08/17 17:11 Rhythm: Normal Sinus Rhythm Height/Weight/BMI: Height 1.7 m Weight 72.5 kg Body Mass Index 25.7 - Constitutional Present: well nourished, well developed, average body habitus, cooperative - Routine HEENT Exam Head: Present: normocephalic, atraumatic Eye: Present: EOMI, PERRL ENT: Present: mucous membranes moist - Routine Respiratory Exam Present: decreased breath sounds, distant breath sounds, diminished air movement. Absent: respiratory distress - Routine Cardiovascular Exam Present: no murmur, tachycardia (irregular ) - Routine Abdominal Exam Present: soft, normoactive bowel sounds, non distended, non tender. Absent: guarding - Routine Extremities Exam Present: cyanosis, clubbing, no edema - Routine Skin Exam Present: intact, dry, warm - Routine Neurological Exam Present: alert, CN II-XII intact, moving all extremities, vision grossly intact , hearing grossly intact, normal speech. Absent: motor deficit - Routine Psychiatric Exam Present: normal affect, cooperative. Absent: anxious, agitated Results - Labs CBC & Chem 7: 12/08/17 04:07 12/08/17 04:07 Microbiology Results: Microbiology 12/06/17 03:13 Urine Legionella Urinary Antigen - Final Assessment and Plan (1) Community acquired pneumonia Current visit: No Status: Ruled-out (2) Coronary artery disease Current visit: No Status: Chronic (3) Pulmonary fibrosis Problem details: 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) Current visit: No Status: Acute (4) Paroxysmal atrial fibrillation Current visit: No Status: Acute (5) Acute respiratory failure with hypoxia Current visit: Yes Status: Acute (6) COPD exacerbation Current visit: Yes Status: Acute Assessment and Plan: Assessment Acute on chronic hypoxic respiratory failure CAP COPD with exacerbation Pulmonary fibrosis Entero/rhino virus CAD Ischemic cardiomyopathy Paroxysmal a fib Chronic anticoagulation with warfarin HTN GERD BPH Plan Continue Levaquin (day 4). Monitor for increased delirium. WBC with slight decrease, CXR showing slight improvement. Can decrease Prednisone to 40 mg tomorrow. Continue DuoNeb. Titrate O2 to keep sats > 90%. Can discontinue Lasix as weight with decrease and BUN/Creatinine with slight increased. Frequent orientation and supportive care for confusion. May also be related to Levaquin. INR decreased - adjusted per pharm protocol. Daily INR orders. PT/OT initiate today to help improve functional status. Recheck CBC in am due to pneumonia. Will recheck BMP in am due to medication use. Case discussed with CM. Time spent with patient care 25 minutes. DVT Prophylaxis: Coumadin Resuscitation Status: Do Not Resuscitate - Time spent with patient Time with patient PN: 25 minutes - Physician Narrative Physician: Cornelio Sandoval MD Narrative: Date: 12/08/17 Time: 1900 Hospital Course Summary Disclaimer: The visit summary below is not to be considered part of the above Progress Note. Hospital Course: 12/05/17 Admit to CCU. Continue Levaquin, but monitor for increased delirium. Patient's has told nurse that confusion in the morning is normal for the patient. Begin steroid taper. Continue duonebs. Titrate O2 to keep sats > 90%. Continue ARB and BB for HFrEF. Diurese. Monitor i/os Continue coumadin and monitor on Levaquin. Resume oral PPI PT/OT to eval and treat 12/06/17 Transfer to floor. Continue Levaquin. Monitor for increased delirium. Prednisone. Continue duonebs. Titrate O2 to keep sats > 90%. Continue ARB and BB for HFrEF. Diurese. Monitor i/os Hold coumadin and monitor on Levaquin. Resume oral PPI PT/OT to eval and treat Restart finasteride and flomax 12/07/17 Continue Levaquin (day 3). Monitor for increased delirium. WBC up. Will follow. Prednisone. Continue DuoNeb. Titrate O2 to keep sats > 90%. Frequent orientation and supportive care for confusion. May also be related to Levaquin. Continue ARB and BB for HFrEF. Diurese. Monitor i/os. Wt trending down. Change to oral Lasix. K down to 3.7. Start KCl INR OK, continue Coumadin and monitor on Levaquin. Resume oral PPI PT/OT to eval and treat Restarted finasteride and Flomax 12/08/17 Continue Levaquin (day 4). Monitor for increased delirium. WBC with slight decrease, CXR showing slight improvement. Can decrease Prednisone to 40 mg tomorrow. Continue DuoNeb. Titrate O2 to keep sats > 90%. Can discontinue Lasix as weight with decrease and BUN/Creatinine with slight increased. Frequent orientation and supportive care for confusion. May also be related to Levaquin. INR decreased - adjusted per pharm protocol. Daily INR orders. PT/OT initiate today to help improve functional status.
[2017-12-08] MEDS: TAMSULOSIN 0.4 MG CAPSULE PO SCH (21:33)
[2017-12-08] MEDS: MELATONIN 1 MG TABLET PO SCH (21:33)
[2017-12-08] MEDS: ATORVASTATIN 20 MG TABLET PO SCH (21:33)
[2017-12-09] MEDS: LEVOFLOXACIN PB 750 MG/150 ML BAG IV SCH
[2017-12-09] MEDS: OMEPRAZOLE 20 MG CAPSULE PO SCH ×2 (06:42→16:24)
[2017-12-09] MEDS: ALBUTEROL/IPRATROPIUM 2.5mg-0.5mg/3ml NEB AEROSOL SCH ×3 (08:57→20:40)
--- NOTE | 2017-12-09 09:05 | Pharmacy Consult ---
Pharmacy Consult-Warfarin - Laboratory Information 12/05/17 12/05/17 12/06/17 01:18 06:51 04:14 Hgb 11.9 L Hct 36.1 L INR 3.12 H 5.08 H* 12/06/17 12/07/17 12/07/17 18:08 04:32 04:32 Hgb 11.9 L Hct 35.8 L INR 3.96 H 2.12 H 12/08/17 12/08/17 12/09/17 04:07 04:07 04:10 Hgb 12.1 L 12.3 L Hct 36.9 L 37.7 L INR 1.49 H 12/09/17 04:11 Hgb Hct INR 1.57 H - Consult Information INR below target range. Warfarin 3mg po ordered for noon today. Thank you.
[2017-12-09] MEDS: FINASTERIDE 5 MG TABLET PO SCH (09:41)
[2017-12-09] MEDS: LOSARTAN 50 MG TABLET PO SCH (09:41)
[2017-12-09] MEDS: MULTI-VITAMIN + MINERAL TABLET PO SCH (09:41)
[2017-12-09] MEDS: CITALOPRAM 20 MG TABLET PO SCH (09:41)
[2017-12-09] MEDS: CARVEDILOL 12.5 MG TABLET PO SCH ×3 (09:41→17:23)
[2017-12-09] MEDS: PredniSONE 20 MG TABLET PO SCH (09:41)
[2017-12-09] MEDS ORDERED: acetaZOLAMIDE 250 MG TABLET PO ONE (10:31)
--- NOTE | 2017-12-09 11:01 | Progress Note ---
- Date 12/09/17 Subjective: F/U: Acute on chronic hypoxic respiratory failure, CAP, COPD with exacerbation, Pulmonary fibrosis Doing better; breathing improving-less SOA and congested. Still with cough, non- productive. No pain with breathing. O2 needs decreasing-weaned down to 3L. Denies chest pressure or pain. Eating well. No nausea or ab pain. Bowels feeling okay. Notes less urinary frequency (Lasix stopped today). Strength fair. Objective Vital signs: Temperature 98.1 F 12/09/17 03:32 Pulse Rate 84 12/09/17 08:00 Respiratory Rate 12 12/09/17 08:58 Blood Pressure 135/87 12/09/17 08:00 Pulse Oximetry 93 12/09/17 09:56 Rhythm: Normal Sinus Rhythm Height/Weight/BMI: Height 1.7 m Weight 71.3 kg Body Mass Index 25.7 - Constitutional Present: well nourished, well developed, average body habitus, cooperative. Absent: combative, agitated - Routine HEENT Exam Head: Present: normocephalic, atraumatic Eye: Present: EOMI, PERRL ENT: Present: mucous membranes moist - Routine Respiratory Exam Present: decreased breath sounds, prolonged expiratory phase, crackles ( Fibrotic crackled to left base), distant breath sounds, diminished air movement. Absent: respiratory distress - Routine Cardiovascular Exam Present: RRR, no murmur - Routine Abdominal Exam Present: soft, normoactive bowel sounds, non distended, non tender. Absent: guarding - Routine Extremities Exam Present: no edema, pulses intact. Absent: cyanosis, clubbing - Routine Musculoskeletal Exam Musculoskeletal: Present: no clubbing or cyanosis - Routine Skin Exam Present: dry, warm - Routine Neurological Exam Present: alert, CN II-XII intact, moving all extremities, vision grossly intact , hearing grossly intact, normal speech. Absent: altered mental status - Routine Psychiatric Exam Present: normal affect, cooperative. Absent: anxious, agitated Results - Labs CBC & Chem 7: 12/09/17 04:10 12/09/17 04:11 Microbiology Results: Microbiology 12/06/17 03:13 Urine Legionella Urinary Antigen - Final Assessment and Plan (1) Acute respiratory failure with hypoxia Current visit: Yes Status: Acute (2) COPD exacerbation Current visit: Yes Status: Acute (3) Community acquired pneumonia Current visit: No Status: Ruled-out (4) Pulmonary fibrosis Problem details: 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) Current visit: No Status: Acute (5) Coronary artery disease Current visit: No Status: Chronic (6) Paroxysmal atrial fibrillation Current visit: No Status: Acute Assessment and Plan: Assessment Acute on chronic hypoxic respiratory failure CAP COPD with exacerbation Pulmonary fibrosis Entero/rhino virus CAD Ischemic cardiomyopathy Paroxysmal a fib Chronic anticoagulation with warfarin HTN GERD BPH Plan Continue Levaquin (day 5). Mental status stable. Prednisone 40 mg daily started. Continue DuoNeb. Encourage acapella use. O2 needs decreased to 3L. CO2 showing increase to 35. Will give Diamox 500mg x1. Wean O2. Encourage deep breathing. INR decreased at 1.57 - adjusted per pharm protocol. Daily INR orders. Encourage activities and movement. CM has made arrangements for skilled care at [facility] at time of discharge. Recheck CBC in am due to pneumonia. Will recheck BMP in am due to medication use. Case discussed with CM. Time spent with patient care 25 minutes. DVT Prophylaxis: Coumadin Resuscitation Status: Do Not Resuscitate - Time spent with patient Time with patient PN: 25 minutes - Physician Narrative Physician: Cornelio Sandoval MD Narrative: Date: 12/09/17 Time: 1058 Hospital Course Summary Disclaimer: The visit summary below is not to be considered part of the above Progress Note. Hospital Course: 12/05/17 Admit to CCU. Continue Levaquin, but monitor for increased delirium. Patient's has told nurse that confusion in the morning is normal for the patient. Begin steroid taper. Continue DuoNeb. Titrate O2 to keep sats > 90%. Continue ARB and BB for HFrEF. Diurese. Monitor i/os. Continue Coumadin and monitor on Levaquin. Resume oral PPI. PT/OT to eval and treat. 12/06/17 Transfer to floor. Continue Levaquin. Monitor for increased delirium. Prednisone. Continue DuoNeb. Titrate O2 to keep sats > 90%. Continue ARB and BB for HFrEF. Diurese. Monitor i/os. Hold Coumadin and monitor on Levaquin. PT/OT to eval and treat. Restart finasteride and Flomax. 12/07/17 Continue Levaquin (day 3). Monitor for increased delirium. WBC up. Will follow. Prednisone. Continue DuoNeb. Titrate O2 to keep sats > 90%. Frequent orientation and supportive care for confusion. May also be related to Levaquin. Continue ARB and BB for HFrEF. Diurese. Monitor i/os. Wt trending down. Change to oral Lasix. K down to 3.7. Start KCl. INR OK, continue Coumadin and monitor on Levaquin. PT/OT to eval and treat. Restarted finasteride and Flomax. 12/08/17 Continue Levaquin (day 4). Monitor for increased delirium. WBC with slight decrease, CXR showing slight improvement. Can decrease Prednisone to 40 mg tomorrow. Continue DuoNeb. Titrate O2 to keep sats > 90%. Can discontinue Lasix as weight with decrease and BUN/Creatinine with slight increased. Frequent orientation and supportive care for confusion. May also be related to Levaquin. INR decreased - adjusted per pharm protocol. Daily INR orders. PT/OT initiate today to help improve functional status. 12/09/17 Continue Levaquin (day 5). Mental status stable. Prednisone 40 mg daily started. Continue DuoNeb. Encourage acapella use. O2 needs decreased to 3L. CO2 showing increase to 35. Will give Diamox 500mg x1. Wean O2. Encourage deep breathing. INR decreased at 1.57 - adjusted per pharm protocol. Daily INR orders. Encourage activities and movement. BENJAMIN has made arrangements for skilled care at [facility] at time of discharge.
[2017-12-09] MEDS ORDERED: WARFARIN 3 MG TABLET PO SCH (12:00)
[2017-12-09] MEDS: ENOXAPARIN 40 MG/0.4 ML INJECTION SQ SCH (14:39)
[2017-12-09] MEDS: SALINE FLUSH 10ml SYRINGE IVF PRN (22:00)
[2017-12-09] MEDS: ATORVASTATIN 20 MG TABLET PO SCH (22:00)
[2017-12-09] MEDS: MELATONIN 1 MG TABLET PO SCH (22:00)
[2017-12-09] MEDS: TAMSULOSIN 0.4 MG CAPSULE PO SCH (22:00)
[2017-12-10] MEDS: LEVOFLOXACIN PB 750 MG/150 ML BAG IV SCH (00:05)
[2017-12-10] MEDS: OMEPRAZOLE 20 MG CAPSULE PO SCH ×2 (06:33→16:57)
[2017-12-10] MEDS: LOSARTAN 50 MG TABLET PO SCH (08:26)
[2017-12-10] MEDS: ENOXAPARIN 40 MG/0.4 ML INJECTION SQ SCH (08:26)
[2017-12-10] MEDS: MULTI-VITAMIN + MINERAL TABLET PO SCH (08:26)
[2017-12-10] MEDS: CARVEDILOL 12.5 MG TABLET PO SCH ×2 (08:26→16:57)
[2017-12-10] MEDS: PredniSONE 20 MG TABLET PO SCH (08:26)
[2017-12-10] MEDS: FINASTERIDE 5 MG TABLET PO SCH (08:26)
[2017-12-10] MEDS: CITALOPRAM 20 MG TABLET PO SCH (08:26)
--- NOTE | 2017-12-10 08:30 | Pharmacy Consult ---
Pharmacy Consult-Warfarin - Laboratory Information 12/05/17 12/05/17 12/06/17 01:18 06:51 04:14 Hgb 11.9 L Hct 36.1 L INR 3.12 H 5.08 H* 12/06/17 12/07/17 12/07/17 18:08 04:32 04:32 Hgb 11.9 L Hct 35.8 L INR 3.96 H 2.12 H 12/08/17 12/08/17 12/09/17 04:07 04:07 04:10 Hgb 12.1 L 12.3 L Hct 36.9 L 37.7 L INR 1.49 H 12/09/17 12/10/17 12/10/17 04:11 04:05 04:05 Hgb 12.8 L Hct 39.4 L INR 1.57 H 2.05 H - Consult Information COUMADIN CONSULT (Recurring): INR increased from 1.57 to 2.05 after 3 mg dose yesterday. Will give 2.5 mg Warfarin today. Patient is currently bridged with Lovenox until INR is in the therapeutic range between 2-3. Will see if INR stays above 2 tomorrow. If so, then can discontinue the Lovenox. Patient is also currently on Levaquin 750 mg IV daily - Day 6 of treatment. Pharmacy will continue to monitor the INR and adjust the warfarin dose as needed. Thank you. Laura Sanchez, EstephaniaD
--- NOTE | 2017-12-10 08:58 | Progress Note ---
- Date 12/10/17 Subjective: Mr. Armstrong reports that he's feeling well. He denies any difficulty breathing or chest pain. He states that he has bursts of coughing, but denies choking. He denies feeling weak or dizzy. He denies abdominal pain or n/v, constipation. He is on 3L of O2, at home he uses about 3.5L. Objective Vital signs: Temperature 96.5 F L 12/10/17 07:56 Pulse Rate 80 12/10/17 07:56 Respiratory Rate 20 12/10/17 07:56 Blood Pressure 110/69 12/10/17 07:56 Pulse Oximetry 93 12/10/17 07:56 Rhythm: Normal Sinus Rhythm Height/Weight/BMI: Height 1.7 m Weight 71.1 kg Body Mass Index 25.7 - Constitutional Present: no acute distress, well nourished, well developed - Routine HEENT Exam Head: Present: normocephalic Eye: Present: PERRL. Absent: conjunctival icterus, scleral injection ENT: Present: mucous membranes moist, oropharynx clear - Routine Respiratory Exam Present: decreased breath sounds (bases), crackles (Right) - Routine Cardiovascular Exam Present: RRR, S1, S2 Comments: pacemaker - Routine Abdominal Exam Present: soft, normoactive bowel sounds, non distended, non tender - Routine Extremities Exam Present: no edema - Routine Back/Spine/Pelvis Exam Back/Spine: Present: full ROM - Routine Musculoskeletal Exam Musculoskeletal: Present: moving extremities well - Routine Skin Exam Present: intact, dry, warm - Routine Neurological Exam Present: alert, moving all extremities, vision grossly intact, hearing grossly intact, normal speech. Absent: facial asymmetry - Routine Psychiatric Exam Present: normal affect, normal thought process, cooperative Results - Labs CBC & Chem 7: 12/10/17 04:05 12/10/17 04:05 Microbiology Results: Microbiology 12/06/17 03:13 Urine Legionella Urinary Antigen - Final Assessment and Plan (1) Acute respiratory failure with hypoxia Current visit: Yes Status: Acute (2) Pneumonia Current visit: No Status: Acute (3) COPD exacerbation Current visit: Yes Status: Acute (4) Pulmonary fibrosis Problem details: 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) Current visit: No Status: Acute (5) Coronary artery disease Current visit: No Status: Chronic (6) Paroxysmal atrial fibrillation Current visit: No Status: Acute Assessment and Plan: Assessment Acute on chronic hypoxic respiratory failure CAP COPD with exacerbation Pulmonary fibrosis Entero/rhino virus CAD Ischemic cardiomyopathy Paroxysmal a fib Chronic anticoagulation with warfarin HTN GERD BPH Plan Continue Levaquin/Nebs/Prednisone. WBC 14.8 though suspect steroid effect. Repeat CXR in am. INR up to 2.05 -- therapeutic; increased from 1.57 yesterday - monitor closely on Levaquin; high-risk medication. CO2 improved to 29 s/p diamox yesterday. Will discuss dc plans with Dr. Sandoval. DVT Prophylaxis: SCD's, Lovenox GI Prophylaxis: Omeprazole Resuscitation Status: Do Not Resuscitate - Time spent with patient Time with patient PN: 25 minutes - Physician Narrative Physician: Cornelio Sandoval MD Narrative: Date: 12/10/17 Time: 1644 Have independently interviewed and examined pt. Chart reviewed. Case discussed with my [employer]. Care plan developed with my supervision; agree with above. Doing okay. Notes cough, nonproductive. Less chest congestion. Eating well. No mouth pain. Denies ab pain or nausea. Bowel moving. Strength fair. Lungs: decreased bilaterally, breathing well on O2. CV: regular AB: soft nt/nd MSE: awake alert appropriate Plan: Continue with current care and treatment. Will recheck CXR in am. If continues to do well tomorrow, likely discharge to skilled. Hospital Course Summary Disclaimer: The visit summary below is not to be considered part of the above Progress Note. Hospital Course: 12/05/17 Admit to CCU. Continue Levaquin, but monitor for increased delirium. Patient's has told nurse that confusion in the morning is normal for the patient. Begin steroid taper. Continue DuoNeb. Titrate O2 to keep sats > 90%. Continue ARB and BB for HFrEF. Diurese. Monitor i/os. Continue Coumadin and monitor on Levaquin. Resume oral PPI. PT/OT to eval and treat. 12/06/17 Transfer to floor. Continue Levaquin. Monitor for increased delirium. Prednisone. Continue DuoNeb. Titrate O2 to keep sats > 90%. Continue ARB and BB for HFrEF. Diurese. Monitor i/os. Hold Coumadin and monitor on Levaquin. 12/07/17 Continue Levaquin (day 3). Monitor for increased delirium. WBC up. Will follow. Prednisone. Continue DuoNeb. Titrate O2 to keep sats > 90%. Frequent orientation and supportive care for confusion. May also be related to Levaquin. Continue ARB and BB for HFrEF. Diurese. Monitor i/os. Wt trending down. Change to oral Lasix. K down to 3.7. Start KCl. INR OK, continue Coumadin and monitor on Levaquin. 12/08/17 Continue Levaquin (day 4). Monitor for increased delirium. WBC with slight decrease, CXR showing slight improvement. Can decrease Prednisone to 40 mg tomorrow. Continue DuoNeb. Titrate O2 to keep sats > 90%. Can discontinue Lasix as weight with decrease and BUN/Creatinine with slight increased. INR decreased - adjusted per pharm protocol. Daily INR orders. PT/OT initiate today to help improve functional status. 12/09/17 Continue Levaquin (day 5). Mental status stable. Prednisone 40 mg daily started. Continue DuoNeb. Encourage acapella use. O2 needs decreased to 3L. CO2 showing increase to 35. Will give Diamox 500mg x1. Wean O2. Encourage deep breathing. INR decreased at 1.57 - adjusted per pharm protocol. Daily INR orders. has made arrangements for skilled care at [facility] at time of discharge. 12/10/17 Continue Levaquin/Nebs/Prednisone. WBC 14.8 though suspect steroid effect. Repeat CXR in am. INR up to 2.05 -- therapeutic. CO2 improved to 29 s/p diamox yesterday.
[2017-12-10] MEDS: ALBUTEROL/IPRATROPIUM 2.5mg-0.5mg/3ml NEB AEROSOL SCH ×3 (09:48→19:10)
[2017-12-10] MEDS ORDERED: WARFARIN 2.5 MG TABLET PO SCH (12:00)
[2017-12-10 15:26] VITALS: TEMP 95.9
[2017-12-10 15:40] VITALS: RESP 20
[2017-12-10] MEDS: ATORVASTATIN 20 MG TABLET PO SCH (21:08)
[2017-12-10] MEDS: MELATONIN 1 MG TABLET PO SCH (21:08)
[2017-12-10] MEDS: TAMSULOSIN 0.4 MG CAPSULE PO SCH (21:08)
[2017-12-11] MEDS: LEVOFLOXACIN PB 750 MG/150 ML BAG IV SCH (00:01)
[2017-12-11] MEDS: OMEPRAZOLE 20 MG CAPSULE PO SCH (06:17)
[2017-12-11 07:51] VITALS: BP 134/71
--- NOTE | 2017-12-11 08:16 | Pharmacy Consult ---
Pharmacy Consult-Warfarin - Laboratory Information 12/09/17 12/10/17 12/10/17 04:11 04:05 04:05 Hgb 12.8 L Hct 39.4 L INR 1.57 H 2.05 H 12/11/17 04:54 Hgb Hct INR 2.57 H - Consult Information COUMADIN CONSULT: Day 7 This is a 77 y/o male who has a history of COPD who in the past has been on 2 l of oxygen. Diagnosis for use of warfarin is Paroxysmal atrial fibrillation,. Patient also acute respiratory failure with hypoxia, Pulmonary fibrosis, COPD, and CAD. Date INR Dose 12/05 3.12 No dose given 12/06 5.08 Due to IV Levaquin 750 mg , gave Vit K 1 mg po 12/07 2.12 3 mg 12/08 1.49 3 mg 12/09 1.57 3 mg (Enoxaparin 40 mg sq started) 12/10 2.05 2.5 mg (Enoxaparin 40 mg sq continued) ` 12/11 2.57 2 mg (Enoxaparin 40 mg sq discontinued) INR increased from 2.05 to 2.57 after 2.5 mg dose yesterday. Will give 2 mg Warfarin today. Discontinue the Lovenox because the INR is within 2-3 two days straight. Patient is also currently on Levaquin 750 mg IV daily - Day 6 of treatment. Pharmacy will continue to monitor the INR and adjust the warfarin dose as needed. Thank you, Estevan Conley [facility].
--- NOTE | 2017-12-11 08:38 | XRay Report ---
INDICATION: f/u pneumonia PROCEDURE: CHEST 2-VIEWS UPRIGHT (PA & LAT) Encounter: Initial COMPARISON: December 08, 2017 FINDINGS: Persistent bilateral lower lobe areas of airspace disease. Patchy right upper lobe infiltrates as well. The overall appearance is stable. No pneumothorax or pleural effusion. Cardiac silhouette and mediastinal contours are stable. Left pacemaker defibrillator. Impression: Unchanged appearance of the chest. .
[2017-12-11] MEDS: PredniSONE 20 MG TABLET PO SCH (08:52)
[2017-12-11] MEDS: MULTI-VITAMIN + MINERAL TABLET PO SCH (08:52)
[2017-12-11] MEDS: LOSARTAN 50 MG TABLET PO SCH (08:52)
[2017-12-11] MEDS: CITALOPRAM 20 MG TABLET PO SCH (08:52)
[2017-12-11] MEDS: CARVEDILOL 12.5 MG TABLET PO SCH (08:53)
[2017-12-11] MEDS: FINASTERIDE 5 MG TABLET PO SCH (09:01)
[2017-12-11] MEDS: ALBUTEROL/IPRATROPIUM 2.5mg-0.5mg/3ml NEB AEROSOL SCH (10:06)
[2017-12-11 10:13] VITALS: O2SAT 94
[2017-12-11 10:43] VITALS: PULSE 98
[2017-12-11] MEDS ORDERED: WARFARIN 2 MG TABLET PO SCH (12:00)
--- NOTE | 2017-12-11 12:17 | Progress Note ---
- Date 12/11/17 Subjective: F/U: Acute on chronic hypoxic respiratory failure, CAP, COPD with exacerbation, Pulmonary fibrosis Doing okay. Breathing feels stable; not having increasing cough or congestion. Maintaining oxygenation on baseline flow. Eating well. No mouth pain or pain with swallow. Bowels stable. Not having f/c. Objective Vital signs: Temperature 95.9 F L 12/11/17 07:50 Pulse Rate 98 12/11/17 08:00 Respiratory Rate 20 12/11/17 10:06 Blood Pressure 134/71 12/11/17 07:50 Pulse Oximetry 94 12/11/17 10:06 Rhythm: Normal Sinus Rhythm Height/Weight/BMI: Height 1.7 m Weight 72 kg Body Mass Index 25.7 - Constitutional Present: no acute distress, well nourished, well developed, average body habitus , cooperative - Routine HEENT Exam Head: Present: normocephalic, atraumatic Eye: Present: EOMI, PERRL ENT: Present: mucous membranes moist (No thursh) - Routine Respiratory Exam Present: decreased breath sounds, crackles (Fibrotic crackles ). Absent: respiratory distress - Routine Cardiovascular Exam Present: RRR, no murmur - Routine Abdominal Exam Present: soft, normoactive bowel sounds, non distended, non tender. Absent: guarding - Routine Extremities Exam Present: no edema, pulses intact. Absent: cyanosis, clubbing - Routine Musculoskeletal Exam Musculoskeletal: Present: no clubbing or cyanosis - Routine Skin Exam Present: dry, warm - Routine Neurological Exam Present: alert, oriented X3, CN II-XII intact, moving all extremities, vision grossly intact, hearing grossly intact, normal speech. 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 Maintaining saturations on baseline O2 flow. INR therapeutic. Vitals stable. Medically stable for discharge to skilled care at [facility] - patient declined by IRU. Creatinine with slight increase to 1.6. Will hold olmesartan for the next 3 days. Can discontinue levofloxacin as had 7 day course. Continue with Prednisone 40mg daily for 5 days, then could decrease to 20mg daily for 7 days then stop. Continue with Acapella QID to help loosen secretions. Return to home Coumadin dosing. Recheck INR on 12/15 and 12/18 -reports to Dr Ramírez. Further INR orders and warfarin adjustment per PCP. Recheck BMP on 12/15 secondary to medication use. F/U with Dr Ramírez in 1 week. See orders for details. Case discussed with CM. Time spent with patient's care and discharge greater than 30 minutes. DVT Prophylaxis: Coumadin Resuscitation Status: Do Not Resuscitate - Physician Narrative Physician: Cornelio Sandoval MD Narrative: Date: 12/11/17 Time: 1214 Hospital Course Summary Disclaimer: The visit summary below is not to be considered part of the above Progress Note. Hospital Course: 12/05/17 Admit to CCU. Continue Levaquin, but monitor for increased delirium. Patient's has told nurse that confusion in the morning is normal for the patient. Begin steroid taper. Continue DuoNeb. Titrate O2 to keep sats > 90%. Continue ARB and BB for HFrEF. Diurese. Monitor i/os. Continue Coumadin and monitor on Levaquin. Resume oral PPI. PT/OT to eval and treat. 12/06/17 Transfer to floor. Continue Levaquin. Monitor for increased delirium. Prednisone. Continue DuoNeb. Titrate O2 to keep sats > 90%. Continue ARB and BB for HFrEF. Diurese. Monitor i/os. Hold Coumadin and monitor on Levaquin. 12/07/17 Continue Levaquin (day 3). Monitor for increased delirium. WBC up. Will follow. Prednisone. Continue DuoNeb. Titrate O2 to keep sats > 90%. Frequent orientation and supportive care for confusion. May also be related to Levaquin. Continue ARB and BB for HFrEF. Diurese. Monitor i/os. Wt trending down. Change to oral Lasix. K down to 3.7. Start KCl. INR OK, continue Coumadin and monitor on Levaquin. 12/08/17 Continue Levaquin (day 4). Monitor for increased delirium. WBC with slight decrease, CXR showing slight improvement. Can decrease Prednisone to 40 mg tomorrow. Continue DuoNeb. Titrate O2 to keep sats > 90%. Can discontinue Lasix as weight with decrease and BUN/Creatinine with slight increased. INR decreased - adjusted per pharm protocol. Daily INR orders. PT/OT initiate today to help improve functional status. 12/09/17 Continue Levaquin (day 5). Mental status stable. Prednisone 40 mg daily started. Continue DuoNeb. Encourage acapella use. O2 needs decreased to 3L. CO2 showing increase to 35. Will give Diamox 500mg x1. Wean O2. Encourage deep breathing. INR decreased at 1.57 - adjusted per pharm protocol. Daily INR orders. has made arrangements for skilled care at [facility] at time of discharge. 12/10/17 Continue Levaquin/Nebs/Prednisone. WBC 14.8 though suspect steroid effect. Repeat CXR in am. INR up to 2.05 -- therapeutic. CO2 improved to 29 s/p Diamox yesterday. 12/11/17 CXR showing stability. Maintaining saturations on baseline O2 flow. INR therapeutic. Vitals stable. Medically stable for discharge to skilled care at [facility] - patient declined by IRU. Creatinine with slight increase to 1.6. Will hold olmesartan for the next 3 days. Can discontinue levofloxacin as had 7 day course. Continue with Prednisone 40mg daily for 5 days, then could decrease to 20mg daily for 7 days then stop. Continue with Acapella QID to help loosen secretions. Return to home Coumadin dosing. Recheck INR on 12/15 and 12/18 -reports to Dr Ramírez. Further INR orders and warfarin adjustment per PCP. Recheck BMP on 12/15 secondary to medication use. F/U with Dr Ramírez in 1 week. See orders for details.
--- NOTE | 2017-12-11 12:43 | Discharge Summary ---
Discharge Information Date of admission: 12/04/17 23:46 Attending Physician: Cornelio Sandoval MD Primary care physician: Sylvain Ramírez MD - Discharge Diagnosis (1) Pneumonia Status: Acute (2) COPD exacerbation Status: Acute Discharge diagnosis Acute on chronic hypoxic respiratory failure - resolved Associated conditions and complications CAP - improved COPD with exacerbation - improved Entero/rhinovirus Pulmonary fibrosis CAD Ischemic cardiomyopathy Paroxysmal a-fib Chronic anticoagulation with warfarin HTN GERD BPH - Laboratory Labs: 12/10/17 04:05 12/11/17 04:54 - Microbiology Legionella Urinary Antigen - Negative Blood cultures negative after 5 days Urine culture: mixed abdoulaye - Radiology Radiology: = = = = = = = = = = = = = = = = = = = = = = = = = = = = = = = = = = = = = = = = = = = = = = = = = = = = = = = = = = = Date of Exam: 12/04/17 EXAM: CT angio pulm emboli FINDINGS: There is some elevation the right hemidiaphragm again demonstrated. There is a large hiatal hernia. Heart size is mildly enlarged. There is some thinning of the myocardium with distal left ventricular apex dilatation suggested. The findings could indicate chronic myocardial infarcts. Clinical correlation recommended There is no pleural effusion. Mild to moderate calcific atherosclerotic disease of the coronary arteries and thoracic aorta. Left-sided pacemaker in place. There are no central pulmonary artery filling defects to suggest pulmonary embolism. Chronic interstitial changes and pleural parenchymal reticular and groundglass opacities demonstrated. There is some consolidation within the anterior right upper lobe which could reflect area of atelectatic lung or infiltrates and follow-up chest x-rays are recommended. There are no pleural effusions. There is no pneumothorax. There is no axillary, hilar, or mediastinal lymphadenopathy. There is moderate spondylosis of the thoracic spine. Right humeral prosthesis demonstrated. IMPRESSION: 1. No visible pulmonary embolism. 2. There are pleural parenchymal reticular and groundglass opacities bilaterally. Consolidating opacity within the anterior right upper lobe may reflect infiltrates/pneumonia. Follow-up chest x-rays recommended. 3. Large hiatal hernia. 4. Chronic myocardial infarct suggested with mild dilatation of the left ventricular apex. = = = = = = = = = = = = = = = = = = = = = = = = = = = = = = = = = = = = = = = = = = = = = = = = = = = = = = = = = = = Date of Exam: 12/04/17 EXAM: XR chest 2V FINDINGS: Significant elevation the right hemidiaphragm. Large hiatal hernia. Heart size is upper limits normal to mildly enlarged. Left-sided dual-lead pacer defibrillator leads in stable position. There are hazy interstitial opacities demonstrated bilaterally with more consolidating opacity within the right upper lobe. Right upper lobe pneumonia is not excluded and follow-up chest x-rays are recommended. There are no visible pleural effusions. No pneumothorax. Right shoulder prosthesis is noted. Mild spondylosis of the thoracic spine. IMPRESSION: 1. The heart size is upper limits normal to mildly enlarged. 2. Bilateral hazy interstitial opacities with more consolidation within the right upper lobe may reflect pneumonia and follow-up chest x-rays recommended. = = = = = = = = = = = = = = = = = = = = = = = = = = = = = = = = = = = = = = = = = = = = = = = = = = = = = = = = = = = Date of Exam: 12/08/17 PROCEDURE: XR chest 1V: Findings: Improving aeration of the right midlung and left lower lobe with residual scattered airspace disease remaining. Elevated right hemidiaphragm with low lung volumes. No pneumothorax or definite effusion. Heart size and mediastinal contours are stable with a left pacemaker defibrillator. Right shoulder replacement. Impression: Improving appearance of the chest. = = = = = = = = = = = = = = = = = = = = = = = = = = = = = = = = = = = = = = = = = = = = = = = = = = = = = = = = = = = Date of Exam: 12/11/17 PROCEDURE: CHEST 2-VIEWS UPRIGHT (PA & LAT) FINDINGS: Persistent bilateral lower lobe areas of airspace disease. Patchy right upper lobe infiltrates as well. The overall appearance is stable. No pneumothorax or pleural effusion. Cardiac silhouette and mediastinal contours are stable. Left pacemaker defibrillator. Impression: Unchanged appearance of the chest. History of Present Illness HPI: This is a 77 y/o male who has a history of COPD who in the past has been on 2L of oxygen. It should be pointed out that it was difficult getting a history from this patient who is on high flow oxygen and difficult to understand. The patient reports that over the past 1 to 2 weeks he has had increased shortness of breath. He has a chronic cough but has been nonproductive. He relates sx worsening as the weather worsened. It is not clear why tonight he presented to the ED except for the fact that he wasn't getting better. In the ED he was requiring 10L of oxygen to maintain his saturations. He had a pCXR that demonstrated significant what appears to be elevation of the right hemidiaphragm. There is associated atelectasis and or infiltrate in the right upper lobe Because his dimer was elevated he had a CTA of the chest completed. The report is not yet in the computer but is reported to demonstrate infiltrate in the right upper lobe. Note that pulmonary note from recent cx describes perhaps similar findings. The patient was admitted with coverage for community acquired pneumonia and mild COPD exacerbation. Note that the patient does have a history of ischemic cardiomyopathy (has AICD implanted). His history does not inform increased orthopnea. His exam does not demonstrate peripheral edema. His CXR is not overly c/w pulm vascular congestion. At this time the patient will be admitted with rule out, and further management of hypoxic respiratory failure. Objective Vital signs: Temperature 95.9 F L 12/11/17 07:50 Pulse Rate 98 12/11/17 08:00 Respiratory Rate 20 12/11/17 10:06 Blood Pressure 134/71 12/11/17 07:50 Pulse Oximetry 94 12/11/17 10:06 Rhythm: Normal Sinus Rhythm Height/Weight/BMI: Height 1.7 m Weight 72 kg Body Mass Index 25.7 - Constitutional Present: no acute distress, well nourished, well developed - Routine HEENT Exam Head: Present: normocephalic Eye: Present: PERRL. Absent: conjunctival icterus, scleral injection - Routine Respiratory Exam Present: decreased breath sounds - Routine Cardiovascular Exam Present: RRR, S1, S2 - Routine Abdominal Exam Present: soft, normoactive bowel sounds, non distended, non tender - Routine Extremities Exam Present: no edema - Routine Musculoskeletal Exam Musculoskeletal: Present: moving extremities well - Routine Skin Exam Present: intact, dry, warm - Routine Neurological Exam Present: alert, moving all extremities, vision grossly intact, hearing grossly intact, normal speech. Absent: facial asymmetry - Routine Psychiatric Exam Present: normal affect, normal thought process, cooperative Hospital Course This is a general summary of the patient's hospital course. For more details refer to the complete medical record. Hospital course: 12/05/17 : Admitted to CCU Levaquin, DuoNeb treatments, and steroids were initiated for CAP and COPD exac. Some baseline confusion was reported to be typical for pt. He was monitored for signs of heart failure. Diuresis was initiated with IV Lasix. Pharmacy was consulted to manage Coumadin dosing, especially while on Levaquin. PT/OT consulted. 12/06/17 : Transferred to medical floor Steroids converted to oral. INR was 5.08 and Coumadin was held. 12/07/17 Lasix converted to oral. K decreased to 3.7 and KCl was ordered. INR stabilized. 12/08/17 WBC with slight decrease, CXR showing slight improvement. Discontinued Lasix as weight with decrease and BUN/Creatinine with slight increase. ers. 12/09/17 Prednisone weaned to 40 mg daily, O2 needs decreased to 3L. CO2 increased to 35 ; gave Diamox 500mg x1. INR decreased at 1.57 - adjusted per pharm protocol. has made arrangements for skilled care at [facility] at time of discharge. 12/10/17 INR up to 2.05 -- therapeutic. CO2 improved to 29. 12/11/17 : Discharged to skilled care at [place] CXR showing stability. Maintaining saturations on baseline O2 flow. INR therapeutic. Vitals stable. Medically stable for discharge to skilled care at [facility] - patient declined by IRU. Creatinine with slight increase to 1.6. Will hold olmesartan for the next 3 days. Discontinue levofloxacin - completed 7 day course. Continue with Prednisone 40mg daily for 5 days, then could decrease to 20mg daily for 7 days then stop. Continue with Acapella QID to help loosen secretions. Return to home Coumadin dosing. Recheck INR on 12/15 and 12/18 -reports to Dr Ramírez. Further INR orders and warfarin adjustment per PCP. Recheck BMP on 12/15 secondary to medication use. F/U with Dr Ramírez in 1 week. See orders for details. Time spent with patient: discharge greater than 30 minutes Resuscitation Status: Do Not Resuscitate Discharge Plan - Discharge Disposition Discharge Date: 12/11/17 Disposition: 03 [place] SN[place] [facility] [place] *Condition: Stable for Transport Reason For Visit (Visit label in EMR): dyspnea - Discharge Medications *Discharge Medications: New PredniSONE [Deltasone 20 mg] 40 mg PO WB #17 tab Albuterol Neb (0.083%) [Proventil Neb (0.083%)] 2.5 mg AEROSOL RTQID PRN each PRN Reason: Shortness Of Air Albuterol/Ipratropium [Duoneb] 3 ml AEROSOL RTTID each Continue Mv-Min/FA/Vit K/Lycop/Lut/Zeax [Ocuvite Eye Plus Multi Tablet] 1 tab PO DAILY Finasteride [Proscar] 5 mg PO DAILY Carvedilol 12.5 mg PO BID Omeprazole [Prilosec] 20 mg PO BID Losartan [Cozaar] 50 mg PO DAILY Citalopram [Celexa] 20 mg PO DAILY Atorvastatin [Lipitor] 20 mg PO HS Tamsulosin [Flomax] 0.4 mg PO HS Warfarin Sodium 2 mg PO FR Promethazine + Cod Liq [Phenergan + Codeine] 5 ml PO Q4H PRN #100 ml PRN Reason: Cough Melatonin 1 mg PO HS Warfarin Sodium 3 mg PO SUMOTUWETHSA - Discharge Packet/Instructions *Diet: Chopped meats with gravy, regular liquids. No added salt. *Activity: As tolerated. *Pain Management/Treatment: Tylenol as needed for pain. *Wound Care: N/A Additional Instructions: Use Acapella 4 times a day to help breathing. Continue with Prednisone 40mg daily for 5 days, then decrease to 20mg daily for 7 days then stop. Return to home Coumadin dosing. Recheck INR on 12/15 and 12/18 -reports to Dr Ramírez. Further INR orders and warfarin adjustment per PCP. Hold olmesartan for the next 3 days. Recheck BMP on 12/15 secondary to medication use. *Expected Signs/Symptoms: Improvement of functional status. *Notify Physician if: Temp >100.4. Increasing cough, difficulty breathing, or chest pain/pain with breathing. *During Business Hours Contact: Nursing staff at [facility] *After Business Hours Contact: Nursing staff at [facility] *Pending Lab/Results: No Pending Lab - Referrals/Follow Up *Referrals/Follow Up: Sylvain Ramírez MD [Primary Care Provider] - 1 Week - Patient Handouts - Dismissal Complete Discharge Instructions are:: Complete Physician Narrative - Narrative Physician: Cornelio Sandoval MD Attestation Narrative: Date: 12/11/17 Time: 6037 I have independently interviewed and examined patient prior to discharge. See my progress note for details. Medically stable for discharge to Skilled Care.
--- NOTE | 2017-12-11 12:53 | Extended Care Facility Orders ---
Admission Orders Admit to:: Group Home Allergies/Adverse Reactions: Allergies Penicillins Allergy (Unknown, Verified 12/04/17 18:58) lisinopril Adverse Reaction (Unknown, Verified 12/04/17 18:58) COUGH Admitting Diagnosis: dyspnea Admitting Physician: Cornelio Sandoval MD Attending Physician: Dr Ramírez Code Status: Do Not Resuscitate Anticiapted Length of Stay: 30 days or less Rehab Potential: fair Rehab Prognosis: fair Diet: Chopped meat with gravy, regular liquids. No added salt. May use Facility Protocol or Standing Orders: Yes May have flu vaccine: Yes Evaluations/Treatment: PT, OT Group Home Certification: I certify that SNF services are required to be given on an Inpatient basis because of the patients need for retirement care on a continuing basis for the condition(s) for which he/she received inpatient hospital services prior to his/her transfer to the SNF. SNF inpatient care is necessary for the following reasons Indication for Group Home: Med Admininistration, Assess Anticoagulation Therapy, Teach Medication Management, Teach COPD Management, Other (Skilled PT/ OT to maximize functional status) - Additional Information In Event of Arrest: Do Not Start CPR Resident is Aware of Diagnosis: Yes Referrals: Sylvain Ramírez MD [Primary Care Provider] - 1 Week (Hospital follow for pneumonia/dyspnea. ) Additional Orders: HOLD olmasartan for 3 days - START on 12/15/17. Prednisone 40mg daily for 5 days, then decrease to 20mg daily for 7 days then stop. Use Acapella 4 times a day. Patient uses O2 at 2-3L all the time. Will need INR on 12/15/17 and 12/18/17 Dx: warfarin use - results to Dr Ramírez. Further INR ordering per Dr Ramírez. BMP on 12/15/17 Dx: Medication use - results to Dr Ramírez.
== END 2017-12-11 15:25 | DRG 193 ==
LOC: ED 18:17 → EDHOLD 23:46 → SUATTDRO 23:46 → CCU 12-05 00:15 → MED 12-06 12:50
PROVIDERS: ADMIT Emergency Medicine; ATTEND Hospitalist